=== PATIENT | female | born 1960 | race Caucasian/White ===

== ENCOUNTER → 2017-12-13 12:48 | Outpatient (CLI) | payer BC, SELFPAY | PROVIDERS: Family Provider Internal Medicine; PCP Internal Medicine; Visit Provider Internal Medicine | DX: R10.2 Pelvic and perineal pain (principal) | CPT/HCPCS: 76830; 76856; 93976 ==

== ENCOUNTER → 2017-12-20 15:58 | Outpatient (CLI) | payer BC, SELFPAY | PROVIDERS: Family Provider Internal Medicine; PCP Internal Medicine; Visit Provider Obstetrics & Gynecology | DX: R10.2 Pelvic and perineal pain (principal); N89.8 Other specified noninflammatory disorders of vagina | CPT/HCPCS: 87070; 87077; 87086; 87088; 87186; 87205 ==

== ENCOUNTER → 2018-01-12 13:53 | Outpatient (CLI) | payer BC, SELFPAY ==
--- NOTE | 2018-01-12 13:56 | CT_ITS ---
STUDY: CT ABDOMEN AND PELVIS WITH CONTRAST REASON FOR EXAM: Female, 57 years old. Pelvic pain radiating to back. Status post hysterectomy 2009 due to endometriosis. RADIATION DOSAGE (If Supplied By Facility): CTDIvol = ( 20.18 ) mGy, DLP = ( 1055.30 ) mGycm TECHNIQUE: Transaxial 3.75 mm images were obtained from the dome of the diaphragm to the symphysis pubis with oral contrast. 100 ml of Isovue 300 contrast was administered. Sagittal and coronal images were reconstructed. Individualized dose optimization techniques were used for this CT. COMPARISON: CT abdomen pelvis 04/21/2014. Transvaginal transabdominal pelvic ultrasound 12/13/2017. FINDINGS: The visualized lung bases are unremarkable. The visualized portions of the heart are within normal limits. Normal liver. The gallbladder is contracted. Normal spleen. Normal pancreas. Normal bilateral adrenal glands. Normal right kidney. Normal left kidney. There is no obstructive uropathy, obstructive renal or ureteral calculi. Normal visualized stomach. Normal small intestine. Normal colon. There is non-visualization of the appendix. Normal abdominal aorta. Normal inferior vena cava. Normal retroperitoneum. There is prominence of the bilateral internal iliac veins and right greater than left inferior gluteal vein with a focal dilatation from 1.1 to 0.9 cm extending to 1.4 x 1.3 x 1.7 cm ( AP x width x height ). Image 95 series 2, image 88 series 601. Normal urinary bladder. There is absence of the uterus consistent with a prior hysterectomy. Normal abdominal wall. Normal osseous structures. Stable small hemangioma L1 vertebral body. CT/Abdomen/Pelvis WITH Contrast IMPRESSION: Focal venous dilation of the right inferior gluteal vein possibly an incidental finding. Postsurgical changes status post hysterectomy. No pelvic or inguinal pathology detected. Electronically Signed: Alice Cruz MD at 7:39 EDT , Service support ,
== END ==
PROVIDERS: Family Provider Internal Medicine; PCP Internal Medicine; Visit Provider Obstetrics & Gynecology
DX: R10.2 Pelvic and perineal pain (principal); G89.29 Other chronic pain
CPT/HCPCS: 74177; Q9967

== ENCOUNTER → 2018-12-07 | Outpatient (CLI) | payer BC, SELFPAY ==
--- NOTE | 2018-12-07 06:20 | ECHOD_ITS ---
Reason For Study: CHEST PAIN Procedure This was a 2D Doppler, Color Flow transthoracic echocardiogram. Exam performed in department. Left Ventricle Normal size and thickness. The estimated ejection fraction is 65 %. Stage 1 diastolic dysfunction. No regional wall motion abnormalities noted. Right Ventricle Normal size and thickness. Normal systolic function. Atria Normal left atrium. Normal right atrium. Normal atrial septum. Mitral Valve The mitral valve is structurally normal. No prolapse or stenosis seen. Trivial mitral valve insufficiency. Tricuspid Valve Normal tricuspid valve. Trivial tricuspid valve insufficiency. Right ventricular systolic pressure estimated to be 18 mmHg. Aortic Valve Normal aortic valve. Trisinus/trileaflet aortic valve. Pulmonic Valve Normal pulmonic valve. Great Vessels Normal aortic root. Normal arch. Normal inferior vena cava. Inferior vena cava collapse with sniff. Pericardium/Pleural No pericardial effusion. MMode/2D Measurements & Calculations LVIDd: 4.9 cm IVSd: 0.87 cm Ao root diam: 3.3 cm LVIDs: 3.2 cm LVPWd: 1.0 cm RVDd: 3.1 cm FS: 35.2 % LAV(MOD-bp): 47.2 ml EDV(MOD-sp4): 81.4 ml EDV(MOD-sp2): 56.7 ml LAV(MOD-bp) Indexed: 24.4 ml/m2 ESV(MOD-sp4): 36.6 ml EF(MOD-sp2): 60.4 % LAV(MOD-sp2): 45.1 ml EF(MOD-sp4): 55.1 % LAV(MOD-sp4): 47.6 ml SV(MOD-sp4): 44.9 ml SV(MOD-sp2): 34.2 ml LA A4 area: 17.0 cm2 LA dimension(2D): 3.2 cm RA A4 area: 15.7 cm2 Time Measurements MV dec time: 0.23 sec Doppler Measurements & Calculations MV E max dylan: 49.7 cm/sec Lat Peak E' Dylan: 7.5 cm/sec Med Peak E' Dylan: 4.3 cm/sec MV A max dylan: 47.4 cm/sec E/E' lat: 6.6 E/E' med: 11.5 MV E/A: 1.0 Ao V2 max: 97.2 cm/sec LV V1 max: 90.1 cm/sec PA V2 max: 76.4 cm/sec Ao max P.8 mmHg LV V1 max P.2 mmHg TR max dylan: 187.8 cm/sec TR max P.1 mmHg Interpretation Summary The estimated ejection fraction is 65 %. Stage 1 diastolic dysfunction. Trivial mitral valve insufficiency. Trivial tricuspid valve insufficiency. Right ventricular systolic pressure estimated to be 18 mmHg. There is no comparison study available. Ordering Physician: Tara Diaz Referring Physician: Tara Diaz Performed By: Vanessa Rubio RDCS, RVT
--- NOTE | 2018-12-10 11:54 | STRESSREP ---
Stress Test Report Date: 12/07/2018 Procedure: Exercise tolerance test/imaging study Indications: [Chest pain] Consent: Per the patient Procedure: The patient exercised on a Dilshad protocol for 8 minutes achieving a peak heart rate of 153 bpm (94 % predicted maximal heart rate) with a peak blood pressure 170/80 mmHg and a peak MET capacity of 10.1 METs. The baseline ECG demonstrated normal sinus rhythm. The peak exercise ECG demonstrated sinus tachycardia with no significant gimmick changes. EKG during recovery revealed no significant ischemic changes [There were no cardiac dysrhythmias pretest, during exercise, or recovery]. The functional capacity was considered normal for age. There was [no complaint of chest discomfort during exercise or recovery]. The examination was discontinued secondary to dyspnea. Impression: 1. Technically adequate (percent predicted maximal heart rate greater than 85%) exercise tolerance test 2. Stress test is negative for exercise-induced EKG changes of ischemia 3. The test test is negative for exercise-induced chest pain 4. Functional capacity is normal for age 5. Nuclear images pending Myocardial perfusion imaging study: Technique: The patient was injected with 11.8 mCi of technetium 99m Cardiolite and subsequently rest SPECT Cardiolite nuclear imaging was obtained in the horizontal long, vertical long, and short axis views. The patient exercised on a Dilshad protocol. Please see above for details. The patient was injected with 33.9 mCi of technetium 99m Cardiolite and subsequently stress SPECT Cardiolite nuclear imaging was obtained in the horizontal long, vertical long, and short axis views. A gated Cardiolite study at peak stress was obtained. Interpretation: Rest and stress SPECT Cardiolite nuclear imaging status post realignment, normalization, and attenuation correction, demonstrates overall uniform myocardial radioisotope uptake. The gated Cardiolite study demonstrates no significant regional wall motion abnormalities. The reported LVEF is greater than 70 %. Impression: 1. There is no evidence of significant ischemia or infarction. 2. The gated Cardiolite study reports an LVEF of greater than 70%. This note was generated with [employer] software. It may contain incorrect words, spelling, and punctuation that were not noted in checking the note before signing.
== END | disposition home or self-care (01) ==
PROVIDERS: Family Provider Internal Medicine; PCP Internal Medicine; Referring Provider Internal Medicine; Visit Provider Internal Medicine
DX: R07.9 Chest pain, unspecified (principal)
CPT/HCPCS: 78452; 93017; 93306; A9500; A4216

== ENCOUNTER → 2018-12-28 | Outpatient (CLI) | payer SELFPAY ==
--- NOTE | 2018-12-28 12:52 | CT_ITS ---
STUDY: CARDIAC CALCIUM SCORING - CT CHEST REASON FOR EXAM: Female, 58 years old. Screening RADIATION DOSAGE (If Supplied By Facility): CTDIvol = ( 12.19 ) mGy, DLP = ( 195.04 ) mGycm TECHNIQUE: Axial non-enhanced images were acquired through the heart for the sole purpose of measuring coronary artery calcium. Individualized dose optimization techniques were used for this CT. COMPARISON: None. FINDINGS: Please see the patient's medical record for a personalized calcium score. There is a 4 mm nodule in the right lower lobe (image 41 series 3). The visualized lungs are otherwise clear. The visualized soft tissues are within normal limits. CT/Limited Chest CT w/CCTA IMPRESSION: Please see the patient's medical record for a person last calcium score. 4 mm nodule in the right lower lobe. A dedicated chest CT is recommended. Please go to: [email or web address] , for a description of the calculator. Electronically Signed: Thang Catsellano, at 14:43 EDT Tel , Service support ,
--- NOTE | 2018-12-28 15:21 | CA.SCORE ---
Calcium Scoring Date of Study:: 12/28/18 Coronary Calcium Scoring: High-resolution Computed Tomographic imaging of the chest was performed on [12/28/2018], with particular attention paid to the coronary arteries. Images from the examination were analyzed for the presence and extent of coronary artery calcification , using coronary calcium quantification software. The patient tolerated the procedure well and there were no complications. The results of the coronary calcification analysis are provided below. - Findings Left Main (LM): 0 Left Anterior Descending (LAD): 0 Left Circumflex (LCX): 0 Right Coronary Artery (RCA): 0 Total Agatston Score: 0 Percentile Rankin Calcium Scoring Interpretation: 0 No identifiable atherosclerotic plaque. Very low cardiovascular disease risk. <5% chance of presence coronary artery disease A Negative Examination 1-10 Minimal Plaque burden. Significant coronary artery disease very unlikely. 11-100 Mild plaque burden. Likely mild or minimal coronary atherosclerosis. 101-400 Moderate plaque burden Moderate non-obstructive coronary artery disease highly likely. Over 400 Extensive plaque burden. High likelihood of at least one significant coronary stenosis (>50% diameter) Conclusion: The total calcium score (0) is below the 25th percentile for women between the ages of 55 and 59. (Exact percentile calculated to be 25%; this means 24% of the population has a similar calcium score and 75% of the population has a higher calcium score than this patient.) A full evaluation of cardiac risk including assessment of all conventional risk factors, and the scores and percentile rankings reported herein should be evaluated in this context.
== END | disposition home or self-care (01) ==
PROVIDERS: Family Provider Internal Medicine; PCP Internal Medicine; Referring Provider Internal Medicine; Visit Provider Internal Medicine
DX: Z82.49 Family history of ischemic heart disease and other diseases of the circulatory system (principal)
CPT/HCPCS: 75571; 76380

== ENCOUNTER → 2019-10-30 08:57 | Outpatient (CLI) | payer BC, SELFPAY ==
--- NOTE | 2019-10-30 09:01 | BI_ITS ---
MAMMOGRAPHY - BILATERAL SCREENING REASON FOR EXAM: Female, 59 years old. Routine annual screening examination. PERTINENT HISTORY: Aunts with breast cancer. TECHNIQUE: Digital bilateral breast jyoti (3D mammographic acquisition) in the CC and MLO projections. 2-D mediolateral oblique (MLO) and craniocaudad (CC) views of both breasts were obtained. CAD: Full Field Digital Mammography with Computer Added Detection was performed. COMPARISON: Comparison is made with prior examination dated October 23, 2017 and February 26, 2016. FINDINGS: Breast Composition: There are scattered areas of fibroglandular density. There are no dominant masses or suspicious calcifications. Stable small benign-appearing bilateral axillary lymph nodes. No other significant abnormalities are identified. There has been no significant change since the prior study. BI/SCREEN MAMM (CAD) W/JYOTI BILAT IMPRESSION: Stable bilateral screening mammogram. Yearly follow-up mammogram recommended. (A) ASSESSMENT CATEGORY: BIRADS Category 2: Benign. A letter regarding these results will be sent to the patient by the facility within 30 days. Approximately 10% of breast cancers are not detected by mammography. A normal mammogram should not delay biopsy of a clinically suspicious abnormality. [id number] Electronically Signed: Charles Bucio, at 10:05 EDT , Service support ,
--- NOTE | 2019-10-30 09:20 | BD_ITS ---
STUDY: DUAL ENERGY X-RAY ABSORPTIOMETRY / DXA REASON FOR EXAM: Female, 59 years old. 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 COMPARISON: None. FINDINGS: Lumbar Spine (L1-L4): g/cm2 (1.309) / T-score (1.1) / Z-score (2.2) Findings are suggestive of normal bone density with a low fracture risk. Left Femur Total: g/cm2 (0.944) / T-score (-0.5) / Z-score (0.4) Left Femoral Neck: g/cm2 (0.869) / T-score (-1.2) / Z-score (0.0) Right Femur Total: g/cm2 (0.926) / T-score (-0.7) / Z-score (0.2) Right Femoral Neck: g/cm2 (0.827) / T-score (-1.5) / Z-score (-0.3) BD/Dexa Bone Density Study IMPRESSION: The patient is considered osteopenic as outlined below according to World Adam Organization (WHO) criteria with a low fracture risk. Reference Information: The T-score is the number of standard deviations above or below the standard which is normal for young adults at their peak bone mineral density. The World Health Organization (WHO) interprets the T-scores as follows: Above -1 Normal bone density Between -1 and -2.5 Osteopenia Equal to / or below -2.5 Osteoporosis As a practical clinical guideline, osteopenia may be graded as follows: Mild -1 through -1.5 Moderate -1.6 through -2.0 Severe -2.1 through -2.4 The Z-score is the number of standard deviations above or below age-matched controls. A Z-score of less than -1.5 would be considered abnormal. References: 1. NIH Osteoporosis and Related Bone Diseases http://www.osteo.org 2. International Society for Clinical Densitometry http://www.iscd.org 3. National Osteoporosis Foundation http://www.nof.org Electronically Signed: Charles Bucio, at 13:24 EDT , Service support ,
== END ==
PROVIDERS: PCP Internal Medicine; Referring Provider Internal Medicine; Visit Provider Internal Medicine
DX: Z12.31 Encounter for screening mammogram for malignant neoplasm of breast (principal); Z78.0 Asymptomatic menopausal state
CPT/HCPCS: 77063; 77067; 77080

== ENCOUNTER → 2020-11-06 07:21 | Outpatient (CLI) | payer BC, SELFPAY ==
--- NOTE | 2020-11-06 07:33 | BI_ITS ---
MAMMOGRAPHY - BILATERAL SCREENING REASON FOR EXAM: Female, 60 years old. Routine annual screening examination. PERTINENT HISTORY: Non-contributory. TECHNIQUE: Digital bilateral breast jyoti (3D mammographic acquisition) in the CC and MLO projections. 2-D mediolateral oblique (MLO) and craniocaudad (CC) views of both breasts were obtained. CAD: Full Field Digital Mammography with Computer Added Detection was performed. COMPARISON: Comparison is made with prior study dated 10/30/2019 and 04/25/2017. FINDINGS: Breast Composition: There are scattered areas of fibroglandular density. There are no dominant masses or suspicious calcifications. Stable benign-appearing bilateral axillary lymph nodes. No other significant abnormalities are identified. There has been no significant change since the prior study. BI/SCRN MAMM (CAD)W/JYOTI BILAT IMPRESSION: Stable bilateral screening mammogram. Yearly follow-up mammogram recommended. (A) ASSESSMENT CATEGORY: BIRADS Category 2: Benign. A letter regarding these results will be sent to the patient by the facility within 30 days. Approximately 10% of breast cancers are not detected by mammography. A normal mammogram should not delay biopsy of a clinically suspicious abnormality. [id number] Electronically Signed: Charles Bucio MD at 8:19 EDT , Service support ,
== END ==
PROVIDERS: PCP Internal Medicine; Referring Provider Internal Medicine; Visit Provider Internal Medicine
DX: Z12.31 Encounter for screening mammogram for malignant neoplasm of breast (principal)
CPT/HCPCS: 77063; 77067

== ENCOUNTER → 2022-01-05 | Outpatient (CLI) | payer BC, SELFPAY ==
--- NOTE | 2022-01-05 07:10 | BI_ITS ---
MAMMOGRAPHY - BILATERAL SCREENING REASON FOR EXAM: Female, 61 years old. Routine annual screening examination. PERTINENT HISTORY: Non-contributory. TECHNIQUE: Digital bilateral breast jyoti (3D mammographic acquisition) in the CC and MLO projections. 2-D mediolateral oblique (MLO) and craniocaudad (CC) views of both breasts were obtained. CAD: Full Field Digital Mammography with Computer Added Detection was performed. COMPARISON: Comparison is made with prior study dated 11/06/2020 and 10/30/2019. FINDINGS: Breast Composition: There are scattered areas of fibroglandular density. There are no dominant masses or suspicious calcifications. No other significant abnormalities are identified. There has been no significant change since the prior study. BI/SCRN MAMM (CAD)W/JYOTI BILAT IMPRESSION: Stable bilateral screening mammogram. Yearly follow-up mammogram recommended. (A) ASSESSMENT CATEGORY: BIRADS Category 1: Negative. A letter regarding these results will be sent to the patient by the facility within 30 days. Approximately 10% of breast cancers are not detected by mammography. A normal mammogram should not delay biopsy of a clinically suspicious abnormality. [id number] Electronically Signed: Charles Bucio MD at 8:39 EDT ,
== END | disposition home or self-care (01) ==
LOC: OPBI 07:08
PROVIDERS: PCP Internal Medicine; Referring Provider Internal Medicine; Visit Provider Internal Medicine
DX: Z12.31 Encounter for screening mammogram for malignant neoplasm of breast (principal)
CPT/HCPCS: 77063; 77067

== ENCOUNTER → 2023-02-17 | Outpatient (CLI) | payer BC, SELFPAY ==
--- NOTE | 2023-02-17 07:59 | BI_ITS ---
MAMMOGRAPHY - BILATERAL SCREENING REASON FOR EXAM: Female, 62 years old. Routine annual screening examination. PERTINENT HISTORY: Non-contributory. TECHNIQUE: Digital bilateral breast jyoti (3D mammographic acquisition) in the CC and MLO projections. 2-D mediolateral oblique (MLO) and craniocaudad (CC) views of both breasts were obtained. CAD: Full Field Digital Mammography with Computer Added Detection was performed. COMPARISON: Comparison is made with prior study January 05, 2022 and November 06, 2020. FINDINGS: Breast Composition: There are scattered areas of fibroglandular density. There are no dominant masses or suspicious calcifications. Stable small benign-appearing bilateral axillary lymph nodes. No other significant abnormalities are identified. There has been no significant change since the prior study. BI/SCRN MAMM (CAD)W/JYOTI BILAT IMPRESSION: Stable bilateral screening mammogram. Yearly follow-up mammogram recommended. (A) ASSESSMENT CATEGORY: BIRADS Category 2: Benign. A letter regarding these results will be sent to the patient by the facility within 30 days. Approximately 10% of breast cancers are not detected by mammography. A normal mammogram should not delay biopsy of a clinically suspicious abnormality. [id number] Electronically Signed: Charles Bucio MD at 9:01 EDT ,
== END | disposition home or self-care (01) ==
LOC: OPBI 07:58
PROVIDERS: PCP Internal Medicine; Referring Provider Internal Medicine; Visit Provider Internal Medicine
DX: Z12.31 Encounter for screening mammogram for malignant neoplasm of breast (principal)
CPT/HCPCS: 77063; 77067

== ENCOUNTER → 2023-05-18 | Outpatient (CLI) | payer BC, SELFPAY ==
--- NOTE | 2023-05-18 08:15 | BD_ITS ---
STUDY: DUAL ENERGY X-RAY ABSORPTIOMETRY / DXA REASON FOR EXAM: Female, 62 years old. [id number] TECHNIQUE: Bone Mineral Density (BMD) measurements of lumbar spine and bilateral hips were obtained. COMPARISON: Comparison is made with prior examination of October 30, 2019. FINDINGS: Lumbar Spine (L1-L4): g/cm2 (1.107) / T-score (0.5) / Z-score (2.2) Findings are suggestive of normal bone density with a low fracture risk. Left Femur Total: g/cm2 (0.873) / T-score (-0.6) / Z-score (0.5) Left Femoral Neck: g/cm2 (0.758) / T-score (-0.8) / Z-score (0.6) Right Femur Total: g/cm2 (0.848) / T-score (-0.8) / Z-score (0.3) Right Femoral Neck: g/cm2 (0.701) / T-score (-1.3) / Z-score (0.1) The T-Scores on the most recent prior examination were: Lumbar Spine (L1-L4): There has been worsening of bone density since the previous examination. Left Femur Total: which represents a worsening of 0.7%. Right Femur Total: which represents a worsening of 1.6%. BD/Dexa Bone Density Study IMPRESSION: The patient is considered osteopenic as outlined below according to World [employer] Organization (WHO) criteria with a low fracture risk. There has been worsening of bone density since the previous examination. Reference Information: The T-score is the number of standard deviations above or below the standard which is normal for young adults at their peak bone mineral density. The World Health Organization (WHO) interprets the T-scores as follows: Above -1 Normal bone density Between -1 and -2.5 Osteopenia Equal to / or below -2.5 Osteoporosis As a practical clinical guideline, osteopenia may be graded as follows: Mild -1 through -1.5 Moderate -1.6 through -2.0 Severe -2.1 through -2.4 The Z-score is the number of standard deviations above or below age-matched controls. A Z-score of less than -1.5 would be considered abnormal. References: 1. NIH Osteoporosis and Related Bone Diseases www osteo.org 2. International Society for Clinical Densitometry www iscd.org 3. National Osteoporosis Foundation www nof.org Electronically Signed: Charles Bucio MD at 10:08 EST ,
--- OUTSIDE RECORDS SUMMARY | 2023-05-18 08:39 | XMS RPT_ITS | CCD ---
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 Name Role Phone Tara Diaz Unavailable Elva Serna Unavailable Rebecca Casey Unavailable Mikaela Gallego Unavailable Hector Sams Unavailable Kelly Sellers Unavailable Unavailable Kurtis Cortés Unavailable Unavailable Paige Jordan Unavailable Unavailable Unavailable Unavailable GravHilary villanuevain Unavailable Unavailable Kurtis Cortés Unavailable Unavailable Paige Jordan Unavailable Unavailable Kelly Sellers Unavailable Unavailable Tara Diaz Primary Care Provider Tara Diaz Primary Care Provider [phone] Rebecca Casey Unavailable Kurtis Portillo Unavailable Unavailable Tara Diaz Primary Care Provider Marychuy Helene Unavailable SlaRachel dumont Unavailable Unavailable Tara Diaz DO Unavailable Elva Serna Unavailable Rebecca Casey Unavailable Dr. Mikaela Gallego MD Unavailable [phone] Hector Sams Unavailable Kurtis Portillo LPN Unavailable Unavailable Ev Miranda CMA Unavailable Unavailable Paige Jordan RN Unavailable Unavailable Messenger Kelly PABLO Unavailable Unavailable Ciobinna PANDEY Helene Unavailable Unavailable Unavailable Desmond Gonzalez Unavailable Yony RAMSEYCarlota Unavailable Unavailable Gala DO, Tara K Primary Care Provider Gala DO, Tara Unavailable [phone] Slarb DIRECTOR BIOLOGICS, Rachel Unavailable Unavailable Gala, Atra Unavailable Juan David, Florencia Unavailable Unavailable Gala DO, Tara K Primary Care Provider Naun DIRECTOR BIOLOGICS, Florencia Unavailable Unavailable Gala DO, Tara Attending Unavailable Gala DO, Tara Referring Unavailable Gala DO, Tara Consulting Unavailable Trinidad RAMSEYRuba Unavailable Unavailable Gala DO, Tara K Primary Care Provider LUIS SHEARER Attending Unavailable GALA, TARA K Primary Care Unavailable Mission DIRECTOR BIOLOGICS, Beto Unavailable Unavailable GALA, TARA K Primary Care Unavailable DAY, PEYTON GILLETTE Referring Unavailable GALA, TARA K Primary Care Unavailable DAY, PEYTON GILLETTE Attending Unavailable LEANDRO CHANCE Attending Unavailable GALA, TARA K Primary Care Unavailable Allergies Allergy Classification Reported Allergen(s) Allergy Type Date of Onset Reaction(s) Facility HMG-CoA Reductase Inhibitors (statins) (5 sources) Pravastatin; Translations: [Pravastatin Sodium *ANTIHYPERLIPIDE MICS*] Drug Allergy [facility] Work Phone: Medications Current Medications Medication Drug Class(es) Dates Sig (Normalized) Sig (Original) ascorbic acid 500 mg oral tablet (16 sources) Vitamin C take 1 tablet by mouth once daily ascorbic acid, vitamin C, (VITAMIN C) 500 MG tablet Take 1 (one) tablet (500 mg total) by mouth daily . 0 Active aspirin 81 mg chewable tablet (3 sources) Platelet Aggregation Inhibitor, Nonsteroidal Anti-inflammatory Drug Start: 11-05-2019 End: 12-06-2019 aspirin 81 mg chewable tablet Chew and Swallow 1 (one) tablet (81 mg total) daily Start: 11/06/19. 30 tablet 0 11/06/2019 12/06/2019 Active ezetimibe 10 mg oral tablet (20 sources) Dietary Cholesterol Absorption Inhibitor Start: 10-29-2021 End: 02-13-2023 take 1 tablet by mouth once daily ezetimibe (ZETIA) 10 mg tablet Take 1 (one) tablet (10 mg total) by mouth daily . 90 tablet 3 02/13/2023 Active Completed/Discontinued Medications Medication Drug Class(es) Dates Sig (Normalized) Sig (Original) amoxicillin 875 mg oral tablet (20 sources) Penicillin-class Antibacterial Start: 04-12-2016 End: 04-22-2016 take 1 tablet by mouth twice daily Amoxicillin 875 MG Oral Tablet 1 (one) Tablet bid for 10 days Quantity: 20 {Tablet} Refills: 0 Ordered: 12-Apr-2016 Franci Antunez CMA Start : 12-Apr-2016 End : 22-Apr-2016 Inactive amoxicillin 500 mg / clavulanate 125 mg oral tablet (20 sources) Penicillin-class Antibacterial Start: 04-15-2020 End: 04-25-2020 take 1 tablet by mouth twice daily Augmentin 500-125 MG Oral Tablet 1 (one) Tablet bid for 10 days Quantity: 20 {Tablet} Refills: 0 Ordered: 15-Apr-2020 Myrtle Perrin Start : 15-Apr-2020 End : 25-Apr-2020 Inactive Comments: or generic Problems Active Problems Problem Classification Problem Date Documented Da te Episodic/Chronic Abdominal pain (20 sources) Pain in female pelvis; Translations: [Pain in pelvis] Resolved: 07-23-2021 12-11-2017 Episodic Past or Other Problems Problem Classification Problem Date Documented Da te Episodic/Chronic Cardiac dysrhythmias (20 sources) Palpitations; Translations: [Palpitations] Onset: 12-04-2019 12-04-2019 Episodic Fracture of lower limb (4 sources) Closed fracture distal tibia; Translations: [Unspecified fracture of ankle, closed] Onset: 08-20-2022 Resolved: 10-07-2021 10-07-2021 Episodic Fracture of lower limb (1 source) Closed fracture of distal fibula ; Translations: [Unspecified fracture of ankle, closed] Resolved: 10-07-2021 10-07-2021 Episodic Mood disorders (20 sources) Mood disorders Nonspecific chest pain (20 sources) Cardiac chest pain; Translations: [Chest pain] Onset: 09-22-2021 11-21-2018 Episodic Results Test Name Value Interpretation Reference Range Facil ity Vital Signs Date Time Vital Sign Value Performing Clinician Facility 02-20-2023 08:47-0400 Body height 172.7 cm Peyton Day MD Work Phone: [facility] 02-20-2023 08:47-0400 Body mass index (BMI) [Ratio] 28.8 kg/m2 Peyton Jones MD Work Phone: [facility] 02-20-2023 08:47-0400 Body weight 85.91 kg Peyton Jones MD Work Phone: [facility] 02-20-2023 08:47-0400 Diastolic blood pressure 79 mm[Hg] Peyton Jones MD Work Phone: [facility] 02-20-2023 08:47-0400 Heart rate 63 /min Peyton Jones MD Work Phone: [facility] 02-20-2023 08:47-0400 SaO2% (BldA) [Mass fraction] 96 % Peyton Jones MD Work Phone: [facility] 02-20-2023 08:47-0400 Systolic blood pressure 120 mm[Hg] Peyton Jones MD Work Phone: [facility] 02-25-2022 12:51-0400 Body height 172.72 cm Tara Diaz DO Work Phone: [facility] Work Phone: Encounters Encounter Date Encounter Type Care Provider Facility Start: 03-31-2023 Refill Peyton martinez MD Work Phone: [facility] Procedures Date Procedure Procedure Detail Performing Clinician Start: 02-17-2023 End: 02-17-2023 SCRN MAMM (CAD)W/JYOTI BILAT Procedure Note: See Note; NOTES: [facility] Imaging Services [address] [place] [address] SCRN MAMM (CAD)W/JYOTI BILAT MR#: [id number] Acct: [id number] Name: EMELIA BLUM Rep #: [id number] : 1960 F 62 From: Charles pennington MD PCP: Dr. Tara Diaz, DO Status: REG CLI Study: SCRN MAMM (CAD)W/JYOTI BILAT Date of Exam: 01/23 11/13 Exam# [id number] Ordering Dr: Tara Diaz DO [id number] MAMMOGRAPHY - BILATERAL SCREENING REASON FOR EXAM: Female, 62 years old. Routine annual screening examination. PERTINENT HISTORY: Non-contributory. TECHNIQUE: Digital bilateral breast jyoti (3D mammographic acquisition) in the CC and MLO projections. 2-D mediolateral oblique (MLO) and craniocaudad (CC) views of both breasts were obtained. CAD: Full Field Digital Mammography with Computer Added Detection was performed. COMPARISON: Comparison is made with prior study January 05, 2022 and November 06, 2020. FINDINGS: Breast Composition: There are scattered areas of fibroglandular density. There are no dominant masses or suspicious calcifications. Stable small benign-appearing bilateral axillary lymph nodes. No other significant abnormalities are identified. There has been no significant change since the prior study. BI/SCRN MAMM (CAD)W/JYOTI BILAT IMPRESSION: Stable bilateral screening mammogram. Yearly follow-up mammogram recommended. (A) ASSESSMENT CATEGORY: BIRADS Category 2: Benign. A letter regarding these results will be sent to the patient by the facility within 30 days. Approximately 10% of breast cancers are not detected by mammography. A normal mammogram should not delay biopsy of a clinically suspicious abnormality. [id number] Electronically Signed: Charles Bucio MD at 9:01 EDT , CC: Dr. Tara Diaz DO Cardiopulmonary Technologist: Signed Tara Diaz DO Work Phone: Start: 01-05-2022 End: 01-05-2022 SCRN MAMM (CAD)W/JYOTI BILAT Procedure Note: See Note; NOTES: [facility] Imaging Services [address] [place] [address] SCRN MAMM (CAD)W/JYOTI BILAT MR#: [id number] Acct: [id number] Name: EMELIA BLUM Rep #: [id number] : 1960 F 61 From: Charles pennington MD PCP: Dr. Tara Diaz DO Status: REG CLI Study: SCRN MAMM (CAD)W/JYOTI BILAT Date of Exam: 12/23 08/13 Exam# [id number] Ordering Dr: Tara Diaz DO MAMMOGRAPHY - BILATERAL SCREENING REASON FOR EXAM: Female, 61 years old. Routine annual screening examination. PERTINENT HISTORY: Non-contributory. TECHNIQUE: Digital bilateral breast jyoti (3D mammographic acquisition) in the CC and MLO projections. 2-D mediolateral oblique (MLO) and craniocaudad (CC) views of both breasts were obtained. CAD: Full Field Digital Mammography with Computer Added Detection was performed. COMPARISON: Comparison is made with prior study dated 11/06/2020 and 10/30/2019. FINDINGS: Breast Composition: There are scattered areas of fibroglandular density. There are no dominant masses or suspicious calcifications. No other significant abnormalities are identified. There has been no significant change since the prior study. BI/SCRN MAMM (CAD)W/JYOTI BILAT IMPRESSION: Stable bilateral screening mammogram. Yearly follow-up mammogram recommended. (A) ASSESSMENT CATEGORY: BIRADS Category 1: Negative. A letter regarding these results will be sent to the patient by the facility within 30 days. Approximately 10% of breast cancers are not detected by mammography. A normal mammogram should not delay biopsy of a clinically suspicious abnormality. [id number] Electronically Signed: Charles Bucio MD at 8:39 EDT , CC: Dr. Tara Diaz DO Cardiopulmonary Technologist: Signed Tara Diaz DO Work Phone: Start: 05-26-2021 End: 05-26-2021 Abdomen Single View Comments: See Note; NOTES: [facility] Radiology [address] [place] [address] Abdomen Single View MR#: [id number] Acct: [id number] Name: EMELIA BLUM Rep #: [id number] : 1960 F 60 From: Charles pennington MD PCP: Dr. Tara Diaz, Status: DEP AMB Study: Abdomen Single View Date of Exam: 05/26/21 Exam# [id number] Ordering Dr: Myrtle Perrin NP PARACHUTE OFFICER-C STUDY: X-RAY - ABDOMEN/PELVIS REASON FOR EXAM: Female, 60 years old. LOWER ABDOMINAL PAIN TECHNIQUE: Single AP view of the abdomen / pelvis. COMPARISON: None. FINDINGS: Normal visualized lung bases. There is a moderate amount of colonic fecal material. The visualized liver, spleen and kidneys are grossly normal in size and morphology. Normal soft tissue structures. Normal visualized osseous structures. RAD/Abdomen Single View IMPRESSION: Moderate amount of fecal material is seen throughout the colon. Electronically Signed: Charles Bucio MD at 13:02 EST Reading Location ID and State: [facility] / [place] , Service support , CC: AMARJIT Perrin; Dr. Tara Diaz DO Cardiopulmonary Technologist: Signed Myrtle Lindergamagerardo Work Phone: Start: 11-06-2020 End: 11-06-2020 SCRN MAMM (CAD)W/JYOTI BILAT Comments: See Note; NOTES: [facility] Imaging Services [address] [place] [address] SCRN MAMM (CAD)W/JYOTI BILAT MR#: [id number] Acct: [id number] Name: EMELIA BLUM Rep #: [id number] : 1960 F 60 From: Charles pennington MD PCP: Dr. Tara Diaz DO Status: REG CLI Study: SCRN MAMM (CAD)W/JYOTI BILAT Date of Exam: 10/22 10/12 Exam# [id number] Ordering Dr: Tara Diaz DO MAMMOGRAPHY - BILATERAL SCREENING REASON FOR EXAM: Female, 60 years old. Routine annual screening examination. PERTINENT HISTORY: Non-contributory. TECHNIQUE: Digital bilateral breast jyoti (3D mammographic acquisition) in the CC and MLO projections. 2-D mediolateral oblique (MLO) and craniocaudad (CC) views of both breasts were obtained. CAD: Full Field Digital Mammography with Computer Added Detection was performed. COMPARISON: Comparison is made with prior study dated 10/30/2019 and 04/25/2017. FINDINGS: Breast Composition: There are scattered areas of fibroglandular density. There are no dominant masses or suspicious calcifications. Stable benign-appearing bilateral axillary lymph nodes. No other significant abnormalities are identified. There has been no significant change since the prior study. BI/SCRN MAMM (CAD)W/JYOTI BILAT IMPRESSION: Stable bilateral screening mammogram. Yearly follow-up mammogram recommended. (A) ASSESSMENT CATEGORY: BIRADS Category 2: Benign. A letter regarding these results will be sent to the patient by the facility within 30 days. Approximately 10% of breast cancers are not detected by mammography. A normal mammogram should not delay biopsy of a clinically suspicious abnormality. [id number] Electronically Signed: Charles Bucio MD at 8:19 EDT , Service support , CC: Dr. Tara Diaz DO Cardiopulmonary Technologist: Signed Tara Diaz DO Work Phone: Start: 09-11-2020 End: 09-11-2020 HIP, UNI W/ Pelvis 2-3 Views Comments: See Note; NOTES: [facility] Radiology [address] [place] [address] HIP, UNI W/ Pelvis 2-3 Views MR#: [id number] Acct: [id number] Name: EMELIA BLUM Rep #: [id number] : 1960 F 60 From: Dominik Angela PCP: Dr. Tara Diaz DO Status: DEP AMB Study: HIP, UNI W/ Pelvis 2-3 Views Date of Exam: Exam# [id number] Ordering Dr: Tara Diaz DO STUDY: X-RAY - PELVIS AND RIGHT HIP REASON FOR EXAM: Right hip pain for about 2 years, no recent injury. TECHNIQUE: 2 views of the pelvis and hip. COMPARISON: None. FINDINGS: There are small pelvic phleboliths. Normal bilateral iliac wings, sacroiliac joints and visualized sacrum. Normal bilateral superior and inferior pubic rami. Normal pubic symphysis. Normal bilateral ischial tuberosities. Normal visualized femoral head. Normal acetabulum. Normal hip joint. RAD/HIP, UNI W/ Pelvis 2-3 Views IMPRESSION: Normal x-ray examination of the pelvis and right hip. Electronically Signed: Dominik Gao MD at 11:31 EDT Tel , Service support , CC: Dr. Tara Diaz, Cardiopulmonary Technologist: Signed Tara Diaz DO Work Phone: Start: 11-12-2019 End: 11-12-2019 Colonoscopy Tara Diaz Work Phone: Start: 11-05-2019 Urinalysis Minerva Hardin Work Phone: Start: 11-05-2019 Echocardiography Parmjit Amezcua Work Phone: Start: 11-05-2019 Electrocardiogram Provider Not In System Start: 11-05-2019 C reactive protein [Mass/volume] in Serum or Plasma Minerva Hardin Work Phone: Start: 11-05-2019 Erythrocyte sedimentation rate by Westergren method Minerva Hardin Work Phone: Start: 11-05-2019 Magnesium [Mass/volume] in Serum or Plasma Minerva Hardin Work Phone: Start: 11-05-2019 Thyrotropin [Units/volume] in Serum or Plasma by Detection limit <= 0.005 mIU/L Minerva Hardin Work Phone: Start: 11-05-2019 Basic metabolic 2000 panel - Serum or Plasma Parmjit Amezcua Work Phone: Start: 11-05-2019 Troponin measurement Parmjit Amezcua Work Phone: Start: 11-04-2019 Natriuretic peptide.B prohormone N-Terminal [Mass/volume] in Serum or Plasma Parmjit Amezcua Work Phone: Start: 11-04-2019 Troponin measurement Parmjit Amezcua Work Phone: Start: 11-04-2019 COVID-19, MOLECULAR Greer CedilloManav Copesherrirenee Work Phone: Start: 11-04-2019 Radiologic exam chest single view Greerthalia Smith Work Phone: Start: 11-04-2019 12 lead ECG Aileen Jaime Work Phone: Start: 11-04-2019 Complete blood count with white cell differential, automated Greerthalia Smith Work Phone: Start: 11-04-2019 Complete blood count with white cell differential, manual Greerdavid Copeearnest Work Phone: Start: 11-04-2019 Comprehensive metabolic 2000 panel - Serum or Plasma Greer Iram Smith Work Phone: Start: 11-04-2019 VELA TOP Aileen Jaime Work Phone: Start: 11-04-2019 INR in Platelet poor plasma by Coagulation assay Greer CedilloManav Smith Work Phone: Start: 11-04-2019 LAVENDER TOP Aileen Jaime Work Phone: Start: 11-04-2019 LIGHT BLUE TOP Aileen Dent Addison Work Phone: Start: 11-04-2019 MINT GREEN TOP Aileen Jaime Work Phone: Start: 11-04-2019 RAINBOW DRAW Aileen Dent Addison Work Phone: Start: 11-04-2019 Troponin measurement Greer Mahansherrirenee Work Phone: Start: 10-30-2019 End: 10-30-2019 Dexa Bone Density Study Comments: See Note; NOTES: [facility] Imaging Services [address] [place] [address] [place] [address] Dexa Bone Density Study MR#: [id number] Acct: [id number] Name: MEELIA BLUM Rep #: [id number] : 1960 F 59 From: Charles pennington MD PCP: Dr. Tara Diaz, Status: REG CLI Study: Dexa Bone Density Study Date of Exam: 10/30/19 Exam# [id number] Ordering Dr: Tara Diaz DO STUDY: DUAL ENERGY X-RAY ABSORPTIOMETRY / DXA REASON FOR EXAM: Female, 59 years old. 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 COMPARISON: None. FINDINGS: Lumbar Spine (L1-L4): g/cm2 (1.309) / T-score (1.1) / Z-score (2.2) Findings are suggestive of normal bone density with a low fracture risk. Left Femur Total: g/cm2 (0.944) / T-score (-0.5) / Z-score (0.4) Left Femoral Neck: g/cm2 (0.869) / T-score (-1.2) / Z-score (0.0) Right Femur Total: g/cm2 (0.926) / T-score (-0.7) / Z-score (0.2) Right Femoral Neck: g/cm2 (0.827) / T-score (-1.5) / Z-score (-0.3) BD/Dexa Bone Density Study IMPRESSION: The patient is considered osteopenic as outlined below according to World Adam Organization (WHO) criteria with a low fracture risk. Reference Information: The T-score is the number of standard deviations above or below the standard which is normal for young adults at their peak bone mineral density. The World Health Organization (WHO) interprets the T-scores as follows: Above -1 Normal bone density Between -1 and -2.5 Osteopenia Equal to / or below -2.5 Osteoporosis As a practical clinical guideline, osteopenia may be graded as follows: Mild -1 through -1.5 Moderate -1.6 through -2.0 Severe -2.1 through -2.4 The Z-score is the number of standard deviations above or below age-matched controls. A Z-score of less than -1.5 would be considered abnormal. References: 1. NIH Osteoporosis and Related Bone Diseases http://www.osteo.org 2. International Society for Clinical Densitometry http://www.iscd.org 3. National Osteoporosis Foundation http://www.nof.org Electronically Signed: Charles Bucio, at 13:24 EDT , Service support , CC: Dr. Tara Diaz DO Cardiopulmonary Technologist: Signed Tara Diaz Work Phone: Start: 10-30-2019 End: 10-30-2019 SCREEN MAMM (CAD) W/JYOTI BILAT Comments: See Note; NOTES: [facility] Imaging Services [address] [place] [address] SCREEN MAMM (CAD) W/JYOTI BILAT MR#: [id number] Acct: [id number] Name: EMELIA BLUM Rep #: [id number] : 1960 F 59 From: Charles pennington MD PCP: Dr. Tara Diaz DO Status: REG CLI Study: SCREEN MAMM (CAD) W/JYOTI BILAT Date of Exam: 0 10/30/19 Exam# [id number] Ordering Dr: Taar Diaz DO MAMMOGRAPHY - BILATERAL SCREENING REASON FOR EXAM: Female, 59 years old. Routine annual screening examination. PERTINENT HISTORY: Aunts with breast cancer. TECHNIQUE: Digital bilateral breast jyoti (3D mammographic acquisition) in the CC and MLO projections. 2-D mediolateral oblique (MLO) and craniocaudad (CC) views of both breasts were obtained. CAD: Full Field Digital Mammography with Computer Added Detection was performed. COMPARISON: Comparison is made with prior examination dated October 23, 2017 and February 26, 2016. FINDINGS: Breast Composition: There are scattered areas of fibroglandular density. There are no dominant masses or suspicious calcifications. Stable small benign-appearing bilateral axillary lymph nodes. No other significant abnormalities are identified. There has been no significant change since the prior study. BI/SCREEN MAMM (CAD) W/JYOTI BILAT IMPRESSION: Stable bilateral screening mammogram. Yearly follow-up mammogram recommended. (A) ASSESSMENT CATEGORY: BIRADS Category 2: Benign. A letter regarding these results will be sent to the patient by the facility within 30 days. Approximately 10% of breast cancers are not detected by mammography. A normal mammogram should not delay biopsy of a clinically suspicious abnormality. [id number] Electronically Signed: Charles Bucio, at 10:05 EDT , Service support , CC: Dr. Tara Diaz, Cardiopulmonary Technologist: Signed Tara Diaz Work Phone: Start: 12-28-2018 End: 12-28-[address] w/CCTA Comments: See Note; NOTES: [facility] Imaging Services [facility] [place] [address] [place] [address] w/CCTA MR#: [id number] Acct: [id number] Name: TATUMLARRYEMELIA M Rep #: [id number] : 1960 F 58 From: Thang Castellano MD PCP: Tara Diaz DO Status: REG CLI Study: Limited Chest CT w/CCTA Date of Exam: 12/28/18 Exam# [id number] Ordering Dr: Tara Diaz DO STUDY: CARDIAC CALCIUM SCORING - CT CHEST REASON FOR EXAM: Female, 58 years old. Screening RADIATION DOSAGE (If Supplied By Facility): CTDIvol = ( 12.19 ) mGy, DLP = ( 195.04 ) mGycm TECHNIQUE: Axial non-enhanced images were acquired through the heart for the sole purpose of measuring coronary artery calcium. Individualized dose optimization techniques were used for this CT. COMPARISON: None. FINDINGS: Please see the patient's medical record for a personalized calcium score. There is a 4 mm nodule in the right lower lobe (image 41 series 3). The visualized lungs are otherwise clear. The visualized soft tissues are within normal limits. CT/Limited Chest CT w/CCTA IMPRESSION: Please see the patient's medical record for a person last calcium score. 4 mm nodule in the right lower lobe. A dedicated chest CT is recommended. Please go to: [email or web address] , for a description of the calculator. Electronically Signed: Thang Castellano, at 14:43 EDT Tel , Service support , CC: Tara Diaz DO Cardiopulmonary Technologist: Signed Tara Diaz Work Phone: Start: 12-10-2018 End: 12-10-2018 Stress Report Comments: See Note; NOTES: [facility] Cardiovascular Services [address] [place] [address] MR#: [id number] Acct: [id number] Name: EMELIA BLUM Rep #: [id number] : 1960 58 From: Shane Valencia MD Primary Care: Tara Diaz DO Status: REG CLI Referring Dr: Tara Diaz DO Sex: F C Stress Test Report Date: 12/07/2018 Procedure: Exercise tolerance test/imaging study Indications: [Chest pain] Consent: Per the patient Procedure: The patient exercised on a Dilshad protocol for 8 minutes achieving a peak heart rate of 153 bpm (94 % predicted maximal heart rate) with a peak blood pressure 170/80 mmHg and a peak MET capacity of 10.1 METs. The baseline ECG demonstrated normal sinus rhythm. The peak exercise ECG demonstrated sinus tachycardia with no significant gimmick changes. EKG during recovery revealed no significant ischemic changes [There were no cardiac dysrhythmias pretest, during exercise, or recovery]. The functional capacity was considered normal for age. There was [no complaint of chest discomfort during exercise or recovery]. The examination was discontinued secondary to dyspnea. Impression: 1. Technically adequate (percent predicted maximal heart rate greater than 85%) exercise tolerance test 2. Stress test is negative for exercise-induced EKG changes of ischemia 3. The test test is negative for exercise-induced chest pain 4. Functional capacity is normal for age 5. Nuclear images pending Myocardial perfusion imaging study: Technique: The patient was injected with 11.8 mCi of technetium 99m Cardiolite and subsequently rest SPECT Cardiolite nuclear imaging was obtained in the horizontal long, vertical long, and short axis views. The patient exercised on a Dilshad protocol. Please see above for details. The patient was injected with 33.9 mCi of technetium 99m Cardiolite and subsequently stress SPECT Cardiolite nuclear imaging was obtained in the horizontal long, vertical long, and short axis views. A gated Cardiolite study at peak stress was obtained. Interpretation: Rest and stress SPECT Cardiolite nuclear imaging status post realignment, normalization, and attenuation correction, demonstrates overall uniform myocardial radioisotope uptake. The gated Cardiolite study demonstrates no significant regional wall motion abnormalities. The reported LVEF is greater than 70 %. Impression: 1. There is no evidence of significant ischemia or infarction. 2. The gated Cardiolite study reports an LVEF of greater than 70%. This note was generated with Brainrack dictation software. It may contain incorrect words, spelling, and punctuation that were not noted in checking the note before signing. 12/10/18 1201 <Electronically signed by Shane Valencia MD> Date Shane Valencia MD CC: Tara Diaz DO Date Dictated: 12/10/18 1154 Date Transcribed: 12/10/181153 Cardiopulmonary Technologist: NN Signed Tara Diaz Start: 12-07-2018 End: 12-07-2018 Echocardiogram Complete Comments: See Note; NOTES: [facility] Cardiovascular Services [address] [place] [address] Echo Complete 12/07/18 0803 MR#: [id number] Acct: [id number] Name: EMELIA BLUM Rep #: [id number] : 1960 58 From: Tank Carver MD Attending Dr: Tara Diaz DO Status: REG CLI Ordering Dr: Tara Diaz DO Date: 12/07/18 Location: [facility] Sex: F C Admitted: Reason For Study: CHEST PAIN Procedure This was a 2D Doppler, Color Flow transthoracic echocardiogram. Exam performed in department. Left Ventricle Normal size and thickness. The estimated ejection fraction is 65 %. Stage 1 diastolic dysfunction. No regional wall motion abnormalities noted. Right Ventricle Normal size and thickness. Normal systolic function. Atria Normal left atrium. Normal right atrium. Normal atrial septum. Mitral Valve The mitral valve is structurally normal. No prolapse or stenosis seen. Trivial mitral valve insufficiency. Tricuspid Valve Normal tricuspid valve. Trivial tricuspid valve insufficiency. Right ventricular systolic pressure estimated to be 18 mmHg. Aortic Valve Normal aortic valve. Trisinus/trileaflet aortic valve. Pulmonic Valve Normal pulmonic valve. Great Vessels Normal aortic root. Normal arch. Normal inferior vena cava. Inferior vena cava collapse with sniff. Pericardium/Pleural No pericardial effusion. MMode/2D Measurements AND Calculations LVIDd: 4.9 cm IVSd: 0.87 cm Ao root diam: 3.3 cm LVIDs: 3.2 cm LVPWd: 1.0 cm RVDd: 3.1 cm FS: 35.2 % LAV(MOD-bp): 47.2 ml EDV(MOD-sp4): 81.4 ml EDV(MOD-sp2): 56.7 ml LAV(MOD-bp) Indexed: 24.4 ml/m2 ESV(MOD-sp4): 36.6 ml EF(MOD-sp2): 60.4 % LAV(MOD-sp2): 45.1 ml EF(MOD-sp4): 55.1 % LAV(MOD-sp4): 47.6 ml SV(MOD-sp4): 44.9 ml SV(MOD-sp2): 34.2 ml LA A4 area: 17.0 cm2 LA dimension(2D): 3.2 cm RA A4 area: 15.7 cm2 Time Measurements MV dec time: 0.23 sec Doppler Measurements AND Calculations MV E max ayad: 49.7 cm/sec Lat Peak E' Ayad: 7.5 cm/sec Med Peak E' Ayad: 4.3 cm/sec MV A max ayad: 47.4 cm/sec E/E' lat: 6.6 E/E' med: 11.5 MV E/A: 1.0 Ao V2 max: 97.2 cm/sec LV V1 max: 90.1 cm/sec PA V2 max: 76.4 cm/sec Ao max P.8 mmHg LV V1 max P.2 mmHg TR max ayad: 187.8 cm/sec TR max P.1 mmHg Interpretation Summary The estimated ejection fraction is 65 %. Stage 1 diastolic dysfunction. Trivial mitral valve insufficiency. Trivial tricuspid valve insufficiency. Right ventricular systolic pressure estimated to be 18 mmHg. There is no comparison study available. Ordering Physician: Tara Diaz Referring Physician: Tara Diaz Performed By: Vanessa Rubio RDCS, RVT 12/07/18 1023 Date Tank Carver MD CC: Tara Diaz DO Date Dictated: 12/07/18 0803 Date Transcribed: 12/07/18 1023 Cardiopulmonary Technologist: Signed Tara Diaz Work Phone: Start: 01-12-2018 End: 01-13-2018 Abdomen/Pelvis WITH Contrast Comments: See Note; NOTES: [facility] Imaging Services [address] [place] [address] Abdomen/Pelvis WITH Contrast MR#: [id number] Acct: [id number] Name: EMELIA BLUM Rep #: [id number] : 1960 F 57 From: Alice Cruz MD PCP: Tara Diaz DO Status: REG CLI Study: Abdomen/Pelvis WITH Contrast Date of Exam: 01/12/18 Exam# [id number] Ordering Dr: Rebecca Casey MD STUDY: CT ABDOMEN AND PELVIS WITH CONTRAST REASON FOR EXAM: Female, 57 years old. Pelvic pain radiating to back. Status post hysterectomy 2008 due to endometriosis. RADIATION DOSAGE (If Supplied By Facility): CTDIvol = ( 20.18 ) mGy, DLP = ( 1055.30 ) mGycm TECHNIQUE: Transaxial 3.75 mm images were obtained from the dome of the diaphragm to the symphysis pubis with oral contrast. 100 ml of Isovue 300 contrast was administered. Sagittal and coronal images were reconstructed. Individualized dose optimization techniques were used for this CT. COMPARISON: CT abdomen pelvis 04/21/2014. Transvaginal transabdominal pelvic ultrasound 12/13/2017. FINDINGS: The visualized lung bases are unremarkable. The visualized portions of the heart are within normal limits. Normal liver. The gallbladder is contracted. Normal spleen. Normal pancreas. Normal bilateral adrenal glands. Normal right kidney. Normal left kidney. There is no obstructive uropathy, obstructive renal or ureteral calculi. Normal visualized stomach. Normal small intestine. Normal colon. There is non-visualization of the appendix. Normal abdominal aorta. Normal inferior vena cava. Normal retroperitoneum. There is prominence of the bilateral internal iliac veins and right greater than left inferior gluteal vein with a focal dilatation from 1.1 to 0.9 cm extending to 1.4 x 1.3 x 1.7 cm ( AP x width x height ). Image 95 series 2, image 88 series 601. Normal urinary bladder. There is absence of the uterus consistent with a prior hysterectomy. Normal abdominal wall. Normal osseous structures. Stable small hemangioma L1 vertebral body. CT/Abdomen/Pelvis WITH Contrast IMPRESSION: Focal venous dilation of the right inferior gluteal vein possibly an incidental finding. Postsurgical changes status post hysterectomy. No pelvic or inguinal pathology detected. Electronically Signed: Alice Cruz MD at 7:39 EDT , Service support , CC: Tara Diaz DO; Rebecca Casey MD Cardiopulmonary Technologist: Signed Rebecca Casey Work Phone: Start: 01-02-2018 End: 01-02-2018 Tailing Hand Office Visit Report Comments: See Note; NOTES: [facility] [address] [place], [place] [address] OFFICE VISIT Date of Service: 01/02/18 MR#: [id number] Acct: [id number] Name: EMELIA BLUM Rep #: [id number] : 1960 Provider: Rebecca Casey MD Age/Sex: 57/F [place] [facility] [place]: Signed Intake Vital Signs01/02/18 Height 5 ft 8 in 01/02/18 Weight: 190 lb 01/02/18 Body Mass Index (BMI) 28.8 01/02/18 Blood Pressure 120/82 Intake Visit Reasons: Yeast Follow Up Chief Complaint: yeast follow up Chyron Operator Required: No Is patient in pain?: No Allergies Sulfa (Sulfonamide Antibiotics) Allergy (Mild, Verified 01/02/18 09:35) rash Medications ibuprofen 200 mg tablet 200 mg PO TID-QID PRN 12/20/17 [History Confirmed 01/02/18] ciprofloxacin 500 mg tablet 500 mg PO BID 7 Days #14 tab 01/02/18 [Rx Confirmed 01/02/18] Is last menstrual period known: No Post menopausal: No Patient : No : No PFSH Medical History Abnormal Pap smear of cervix (Acute) Endometriosis (Acute) Frequent UTI (Acute) Postmenopausal (Acute) Surgical History H/O laparoscopy (Resolved) History of tonsillectomy (Resolved) S/P abdominal hysterectomy (Resolved) S/P right oophorectomy (Resolved) basal cell removed (Resolved) Family History Father Pancreatic cancer Mother Heart disease Grandfather Liver cancer Grandmother Colon cancer Social History Smoking Status: Never smoker alcohol intake: current details: occasionally substance use type: does not use caffeine: Yes what type of physical activity do you participate in: walking frequency: daily seatbelt use: always do you feel safe at home: Yes additional social history: - [employer]Ret[employer] 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 she has persistent urinary complaints and pelvic pain going into the right side. she co urinary urgency, frequency, but denies incontinence. she has right flank pain also and has a history of stones. she had a urine culture recently that showed low levels of bacteria. Female Reproductive History Questions: Sexually active: Yes, Dyspareunia: Yes Pregancy History 6 Elective abortions Hx Para 2 Spontaneous abortions Past Pregnancies Del. DatName GA/WeeksOutcome [facility] WeigIncurlyt Annie LgAnesthesDel LocaProviderFOB e ht en ia tn Unknown Jihan- 1982 Unknown Tano-198 6 ROS Const Constitutional: Denies poor appetite, headache(s), fever(s), increased appetite, weight gain, weight loss or fatigue ENT ENT: Denies dry mouth : Denies nipple discharge Skin Skin/Breast: Denies hair loss, change in hair, dry skin, breast pain, breast skin changes, breast lump or nipple discharge Exam Const General: cooperative, healthy appearing, comfortable, no acute distress, well developed Nutritional Appearance: average body habitus Orientation: alert HENMT Head: normal to inspection, normocephalic Ears: hearing grossly normal bilaterally, external ears normal Nose: external nose normal, nares normal Face and sinus: normal facial exam Neck Neck: normal visual inspection, trachea midline, no lymphadenopathy Thyroid: thyroid normal Resp Effort AND Inspection: normal respiratory effort Musc Other: gross motor intact no deficits, full bilateral strength Skin General: no rashes or lesions noted Neuro Motor: muscle tone normal throughout Assessment AND Plan Problems 1. Chronic female pelvic pain R10.2; G89.29 2. Urinary complications N99.89 Plan recommend cipro course and ct abdomen pelvis. if no improvement recommen urogyn referral. info on painful bladder syndrome given Orders Orders: Medications New: Coding Level of Care Code Off vis,est,level 3 Diagnoses Chronic female pelvic pain R10.2; G89.29 Urinary complications N99.89 01/02/18 1121 <Electronically signed by Rebecca Casey MD> Date Rebecca Casey MD Cosigner Signature: Date (if applicable) CC: Tara Diaz Start: 12-21-2017 End: 12-21-2017 Tailing Hand Office Visit Report Comments: See Note; NOTES: [facility] [address] [place] [address]. [address] [place] [address] OFFICE VISIT Date of Service: 12/20/17 MR#: [id number] Acct: [id number] Name: EMELIA BLUM Rep #: [id number] : 1960 Provider: Rebecca Casey MD Age/Sex: 57/F [place] [facility] [place]: Signed Intake Vital Signs12/20/17 Height 5 ft 8 in 12/20/17 Weight: 191 lb 2 oz 12/20/17 Body Mass Index (BMI) 29.0 12/20/17 Blood Pressure 132/80 Intake Visit Reasons: PELVIC PAIN Chyron Operator Required: No Is patient in pain?: Yes Pain scale (1-10): 5 Allergies Sulfa (Sulfonamide Antibiotics) Allergy (Mild, Verified 12/20/17 09:06) rash Medications fluconazole 150 mg tablet 150 mg PO .COMPLEX #2 tab 12/20/17 [Rx Confirmed 12/20/17] ibuprofen 200 mg tablet 200 mg PO TID-QID PRN 12/20/17 [History Confirmed 12/20/17] metronidazole 0.75 % vaginal gel 1 appful VAGINAL DAILY 12/20/17 [History Confirmed 12/20/17] Is last menstrual period known: No Patient : No : No PFSH Medical History Abnormal Pap smear of cervix (Acute) Endometriosis (Acute) Frequent UTI (Acute) Postmenopausal (Acute) Surgical History H/O laparoscopy (Resolved) History of tonsillectomy (Resolved) S/P abdominal hysterectomy (Resolved) S/P right oophorectomy (Resolved) basal cell removed (Resolved) Family History Father Pancreatic cancer Mother Heart disease Grandfather Liver cancer Grandmother Colon cancer Social History Smoking Status: Never smoker alcohol intake: current details: occasionally substance use type: does not use caffeine: Yes what type of physical activity do you participate in: walking frequency: daily seatbelt use: always do you feel safe at home: Yes additional social history: - [employer]-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 she had a hysterectomy in the past. she has had some pelvic pressure for 3 months, and she has taken urinary products. she has had kidney stones in the past. she has eliminated eveyrthing in her diet trying to see if there is a link but she does still drink coffee. Pregancy History 6 Elective abortions Hx Para 2 Spontaneous abortions Past Pregnancies Del. DatName GA/WeeksOutcome Route [facility] WeigIncurlyt Annie LgAnesthesDel LocaProviderFOB e ht en ia tn Unknown Jihan- 1982 Unknown Tano-198 6 ROS Const Constitutional: Reports system reviewed and no additional complaints, except as docu GI GI: Denies abdominal pain, nausea, vomiting or cramping : Denies urinary frequency, vaginal dryness, vaginal discharge, urinary urgency, urinary incontinence, vaginal odor or pelvic pain Exam Const General: cooperative, healthy appearing, comfortable, no acute distress External Female Exam: normal external appearance, normal appearance of the urethra Urethra: normal appearance of the urethra Speculum Exam - Vagina: normal appearance of the vagina, other (normal vaginal length, apex well supprted and healed, intact no granulation), abnormal vaginal discharge (profuse amounts) white and caseous Speculum Exam - Cervix: cervix absent Bimanual Exam- Vagina AND Uterus: uterus absent Bimanual Exam- Adnexa, other: adnexae non-tender, pelvic support normal Pelvic Support: normal Other: vaginal cuff normal and intact, good vaginal length, no granulation tissue present Results [facility] Office Urine Color Yellow Last Edit by Linda Ramsey on 12/20/17 09:43 Office Urine Clarity Clear Last Edit by Linda Ramsey on 12/20/17 09:43 Assessment AND Plan Problems 1. Michelle vaginitis B37.3 Plan diflucan treatment ordered fu in 2 weeks if persistent pain recommend ct of abdomen/pelvis. Orders Orders: Medications New: Coding Level of Care Code Off vis,new,level 3 Diagnoses Michelle vaginitis B37.3 12/21/17 0626 <Electronically signed by Rebecca Casey MD> Date Rebecca Casey MD Cosigner Signature: Date (if applicable) CC: Tara Diaz Start: 12-13-2017 End: 12-13-2017 Transvaginal Non- Comments: See Note; NOTES: [facility] Imaging Services [address] [place] [address] [place] [address] Transvaginal Non- MR#: [id number] Acct: [id number] Name: EMELIA BLUM Rep #: [id number] : 1960 F 57 From: Layne Cochran MD PCP: Tara Diaz DO Status: REG CLI Study: Transvaginal Non- Date of Exam: 12/13/17 Exam# [id number] Ordering Dr: Tara Diaz DO STUDY: ULTRASOUND TRANSVAGINAL CLINICAL: Female, 57 years old. Pelvic pain. TECHNIQUE: Transvaginal COMPARISON: None. FINDINGS: The uterus is surgically absent. No discrete solid or cystic masses are visualized. There is nonvisualization of the right ovary. Normal left ovary, measuring 2.5 x 2.0 x 1.0 cm. The left ovary is within normal limits. There is no free fluid in the pelvis. The bladder volume measures 92.3 cc. No bladder masses are visualized. No bladder wall thickening is seen. US/Transvaginal Non- IMPRESSION: No specific sonographic findings to explain patient's symptoms. Nonvisualization of the right ovary. Electronically Signed: Layne Cochran MD at 16:54 EDT Tel , Service support , CC: Tara Diaz DO Cardiopulmonary Technologist: Signed Tara Diaz Work Phone: Start: 12-13-2017 End: 12-13-2017 Pelvic (Non ) Comments: See Note; NOTES: [facility] Imaging Services [address] [place] [address] Pelvic (Non ) MR#: [id number] Acct: [id number] Name: EMELIA BLUM Rep #: [id number] : 1960 F 57 From: Layne Cochran MD PCP: Tara Diaz DO Status: REG CLI Study: Pelvic (Non ) Date of Exam: 12/13/17 Exam# [id number] Ordering Dr: Tara Diaz DO STUDY: ULTRASOUND TRANSVAGINAL CLINICAL: Female, 57 years old. Pelvic pain. TECHNIQUE: Transvaginal COMPARISON: None. FINDINGS: The uterus is surgically absent. No discrete solid or cystic masses are visualized. There is nonvisualization of the right ovary. Normal left ovary, measuring 2.5 x 2.0 x 1.0 cm. The left ovary is within normal limits. There is no free fluid in the pelvis. The bladder volume measures 92.3 cc. No bladder masses are visualized. No bladder wall thickening is seen. US/Pelvic (Non ) IMPRESSION: No specific sonographic findings to explain patient's symptoms. Nonvisualization of the right ovary. Electronically Signed: Layne Cochran MD at 16:54 EDT Tel , Service support , CC: Tara Diaz DO Cardiopulmonary Technologist: Signed Tara Diaz Work Phone: Start: 04-25-2017 End: 04-25-2017 SCREENING MAMM (CAD), BILAT Comments: See Note; NOTES: [facility] Imaging Services [address] [place] [address] SCREENING MAMM (CAD), BILAT MR#: [id number] Acct: [id number] Name: EMELIA BLUM Rep #: [id number] : 1960 F 56 From: Charles Bucio MD PCP: Tara Diaz DO Status: REG CLI Study: SCREENING MAMM (CAD), BILAT Date of Exam: 04/25/17 Exam# [id number] Ordering Dr: Tara Diaz DO MAMMOGRAPHY - BILATERAL SCREENING REASON FOR EXAM: Female, 56 years old. Routine annual screening examination. PERTINENT HISTORY: Non-contributory. TECHNIQUE: Digital bilateral breast jyoti (3D mammographic acquisition) in the CC and MLO projections. 2-D mediolateral oblique (MLO) and craniocaudad (CC) views of both breasts were obtained. CAD: Full Field Digital Mammography with Computer Added Detection was performed. COMPARISON: Comparison is made with prior study dated February 26, 2016 and February 05, 2015. FINDINGS: Breast Composition: There are scattered areas of fibroglandular density. There are no dominant masses or suspicious calcifications. No other significant abnormalities are identified. There has been no significant change since the prior study. HPBI/SCREENING MAMM (CAD), BILAT IMPRESSION: Stable bilateral screening mammogram. Yearly follow-up mammogram recommended. (A) ASSESSMENT CATEGORY: BIRADS Category 1: Negative. A letter regarding these results will be sent to the patient by the facility within 30 days. Approximately 10% of breast cancers are not detected by mammography. A normal mammogram should not delay biopsy of a clinically suspicious abnormality. [id number] Electronically Signed: Charles Bucio MD at 13:19 EST Tel [phone], Service support , CC: Tara Diaz DO Cardiopulmonary Technologist: Signed Tara Diaz Work Phone: Start: 02-26-2016 End: 02-26-2016 Bilat Scrn Digital AND CAD Comments: See Note; NOTES: [facility] Imaging Services [address] [place] [address] [address] 4d Bilat Scrn Digital AND CAD MR#: [id number] Acct: [id number] Name: EMELIA BLUM Rep #: [id number] : 1960 F 55 From: Charles Bucio MD PCP: Tara Diaz DO Status: REG CLI Study: Farhad Glez Digital AND CAD Date of Exam: 02/26/16 Exam# [id number] Ordering Dr: Tara Diaz DO MAMMOGRAPHY - BILATERAL SCREENING REASON FOR EXAM: Female, 55 years old. Routine annual screening examination. PERTINENT HISTORY: Non-contributory. TECHNIQUE: Digital bilateral breast jyoti (3D mammographic acquisition) in the CC and MLO projections. 2-D mediolateral oblique (MLO) and craniocaudad (CC) views of both breasts were obtained. CAD: Full Field Digital Mammography with Computer Added Detection was performed. COMPARISON: Comparison is made with prior study dated February 05, 2015. FINDINGS: Breast Composition: There are scattered areas of fibroglandular density. There are no dominant masses or suspicious calcifications. No other significant abnormalities are identified. There has been no significant change since the prior study. [facility]/Farhad Glez Digital AND CAD IMPRESSION: Stable bilateral screening mammogram. Yearly follow-up mammogram recommended. (A) ASSESSMENT CATEGORY: BIRADS Category 1: Negative. A letter regarding these results will be sent to the patient by the facility within 30 days. Approximately 10% of breast cancers are not detected by mammography. A normal mammogram should not delay biopsy of a clinically suspicious abnormality. [id number] Electronically Signed: Charles Bucio MD at 9:20 EDT Tel [phone], Service support [phone], CC: Tara Diaz DO Cardiopulmonary Technologist: Signed Tara Diaz Work Phone: Start: 02-05-2015 End: 02-05-2015 Bilat Scrn Digital AND CAD Comments: See Note; NOTES: [facility] Imaging Services [address] [place] [address] Breast Imaging Report MR#: [id number] Acct: [id number] Name: EMELIA BLUM Rep #: [id number] : 1960 F 54 From: Charles Bucio MD PCP: Tara Diaz DO Status: REG CLI Study: Bilat Scrn Digital AND CAD Date of Exam: 02/05/15 Exam# [id number] Ordering Dr: Tara Diaz DO MAMMOGRAPHY - BILATERAL SCREENING REASON FOR EXAM: Female, 54 years old. Routine annual screening examination. PERTINENT HISTORY: Non-contributory. TECHNIQUE: Digital examination. Mediolateral oblique (MLO) and craniocaudad (CC) views of both breasts were obtained. CAD: CAD was performed on this study. COMPARISON: Comparison is made with prior outside examination dated December 02, 2013 and November 18, 2013. FINDINGS: Breast Composition: There are scattered areas of fibroglandular density. There are no dominant masses or suspicious calcifications. No other significant abnormalities are identified. There has been no significant change since the prior study. IMPRESSION: Stable bilateral screening mammogram. Yearly follow-up recommended. (A) ASSESSMENT CATEGORY: BIRADS Category 1: Negative. A letter regarding these results will be sent to the patient by the facility within 30 days. Approximately 10% of breast cancers are not detected by mammography. A normal mammogram should not delay biopsy of a clinically suspicious abnormality. Electronically Signed: Charles Bucio MD at 8:08 EDT Tel [phone], Service support [phone], CC: Tara Diaz DO Cardiopulmonary Technologist: Signed Tara Gala Work Phone: Start: 04-21-2014 End: 04-21-2014 Abdomen/Pelvis without Cont Comments: See Note; NOTES: [facility] Imaging Services [address] [place] [address] CAT Scan Report MR#: [id number] Acct: [id number] Name: EMELIA BLUM Rep #: [id number] : 1960 F 53 From: Justin Felix MD PCP: Tara Diaz DO Status: REG CLI Study: Abdomen/Pelvis without Cont Date of Exam: 04/21/14 Exam# [id number] Ordering Dr: Myrtle Perrin STUDY: CT ABDOMEN AND PELVIS WITHOUT CONTRAST REASON FOR EXAM: Female, 53 years old. Right flank pain RADIATION DOSAGE (If Supplied By Facility): CTDIvol = ( 11.50 ) mGy, DLP = ( 579.75 ) mGycm TECHNIQUE: Transaxial images were obtained from the dome of the diaphragm to the symphysis pubis without oral contrast, and without intravenous contrast. Sagittal and coronal images were reconstructed. COMPARISON: None. FINDINGS: The visualized lung bases are unremarkable. The visualized portions of the heart are within normal limits. Normal liver. Normal gallbladder and extrahepatic biliary system. Normal spleen. Normal pancreas. Normal bilateral adrenal glands. There is a minimal amount of right hydronephrosis and hydroureter but there is no obstructing stone noted. Findings suggest perhaps recent passage of a stone. Normal left kidney. Normal visualized stomach. Normal small intestine. Normal colon. There is non-visualization of the appendix. Normal abdominal aorta. Normal inferior vena cava. Normal retroperitoneum. Normal urinary bladder. There is absence of the uterus consistent with a prior hysterectomy. Normal abdominal wall. There are diffuse degenerative changes of the visualized lumbar spine. IMPRESSION: Minimal right hydronephrosis and hydroureter with subtle periureteral inflammatory stranding. No demonstrated obstructing stone or mass. There has been 3 some passage of a stone. Electronically Signed: Phillip Felix MD at 13:15 EST Tel [phone], Service support [phone], CC: Myrtle Perrin; Tara Diaz DO Cardiopulmonary Technologist: Signed HeleneBladimir Perrin Work Phone: Start: 12-23-1997 Microscopic observation [Identifier] in Cervix by Cyto stain Aileen Young Lumpectomy of breast Ev Gravius Lumpectomy of breast Ev Gravius Lumpectomy of breast Ev Gravius Lumpectomy of breast Kurtis Bandar Lumpectomy of breast Rachel Slarb Lumpectomy of breast Ev Gravius DAIRY HAND Lumpectomy of breast Carlota Bhakta MA Lumpectomy of breast Kurtis Portillo DIRECTOR BIOLOGICS Lumpectomy of breast Rachel Slarb DIRECTOR BIOLOGICS Lumpectomy of breast Ruba Abdi MA Tonsillectomy Messenge r Tonsillectomy Messmelissa r Tonsillectomy Messenge r Tonsillectomy Messenge r Tonsillectomy Ev Gravius Tonsillectomy Ev Gravius Tonsillectomy Ev Gravius Tonsillectomy Kurtis Bandar Tonsillectomy Messenge r Tonsillectomy Rachel Slarb Tonsillectomy Ev Gravius DAIRY HAND Tonsillectomy Carlota Bhakta MA Tonsillectomy Kurtis Portillo L PN Tonsillectomy Rachel Mckeonrb L PN Tonsillectomy Ruba Abdi M A Total hysterectomy Mes senger Total hysterectomy Mes senger Total hysterectomy Mes senger Total hysterectomy Mes senger Total hysterectomy Ev Gr avius Total hysterectomy Ev Gr avius Total hysterectomy Ev Gr avius Total hysterectomy Kurtis Da vis Total hysterectomy Mes senger Total hysterectomy Rachel Sl arb Total hysterectomy Ev Gr avius DAIRY HAND Total hysterectomy Carlota Bong rphy MA Total hysterectomy Kurtis Da vis DIRECTOR BIOLOGICS Total hysterectomy Rachel Sl arb DIRECTOR BIOLOGICS Total hysterectomy Ruba Lee rasheed MA Tylectomy Messenger Tylectomy Messenger Tylectomy Messenger Tylectomy Messenger Tylectomy Messenger Plan of Treatment Date Care Activity Detail Author Start: 11-11-2029 Screening for malignant neoplasm of colon [facility] Start: 02-20-2023 End: 02-20-2023 Patient encounter procedure 02/20/2023 8:40 AM EDT Office Visit [facility] [address] [place] [address] Peyton Jones MD [address] [place] [address] [facility] Start: 12-23-2022 Influenza vaccination [facility] Start: 02-25-2022 Procedure Education Eprescribed prescriptions (G8553) [facility] Work Phone: Start: 12-23-2021 Influenza vaccination [facility] Start: 10-26-2021 End: 10-26-2021 Patient encounter procedure 10/26/2021 Office Visit Cardiology Moy Yeboah MD [address] [place] [id number] [facility] Start: 10-15-2021 End: 10-15-2021 Patient encounter procedure 10/15/2021 Appointment Radiology Moy Yeboah MD [address] [place] [phone] [facility] Start: 07-23-2021 Procedure Education Eprescribed prescriptions (G8553) [facility] Work Phone: Start: 07-23-2021 Provider Instructions for Treatment [facility] Work Phone: Start: 07-23-2021 End: 07-23-2021 Patient encounter procedure 07/23/2021 Office Visit Cardiology Moy Yeboah MD [address] [place] [id number] [facility] Start: 05-26-2021 Procedure Education Eprescribed prescriptions (G8553) [facility]; [facility] Work Phone: Start: 05-26-2021 Provider Instructions for Treatment Follow up if no improvement or if symptoms worsen [facility] Work Phone: Start: 05-26-2021 Culture bct isol&prsmptv id isolate ea urine URINE MELISSA CULTURE-IDENTIFICATN (67021) [facility]; [facility] Work Phone: Start: 02-10-2021 Procedure Education Eprescribed prescriptions (G8553) [facility]; [facility] Work Phone: Start: 01-07-2021 Procedure Education Eprescribed prescriptions (G8553) [facility] Work Phone: Start: 12-23-2020 Influenza vaccination Sequential Influenza Vaccine (#1) [facility] Start: 10-27-2020 History and physical examination, annual for health maintenance Wellness Visit [facility] Start: 09-11-2020 Procedure Education Eprescribed prescriptions (G8553) [facility]; [facility] Work Phone: Start: 09-11-2020 Provider Instructions for Treatment Cholesterol mgmt [facility]; [facility] Work Phone: Start: 09-11-2020 Blood count complete automated CBC (AUTO) (54791) [facility]; [facility] Work Phone: Start: 09-11-2020 Comprehensive metabolic panel METABOLIC PANEL, COMPREHENSIVE (44287) [facility]; [facility] Work Phone: Start: 09-11-2020 Assay of thyroid stimulating hormone tsh TSH (36647) [facility]; [facility] Work Phone: Start: 09-11-2020 Cyanocobalamin vitamin b-12 VITAMIN B-12 (CYANOCOBALAMIN) (53623) [facility]; [facility] Work Phone: Start: 09-11-2020 25 hydroxy includes fractions if performed CALCIFIDIOL (10776) VIT D 25 [facility]; [facility] Work Phone: Start: 04-15-2020 Procedure Education Eprescribed prescriptions (G8553) [facility]; [facility] Work Phone: Start: 04-13-2020 Culture bct isol&prsmptv id isolate ea urine URINE MELISSA CULTURE-IDENTIFICATN (87944) [facility]; [facility] Work Phone: Start: 04-13-2020 Procedure Education Eprescribed prescriptions (G8553) [facility]; [facility] Work Phone: Start: 04-13-2020 Provider Instructions for Treatment Follow up in 2 days for vitual [facility]; [facility] Work Phone: Start: 03-05-2020 Procedure Education Eprescribed prescriptions (G8553) [facility] Work Phone: Start: 03-05-2020 Provider Instructions for Treatment [facility] Work Phone: Start: 12-24-2019 Influenza vaccination INFLUENZA VACCINE (#1) [facility] Start: 12-24-2019 Influenza vaccination given Sequential Influenza Vaccine (#1) [facility] Start: 12-04-2019 End: 12-04-2019 Office Visit 12/04/2019 Office Visit Cardiology Oskar Cueva MD [address] [place] [address] [phone] [facility] Start: 11-20-2019 Procedure Education Eprescribed prescriptions (G8553) [facility] Work Phone: Start: 11-20-2019 Provider Instructions for Treatment Reviewed Diagnostic Tests [facility] Work Phone: Start: 11-08-2019 End: 11-08-2019 Appointment 11/08/2019 Appointment Cardiology Minerva Hardin CNP [address] [place] [address] [phone] [facility] Start: 10-09-2019 Procedure Education Eprescribed prescriptions (G8553) [facility] Work Phone: Start: 10-09-2019 Provider Instructions for Treatment [facility] Work Phone: Start: 10-09-2019 Hepatic function panel HEPATIC FUNCTION PANEL (35281) [facility] Work Phone: Payers Date Payer Category Payer Unknown 2011 Unknown [employer]AN [employer] xxxxxxxxxxxx 2011-Present xxxxxxxxxxxx [id number] 2011 Unknown [id number] 2011 Unknown [id number] 1960 Unknown [id number] 1960 Unknown [id number] 1960 Unknown [id number] 1960 Unknown [id number] 1960 Unknown [id number] Social History Date Type Detail Facility Alcohol Use: Alcohol Use: [facility] Work Phone: Start: 03-04-2020 End: 02-20-2023 Caffeine Use Caffeine Use [facility] Work Phone: Functional Status Date Assessment Result Facility 02-21-2020 LP-IR Score LP-IR Score 46 [facility] Work Phone: Clinical Notes 07-23-2021 to 03-14-2023 Telephone Encounter - Merly Jose MA - 03/14/2023 10:00 AM ESTTelephone Encounter - Merly Jose MA - 03/14/2023 10:00 AM Peyton Kasper MD - 02/20/2023 8:53 AM EDTPatient Instructions Note Date & Type Note Facility 03-14-2023 Telephone encounter Note Form atting of this note might be different from the original. Pt. needs refills sent to [facility] instead of local pharmacy. Pharmacy switch appropriate. [facility] 03-14-2023 Miscellaneous Notes Formattin g of this note might be different from the original. Pt. needs refills sent to [facility] instead of local pharmacy. Pharmacy switch appropriate. documented in this encounter [facility] 02-20-2023 History of Presen t illness Narrative General Cardiology Returning Patient Clinic Visit [facility], [facility] 02/20/2023 Peyton Jones MD [address] [place] [phone] [facility], physician's office 02/20/2023 Patient: Emelia Blum Date of : 1960 (62 y.o.) PCP: Tara Diaz DO Chief Complaint: Follow-up (Yearly previous Yeboah/ Palpitations ) Date of Service: 02/20/2023 Assessment and Plan: 1. Palpitations Overall low burden, extensive work-up including cardiac MRI, CT angiogram all negative Continue metoprolol 2. Dyslipidemia Ideally would love to see LDL less than 100, even lower if possible. We did discuss the risks and benefits of a low-dose CT calcium score We will trial low-dose rosuvastatin 5 mg twice weekly in addition to Zetia It has been a pleasure caring for this patient. Please don't hesitate to reach out to my office directly with any questions or concerns. Follow-up: Return in about 3 years (around 02/20/2026). Peyton Jones MD, [facility] Non-Invasive Cardiology [facility] P:[phone] F:[phone] ---- History of Present Illness: Emelia Blum is a 62 y.o. woman with a past medical history of pericarditis and hyperlipidemia. Noted to have palpitations and she had an abnormal Holter showing episodes of asymptomatic wide-complex tachycardia. She was hospitalized in September with pleuritic chest discomfort. She had a VQ scan which was normal. Echo showed an EF of 55 to 60%. She had a coronary CTA done which showed a total calcium score 41 with nonobstructive calcified plaque was noted. She underwent a cardiac MRI which showed an EF of 65% and no evidence of edema, inflammation, fibrosis or scar, normal RV. Today she presents doing well. She would like to lose some weight. 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 She continues to ride a stationary bike several times per week for 20 minutes in the morning Objective Review of Systems: All systems were reviewed and noted to be negative unless otherwise stated in HPI. Past Medical History: Diagnosis Date Hyperlipidemia Osteoarthrosis Sleep apnea on CPAP Past Surgical History: Procedure Laterality Date CERVICAL DISC SURGERY 03/02/2022 C6 C7 HYSTERECTOMY (CERVIX REMAINS) Family History Problem Relation Age of Onset Heart failure Mother Heart attack Mother Heart attack Father Heart murmur Father Heart attack Brother Social History Tobacco Use Smoking Status Never Smokeless Tobacco Never Allergies: Pravastatin, Sulfa (sulfonamide antibiotics), and Sulfadiazine All of the above information has been reviewed at today's visit and modified if necessary. Home Medications: Current Outpatient Medications: ascorbic acid, vitamin C, (VITAMIN C) 500 MG tablet, Take 1 (one) tablet (500 mg total) by mouth daily ., Disp: , Rfl: cholecalciferol, vitamin D3, 25 mcg/spray 1,000unit/spray SpSn, Place 1 spray under the tongue daily ., Disp: , Rfl: ezetimibe (ZETIA) 10 mg tablet, Take 1 (one) tablet (10 mg total) by mouth daily ., Disp: 90 tablet, Rfl: 3 ibuprofen (ADVIL,MOTRIN) 200 MG tablet, Ibuprofen Active 200 MG 3 to 4 times per day December 20, 2017 9:08am, Disp: , Rfl: metoprolol succinate (TOPROL-XL) 25 MG 24 hr tablet, TAKE 1 TABLET BY MOUTH DAILY, Disp: 90 tablet, Rfl: 3 rosuvastatin (Crestor) 5 MG tablet, Take 1 (one) tablet (5 mg total) by mouth nightly ., Disp: 30 tablet, Rfl: 11 Physical Exam: BP 120/79 (BP Location: Right arm, Patient Position: Sitting, BP Cuff Size: Adult) Pulse 63 Ht 5' 8 Wt 85.9 kg (189 lb 6.4 oz) SpO2 96% BMI 28.80 kg/m Constitutional: Well appearing female, no acute distress Head: Normocephalic and atraumatic. Eyes: Conjunctivae are normal, no scleral icterus, no corneal arcus Neck: No acanthosis nigricans, no elevated jugular venous distension, no hepatojugular reflux Cardiovascular: Regular rate and rhythm, no murmurs appreciated on today's exam, normal S1 and S2, no rubs or gallops, PMI is midline Pulses: +2 dorsalis pedis pulses bilaterally Musculoskeletal: Normal range of motion. No cyanosis. No peripheral Edema Neurological: AOx3, moving all extremities normally Skin: Skin is warm and dry, normal hair pattern Psychiatric: Normal mood and affect, appropriate conversation Cardiovascular Studies: Summary 1. Normal left ventricular chamber size. Thee is mild concentric left ventricular hypertrophy. Systolic and diastolic function are normal with no regional wall motion abnormalities with an estimated ejection fraction of 55-60%. 2. The RV is not well seen however appears to be mildly enlarged. Right ventricular systolic function is normal. 3. Right atrial chamber dimension is mildly enlarged. 4. No hemodynamically significant valvular disease. 5. The pulmonary artery systolic pressure could not be accurately estimated. 6. The proximal ascending aorta is mildly dilated measuring 3.9 cm with an index of 1.9 cm/m2. Interpretation Summary Holter report Indications: palpitations Predominant Rhythm: Sinus rhythm Please see HR trends for minimum and maximum HR. No significant pauses. A.fib: None. Atrial ectopy/SVT: Rare PACs. Ventricular ectopy: Few PVCs AV block: No high degree AV block noted on available strips. Diary: No diary entries. IMPRESSION: Sinus rhythm Baseline artifact precludes accurate interpretation of underlying rhythm in some strips. No sustained arrhythmias, pauses, or high degree AV block on available strips. Coronary Calcium / Agatston scoring: LM: 0 RCA: 0 LAD: 41 LCX: 0 Total: 41 Percentile age/gender cohort: 80th percentile for age, gender and race/ethnicity-matched group per [employer]ICK[employer] database. Coronary Angiography: Left Main: The left main is a large vessel with a normal take off from the left coronary cusp that bifurcates. There is no plaque or stenosis. Left anterior descending artery: The LAD is patent. There is a 1-24% calcific plaque in the proximal LAD. Mid and distal LAD with mild luminal irregularities. The LAD gives off one large diagonal branch that is patent Left circumflex artery: The LCx is non dominant and patent with no evidence of plaque or stenosis. The LCx gives off one obtuse marginal branch that is patent Right coronary artery: The RCA is dominant with no evidence of plaque or stenosis. The RCA terminates as a PDA and right posteriorlateral branch without evidence of plaque or stenosis. Cardiac Morphology: Left atrium: Left atrial size is Normal Left Ventricle: The ventricular cavity size is within normal limits. There is no abnormal filling defects. Pulmonary Veins: Normal pulmonary venous drainage. Pericardium: Normal thickness with no significant effusion or calcification present. Cardiac valves: There is no thickening or calcification in the aortic and mitral valves. Aorta: Normal caliber of the portion of the thoracic aorta imaged. No calcification. Aortic sinuses measure 3.6cm AAo measures 3.5cm at the PA bifurcation. PLEASE SEE SEPARATE RADIOLOGY REPORT FOR THE NONCARDIAC FINDINGS IMPRESSION: 1. Total calcium score of 41 places patient in the 80th percentile for age, gender and race matched control patients who are free from CV disease and treated diabetes. 2. Non obstructive calcific plaque noted by Coronary CT Angiography CAD RADS (score): 1 RECOMMENDATIONS: CAD-RADS 1: (1-24% minimal stenosis). Consider non-atherosclerotic causes of chest pain. Consider preventive therapy and risk factor modification. Labs: Lab Results Component Value Date GLUCOSE 92 02/14/2023 CALCIUM 9.2 02/14/2023 NA 140 02/14/2023 K 3.6 02/14/2023 CL 105 02/14/2023 BUN 16 02/14/2023 CREATININE 0.66 02/14/2023 Lab Results Component Value Date ALT 36 02/14/2023 AST 21 02/14/2023 ALKPHOS 68 02/14/2023 BILITOT 0.7 02/14/2023 Lab Results Component Value Date WBC 5.47 02/14/2023 HGB 13.7 02/14/2023 HCT 40.4 02/14/2023 MCV 94.2 02/14/2023 PLT 328 02/14/2023 RBC 4.29 02/14/2023 Lab Results Component Value Date CHOL 227 (H) 02/14/2023 LDLCALC 138 (H) 02/14/2023 TRIG 85 02/14/2023 HDL 72 02/14/2023 No results found for: HGBA1C Lab Results Component Value Date ALT 36 02/14/2023 AST 21 02/14/2023 ALKPHOS 68 02/14/2023 BILITOT 0.7 02/14/2023 The 10-year ASCVD risk score (Ashwini CABRERA, et al., 2019) is: 3.4% Values used to calculate the score: Age: 62 years Sex: Female Is Non- : No Diabetic: No Tobacco smoker: No Systolic Blood Pressure: 120 mmHg Is BP treated: No HDL Cholesterol: 72 mg/dL Total Cholesterol: 227 mg/dL documented in this encounter [facility] 02-20-2023 Instructions Peyton Jones MD - 02/20/2023 8:47 AM EDT How to Contact your Care Team: Provider: Dr. Peyton Jones MD Clinic Nurse: Sowmya Sharma RN REFILLS: When in need for refills please call your care team or the office at [phone]. Please include medication name, pharmacy name, and specify 30-day or 90-day supply. Please check with your pharmacy within 24 hours of request for your refill. You must follow up as directed to continue current refills. Thank you! Patient Instructions So great to see you today! Please do not hesitate to call me if you have any questions! Here are the things we talked about... Try 5mg rosuvastatin twice a week Dr. Jones's Tips for Weight Loss 3 Rules Do not eat if you are not hungry This means eating while you are bored, sad, angry, stressed, etc Stop eating when you are no longer hungry. Only eat until you are comfortably full You should still be able to walk around the neighborhood after eating. If that would be uncomfortable for you, you've eaten too much! 3. Do your very best to stick with 3 meals per day. You may be hungry between meals at first, but this will pass within a few weeks. This is just your body readjusting to less food. 4. For the first 4-6 weeks, avoid white flour and sugar. You CAN do this! documented in this encounter [facility] 01-25-2023 Telephone encounter Note Form atting of this note might be different from the original. Pt scheduled for upcoming ov w/ Dr. Jones on 02/20 and needs RX prior to yearly. [facility] 01-25-2023 Miscellaneous Notes Formattin g of this note might be different from the original. Pt scheduled for upcoming ov w/ Dr. Jones on 02/20 and needs RX prior to yearly. documented in this encounter [facility] 01-05-2023 Miscellaneous Notes Formattin g of this note might be different from the original. Pt was last seen on 10-26-[address] Yeboah. Next appt is 02-20-[address] Jones. Given enough meds until this appt. documented in this encounter [facility] 01-05-2023 Telephone encounter Note Form atting of this note might be different from the original. Pt was last seen on 10-26-[address] Yeboah. Next appt is 02-20-[address] Jones. Given enough meds until this appt. [facility] 10-26-2021 Evaluation + Plan note Associ ated Problem(s): Palpitations She continues to report episodes of palpitations. She has not had any dizziness or lightheadedness. No further chest pain symptoms. I reviewed her hospitalization with her and test results. She does tell me she is under a great deal of stress, her is in wheelchair, currently she has a boot on from suffering a fall and a fractured ankle. She is frustrated that she cannot do the activities she wants wants doing. She has been on metoprolol tartrate 25 twice a day, notes some fatigue with that. She also notes that she has had chronic fatigue problems, does have a history of sleep apnea but seems to be compliant and effective with her treatment. I told her I like to quantify the amount of PVCs she is having with a 24-hour Holter, if there is a significant mount I would refer her to EP for consideration of PVC ablation. I switched her to metoprolol succinate 25 daily instead of the tartrate. She likely does need to work on stress reduction techniques. We will be in communication with her regarding test results and any additional follow-up recommendations. [facility] 10-26-2021 Miscellaneous Notes Associate d Problem(s): Palpitations She continues to report episodes of palpitations. She has not had any dizziness or lightheadedness. No further chest pain symptoms. I reviewed her hospitalization with her and test results. She does tell me she is under a great deal of stress, her is in wheelchair, currently she has a boot on from suffering a fall and a fractured ankle. She is frustrated that she cannot do the activities she wants wants doing. She has been on metoprolol tartrate 25 twice a day, notes some fatigue with that. She also notes that she has had chronic fatigue problems, does have a history of sleep apnea but seems to be compliant and effective with her treatment. I told her I like to quantify the amount of PVCs she is having with a 24-hour Holter, if there is a significant mount I would refer her to EP for consideration of PVC ablation. I switched her to metoprolol succinate 25 daily instead of the tartrate. She likely does need to work on stress reduction techniques. We will be in communication with her regarding test results and any additional follow-up recommendations. documented in this encounter [facility] 10-26-2021 Instructions Annamarie Alvarez MA - 10/26/2021 8:31 AM EDT You can reach Dr Yeboah's nurse, Myrtle Roland at [phone]. If unable to reach us please leave a detailed voicemail message. We regularly check our messages when we are in clinic and will return your call in 24 hours. REFILLS: When in need for refills please call the above number. Please relay your name, date and phone number. We request that you include medication name, dose, pharmacy name and location of pharmacy in your message. Be sure to specify 30-day or 90-day supply requested. Please check with your pharmacy within 24-48 hours of request for your refill. You must follow up as directed to continue current refills. FOLLOW UP VISIT: Regarding your follow up office visit: The return date listed below is an approximate date of when your next office visit will be. We will call you a month before that date to schedule your office visit. If you have not heard from us by the date listed below please call the office at [phone] and ask to speak to the schedulers to make an appointment. *If you made an -appointment prior to leaving the office today disregard this message. To cancel or reschedule your office visit or testing please call [phone]. If you need to cancel it must be 24 hours prior to that appt. Thank you. ....If you were seen in the [place] office today. If any testing was ordered a supervisory air intercept controller from [facility] will call you to schedule your testing. If you do not hear from a supervisory air intercept controller after a couple of days please call the office at [phone] and ask to speak to a supervisory air intercept controller. documented in this encounter [facility] 10-26-2021 History of Presen t illness Narrative General Cardiology Clinic Follow-up Heart & Vascular [facility] 10/26/2021 Moy Yeboah MD [address] [place] [facility] [id number] Patient: Emelia Blum Date of : 1960 (61 y.o.) PCP: Tara Diaz, DO Assessment & Plan Palpitations She continues to report episodes of palpitations. She has not had any dizziness or lightheadedness. No further chest pain symptoms. I reviewed her hospitalization with her and test results. She does tell me she is under a great deal of stress, her is in wheelchair, currently she has a boot on from suffering a fall and a fractured ankle. She is frustrated that she cannot do the activities she wants wants doing. She has been on metoprolol tartrate 25 twice a day, notes some fatigue with that. She also notes that she has had chronic fatigue problems, does have a history of sleep apnea but seems to be compliant and effective with her treatment. I told her I like to quantify the amount of PVCs she is having with a 24-hour Holter, if there is a significant mount I would refer her to EP for consideration of PVC ablation. I switched her to metoprolol succinate 25 daily instead of the tartrate. She likely does need to work on stress reduction techniques. We will be in communication with her regarding test results and any additional follow-up recommendations. Follow-up: Return in about 6 months (around 04/28/2022). Subjective History of Present Illness: Emelia Blum is a 61 y.o. female This is a 61-year-old. I visit with her in July. She has a history of pericarditis and hyperlipidemia. Noted to have palpitations and she had an abnormal Holter showing episodes of asymptomatic wide-complex tachycardia. She was hospitalized in September with pleuritic chest discomfort. She had a VQ scan which was normal. Echo showed an EF of 55 to 60%. She had a coronary CTA done which showed a total calcium score 41 with nonobstructive calcified plaque was noted. She underwent a cardiac MRI which showed an EF of 65% and no evidence of edema, inflammation, fibrosis or scar, normal RV. Objective Tobacco Use Smoking Status Never Smokeless Tobacco Never ECG 12 Lead Final Result by Gabe Urbano MD (09/22/20215) Echocardiogram complete w contrast Final Result by Beatrice Recio MD (09/23/2021 0911) Echocardiogram complete Final Result by Rebecca Josue MD (11/05/2019 1302) CT [facility] With And Without Contrast Final Result by Bryn Mayes MD (09/23/2021 1706) [facility] (Business English Instructor read) Final Result by Aurora Cristina MD (09/23/2021 1233) HOME Medications: Patient's Medications New Prescriptions METOPROLOL SUCCINATE (TOPROL-XL) 25 MG 24 HR TABLET Take 1 (one) tablet (25 mg total) by mouth daily . Previous Medications ASCORBIC ACID, VITAMIN C, (VITAMIN C) 500 MG TABLET Take 500 mg by mouth daily . CHOLECALCIFEROL, VITAMIN D3, 25 MCG/SPRAY 1,000UNIT/SPRAY SPSN Place 1 spray under the tongue daily . DIAZEPAM (VALIUM) 5 MG TABLET Take 1 (one) tablet (5 mg total) by mouth once Take 2.5 mg, half tablet, 2 hours prior to MRI and take 2.5 mg, half tablet, 30 minutes prior to MRI. for 1 dose . EZETIMIBE (ZETIA) 10 MG TABLET Take 10 mg by mouth daily . IBUPROFEN (ADVIL,MOTRIN) 200 MG TABLET Ibuprofen Active 200 MG 3 to 4 times per day December 20, 2017 9:08am KETOROLAC (TORADOL) 10 MG TABLET Take 1.5 (one and a half) tablets (15 mg total) by mouth every 8 (eight) hours as needed for pain . Modified Medications No medications on file Discontinued Medications METOPROLOL TARTRATE (LOPRESSOR) 25 MG TABLET Take 1 (one) tablet (25 mg total) by mouth 2 (two) times a day . Vital Signs: BP 110/73 (BP Location: Right arm, Patient Position: Sitting, BP Cuff Size: Adult) Pulse 63 Ht 5' 8 Wt 83.6 kg (184 lb 4.8 oz) SpO2 96% BMI 28.02 kg/m Physical Exam Vitals reviewed. Labs: I personally reviewed and interpreted the labs documented below. Lab Results Component Value Date CHOL 205 (H) 09/22/2021 LDLCALC 119 09/22/2021 TRIG 111 09/22/2021 HDL 64 09/22/2021 Creatinine clearance cannot be calculated (Patient's most recent lab result is older than the maximum 14 days allowed.) documented in this encounter [facility] 09-01-2021 Telephone encounter Note Form atting of this note is different from the original. Images from the original note were not included. MD Radha George RN Yes that is okay Previous Messages ----- Message ----- From: Radha Huitron RN Sent: 08/30/2021 4:42 PM EDT To: Moy Yeboah MD, Nayeli Kaur RN Emelia recently had MRI for her back. She has issues with anxiety. Is it ok to order valium 5 mg , half 2 hours prior and the other half 30 minutes prior for her cardiac MRI? Thanks. Ordered C-MRI today after ALEXIS showed 22 beat run VT. Pt aware of ok for valium prior to C-MRI. 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 5 mg tablet ordered with instructions to take 2.5 mg half tablet 2 hours prior to MRI then take other 2.5 mg half tablet 30 minutes prior to MRI. #1/0 ordered, pended to local Rx and routed to Dr Yeboah for approval. [facility] 09-01-2021 Miscellaneous Notes Formattin g of this note is different from the original. Images from the original note were not included. MD Radha George RN Yes that is okay Previous Messages ----- Message ----- From: Radha Huitron RN Sent: 08/30/2021 4:42 PM EDT To: Moy Yeboah MD, Naylei Kaur RN Emelia recently had MRI for her back. She has issues with anxiety. Is it ok to order valium 5 mg , half 2 hours prior and the other half 30 minutes prior for her cardiac MRI? Thanks. Ordered C-MRI today after ALEXIS showed 22 beat run VT. Pt aware of ok for valium prior to C-MRI. 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 5 mg tablet ordered with instructions to take 2.5 mg half tablet 2 hours prior to MRI then take other 2.5 mg half tablet 30 minutes prior to MRI. #1/0 ordered, pended to local Rx and routed to Dr Yeboah for approval. documented in this encounter [facility] 07-23-2021 Evaluation + Plan note Associ ated Problem(s): Hyperlipidemia She tells me historically she has had fairly high cholesterols. There may be a family history component. She has not had a lipid profile updated she is on no treatment currently, we will update a lipid panel, I reviewed with her PCSK9 inhibitors particular if she has very high LDL cholesterol. [facility] 07-23-2021 Evaluation + Plan note Associ ated Problem(s): Palpitations The patient had contacted our offices concerns of myalgias and her pravastatin was discontinued. She persisted having myalgias and her beta-truong was discontinued and the myalgias seem to resolve. She does however still have palpitations, particularly bothersome in the evening, they may wake her up from her sleep with an awareness of her heart pounding. These do not occur daily but do occur relatively frequently. We will update a 30-day event monitor. She tells me she had an unremarkable stress study in 2019. I reviewed her echo. [facility] 07-23-2021 Miscellaneous Notes Associate d Problem(s): Hyperlipidemia She tells me historically she has had fairly high cholesterols. There may be a family history component. She has not had a lipid profile updated she is on no treatment currently, we will update a lipid panel, I reviewed with her PCSK9 inhibitors particular if she has very high LDL cholesterol. Associated Problem(s): Palpitations The patient had contacted our offices concerns of myalgias and her pravastatin was discontinued. She persisted having myalgias and her beta-truong was discontinued and the myalgias seem to resolve. She does however still have palpitations, particularly bothersome in the evening, they may wake her up from her sleep with an awareness of her heart pounding. These do not occur daily but do occur relatively frequently. We will update a 30-day event monitor. She tells me she had an unremarkable stress study in 2019. I reviewed her echo. documented in this encounter [facility] 07-23-2021 History of Presen t illness Narrative General Cardiology Clinic Follow-up Heart & Vascular [facility] 07/23/2021 Moy Yeboah MD [address] [place] [id number] Patient: Emelia Blum Date of : 1960 (61 y.o.) PCP: Tara Diaz, DO Assessment & Plan Palpitations The patient had contacted our offices concerns of myalgias and her pravastatin was discontinued. She persisted having myalgias and her beta-truong was discontinued and the myalgias seem to resolve. She does however still have palpitations, particularly bothersome in the evening, they may wake her up from her sleep with an awareness of her heart pounding. These do not occur daily but do occur relatively frequently. We will update a 30-day event monitor. She tells me she had an unremarkable stress study in 2019. I reviewed her echo. Hyperlipidemia She tells me historically she has had fairly high cholesterols. There may be a family history component. She has not had a lipid profile updated she is on no treatment currently, we will update a lipid panel, I reviewed with her PCSK9 inhibitors particular if she has very high LDL cholesterol. Follow-up: Return in about 3 months (around 10/22/2021). Chief Complaint: Follow-up Above testing will be reviewed. I told her after I have her heart monitor I may want to follow that up with a stress study, cardiac MRI, particularly if she has recurrent wide-complex dysrhythmias. We may needed an attempt at another beta-truong. Subjective History of Present Illness: Emelia Blum is a 61 y.o. female This is a 61-year-old. She is followed here with Dr. Cueva. History of pericarditis, hyperlipidemia. Echoes have shown normal systolic function. History of palpitations, 30-day event monitor showed some episodes of asymptomatic wide-complex tachycardia. She had a visit in February 2020. She was on a beta-truong. She was felt to be stable at that time. Objective Tobacco Use Smoking Status Never Smoker Smokeless Tobacco Never Used EKG 12-lead Final Result by Aileen Jaime MD (11/05/2019 4682) Echocardiogram complete Final Result by Rebecca Josue MD (11/05/2019 1302) HOME Medications: Patient's Medications New Prescriptions No medications on file Previous Medications ASCORBIC ACID, VITAMIN C, (VITAMIN C) 500 MG TABLET Take 500 mg by mouth daily . CHOLECALCIFEROL, VITAMIN D3, 25 MCG/SPRAY 1,000UNIT/SPRAY SPSN Place 1 spray under the tongue daily . Modified Medications No medications on file Discontinued Medications METOPROLOL TARTRATE (LOPRESSOR) 25 MG TABLET Take 1 (one) tablet (25 mg total) by mouth 2 (two) times a day . PRAVASTATIN (PRAVACHOL) 40 MG TABLET Take 40 mg by mouth nightly . Vital Signs: BP 135/83 (BP Location: Right arm, Patient Position: Sitting, BP Cuff Size: Adult) Pulse 64 Ht 5' 7 Wt 83.5 kg (184 lb) SpO2 97% BMI 28.82 kg/m Physical Exam Vitals reviewed. Constitutional: Appearance: She is well-developed. HENT: Head: Normocephalic. Eyes: General: No scleral icterus. Neck: Thyroid: No thyromegaly. Cardiovascular: Rate and Rhythm: Normal rate and regular rhythm. Heart sounds: Normal heart sounds. No murmur heard. No friction rub. No gallop. Pulmonary: Effort: Pulmonary effort is normal. Breath sounds: Normal breath sounds. No wheezing or rales. Abdominal: Palpations: Abdomen is soft. Tenderness: There is no abdominal tenderness. There is no guarding or rebound. Musculoskeletal: Cervical back: Neck supple. Skin: General: Skin is warm and dry. Neurological: General: No focal deficit present. Mental Status: She is alert and oriented to person, place, and time. Psychiatric: Mood and Affect: Mood normal. documented in this encounter [facility] 07-23-2021 Instructions Nayeli Kaur RN - 07/23/2021 7:58 AM EDT You can reach Dr Yeboah's nurses, Nayeli Kaur RN and Radha Huitron RN, at [phone]. If unable to reach us please leave a detailed voicemail message. We regularly check our messages when we are in clinic and will return your call in 24 hours. REFILLS: When in need for refills please call the above number. Please relay your name, date and phone number. We request that you include medication name, dose, pharmacy name and location of pharmacy in your message. Be sure to specify 30-day or 90-day supply requested. Please check with your pharmacy within 24-48 hours of request for your refill. You must follow up as directed to continue current refills. FOLLOW UP VISIT: Regarding your follow up office visit: The return date listed below is an approximate date of when your next office visit will be. We will call you a month before that date to schedule your office visit. If you have not heard from us by the date listed below please call the office at [phone] and ask to speak to the schedulers to make an appointment. *If you made an -appointment prior to leaving the office today disregard this message. To cancel or reschedule your office visit or testing please call [phone]. If you need to cancel it must be 24 hours prior to that appt. Thank you. ....If you were seen in the [place] office today. If any testing was ordered a supervisory air intercept controller from [facility] will call you to schedule your testing. If you do not hear from a supervisory air intercept controller after a couple of days please call the office at [phone] and ask to speak to a supervisory air intercept controller. documented in this encounter [facility] Diagnosis Ventricular tachycardia (HCC)- Primary Paroxysmal ventricular tachycardia Ventricular tachycardia, non-sustained (HCC) [facility] Diagnosis Palpitations- Primary [facility] Diagnosis Palpitations- Primary [facility] [place] [facility] Diagnosis Palpitations- Primary Dyslipidemia Other and unspecified hyperlipidemia [facility] [place] [facility] Diagnosis Medication therapy continued- Primary [facility] Name Dates Details Patient Instructions Indication:Nonsmoker Start:11-Sep-2020 Instruction Type:Provider Instructions for Treatment How to Access Health Informa tion Online using Patient Portal and [employer] Apps Indication:Nonsmoker Start:11-Sep-2020 Instruction Type:Patient Education Patient Instructions Indication:BMI 27.0-27.9,adult Start:15-Apr-2020 Instruction Type:Provider Instructions for Treatment How to Access Health Informa tion Online using Patient Portal and [employer] Apps Indication:BMI 27.0-27.9,adult Start:15-Apr-2020 Instruction Type:Patient Education Patient Instructions Indication:Nonsmoker Start:13-Apr-2020 Instruction Type:Provider Instructions for Treatment How to Access Health Informa tion Online using Patient Portal and [employer] Apps Indication:UTI symptoms Start:13-Apr-2020 Instruction Type:Patient Education How to access health informa tion online Indication:Nonsmoker Start:05-Mar-2020 Instruction Type:Patient Education How to access health informa tion online - Detail Indication:Nonsmoker Start:05-Mar-2020 Instruction Type:Patient Education Patient Instructions Indication:Nonsmoker Start:05-Mar-2020 Instruction Type:Provider Instructions for Treatment How to access health informa tion online Indication:Nonsmoker Start:20-Nov-2019 Instruction Type:Patient Education How to access health informa tion online - Detail Indication:Nonsmoker Start:20-Nov-2019 Instruction Type:Patient Education Patient Instructions Indication:Nonsmoker Start:20-Nov-2019 Instruction Type:Provider Instructions for Treatment How to access health informa tion online Indication:Nonsmoker Start:09-Oct-2019 Instruction Type:Patient Education How to access health informa tion online - Detail Indication:Nonsmoker Start:09-Oct-2019 Instruction Type:Patient Education Patient Instructions Indication:Nonsmoker Start:09-Oct-2019 Instruction Type:Provider Instructions for Treatment How to access health informa tion online Indication:BMI 27.0-27.9,adult Start:03-Oct-2019 Instruction Type:Patient Education How to access health informa tion online - Detail Indication:BMI 27.0-27.9,adult Start:03-Oct-2019 Instruction Type:Patient Education Patient Instructions Indication:BMI 27.0-27.9,adult Start:03-Oct-2019 Instruction Type:Provider Instructions for Treatment How to access health informa tion online Indication:Nonsmoker Start:28-Feb-2019 Instruction Type:Patient Education How to access health informa tion online - Detail Indication:Nonsmoker Start:28-Feb-2019 Instruction Type:Patient Education Patient Instructions Indication:Nonsmoker Start:28-Feb-2019 Instruction Type:Provider Instructions for Treatment How to access health informa tion online Indication:BMI 27.0-27.9,adult Start:14-Dec-2018 Instruction Type:Patient Education How to access health informa tion online - Detail Indication:BMI 27.0-27.9,adult Start:14-Dec-2018 Instruction Type:Patient Education Patient Instructions Indication:BMI 27.0-27.9,adult Start:14-Dec-2018 Instruction Type:Provider Instructions for Treatment How to access health informa tion online Indication:Nonsmoker Start:28-Nov-2018 Instruction Type:Patient Education How to access health informa tion online - Detail Indication:Nonsmoker Start:28-Nov-2018 Instruction Type:Patient Education Patient Instructions Indication:Nonsmoker Start:28-Nov-2018 Instruction Type:Provider Instructions for Treatment How to access health informa tion online - Detail Indication:Nonsmoker Start:21-Nov-2018 Instruction Type:Patient Education How to access health informa tion online Indication:Nonsmoker Start:21-Nov-2018 Instruction Type:Patient Education How to access health informa tion online - Detail Indication:Nonsmoker Start:21-Nov-2018 Instruction Type:Patient Education Patient Instructions Indication:Nonsmoker Start:21-Nov-2018 Instruction Type:Provider Instructions for Treatment How to access health informa tion online Indication:Nonsmoker Start:11-Dec-2017 Instruction Type:Patient Education How to access health informa tion online - Detail Indication:Nonsmoker Start:11-Dec-2017 Instruction Type:Patient Education Patient Instructions Indication:Nonsmoker Start:11-Dec-2017 Instruction Type:Provider Instructions for Treatment How to access health informa tion online Indication:Nonsmoker Start:09-Oct-2017 Instruction Type:Patient Education How to access health informa tion online - Detail Indication:Nonsmoker Start:09-Oct-2017 Instruction Type:Patient Education Patient Instructions Indication:Poison tangela Start:09-Oct-2017 Instruction Type:Provider Instructions for Treatment Patient Instructions Indication:BMI 27.0-27.9,adult Start:23-Nov-2016 Instruction Type:Provider Instructions for Treatment How to access health informa tion online Indication:B12 deficiency anemia Start:23-Nov-2016 Instruction Type:Patient Education How to access health informa tion online - Detail Indication:B12 deficiency anemia Start:23-Nov-2016 Instruction Type:Patient Education Patient Instructions Indication:B12 deficiency anemia Start:23-Nov-2016 Instruction Type:Provider Instructions for Treatment How to access health informa tion online Indication:Nonsmoker Start:17-Oct-2016 Instruction Type:Patient Education How to access health informa tion online - Detail Indication:Nonsmoker Start:17-Oct-2016 Instruction Type:Patient Education Patient Instructions Indication:Nonsmoker Start:17-Oct-2016 Instruction Type:Provider Instructions for Treatment How to access health informa tion online Indication:UTI (urinary tract infection) Start:25-Mar-2016 Instruction Type:Patient Education How to access health informa tion online - Detail Indication:UTI (urinary tract infection) Start:25-Mar-2016 Instruction Type:Patient Education Patient Instructions Indication:UTI (urinary tract infection) Start:25-Mar-2016 Instruction Type:Provider Instructions for Treatment How to access health informa tion online - Detail Indication:UTI (urinary tract infection) Start:10-Dec-2015 Instruction Type:Patient Education Patient Instructions Indication:UTI (urinary tract infection) Start:10-Dec-2015 Instruction Type:Provider Instructions for Treatment Patient Instructions Indication:Annual Medicare Physical WITH abnormal findings (Renamed from Encounter for general adult medical examination with abnormal findings) Start:05-Feb-2015 Instruction Type:Provider Instructions for Treatment Patient Instructions Indication:Neck Pain Start:08-May-2014 Instruction Type:Provider Instructions for Treatment Patient Instructions Indication:Contact dermatitis Start:01-Nov-2013 Instruction Type:Provider Instructions for Treatment Patient Instructions Indication:Hypercholesteremia Start:08-Nov-2012 Instruction Type:Provider Instructions for Treatment Patient Instructions Indication:FATIGUE Start:07-Jun-2012 Instruction Type:Provider Instructions for Treatment Patient Instructions Indication:Hormone imbalance Start:30-May-2012 Instruction Type:Provider Instructions for Treatment [facility] Work Phone: Instructions* Name Dates Details Patient Instructions Indication:Nonsmoker Start:11-Sep-2020 Instruction Type:Provider Instructions for Treatment How to Access Health Informa tion Online using Patient Portal and [employer] Apps Indication:Nonsmoker Start:11-Sep-2020 Instruction Type:Patient Education Patient Instructions Indication:BMI 27.0-27.9,adult Start:15-Apr-2020 Instruction Type:Provider Instructions for Treatment How to Access Health Informa tion Online using Patient Portal and [employer] Apps Indication:BMI 27.0-27.9,adult Start:15-Apr-2020 Instruction Type:Patient Education Patient Instructions Indication:Nonsmoker Start:13-Apr-2020 Instruction Type:Provider Instructions for Treatment How to Access Health Informa tion Online using Patient Portal and [employer] Apps Indication:UTI symptoms Start:13-Apr-2020 Instruction Type:Patient Education How to access health informa tion online Indication:Nonsmoker Start:05-Mar-2020 Instruction Type:Patient Education How to access health informa tion online - Detail Indication:Nonsmoker Start:05-Mar-2020 Instruction Type:Patient Education Patient Instructions Indication:Nonsmoker Start:05-Mar-2020 Instruction Type:Provider Instructions for Treatment How to access health informa tion online Indication:Nonsmoker Start:20-Nov-2019 Instruction Type:Patient Education How to access health informa tion online - Detail Indication:Nonsmoker Start:20-Nov-2019 Instruction Type:Patient Education Patient Instructions Indication:Nonsmoker Start:20-Nov-2019 Instruction Type:Provider Instructions for Treatment How to access health informa tion online Indication:Nonsmoker Start:09-Oct-2019 Instruction Type:Patient Education How to access health informa tion online - Detail Indication:Nonsmoker Start:09-Oct-2019 Instruction Type:Patient Education Patient Instructions Indication:Nonsmoker Start:09-Oct-2019 Instruction Type:Provider Instructions for Treatment How to access health informa tion online Indication:BMI 27.0-27.9,adult Start:03-Oct-2019 Instruction Type:Patient Education How to access health informa tion online - Detail Indication:BMI 27.0-27.9,adult Start:03-Oct-2019 Instruction Type:Patient Education Patient Instructions Indication:BMI 27.0-27.9,adult Start:03-Oct-2019 Instruction Type:Provider Instructions for Treatment How to access health informa tion online Indication:Nonsmoker Start:28-Feb-2019 Instruction Type:Patient Education How to access health informa tion online - Detail Indication:Nonsmoker Start:28-Feb-2019 Instruction Type:Patient Education Patient Instructions Indication:Nonsmoker Start:28-Feb-2019 Instruction Type:Provider Instructions for Treatment How to access health informa tion online Indication:BMI 27.0-27.9,adult Start:14-Dec-2018 Instruction Type:Patient Education How to access health informa tion online - Detail Indication:BMI 27.0-27.9,adult Start:14-Dec-2018 Instruction Type:Patient Education Patient Instructions Indication:BMI 27.0-27.9,adult Start:14-Dec-2018 Instruction Type:Provider Instructions for Treatment How to access health informa tion online Indication:Nonsmoker Start:28-Nov-2018 Instruction Type:Patient Education How to access health informa tion online - Detail Indication:Nonsmoker Start:28-Nov-2018 Instruction Type:Patient Education Patient Instructions Indication:Nonsmoker Start:28-Nov-2018 Instruction Type:Provider Instructions for Treatment How to access health informa tion online - Detail Indication:Nonsmoker Start:21-Nov-2018 Instruction Type:Patient Education How to access health informa tion online Indication:Nonsmoker Start:21-Nov-2018 Instruction Type:Patient Education How to access health informa tion online - Detail Indication:Nonsmoker Start:21-Nov-2018 Instruction Type:Patient Education Patient Instructions Indication:Nonsmoker Start:21-Nov-2018 Instruction Type:Provider Instructions for Treatment How to access health informa tion online Indication:Nonsmoker Start:11-Dec-2017 Instruction Type:Patient Education How to access health informa tion online - Detail Indication:Nonsmoker Start:11-Dec-2017 Instruction Type:Patient Education Patient Instructions Indication:Nonsmoker Start:11-Dec-2017 Instruction Type:Provider Instructions for Treatment How to access health informa tion online Indication:Nonsmoker Start:09-Oct-2017 Instruction Type:Patient Education How to access health informa tion online - Detail Indication:Nonsmoker Start:09-Oct-2017 Instruction Type:Patient Education Patient Instructions Indication:Poison tangela Start:09-Oct-2017 Instruction Type:Provider Instructions for Treatment Patient Instructions Indication:BMI 27.0-27.9,adult Start:23-Nov-2016 Instruction Type:Provider Instructions for Treatment How to access health informa tion online Indication:B12 deficiency anemia Start:23-Nov-2016 Instruction Type:Patient Education How to access health informa tion online - Detail Indication:B12 deficiency anemia Start:23-Nov-2016 Instruction Type:Patient Education Patient Instructions Indication:B12 deficiency anemia Start:23-Nov-2016 Instruction Type:Provider Instructions for Treatment How to access health informa tion online Indication:Nonsmoker Start:17-Oct-2016 Instruction Type:Patient Education How to access health informa tion online - Detail Indication:Nonsmoker Start:17-Oct-2016 Instruction Type:Patient Education Patient Instructions Indication:Nonsmoker Start:17-Oct-2016 Instruction Type:Provider Instructions for Treatment How to access health informa tion online Indication:UTI (urinary tract infection) Start:25-Mar-2016 Instruction Type:Patient Education How to access health informa tion online - Detail Indication:UTI (urinary tract infection) Start:25-Mar-2016 Instruction Type:Patient Education Patient Instructions Indication:UTI (urinary tract infection) Start:25-Mar-2016 Instruction Type:Provider Instructions for Treatment How to access health informa tion online - Detail Indication:UTI (urinary tract infection) Start:10-Dec-2015 Instruction Type:Patient Education Patient Instructions Indication:UTI (urinary tract infection) Start:10-Dec-2015 Instruction Type:Provider Instructions for Treatment Patient Instructions Indication:Annual Medicare Physical WITH abnormal findings (Renamed from Encounter for general adult medical examination with abnormal findings) Start:05-Feb-2015 Instruction Type:Provider Instructions for Treatment Patient Instructions Indication:Neck Pain Start:08-May-2014 Instruction Type:Provider Instructions for Treatment Patient Instructions Indication:Contact dermatitis Start:01-Nov-2013 Instruction Type:Provider Instructions for Treatment Patient Instructions Indication:Hypercholesteremia Start:08-Nov-2012 Instruction Type:Provider Instructions for Treatment Patient Instructions Indication:FATIGUE Start:07-Jun-2012 Instruction Type:Provider Instructions for Treatment Patient Instructions Indication:Hormone imbalance Start:30-May-2012 Instruction Type:Provider Instructions for Treatment [facility]; [facility] Work Phone: Instructions* Name Dates Details Patient Instructions Indication:Nonsmoker Start:11-Sep-2020 Instruction Type:Provider Instructions for Treatment How to Access Health Informa tion Online using Patient Portal and [employer]rd [employer] Apps Indication:Nonsmoker Start:11-Sep-2020 Instruction Type:Patient Education Patient Instructions Indication:BMI 27.0-27.9,adult Start:15-Apr-2020 Instruction Type:Provider Instructions for Treatment How to Access Health Informa tion Online using Patient Portal and [employer]rd [employer] Apps Indication:BMI 27.0-27.9,adult Start:15-Apr-2020 Instruction Type:Patient Education Patient Instructions Indication:Nonsmoker Start:13-Apr-2020 Instruction Type:Provider Instructions for Treatment How to Access Health Informa tion Online using Patient Portal and [employer]rd [employer] Apps Indication:UTI symptoms Start:13-Apr-2020 Instruction Type:Patient Education How to access health informa tion online Indication:Nonsmoker Start:05-Mar-2020 Instruction Type:Patient Education How to access health informa tion online - Detail Indication:Nonsmoker Start:05-Mar-2020 Instruction Type:Patient Education Patient Instructions Indication:Nonsmoker Start:05-Mar-2020 Instruction Type:Provider Instructions for Treatment How to access health informa tion online Indication:Nonsmoker Start:20-Nov-2019 Instruction Type:Patient Education How to access health informa tion online - Detail Indication:Nonsmoker Start:20-Nov-2019 Instruction Type:Patient Education Patient Instructions Indication:Nonsmoker Start:20-Nov-2019 Instruction Type:Provider Instructions for Treatment How to access health informa tion online Indication:Nonsmoker Start:09-Oct-2019 Instruction Type:Patient Education How to access health informa tion online - Detail Indication:Nonsmoker Start:09-Oct-2019 Instruction Type:Patient Education Patient Instructions Indication:Nonsmoker Start:09-Oct-2019 Instruction Type:Provider Instructions for Treatment How to access health informa tion online Indication:BMI 27.0-27.9,adult Start:03-Oct-2019 Instruction Type:Patient Education How to access health informa tion online - Detail Indication:BMI 27.0-27.9,adult Start:03-Oct-2019 Instruction Type:Patient Education Patient Instructions Indication:BMI 27.0-27.9,adult Start:03-Oct-2019 Instruction Type:Provider Instructions for Treatment How to access health informa tion online Indication:Nonsmoker Start:28-Feb-2019 Instruction Type:Patient Education How to access health informa tion online - Detail Indication:Nonsmoker Start:28-Feb-2019 Instruction Type:Patient Education Patient Instructions Indication:Nonsmoker Start:28-Feb-2019 Instruction Type:Provider Instructions for Treatment How to access health informa tion online Indication:BMI 27.0-27.9,adult Start:14-Dec-2018 Instruction Type:Patient Education How to access health informa tion online - Detail Indication:BMI 27.0-27.9,adult Start:14-Dec-2018 Instruction Type:Patient Education Patient Instructions Indication:BMI 27.0-27.9,adult Start:14-Dec-2018 Instruction Type:Provider Instructions for Treatment How to access health informa tion online Indication:Nonsmoker Start:28-Nov-2018 Instruction Type:Patient Education How to access health informa tion online - Detail Indication:Nonsmoker Start:28-Nov-2018 Instruction Type:Patient Education Patient Instructions Indication:Nonsmoker Start:28-Nov-2018 Instruction Type:Provider Instructions for Treatment How to access health informa tion online - Detail Indication:Nonsmoker Start:21-Nov-2018 Instruction Type:Patient Education How to access health informa tion online Indication:Nonsmoker Start:21-Nov-2018 Instruction Type:Patient Education How to access health informa tion online - Detail Indication:Nonsmoker Start:21-Nov-2018 Instruction Type:Patient Education Patient Instructions Indication:Nonsmoker Start:21-Nov-2018 Instruction Type:Provider Instructions for Treatment How to access health informa tion online Indication:Nonsmoker Start:11-Dec-2017 Instruction Type:Patient Education How to access health informa tion online - Detail Indication:Nonsmoker Start:11-Dec-2017 Instruction Type:Patient Education Patient Instructions Indication:Nonsmoker Start:11-Dec-2017 Instruction Type:Provider Instructions for Treatment How to access health informa tion online Indication:Nonsmoker Start:09-Oct-2017 Instruction Type:Patient Education How to access health informa tion online - Detail Indication:Nonsmoker Start:09-Oct-2017 Instruction Type:Patient Education Patient Instructions Indication:Poison tangela Start:09-Oct-2017 Instruction Type:Provider Instructions for Treatment Patient Instructions Indication:BMI 27.0-27.9,adult Start:23-Nov-2016 Instruction Type:Provider Instructions for Treatment How to access health informa tion online Indication:B12 deficiency anemia Start:23-Nov-2016 Instruction Type:Patient Education How to access health informa tion online - Detail Indication:B12 deficiency anemia Start:23-Nov-2016 Instruction Type:Patient Education Patient Instructions Indication:B12 deficiency anemia Start:23-Nov-2016 Instruction Type:Provider Instructions for Treatment How to access health informa tion online Indication:Nonsmoker Start:17-Oct-2016 Instruction Type:Patient Education How to access health informa tion online - Detail Indication:Nonsmoker Start:17-Oct-2016 Instruction Type:Patient Education Patient Instructions Indication:Nonsmoker Start:17-Oct-2016 Instruction Type:Provider Instructions for Treatment How to access health informa tion online Indication:UTI (urinary tract infection) Start:25-Mar-2016 Instruction Type:Patient Education How to access health informa tion online - Detail Indication:UTI (urinary tract infection) Start:25-Mar-2016 Instruction Type:Patient Education Patient Instructions Indication:UTI (urinary tract infection) Start:25-Mar-2016 Instruction Type:Provider Instructions for Treatment How to access health informa tion online - Detail Indication:UTI (urinary tract infection) Start:10-Dec-2015 Instruction Type:Patient Education Patient Instructions Indication:UTI (urinary tract infection) Start:10-Dec-2015 Instruction Type:Provider Instructions for Treatment Patient Instructions Indication:Annual Medicare Physical WITH abnormal findings (Renamed from Encounter for general adult medical examination with abnormal findings) Start:05-Feb-2015 Instruction Type:Provider Instructions for Treatment Patient Instructions Indication:Neck Pain Start:08-May-2014 Instruction Type:Provider Instructions for Treatment Patient Instructions Indication:Contact dermatitis Start:01-Nov-2013 Instruction Type:Provider Instructions for Treatment Patient Instructions Indication:Hypercholesteremia Start:08-Nov-2012 Instruction Type:Provider Instructions for Treatment Patient Instructions Indication:FATIGUE Start:07-Jun-2012 Instruction Type:Provider Instructions for Treatment Patient Instructions Indication:Hormone imbalance Start:30-May-2012 Instruction Type:Provider Instructions for Treatment [facility]; [facility] Work Phone: Instructions* Name Dates Details Patient Instructions Indication:Nonsmoker Start:11-Sep-2020 Instruction Type:Provider Instructions for Treatment How to Access Health Informa tion Online using Patient Portal and [employer]rd [employer] Apps Indication:Nonsmoker Start:11-Sep-2020 Instruction Type:Patient Education Patient Instructions Indication:BMI 27.0-27.9,adult Start:15-Apr-2020 Instruction Type:Provider Instructions for Treatment How to Access Health Informa tion Online using Patient Portal and [employer]rd [employer] Apps Indication:BMI 27.0-27.9,adult Start:15-Apr-2020 Instruction Type:Patient Education Patient Instructions Indication:Nonsmoker Start:13-Apr-2020 Instruction Type:Provider Instructions for Treatment How to Access Health Informa tion Online using Patient Portal and [employer]rd [employer] Apps Indication:UTI symptoms Start:13-Apr-2020 Instruction Type:Patient Education How to access health informa tion online Indication:Nonsmoker Start:05-Mar-2020 Instruction Type:Patient Education How to access health informa tion online - Detail Indication:Nonsmoker Start:05-Mar-2020 Instruction Type:Patient Education Patient Instructions Indication:Nonsmoker Start:05-Mar-2020 Instruction Type:Provider Instructions for Treatment How to access health informa tion online Indication:Nonsmoker Start:20-Nov-2019 Instruction Type:Patient Education How to access health informa tion online - Detail Indication:Nonsmoker Start:20-Nov-2019 Instruction Type:Patient Education Patient Instructions Indication:Nonsmoker Start:20-Nov-2019 Instruction Type:Provider Instructions for Treatment How to access health informa tion online Indication:Nonsmoker Start:09-Oct-2019 Instruction Type:Patient Education How to access health informa tion online - Detail Indication:Nonsmoker Start:09-Oct-2019 Instruction Type:Patient Education Patient Instructions Indication:Nonsmoker Start:09-Oct-2019 Instruction Type:Provider Instructions for Treatment How to access health informa tion online Indication:BMI 27.0-27.9,adult Start:03-Oct-2019 Instruction Type:Patient Education How to access health informa tion online - Detail Indication:BMI 27.0-27.9,adult Start:03-Oct-2019 Instruction Type:Patient Education Patient Instructions Indication:BMI 27.0-27.9,adult Start:03-Oct-2019 Instruction Type:Provider Instructions for Treatment How to access health informa tion online Indication:Nonsmoker Start:28-Feb-2019 Instruction Type:Patient Education How to access health informa tion online - Detail Indication:Nonsmoker Start:28-Feb-2019 Instruction Type:Patient Education Patient Instructions Indication:Nonsmoker Start:28-Feb-2019 Instruction Type:Provider Instructions for Treatment How to access health informa tion online Indication:BMI 27.0-27.9,adult Start:14-Dec-2018 Instruction Type:Patient Education How to access health informa tion online - Detail Indication:BMI 27.0-27.9,adult Start:14-Dec-2018 Instruction Type:Patient Education Patient Instructions Indication:BMI 27.0-27.9,adult Start:14-Dec-2018 Instruction Type:Provider Instructions for Treatment How to access health informa tion online Indication:Nonsmoker Start:28-Nov-2018 Instruction Type:Patient Education How to access health informa tion online - Detail Indication:Nonsmoker Start:28-Nov-2018 Instruction Type:Patient Education Patient Instructions Indication:Nonsmoker Start:28-Nov-2018 Instruction Type:Provider Instructions for Treatment How to access health informa tion online - Detail Indication:Nonsmoker Start:21-Nov-2018 Instruction Type:Patient Education How to access health informa tion online Indication:Nonsmoker Start:21-Nov-2018 Instruction Type:Patient Education How to access health informa tion online - Detail Indication:Nonsmoker Start:21-Nov-2018 Instruction Type:Patient Education Patient Instructions Indication:Nonsmoker Start:21-Nov-2018 Instruction Type:Provider Instructions for Treatment How to access health informa tion online Indication:Nonsmoker Start:11-Dec-2017 Instruction Type:Patient Education How to access health informa tion online - Detail Indication:Nonsmoker Start:11-Dec-2017 Instruction Type:Patient Education Patient Instructions Indication:Nonsmoker Start:11-Dec-2017 Instruction Type:Provider Instructions for Treatment How to access health informa tion online Indication:Nonsmoker Start:09-Oct-2017 Instruction Type:Patient Education How to access health informa tion online - Detail Indication:Nonsmoker Start:09-Oct-2017 Instruction Type:Patient Education Patient Instructions Indication:Poison tangela Start:09-Oct-2017 Instruction Type:Provider Instructions for Treatment Patient Instructions Indication:BMI 27.0-27.9,adult Start:23-Nov-2016 Instruction Type:Provider Instructions for Treatment How to access health informa tion online Indication:B12 deficiency anemia Start:23-Nov-2016 Instruction Type:Patient Education How to access health informa tion online - Detail Indication:B12 deficiency anemia Start:23-Nov-2016 Instruction Type:Patient Education Patient Instructions Indication:B12 deficiency anemia Start:23-Nov-2016 Instruction Type:Provider Instructions for Treatment How to access health informa tion online Indication:Nonsmoker Start:17-Oct-2016 Instruction Type:Patient Education How to access health informa tion online - Detail Indication:Nonsmoker Start:17-Oct-2016 Instruction Type:Patient Education Patient Instructions Indication:Nonsmoker Start:17-Oct-2016 Instruction Type:Provider Instructions for Treatment How to access health informa tion online Indication:UTI (urinary tract infection) Start:25-Mar-2016 Instruction Type:Patient Education How to access health informa tion online - Detail Indication:UTI (urinary tract infection) Start:25-Mar-2016 Instruction Type:Patient Education Patient Instructions Indication:UTI (urinary tract infection) Start:25-Mar-2016 Instruction Type:Provider Instructions for Treatment How to access health informa tion online - Detail Indication:UTI (urinary tract infection) Start:10-Dec-2015 Instruction Type:Patient Education Patient Instructions Indication:UTI (urinary tract infection) Start:10-Dec-2015 Instruction Type:Provider Instructions for Treatment Patient Instructions Indication:Annual Medicare Physical WITH abnormal findings (Renamed from Encounter for general adult medical examination with abnormal findings) Start:05-Feb-2015 Instruction Type:Provider Instructions for Treatment Patient Instructions Indication:Neck Pain Start:08-May-2014 Instruction Type:Provider Instructions for Treatment Patient Instructions Indication:Contact dermatitis Start:01-Nov-2013 Instruction Type:Provider Instructions for Treatment Patient Instructions Indication:Hypercholesteremia Start:08-Nov-2012 Instruction Type:Provider Instructions for Treatment Patient Instructions Indication:FATIGUE Start:07-Jun-2012 Instruction Type:Provider Instructions for Treatment Patient Instructions Indication:Hormone imbalance Start:30-May-2012 Instruction Type:Provider Instructions for Treatment [facility]; [facility] Work Phone: Instructions* Name Dates Details Patient Instructions Indication:Nonsmoker Start:10-Feb-2021 Instruction Type:Provider Instructions for Treatment How to Access Health Informa tion Online using Patient Portal and [employer] Apps Indication:Nonsmoker Start:10-Feb-2021 Instruction Type:Patient Education Patient Instructions Indication:BMI 26.0-26.9,adult Start:07-Jan-2021 Instruction Type:Provider Instructions for Treatment How to Access Health Informa tion Online using Patient Portal and [employer]rd [employer] Apps Indication:BMI 26.0-26.9,adult Start:07-Jan-2021 Instruction Type:Patient Education Patient Instructions Indication:Nonsmoker Start:11-Sep-2020 Instruction Type:Provider Instructions for Treatment How to Access Health Informa tion Online using Patient Portal and [employer]rd [employer] Apps Indication:Nonsmoker Start:11-Sep-2020 Instruction Type:Patient Education Patient Instructions Indication:BMI 27.0-27.9,adult Start:15-Apr-2020 Instruction Type:Provider Instructions for Treatment How to Access Health Informa tion Online using Patient Portal and [employer]rd [employer] Apps Indication:BMI 27.0-27.9,adult Start:15-Apr-2020 Instruction Type:Patient Education Patient Instructions Indication:Nonsmoker Start:13-Apr-2020 Instruction Type:Provider Instructions for Treatment How to Access Health Informa tion Online using Patient Portal and [employer]rd [employer] Apps Indication:UTI symptoms Start:13-Apr-2020 Instruction Type:Patient Education How to access health informa tion online Indication:Nonsmoker Start:05-Mar-2020 Instruction Type:Patient Education How to access health informa tion online - Detail Indication:Nonsmoker Start:05-Mar-2020 Instruction Type:Patient Education Patient Instructions Indication:Nonsmoker Start:05-Mar-2020 Instruction Type:Provider Instructions for Treatment How to access health informa tion online Indication:Nonsmoker Start:20-Nov-2019 Instruction Type:Patient Education How to access health informa tion online - Detail Indication:Nonsmoker Start:20-Nov-2019 Instruction Type:Patient Education Patient Instructions Indication:Nonsmoker Start:20-Nov-2019 Instruction Type:Provider Instructions for Treatment How to access health informa tion online Indication:Nonsmoker Start:09-Oct-2019 Instruction Type:Patient Education How to access health informa tion online - Detail Indication:Nonsmoker Start:09-Oct-2019 Instruction Type:Patient Education Patient Instructions Indication:Nonsmoker Start:09-Oct-2019 Instruction Type:Provider Instructions for Treatment How to access health informa tion online Indication:BMI 27.0-27.9,adult Start:03-Oct-2019 Instruction Type:Patient Education How to access health informa tion online - Detail Indication:BMI 27.0-27.9,adult Start:03-Oct-2019 Instruction Type:Patient Education Patient Instructions Indication:BMI 27.0-27.9,adult Start:03-Oct-2019 Instruction Type:Provider Instructions for Treatment How to access health informa tion online Indication:Nonsmoker Start:28-Feb-2019 Instruction Type:Patient Education How to access health informa tion online - Detail Indication:Nonsmoker Start:28-Feb-2019 Instruction Type:Patient Education Patient Instructions Indication:Nonsmoker Start:28-Feb-2019 Instruction Type:Provider Instructions for Treatment How to access health informa tion online Indication:BMI 27.0-27.9,adult Start:14-Dec-2018 Instruction Type:Patient Education How to access health informa tion online - Detail Indication:BMI 27.0-27.9,adult Start:14-Dec-2018 Instruction Type:Patient Education Patient Instructions Indication:BMI 27.0-27.9,adult Start:14-Dec-2018 Instruction Type:Provider Instructions for Treatment How to access health informa tion online Indication:Nonsmoker Start:28-Nov-2018 Instruction Type:Patient Education How to access health informa tion online - Detail Indication:Nonsmoker Start:28-Nov-2018 Instruction Type:Patient Education Patient Instructions Indication:Nonsmoker Start:28-Nov-2018 Instruction Type:Provider Instructions for Treatment How to access health informa tion online - Detail Indication:Nonsmoker Start:21-Nov-2018 Instruction Type:Patient Education How to access health informa tion online Indication:Nonsmoker Start:21-Nov-2018 Instruction Type:Patient Education How to access health informa tion online - Detail Indication:Nonsmoker Start:21-Nov-2018 Instruction Type:Patient Education Patient Instructions Indication:Nonsmoker Start:21-Nov-2018 Instruction Type:Provider Instructions for Treatment How to access health informa tion online Indication:Nonsmoker Start:11-Dec-2017 Instruction Type:Patient Education How to access health informa tion online - Detail Indication:Nonsmoker Start:11-Dec-2017 Instruction Type:Patient Education Patient Instructions Indication:Nonsmoker Start:11-Dec-2017 Instruction Type:Provider Instructions for Treatment How to access health informa tion online Indication:Nonsmoker Start:09-Oct-2017 Instruction Type:Patient Education How to access health informa tion online - Detail Indication:Nonsmoker Start:09-Oct-2017 Instruction Type:Patient Education Patient Instructions Indication:Poison tangela Start:09-Oct-2017 Instruction Type:Provider Instructions for Treatment Patient Instructions Indication:BMI 27.0-27.9,adult Start:23-Nov-2016 Instruction Type:Provider Instructions for Treatment How to access health informa tion online Indication:B12 deficiency anemia Start:23-Nov-2016 Instruction Type:Patient Education How to access health informa tion online - Detail Indication:B12 deficiency anemia Start:23-Nov-2016 Instruction Type:Patient Education Patient Instructions Indication:B12 deficiency anemia Start:23-Nov-2016 Instruction Type:Provider Instructions for Treatment How to access health informa tion online Indication:Nonsmoker Start:17-Oct-2016 Instruction Type:Patient Education How to access health informa tion online - Detail Indication:Nonsmoker Start:17-Oct-2016 Instruction Type:Patient Education Patient Instructions Indication:Nonsmoker Start:17-Oct-2016 Instruction Type:Provider Instructions for Treatment How to access health informa tion online Indication:UTI (urinary tract infection) Start:25-Mar-2016 Instruction Type:Patient Education How to access health informa tion online - Detail Indication:UTI (urinary tract infection) Start:25-Mar-2016 Instruction Type:Patient Education Patient Instructions Indication:UTI (urinary tract infection) Start:25-Mar-2016 Instruction Type:Provider Instructions for Treatment How to access health informa tion online - Detail Indication:UTI (urinary tract infection) Start:10-Dec-2015 Instruction Type:Patient Education Patient Instructions Indication:UTI (urinary tract infection) Start:10-Dec-2015 Instruction Type:Provider Instructions for Treatment Patient Instructions Indication:Annual Medicare Physical WITH abnormal findings (Renamed from Encounter for general adult medical examination with abnormal findings) Start:05-Feb-2015 Instruction Type:Provider Instructions for Treatment Patient Instructions Indication:Neck Pain Start:08-May-2014 Instruction Type:Provider Instructions for Treatment Patient Instructions Indication:Contact dermatitis Start:01-Nov-2013 Instruction Type:Provider Instructions for Treatment Patient Instructions Indication:Hypercholesteremia Start:08-Nov-2012 Instruction Type:Provider Instructions for Treatment Patient Instructions Indication:FATIGUE Start:07-Jun-2012 Instruction Type:Provider Instructions for Treatment Patient Instructions Indication:Hormone imbalance Start:30-May-2012 Instruction Type:Provider Instructions for Treatment [facility]; [facility] Work Phone: Instructions* Name Dates Details Patient Instructions Indication:BMI 26.0-26.9,adult Start:26-May-2021 Instruction Type:Provider Instructions for Treatment How to Access Health Informa tion Online using Patient Portal and [employer] Apps Indication:BMI 26.0-26.9,adult Start:26-May-2021 Instruction Type:Patient Education Patient Instructions Indication:Nonsmoker Start:10-Feb-2021 Instruction Type:Provider Instructions for Treatment How to Access Health Informa tion Online using Patient Portal and [employer] Apps Indication:Nonsmoker Start:10-Feb-2021 Instruction Type:Patient Education Patient Instructions Indication:BMI 26.0-26.9,adult Start:07-Jan-2021 Instruction Type:Provider Instructions for Treatment How to Access Health Informa tion Online using Patient Portal and [employer] Apps Indication:BMI 26.0-26.9,adult Start:07-Jan-2021 Instruction Type:Patient Education Patient Instructions Indication:Nonsmoker Start:11-Sep-2020 Instruction Type:Provider Instructions for Treatment How to Access Health Informa tion Online using Patient Portal and [employer] Apps Indication:Nonsmoker Start:11-Sep-2020 Instruction Type:Patient Education Patient Instructions Indication:BMI 27.0-27.9,adult Start:15-Apr-2020 Instruction Type:Provider Instructions for Treatment How to Access Health Informa tion Online using Patient Portal and [employer] Apps Indication:BMI 27.0-27.9,adult Start:15-Apr-2020 Instruction Type:Patient Education Patient Instructions Indication:Nonsmoker Start:13-Apr-2020 Instruction Type:Provider Instructions for Treatment How to Access Health Informa tion Online using Patient Portal and [employer] Apps Indication:UTI symptoms Start:13-Apr-2020 Instruction Type:Patient Education How to access health informa tion online Indication:Nonsmoker Start:05-Mar-2020 Instruction Type:Patient Education How to access health informa tion online - Detail Indication:Nonsmoker Start:05-Mar-2020 Instruction Type:Patient Education Patient Instructions Indication:Nonsmoker Start:05-Mar-2020 Instruction Type:Provider Instructions for Treatment How to access health informa tion online Indication:Nonsmoker Start:20-Nov-2019 Instruction Type:Patient Education How to access health informa tion online - Detail Indication:Nonsmoker Start:20-Nov-2019 Instruction Type:Patient Education Patient Instructions Indication:Nonsmoker Start:20-Nov-2019 Instruction Type:Provider Instructions for Treatment How to access health informa tion online Indication:Nonsmoker Start:09-Oct-2019 Instruction Type:Patient Education How to access health informa tion online - Detail Indication:Nonsmoker Start:09-Oct-2019 Instruction Type:Patient Education Patient Instructions Indication:Nonsmoker Start:09-Oct-2019 Instruction Type:Provider Instructions for Treatment How to access health informa tion online Indication:BMI 27.0-27.9,adult Start:03-Oct-2019 Instruction Type:Patient Education How to access health informa tion online - Detail Indication:BMI 27.0-27.9,adult Start:03-Oct-2019 Instruction Type:Patient Education Patient Instructions Indication:BMI 27.0-27.9,adult Start:03-Oct-2019 Instruction Type:Provider Instructions for Treatment How to access health informa tion online Indication:Nonsmoker Start:28-Feb-2019 Instruction Type:Patient Education How to access health informa tion online - Detail Indication:Nonsmoker Start:28-Feb-2019 Instruction Type:Patient Education Patient Instructions Indication:Nonsmoker Start:28-Feb-2019 Instruction Type:Provider Instructions for Treatment How to access health informa tion online Indication:BMI 27.0-27.9,adult Start:14-Dec-2018 Instruction Type:Patient Education How to access health informa tion online - Detail Indication:BMI 27.0-27.9,adult Start:14-Dec-2018 Instruction Type:Patient Education Patient Instructions Indication:BMI 27.0-27.9,adult Start:14-Dec-2018 Instruction Type:Provider Instructions for Treatment How to access health informa tion online Indication:Nonsmoker Start:28-Nov-2018 Instruction Type:Patient Education How to access health informa tion online - Detail Indication:Nonsmoker Start:28-Nov-2018 Instruction Type:Patient Education Patient Instructions Indication:Nonsmoker Start:28-Nov-2018 Instruction Type:Provider Instructions for Treatment How to access health informa tion online - Detail Indication:Nonsmoker Start:21-Nov-2018 Instruction Type:Patient Education How to access health informa tion online Indication:Nonsmoker Start:21-Nov-2018 Instruction Type:Patient Education How to access health informa tion online - Detail Indication:Nonsmoker Start:21-Nov-2018 Instruction Type:Patient Education Patient Instructions Indication:Nonsmoker Start:21-Nov-2018 Instruction Type:Provider Instructions for Treatment How to access health informa tion online Indication:Nonsmoker Start:11-Dec-2017 Instruction Type:Patient Education How to access health informa tion online - Detail Indication:Nonsmoker Start:11-Dec-2017 Instruction Type:Patient Education Patient Instructions Indication:Nonsmoker Start:11-Dec-2017 Instruction Type:Provider Instructions for Treatment How to access health informa tion online Indication:Nonsmoker Start:09-Oct-2017 Instruction Type:Patient Education How to access health informa tion online - Detail Indication:Nonsmoker Start:09-Oct-2017 Instruction Type:Patient Education Patient Instructions Indication:Poison tangela Start:09-Oct-2017 Instruction Type:Provider Instructions for Treatment Patient Instructions Indication:BMI 27.0-27.9,adult Start:23-Nov-2016 Instruction Type:Provider Instructions for Treatment How to access health informa tion online Indication:B12 deficiency anemia Start:23-Nov-2016 Instruction Type:Patient Education How to access health informa tion online - Detail Indication:B12 deficiency anemia Start:23-Nov-2016 Instruction Type:Patient Education Patient Instructions Indication:B12 deficiency anemia Start:23-Nov-2016 Instruction Type:Provider Instructions for Treatment How to access health informa tion online Indication:Nonsmoker Start:17-Oct-2016 Instruction Type:Patient Education How to access health informa tion online - Detail Indication:Nonsmoker Start:17-Oct-2016 Instruction Type:Patient Education Patient Instructions Indication:Nonsmoker Start:17-Oct-2016 Instruction Type:Provider Instructions for Treatment How to access health informa tion online Indication:UTI (urinary tract infection) Start:25-Mar-2016 Instruction Type:Patient Education How to access health informa tion online - Detail Indication:UTI (urinary tract infection) Start:25-Mar-2016 Instruction Type:Patient Education Patient Instructions Indication:UTI (urinary tract infection) Start:25-Mar-2016 Instruction Type:Provider Instructions for Treatment How to access health informa tion online - Detail Indication:UTI (urinary tract infection) Start:10-Dec-2015 Instruction Type:Patient Education Patient Instructions Indication:UTI (urinary tract infection) Start:10-Dec-2015 Instruction Type:Provider Instructions for Treatment Patient Instructions Indication:Annual Medicare Physical WITH abnormal findings (Renamed from Encounter for general adult medical examination with abnormal findings) Start:05-Feb-2015 Instruction Type:Provider Instructions for Treatment Patient Instructions Indication:Neck Pain Start:08-May-2014 Instruction Type:Provider Instructions for Treatment Patient Instructions Indication:Contact dermatitis Start:01-Nov-2013 Instruction Type:Provider Instructions for Treatment Patient Instructions Indication:Hypercholesteremia Start:08-Nov-2012 Instruction Type:Provider Instructions for Treatment Patient Instructions Indication:FATIGUE Start:07-Jun-2012 Instruction Type:Provider Instructions for Treatment Patient Instructions Indication:Hormone imbalance Start:30-May-2012 Instruction Type:Provider Instructions for Treatment [facility]; [facility] Work Phone: Instructions* Name Dates Details How to Access Health Informa tion Online using Patient Portal and [employer] Apps Indication:Nonsmoker Start:23-Jul-2021 Instruction Type:Patient Education Patient Instructions Indication:Nonsmoker Start:23-Jul-2021 Instruction Type:Provider Instructions for Treatment Patient Instructions Indication:BMI 26.0-26.9,adult Start:26-May-2021 Instruction Type:Provider Instructions for Treatment How to Access Health Informa tion Online using Patient Portal and [employer] Apps Indication:BMI 26.0-26.9,adult Start:26-May-2021 Instruction Type:Patient Education Patient Instructions Indication:Nonsmoker Start:10-Feb-2021 Instruction Type:Provider Instructions for Treatment How to Access Health Informa tion Online using Patient Portal and [employer] Apps Indication:Nonsmoker Start:10-Feb-2021 Instruction Type:Patient Education Patient Instructions Indication:BMI 26.0-26.9,adult Start:07-Jan-2021 Instruction Type:Provider Instructions for Treatment How to Access Health Informa tion Online using Patient Portal and [employer] Apps Indication:BMI 26.0-26.9,adult Start:07-Jan-2021 Instruction Type:Patient Education Patient Instructions Indication:Nonsmoker Start:11-Sep-2020 Instruction Type:Provider Instructions for Treatment How to Access Health Informa tion Online using Patient Portal and [employer]rd [employer] Apps Indication:Nonsmoker Start:11-Sep-2020 Instruction Type:Patient Education Patient Instructions Indication:BMI 27.0-27.9,adult Start:15-Apr-2020 Instruction Type:Provider Instructions for Treatment How to Access Health Informa tion Online using Patient Portal and [employer] Apps Indication:BMI 27.0-27.9,adult Start:15-Apr-2020 Instruction Type:Patient Education Patient Instructions Indication:Nonsmoker Start:13-Apr-2020 Instruction Type:Provider Instructions for Treatment How to Access Health Informa tion Online using Patient Portal and [employer]rd [employer] Apps Indication:UTI symptoms Start:13-Apr-2020 Instruction Type:Patient Education How to access health informa tion online Indication:Nonsmoker Start:05-Mar-2020 Instruction Type:Patient Education How to access health informa tion online - Detail Indication:Nonsmoker Start:05-Mar-2020 Instruction Type:Patient Education Patient Instructions Indication:Nonsmoker Start:05-Mar-2020 Instruction Type:Provider Instructions for Treatment How to access health informa tion online Indication:Nonsmoker Start:20-Nov-2019 Instruction Type:Patient Education How to access health informa tion online - Detail Indication:Nonsmoker Start:20-Nov-2019 Instruction Type:Patient Education Patient Instructions Indication:Nonsmoker Start:20-Nov-2019 Instruction Type:Provider Instructions for Treatment How to access health informa tion online Indication:Nonsmoker Start:09-Oct-2019 Instruction Type:Patient Education How to access health informa tion online - Detail Indication:Nonsmoker Start:09-Oct-2019 Instruction Type:Patient Education Patient Instructions Indication:Nonsmoker Start:09-Oct-2019 Instruction Type:Provider Instructions for Treatment How to access health informa tion online Indication:BMI 27.0-27.9,adult Start:03-Oct-2019 Instruction Type:Patient Education How to access health informa tion online - Detail Indication:BMI 27.0-27.9,adult Start:03-Oct-2019 Instruction Type:Patient Education Patient Instructions Indication:BMI 27.0-27.9,adult Start:03-Oct-2019 Instruction Type:Provider Instructions for Treatment How to access health informa tion online Indication:Nonsmoker Start:28-Feb-2019 Instruction Type:Patient Education How to access health informa tion online - Detail Indication:Nonsmoker Start:28-Feb-2019 Instruction Type:Patient Education Patient Instructions Indication:Nonsmoker Start:28-Feb-2019 Instruction Type:Provider Instructions for Treatment How to access health informa tion online Indication:BMI 27.0-27.9,adult Start:14-Dec-2018 Instruction Type:Patient Education How to access health informa tion online - Detail Indication:BMI 27.0-27.9,adult Start:14-Dec-2018 Instruction Type:Patient Education Patient Instructions Indication:BMI 27.0-27.9,adult Start:14-Dec-2018 Instruction Type:Provider Instructions for Treatment How to access health informa tion online Indication:Nonsmoker Start:28-Nov-2018 Instruction Type:Patient Education How to access health informa tion online - Detail Indication:Nonsmoker Start:28-Nov-2018 Instruction Type:Patient Education Patient Instructions Indication:Nonsmoker Start:28-Nov-2018 Instruction Type:Provider Instructions for Treatment How to access health informa tion online - Detail Indication:Nonsmoker Start:21-Nov-2018 Instruction Type:Patient Education How to access health informa tion online Indication:Nonsmoker Start:21-Nov-2018 Instruction Type:Patient Education How to access health informa tion online - Detail Indication:Nonsmoker Start:21-Nov-2018 Instruction Type:Patient Education Patient Instructions Indication:Nonsmoker Start:21-Nov-2018 Instruction Type:Provider Instructions for Treatment How to access health informa tion online Indication:Nonsmoker Start:11-Dec-2017 Instruction Type:Patient Education How to access health informa tion online - Detail Indication:Nonsmoker Start:11-Dec-2017 Instruction Type:Patient Education Patient Instructions Indication:Nonsmoker Start:11-Dec-2017 Instruction Type:Provider Instructions for Treatment How to access health informa tion online Indication:Nonsmoker Start:09-Oct-2017 Instruction Type:Patient Education How to access health informa tion online - Detail Indication:Nonsmoker Start:09-Oct-2017 Instruction Type:Patient Education Patient Instructions Indication:Poison tangela Start:09-Oct-2017 Instruction Type:Provider Instructions for Treatment Patient Instructions Indication:BMI 27.0-27.9,adult Start:23-Nov-2016 Instruction Type:Provider Instructions for Treatment How to access health informa tion online Indication:B12 deficiency anemia Start:23-Nov-2016 Instruction Type:Patient Education How to access health informa tion online - Detail Indication:B12 deficiency anemia Start:23-Nov-2016 Instruction Type:Patient Education Patient Instructions Indication:B12 deficiency anemia Start:23-Nov-2016 Instruction Type:Provider Instructions for Treatment How to access health informa tion online Indication:Nonsmoker Start:17-Oct-2016 Instruction Type:Patient Education How to access health informa tion online - Detail Indication:Nonsmoker Start:17-Oct-2016 Instruction Type:Patient Education Patient Instructions Indication:Nonsmoker Start:17-Oct-2016 Instruction Type:Provider Instructions for Treatment How to access health informa tion online Indication:UTI (urinary tract infection) Start:25-Mar-2016 Instruction Type:Patient Education How to access health informa tion online - Detail Indication:UTI (urinary tract infection) Start:25-Mar-2016 Instruction Type:Patient Education Patient Instructions Indication:UTI (urinary tract infection) Start:25-Mar-2016 Instruction Type:Provider Instructions for Treatment How to access health informa tion online - Detail Indication:UTI (urinary tract infection) Start:10-Dec-2015 Instruction Type:Patient Education Patient Instructions Indication:UTI (urinary tract infection) Start:10-Dec-2015 Instruction Type:Provider Instructions for Treatment Patient Instructions Indication:Annual Medicare Physical WITH abnormal findings (Renamed from Encounter for general adult medical examination with abnormal findings) Start:05-Feb-2015 Instruction Type:Provider Instructions for Treatment Patient Instructions Indication:Neck Pain Start:08-May-2014 Instruction Type:Provider Instructions for Treatment Patient Instructions Indication:Contact dermatitis Start:01-Nov-2013 Instruction Type:Provider Instructions for Treatment Patient Instructions Indication:Hypercholesteremia Start:08-Nov-2012 Instruction Type:Provider Instructions for Treatment Patient Instructions Indication:FATIGUE Start:07-Jun-2012 Instruction Type:Provider Instructions for Treatment Patient Instructions Indication:Hormone imbalance Start:30-May-2012 Instruction Type:Provider Instructions for Treatment [facility]; [facility] Work Phone: Instructions* Name Dates Details How to Access Health Informa tion Online using Patient Portal and [employer] Apps Indication:Nonsmoker Start:23-Jul-2021 Instruction Type:Patient Education Patient Instructions Indication:Nonsmoker Start:23-Jul-2021 Instruction Type:Provider Instructions for Treatment Patient Instructions Indication:BMI 26.0-26.9,adult Start:26-May-2021 Instruction Type:Provider Instructions for Treatment How to Access Health Informa tion Online using Patient Portal and [employer] Apps Indication:BMI 26.0-26.9,adult Start:26-May-2021 Instruction Type:Patient Education Patient Instructions Indication:Nonsmoker Start:10-Feb-2021 Instruction Type:Provider Instructions for Treatment How to Access Health Informa tion Online using Patient Portal and [employer] Apps Indication:Nonsmoker Start:10-Feb-2021 Instruction Type:Patient Education Patient Instructions Indication:BMI 26.0-26.9,adult Start:07-Jan-2021 Instruction Type:Provider Instructions for Treatment How to Access Health Informa tion Online using Patient Portal and [employer] Apps Indication:BMI 26.0-26.9,adult Start:07-Jan-2021 Instruction Type:Patient Education Patient Instructions Indication:Nonsmoker Start:11-Sep-2020 Instruction Type:Provider Instructions for Treatment How to Access Health Informa tion Online using Patient Portal and [employer] Apps Indication:Nonsmoker Start:11-Sep-2020 Instruction Type:Patient Education Patient Instructions Indication:BMI 27.0-27.9,adult Start:15-Apr-2020 Instruction Type:Provider Instructions for Treatment How to Access Health Informa tion Online using Patient Portal and [employer] Apps Indication:BMI 27.0-27.9,adult Start:15-Apr-2020 Instruction Type:Patient Education Patient Instructions Indication:Nonsmoker Start:13-Apr-2020 Instruction Type:Provider Instructions for Treatment How to Access Health Informa tion Online using Patient Portal and [employer] Apps Indication:UTI symptoms Start:13-Apr-2020 Instruction Type:Patient Education How to access health informa tion online Indication:Nonsmoker Start:05-Mar-2020 Instruction Type:Patient Education How to access health informa tion online - Detail Indication:Nonsmoker Start:05-Mar-2020 Instruction Type:Patient Education Patient Instructions Indication:Nonsmoker Start:05-Mar-2020 Instruction Type:Provider Instructions for Treatment How to access health informa tion online Indication:Nonsmoker Start:20-Nov-2019 Instruction Type:Patient Education How to access health informa tion online - Detail Indication:Nonsmoker Start:20-Nov-2019 Instruction Type:Patient Education Patient Instructions Indication:Nonsmoker Start:20-Nov-2019 Instruction Type:Provider Instructions for Treatment How to access health informa tion online Indication:Nonsmoker Start:09-Oct-2019 Instruction Type:Patient Education How to access health informa tion online - Detail Indication:Nonsmoker Start:09-Oct-2019 Instruction Type:Patient Education Patient Instructions Indication:Nonsmoker Start:09-Oct-2019 Instruction Type:Provider Instructions for Treatment How to access health informa tion online Indication:BMI 27.0-27.9,adult Start:03-Oct-2019 Instruction Type:Patient Education How to access health informa tion online - Detail Indication:BMI 27.0-27.9,adult Start:03-Oct-2019 Instruction Type:Patient Education Patient Instructions Indication:BMI 27.0-27.9,adult Start:03-Oct-2019 Instruction Type:Provider Instructions for Treatment How to access health informa tion online Indication:Nonsmoker Start:28-Feb-2019 Instruction Type:Patient Education How to access health informa tion online - Detail Indication:Nonsmoker Start:28-Feb-2019 Instruction Type:Patient Education Patient Instructions Indication:Nonsmoker Start:28-Feb-2019 Instruction Type:Provider Instructions for Treatment How to access health informa tion online Indication:BMI 27.0-27.9,adult Start:14-Dec-2018 Instruction Type:Patient Education How to access health informa tion online - Detail Indication:BMI 27.0-27.9,adult Start:14-Dec-2018 Instruction Type:Patient Education Patient Instructions Indication:BMI 27.0-27.9,adult Start:14-Dec-2018 Instruction Type:Provider Instructions for Treatment How to access health informa tion online Indication:Nonsmoker Start:28-Nov-2018 Instruction Type:Patient Education How to access health informa tion online - Detail Indication:Nonsmoker Start:28-Nov-2018 Instruction Type:Patient Education Patient Instructions Indication:Nonsmoker Start:28-Nov-2018 Instruction Type:Provider Instructions for Treatment How to access health informa tion online - Detail Indication:Nonsmoker Start:21-Nov-2018 Instruction Type:Patient Education How to access health informa tion online Indication:Nonsmoker Start:21-Nov-2018 Instruction Type:Patient Education How to access health informa tion online - Detail Indication:Nonsmoker Start:21-Nov-2018 Instruction Type:Patient Education Patient Instructions Indication:Nonsmoker Start:21-Nov-2018 Instruction Type:Provider Instructions for Treatment How to access health informa tion online Indication:Nonsmoker Start:11-Dec-2017 Instruction Type:Patient Education How to access health informa tion online - Detail Indication:Nonsmoker Start:11-Dec-2017 Instruction Type:Patient Education Patient Instructions Indication:Nonsmoker Start:11-Dec-2017 Instruction Type:Provider Instructions for Treatment How to access health informa tion online Indication:Nonsmoker Start:09-Oct-2017 Instruction Type:Patient Education How to access health informa tion online - Detail Indication:Nonsmoker Start:09-Oct-2017 Instruction Type:Patient Education Patient Instructions Indication:Poison tangela Start:09-Oct-2017 Instruction Type:Provider Instructions for Treatment Patient Instructions Indication:BMI 27.0-27.9,adult Start:23-Nov-2016 Instruction Type:Provider Instructions for Treatment How to access health informa tion online Indication:B12 deficiency anemia Start:23-Nov-2016 Instruction Type:Patient Education How to access health informa tion online - Detail Indication:B12 deficiency anemia Start:23-Nov-2016 Instruction Type:Patient Education Patient Instructions Indication:B12 deficiency anemia Start:23-Nov-2016 Instruction Type:Provider Instructions for Treatment How to access health informa tion online Indication:Nonsmoker Start:17-Oct-2016 Instruction Type:Patient Education How to access health informa tion online - Detail Indication:Nonsmoker Start:17-Oct-2016 Instruction Type:Patient Education Patient Instructions Indication:Nonsmoker Start:17-Oct-2016 Instruction Type:Provider Instructions for Treatment How to access health informa tion online Indication:UTI (urinary tract infection) Start:25-Mar-2016 Instruction Type:Patient Education How to access health informa tion online - Detail Indication:UTI (urinary tract infection) Start:25-Mar-2016 Instruction Type:Patient Education Patient Instructions Indication:UTI (urinary tract infection) Start:25-Mar-2016 Instruction Type:Provider Instructions for Treatment How to access health informa tion online - Detail Indication:UTI (urinary tract infection) Start:10-Dec-2015 Instruction Type:Patient Education Patient Instructions Indication:UTI (urinary tract infection) Start:10-Dec-2015 Instruction Type:Provider Instructions for Treatment Patient Instructions Indication:Annual Medicare Physical WITH abnormal findings (Renamed from Encounter for general adult medical examination with abnormal findings) Start:05-Feb-2015 Instruction Type:Provider Instructions for Treatment Patient Instructions Indication:Neck Pain Start:08-May-2014 Instruction Type:Provider Instructions for Treatment Patient Instructions Indication:Contact dermatitis Start:01-Nov-2013 Instruction Type:Provider Instructions for Treatment Patient Instructions Indication:Hypercholesteremia Start:08-Nov-2012 Instruction Type:Provider Instructions for Treatment Patient Instructions Indication:FATIGUE Start:07-Jun-2012 Instruction Type:Provider Instructions for Treatment Patient Instructions Indication:Hormone imbalance Start:30-May-2012 Instruction Type:Provider Instructions for Treatment [facility]; [facility] Work Phone: Instructions* Name Dates Details Patient Instructions Indication:Nonsmoker Start:25-Feb-2022 Instruction Type:Provider Instructions for Treatment How to Access Health Informa tion Online using Patient Portal and [employer]rd [employer] Apps Indication:Nonsmoker Start:25-Feb-2022 Instruction Type:Patient Education How to Access Health Informa tion Online using Patient Portal and [employer]rd [employer] Apps Indication:Nonsmoker Start:23-Jul-2021 Instruction Type:Patient Education Patient Instructions Indication:Nonsmoker Start:23-Jul-2021 Instruction Type:Provider Instructions for Treatment Patient Instructions Indication:BMI 26.0-26.9,adult Start:26-May-2021 Instruction Type:Provider Instructions for Treatment How to Access Health Informa tion Online using Patient Portal and [employer]rd [employer] Apps Indication:BMI 26.0-26.9,adult Start:26-May-2021 Instruction Type:Patient Education Patient Instructions Indication:Nonsmoker Start:10-Feb-2021 Instruction Type:Provider Instructions for Treatment How to Access Health Informa tion Online using Patient Portal and [employer]rd [employer] Apps Indication:Nonsmoker Start:10-Feb-2021 Instruction Type:Patient Education Patient Instructions Indication:BMI 26.0-26.9,adult Start:07-Jan-2021 Instruction Type:Provider Instructions for Treatment How to Access Health Informa tion Online using Patient Portal and 3rd [employer] Apps Indication:BMI 26.0-26.9,adult Start:07-Jan-2021 Instruction Type:Patient Education Patient Instructions Indication:Nonsmoker Start:11-Sep-2020 Instruction Type:Provider Instructions for Treatment How to Access Health Informa tion Online using Patient Portal and [employer]rd [employer] Apps Indication:Nonsmoker Start:11-Sep-2020 Instruction Type:Patient Education Patient Instructions Indication:BMI 27.0-27.9,adult Start:15-Apr-2020 Instruction Type:Provider Instructions for Treatment How to Access Health Informa tion Online using Patient Portal and [employer]rd [employer] Apps Indication:BMI 27.0-27.9,adult Start:15-Apr-2020 Instruction Type:Patient Education Patient Instructions Indication:Nonsmoker Start:13-Apr-2020 Instruction Type:Provider Instructions for Treatment How to Access Health Informa tion Online using Patient Portal and [employer]rd [employer] Apps Indication:UTI symptoms Start:13-Apr-2020 Instruction Type:Patient Education How to access health informa tion online Indication:Nonsmoker Start:05-Mar-2020 Instruction Type:Patient Education How to access health informa tion online - Detail Indication:Nonsmoker Start:05-Mar-2020 Instruction Type:Patient Education Patient Instructions Indication:Nonsmoker Start:05-Mar-2020 Instruction Type:Provider Instructions for Treatment How to access health informa tion online Indication:Nonsmoker Start:20-Nov-2019 Instruction Type:Patient Education How to access health informa tion online - Detail Indication:Nonsmoker Start:20-Nov-2019 Instruction Type:Patient Education Patient Instructions Indication:Nonsmoker Start:20-Nov-2019 Instruction Type:Provider Instructions for Treatment How to access health informa tion online Indication:Nonsmoker Start:09-Oct-2019 Instruction Type:Patient Education How to access health informa tion online - Detail Indication:Nonsmoker Start:09-Oct-2019 Instruction Type:Patient Education Patient Instructions Indication:Nonsmoker Start:09-Oct-2019 Instruction Type:Provider Instructions for Treatment How to access health informa tion online Indication:BMI 27.0-27.9,adult Start:03-Oct-2019 Instruction Type:Patient Education How to access health informa tion online - Detail Indication:BMI 27.0-27.9,adult Start:03-Oct-2019 Instruction Type:Patient Education Patient Instructions Indication:BMI 27.0-27.9,adult Start:03-Oct-2019 Instruction Type:Provider Instructions for Treatment How to access health informa tion online Indication:Nonsmoker Start:28-Feb-2019 Instruction Type:Patient Education How to access health informa tion online - Detail Indication:Nonsmoker Start:28-Feb-2019 Instruction Type:Patient Education Patient Instructions Indication:Nonsmoker Start:28-Feb-2019 Instruction Type:Provider Instructions for Treatment How to access health informa tion online Indication:BMI 27.0-27.9,adult Start:14-Dec-2018 Instruction Type:Patient Education How to access health informa tion online - Detail Indication:BMI 27.0-27.9,adult Start:14-Dec-2018 Instruction Type:Patient Education Patient Instructions Indication:BMI 27.0-27.9,adult Start:14-Dec-2018 Instruction Type:Provider Instructions for Treatment How to access health informa tion online Indication:Nonsmoker Start:28-Nov-2018 Instruction Type:Patient Education How to access health informa tion online - Detail Indication:Nonsmoker Start:28-Nov-2018 Instruction Type:Patient Education Patient Instructions Indication:Nonsmoker Start:28-Nov-2018 Instruction Type:Provider Instructions for Treatment How to access health informa tion online - Detail Indication:Nonsmoker Start:21-Nov-2018 Instruction Type:Patient Education How to access health informa tion online Indication:Nonsmoker Start:21-Nov-2018 Instruction Type:Patient Education How to access health informa tion online - Detail Indication:Nonsmoker Start:21-Nov-2018 Instruction Type:Patient Education Patient Instructions Indication:Nonsmoker Start:21-Nov-2018 Instruction Type:Provider Instructions for Treatment How to access health informa tion online Indication:Nonsmoker Start:11-Dec-2017 Instruction Type:Patient Education How to access health informa tion online - Detail Indication:Nonsmoker Start:11-Dec-2017 Instruction Type:Patient Education Patient Instructions Indication:Nonsmoker Start:11-Dec-2017 Instruction Type:Provider Instructions for Treatment How to access health informa tion online Indication:Nonsmoker Start:09-Oct-2017 Instruction Type:Patient Education How to access health informa tion online - Detail Indication:Nonsmoker Start:09-Oct-2017 Instruction Type:Patient Education Patient Instructions Indication:Poison tangela Start:09-Oct-2017 Instruction Type:Provider Instructions for Treatment Patient Instructions Indication:BMI 27.0-27.9,adult Start:23-Nov-2016 Instruction Type:Provider Instructions for Treatment How to access health informa tion online Indication:B12 deficiency anemia Start:23-Nov-2016 Instruction Type:Patient Education How to access health informa tion online - Detail Indication:B12 deficiency anemia Start:23-Nov-2016 Instruction Type:Patient Education Patient Instructions Indication:B12 deficiency anemia Start:23-Nov-2016 Instruction Type:Provider Instructions for Treatment How to access health informa tion online Indication:Nonsmoker Start:17-Oct-2016 Instruction Type:Patient Education How to access health informa tion online - Detail Indication:Nonsmoker Start:17-Oct-2016 Instruction Type:Patient Education Patient Instructions Indication:Nonsmoker Start:17-Oct-2016 Instruction Type:Provider Instructions for Treatment How to access health informa tion online Indication:UTI (urinary tract infection) Start:25-Mar-2016 Instruction Type:Patient Education How to access health informa tion online - Detail Indication:UTI (urinary tract infection) Start:25-Mar-2016 Instruction Type:Patient Education Patient Instructions Indication:UTI (urinary tract infection) Start:25-Mar-2016 Instruction Type:Provider Instructions for Treatment How to access health informa tion online - Detail Indication:UTI (urinary tract infection) Start:10-Dec-2015 Instruction Type:Patient Education Patient Instructions Indication:UTI (urinary tract infection) Start:10-Dec-2015 Instruction Type:Provider Instructions for Treatment Patient Instructions Indication:Annual Medicare Physical WITH abnormal findings (Renamed from Encounter for general adult medical examination with abnormal findings) Start:05-Feb-2015 Instruction Type:Provider Instructions for Treatment Patient Instructions Indication:Neck Pain Start:08-May-2014 Instruction Type:Provider Instructions for Treatment Patient Instructions Indication:Contact dermatitis Start:01-Nov-2013 Instruction Type:Provider Instructions for Treatment Patient Instructions Indication:Hypercholesteremia Start:08-Nov-2012 Instruction Type:Provider Instructions for Treatment Patient Instructions Indication:FATIGUE Start:07-Jun-2012 Instruction Type:Provider Instructions for Treatment Patient Instructions Indication:Hormone imbalance Start:30-May-2012 Instruction Type:Provider Instructions for Treatment [facility]; [facility] Work Phone: Instructions* Name Dates Details Patient Instructions Indication:Nonsmoker Start:25-Feb-2022 Instruction Type:Provider Instructions for Treatment How to Access Health Informa tion Online using Patient Portal and [employer]rd [employer] Apps Indication:Nonsmoker Start:25-Feb-2022 Instruction Type:Patient Education How to Access Health Informa tion Online using Patient Portal and [employer]rd [employer] Apps Indication:Nonsmoker Start:23-Jul-2021 Instruction Type:Patient Education Patient Instructions Indication:Nonsmoker Start:23-Jul-2021 Instruction Type:Provider Instructions for Treatment Patient Instructions Indication:BMI 26.0-26.9,adult Start:26-May-2021 Instruction Type:Provider Instructions for Treatment How to Access Health Informa tion Online using Patient Portal and [employer]rd [employer] Apps Indication:BMI 26.0-26.9,adult Start:26-May-2021 Instruction Type:Patient Education Patient Instructions Indication:Nonsmoker Start:10-Feb-2021 Instruction Type:Provider Instructions for Treatment How to Access Health Informa tion Online using Patient Portal and [employer]rd [employer] Apps Indication:Nonsmoker Start:10-Feb-2021 Instruction Type:Patient Education Patient Instructions Indication:BMI 26.0-26.9,adult Start:07-Jan-2021 Instruction Type:Provider Instructions for Treatment How to Access Health Informa tion Online using Patient Portal and [employer] Apps Indication:BMI 26.0-26.9,adult Start:07-Jan-2021 Instruction Type:Patient Education Patient Instructions Indication:Nonsmoker Start:11-Sep-2020 Instruction Type:Provider Instructions for Treatment How to Access Health Informa tion Online using Patient Portal and [employer] Apps Indication:Nonsmoker Start:11-Sep-2020 Instruction Type:Patient Education Patient Instructions Indication:BMI 27.0-27.9,adult Start:15-Apr-2020 Instruction Type:Provider Instructions for Treatment How to Access Health Informa tion Online using Patient Portal and [employer] Apps Indication:BMI 27.0-27.9,adult Start:15-Apr-2020 Instruction Type:Patient Education Patient Instructions Indication:Nonsmoker Start:13-Apr-2020 Instruction Type:Provider Instructions for Treatment How to Access Health Informa tion Online using Patient Portal and [employer] Apps Indication:UTI symptoms Start:13-Apr-2020 Instruction Type:Patient Education How to access health informa tion online Indication:Nonsmoker Start:05-Mar-2020 Instruction Type:Patient Education How to access health informa tion online - Detail Indication:Nonsmoker Start:05-Mar-2020 Instruction Type:Patient Education Patient Instructions Indication:Nonsmoker Start:05-Mar-2020 Instruction Type:Provider Instructions for Treatment How to access health informa tion online Indication:Nonsmoker Start:20-Nov-2019 Instruction Type:Patient Education How to access health informa tion online - Detail Indication:Nonsmoker Start:20-Nov-2019 Instruction Type:Patient Education Patient Instructions Indication:Nonsmoker Start:20-Nov-2019 Instruction Type:Provider Instructions for Treatment How to access health informa tion online Indication:Nonsmoker Start:09-Oct-2019 Instruction Type:Patient Education How to access health informa tion online - Detail Indication:Nonsmoker Start:09-Oct-2019 Instruction Type:Patient Education Patient Instructions Indication:Nonsmoker Start:09-Oct-2019 Instruction Type:Provider Instructions for Treatment How to access health informa tion online Indication:BMI 27.0-27.9,adult Start:03-Oct-2019 Instruction Type:Patient Education How to access health informa tion online - Detail Indication:BMI 27.0-27.9,adult Start:03-Oct-2019 Instruction Type:Patient Education Patient Instructions Indication:BMI 27.0-27.9,adult Start:03-Oct-2019 Instruction Type:Provider Instructions for Treatment How to access health informa tion online Indication:Nonsmoker Start:28-Feb-2019 Instruction Type:Patient Education How to access health informa tion online - Detail Indication:Nonsmoker Start:28-Feb-2019 Instruction Type:Patient Education Patient Instructions Indication:Nonsmoker Start:28-Feb-2019 Instruction Type:Provider Instructions for Treatment How to access health informa tion online Indication:BMI 27.0-27.9,adult Start:14-Dec-2018 Instruction Type:Patient Education How to access health informa tion online - Detail Indication:BMI 27.0-27.9,adult Start:14-Dec-2018 Instruction Type:Patient Education Patient Instructions Indication:BMI 27.0-27.9,adult Start:14-Dec-2018 Instruction Type:Provider Instructions for Treatment How to access health informa tion online Indication:Nonsmoker Start:28-Nov-2018 Instruction Type:Patient Education How to access health informa tion online - Detail Indication:Nonsmoker Start:28-Nov-2018 Instruction Type:Patient Education Patient Instructions Indication:Nonsmoker Start:28-Nov-2018 Instruction Type:Provider Instructions for Treatment How to access health informa tion online - Detail Indication:Nonsmoker Start:21-Nov-2018 Instruction Type:Patient Education How to access health informa tion online Indication:Nonsmoker Start:21-Nov-2018 Instruction Type:Patient Education How to access health informa tion online - Detail Indication:Nonsmoker Start:21-Nov-2018 Instruction Type:Patient Education Patient Instructions Indication:Nonsmoker Start:21-Nov-2018 Instruction Type:Provider Instructions for Treatment How to access health informa tion online Indication:Nonsmoker Start:11-Dec-2017 Instruction Type:Patient Education How to access health informa tion online - Detail Indication:Nonsmoker Start:11-Dec-2017 Instruction Type:Patient Education Patient Instructions Indication:Nonsmoker Start:11-Dec-2017 Instruction Type:Provider Instructions for Treatment How to access health informa tion online Indication:Nonsmoker Start:09-Oct-2017 Instruction Type:Patient Education How to access health informa tion online - Detail Indication:Nonsmoker Start:09-Oct-2017 Instruction Type:Patient Education Patient Instructions Indication:Poison tangela Start:09-Oct-2017 Instruction Type:Provider Instructions for Treatment Patient Instructions Indication:BMI 27.0-27.9,adult Start:23-Nov-2016 Instruction Type:Provider Instructions for Treatment How to access health informa tion online Indication:B12 deficiency anemia Start:23-Nov-2016 Instruction Type:Patient Education How to access health informa tion online - Detail Indication:B12 deficiency anemia Start:23-Nov-2016 Instruction Type:Patient Education Patient Instructions Indication:B12 deficiency anemia Start:23-Nov-2016 Instruction Type:Provider Instructions for Treatment How to access health informa tion online Indication:Nonsmoker Start:17-Oct-2016 Instruction Type:Patient Education How to access health informa tion online - Detail Indication:Nonsmoker Start:17-Oct-2016 Instruction Type:Patient Education Patient Instructions Indication:Nonsmoker Start:17-Oct-2016 Instruction Type:Provider Instructions for Treatment How to access health informa tion online Indication:UTI (urinary tract infection) Start:25-Mar-2016 Instruction Type:Patient Education How to access health informa tion online - Detail Indication:UTI (urinary tract infection) Start:25-Mar-2016 Instruction Type:Patient Education Patient Instructions Indication:UTI (urinary tract infection) Start:25-Mar-2016 Instruction Type:Provider Instructions for Treatment How to access health informa tion online - Detail Indication:UTI (urinary tract infection) Start:10-Dec-2015 Instruction Type:Patient Education Patient Instructions Indication:UTI (urinary tract infection) Start:10-Dec-2015 Instruction Type:Provider Instructions for Treatment Patient Instructions Indication:Annual Medicare Physical WITH abnormal findings (Renamed from Encounter for general adult medical examination with abnormal findings) Start:05-Feb-2015 Instruction Type:Provider Instructions for Treatment Patient Instructions Indication:Neck Pain Start:08-May-2014 Instruction Type:Provider Instructions for Treatment Patient Instructions Indication:Contact dermatitis Start:01-Nov-2013 Instruction Type:Provider Instructions for Treatment Patient Instructions Indication:Hypercholesteremia Start:08-Nov-2012 Instruction Type:Provider Instructions for Treatment Patient Instructions Indication:FATIGUE Start:07-Jun-2012 Instruction Type:Provider Instructions for Treatment Patient Instructions Indication:Hormone imbalance Start:30-May-2012 Instruction Type:Provider Instructions for Treatment [facility]; [facility] Work Phone: Instructions* Name Dates Details Patient Instructions Indication:Nonsmoker Start:25-Feb-2022 Instruction Type:Provider Instructions for Treatment How to Access Health Informa tion Online using Patient Portal and [employer] Apps Indication:Nonsmoker Start:25-Feb-2022 Instruction Type:Patient Education How to Access Health Informa tion Online using Patient Portal and [employer]rd [employer] Apps Indication:Nonsmoker Start:23-Jul-2021 Instruction Type:Patient Education Patient Instructions Indication:Nonsmoker Start:23-Jul-2021 Instruction Type:Provider Instructions for Treatment Patient Instructions Indication:BMI 26.0-26.9,adult Start:26-May-2021 Instruction Type:Provider Instructions for Treatment How to Access Health Informa tion Online using Patient Portal and [employer]rd [employer] Apps Indication:BMI 26.0-26.9,adult Start:26-May-2021 Instruction Type:Patient Education Patient Instructions Indication:Nonsmoker Start:10-Feb-2021 Instruction Type:Provider Instructions for Treatment How to Access Health Informa tion Online using Patient Portal and [employer]rd [employer] Apps Indication:Nonsmoker Start:10-Feb-2021 Instruction Type:Patient Education Patient Instructions Indication:BMI 26.0-26.9,adult Start:07-Jan-2021 Instruction Type:Provider Instructions for Treatment How to Access Health Informa tion Online using Patient Portal and [employer]rd [employer] Apps Indication:BMI 26.0-26.9,adult Start:07-Jan-2021 Instruction Type:Patient Education Patient Instructions Indication:Nonsmoker Start:11-Sep-2020 Instruction Type:Provider Instructions for Treatment How to Access Health Informa tion Online using Patient Portal and [employer] Apps Indication:Nonsmoker Start:11-Sep-2020 Instruction Type:Patient Education Patient Instructions Indication:BMI 27.0-27.9,adult Start:15-Apr-2020 Instruction Type:Provider Instructions for Treatment How to Access Health Informa tion Online using Patient Portal and [employer] Apps Indication:BMI 27.0-27.9,adult Start:15-Apr-2020 Instruction Type:Patient Education Patient Instructions Indication:Nonsmoker Start:13-Apr-2020 Instruction Type:Provider Instructions for Treatment How to Access Health Informa tion Online using Patient Portal and [employer]rd [employer] Apps Indication:UTI symptoms Start:13-Apr-2020 Instruction Type:Patient Education How to access health informa tion online Indication:Nonsmoker Start:05-Mar-2020 Instruction Type:Patient Education How to access health informa tion online - Detail Indication:Nonsmoker Start:05-Mar-2020 Instruction Type:Patient Education Patient Instructions Indication:Nonsmoker Start:05-Mar-2020 Instruction Type:Provider Instructions for Treatment How to access health informa tion online Indication:Nonsmoker Start:20-Nov-2019 Instruction Type:Patient Education How to access health informa tion online - Detail Indication:Nonsmoker Start:20-Nov-2019 Instruction Type:Patient Education Patient Instructions Indication:Nonsmoker Start:20-Nov-2019 Instruction Type:Provider Instructions for Treatment How to access health informa tion online Indication:Nonsmoker Start:09-Oct-2019 Instruction Type:Patient Education How to access health informa tion online - Detail Indication:Nonsmoker Start:09-Oct-2019 Instruction Type:Patient Education Patient Instructions Indication:Nonsmoker Start:09-Oct-2019 Instruction Type:Provider Instructions for Treatment How to access health informa tion online Indication:BMI 27.0-27.9,adult Start:03-Oct-2019 Instruction Type:Patient Education How to access health informa tion online - Detail Indication:BMI 27.0-27.9,adult Start:03-Oct-2019 Instruction Type:Patient Education Patient Instructions Indication:BMI 27.0-27.9,adult Start:03-Oct-2019 Instruction Type:Provider Instructions for Treatment How to access health informa tion online Indication:Nonsmoker Start:28-Feb-2019 Instruction Type:Patient Education How to access health informa tion online - Detail Indication:Nonsmoker Start:28-Feb-2019 Instruction Type:Patient Education Patient Instructions Indication:Nonsmoker Start:28-Feb-2019 Instruction Type:Provider Instructions for Treatment How to access health informa tion online Indication:BMI 27.0-27.9,adult Start:14-Dec-2018 Instruction Type:Patient Education How to access health informa tion online - Detail Indication:BMI 27.0-27.9,adult Start:14-Dec-2018 Instruction Type:Patient Education Patient Instructions Indication:BMI 27.0-27.9,adult Start:14-Dec-2018 Instruction Type:Provider Instructions for Treatment How to access health informa tion online Indication:Nonsmoker Start:28-Nov-2018 Instruction Type:Patient Education How to access health informa tion online - Detail Indication:Nonsmoker Start:28-Nov-2018 Instruction Type:Patient Education Patient Instructions Indication:Nonsmoker Start:28-Nov-2018 Instruction Type:Provider Instructions for Treatment How to access health informa tion online - Detail Indication:Nonsmoker Start:21-Nov-2018 Instruction Type:Patient Education How to access health informa tion online Indication:Nonsmoker Start:21-Nov-2018 Instruction Type:Patient Education How to access health informa tion online - Detail Indication:Nonsmoker Start:21-Nov-2018 Instruction Type:Patient Education Patient Instructions Indication:Nonsmoker Start:21-Nov-2018 Instruction Type:Provider Instructions for Treatment How to access health informa tion online Indication:Nonsmoker Start:11-Dec-2017 Instruction Type:Patient Education How to access health informa tion online - Detail Indication:Nonsmoker Start:11-Dec-2017 Instruction Type:Patient Education Patient Instructions Indication:Nonsmoker Start:11-Dec-2017 Instruction Type:Provider Instructions for Treatment How to access health informa tion online Indication:Nonsmoker Start:09-Oct-2017 Instruction Type:Patient Education How to access health informa tion online - Detail Indication:Nonsmoker Start:09-Oct-2017 Instruction Type:Patient Education Patient Instructions Indication:Poison tangela Start:09-Oct-2017 Instruction Type:Provider Instructions for Treatment Patient Instructions Indication:BMI 27.0-27.9,adult Start:23-Nov-2016 Instruction Type:Provider Instructions for Treatment How to access health informa tion online Indication:B12 deficiency anemia Start:23-Nov-2016 Instruction Type:Patient Education How to access health informa tion online - Detail Indication:B12 deficiency anemia Start:23-Nov-2016 Instruction Type:Patient Education Patient Instructions Indication:B12 deficiency anemia Start:23-Nov-2016 Instruction Type:Provider Instructions for Treatment How to access health informa tion online Indication:Nonsmoker Start:17-Oct-2016 Instruction Type:Patient Education How to access health informa tion online - Detail Indication:Nonsmoker Start:17-Oct-2016 Instruction Type:Patient Education Patient Instructions Indication:Nonsmoker Start:17-Oct-2016 Instruction Type:Provider Instructions for Treatment How to access health informa tion online Indication:UTI (urinary tract infection) Start:25-Mar-2016 Instruction Type:Patient Education How to access health informa tion online - Detail Indication:UTI (urinary tract infection) Start:25-Mar-2016 Instruction Type:Patient Education Patient Instructions Indication:UTI (urinary tract infection) Start:25-Mar-2016 Instruction Type:Provider Instructions for Treatment How to access health informa tion online - Detail Indication:UTI (urinary tract infection) Start:10-Dec-2015 Instruction Type:Patient Education Patient Instructions Indication:UTI (urinary tract infection) Start:10-Dec-2015 Instruction Type:Provider Instructions for Treatment Patient Instructions Indication:Annual Medicare Physical WITH abnormal findings (Renamed from Encounter for general adult medical examination with abnormal findings) Start:05-Feb-2015 Instruction Type:Provider Instructions for Treatment Patient Instructions Indication:Neck Pain Start:08-May-2014 Instruction Type:Provider Instructions for Treatment Patient Instructions Indication:Contact dermatitis Start:01-Nov-2013 Instruction Type:Provider Instructions for Treatment Patient Instructions Indication:Hypercholesteremia Start:08-Nov-2012 Instruction Type:Provider Instructions for Treatment Patient Instructions Indication:FATIGUE Start:07-Jun-2012 Instruction Type:Provider Instructions for Treatment Patient Instructions Indication:Hormone imbalance Start:30-May-2012 Instruction Type:Provider Instructions for Treatment [facility] Work Phone: Instructions* Name Dates Details Patient Instructions Indication:Nonsmoker Start:25-Feb-2022 Instruction Type:Provider Instructions for Treatment How to Access Health Informa tion Online using Patient Portal and 3rd [employer] Apps Indication:Nonsmoker Start:25-Feb-2022 Instruction Type:Patient Education How to Access Health Informa tion Online using Patient Portal and 3rd [employer] Apps Indication:Nonsmoker Start:23-Jul-2021 Instruction Type:Patient Education Patient Instructions Indication:Nonsmoker Start:23-Jul-2021 Instruction Type:Provider Instructions for Treatment Patient Instructions Indication:BMI 26.0-26.9,adult Start:26-May-2021 Instruction Type:Provider Instructions for Treatment How to Access Health Informa tion Online using Patient Portal and 3rd [employer] Apps Indication:BMI 26.0-26.9,adult Start:26-May-2021 Instruction Type:Patient Education Patient Instructions Indication:Nonsmoker Start:10-Feb-2021 Instruction Type:Provider Instructions for Treatment How to Access Health Informa tion Online using Patient Portal and 3rd [employer] Apps Indication:Nonsmoker Start:10-Feb-2021 Instruction Type:Patient Education Patient Instructions Indication:BMI 26.0-26.9,adult Start:07-Jan-2021 Instruction Type:Provider Instructions for Treatment How to Access Health Informa tion Online using Patient Portal and 3rd [employer] Apps Indication:BMI 26.0-26.9,adult Start:07-Jan-2021 Instruction Type:Patient Education Patient Instructions Indication:Nonsmoker Start:11-Sep-2020 Instruction Type:Provider Instructions for Treatment How to Access Health Informa tion Online using Patient Portal and 3rd [employer] Apps Indication:Nonsmoker Start:11-Sep-2020 Instruction Type:Patient Education Patient Instructions Indication:BMI 27.0-27.9,adult Start:15-Apr-2020 Instruction Type:Provider Instructions for Treatment How to Access Health Informa tion Online using Patient Portal and [employer] Apps Indication:BMI 27.0-27.9,adult Start:15-Apr-2020 Instruction Type:Patient Education Patient Instructions Indication:Nonsmoker Start:13-Apr-2020 Instruction Type:Provider Instructions for Treatment How to Access Health Informa tion Online using Patient Portal and [employer]rd [employer] Apps Indication:UTI symptoms Start:13-Apr-2020 Instruction Type:Patient Education How to access health informa tion online Indication:Nonsmoker Start:05-Mar-2020 Instruction Type:Patient Education How to access health informa tion online - Detail Indication:Nonsmoker Start:05-Mar-2020 Instruction Type:Patient Education Patient Instructions Indication:Nonsmoker Start:05-Mar-2020 Instruction Type:Provider Instructions for Treatment How to access health informa tion online Indication:Nonsmoker Start:20-Nov-2019 Instruction Type:Patient Education How to access health informa tion online - Detail Indication:Nonsmoker Start:20-Nov-2019 Instruction Type:Patient Education Patient Instructions Indication:Nonsmoker Start:20-Nov-2019 Instruction Type:Provider Instructions for Treatment How to access health informa tion online Indication:Nonsmoker Start:09-Oct-2019 Instruction Type:Patient Education How to access health informa tion online - Detail Indication:Nonsmoker Start:09-Oct-2019 Instruction Type:Patient Education Patient Instructions Indication:Nonsmoker Start:09-Oct-2019 Instruction Type:Provider Instructions for Treatment How to access health informa tion online Indication:BMI 27.0-27.9,adult Start:03-Oct-2019 Instruction Type:Patient Education How to access health informa tion online - Detail Indication:BMI 27.0-27.9,adult Start:03-Oct-2019 Instruction Type:Patient Education Patient Instructions Indication:BMI 27.0-27.9,adult Start:03-Oct-2019 Instruction Type:Provider Instructions for Treatment How to access health informa tion online Indication:Nonsmoker Start:28-Feb-2019 Instruction Type:Patient Education How to access health informa tion online - Detail Indication:Nonsmoker Start:28-Feb-2019 Instruction Type:Patient Education Patient Instructions Indication:Nonsmoker Start:28-Feb-2019 Instruction Type:Provider Instructions for Treatment How to access health informa tion online Indication:BMI 27.0-27.9,adult Start:14-Dec-2018 Instruction Type:Patient Education How to access health informa tion online - Detail Indication:BMI 27.0-27.9,adult Start:14-Dec-2018 Instruction Type:Patient Education Patient Instructions Indication:BMI 27.0-27.9,adult Start:14-Dec-2018 Instruction Type:Provider Instructions for Treatment How to access health informa tion online Indication:Nonsmoker Start:28-Nov-2018 Instruction Type:Patient Education How to access health informa tion online - Detail Indication:Nonsmoker Start:28-Nov-2018 Instruction Type:Patient Education Patient Instructions Indication:Nonsmoker Start:28-Nov-2018 Instruction Type:Provider Instructions for Treatment How to access health informa tion online - Detail Indication:Nonsmoker Start:21-Nov-2018 Instruction Type:Patient Education How to access health informa tion online Indication:Nonsmoker Start:21-Nov-2018 Instruction Type:Patient Education How to access health informa tion online - Detail Indication:Nonsmoker Start:21-Nov-2018 Instruction Type:Patient Education Patient Instructions Indication:Nonsmoker Start:21-Nov-2018 Instruction Type:Provider Instructions for Treatment How to access health informa tion online Indication:Nonsmoker Start:11-Dec-2017 Instruction Type:Patient Education How to access health informa tion online - Detail Indication:Nonsmoker Start:11-Dec-2017 Instruction Type:Patient Education Patient Instructions Indication:Nonsmoker Start:11-Dec-2017 Instruction Type:Provider Instructions for Treatment How to access health informa tion online Indication:Nonsmoker Start:09-Oct-2017 Instruction Type:Patient Education How to access health informa tion online - Detail Indication:Nonsmoker Start:09-Oct-2017 Instruction Type:Patient Education Patient Instructions Indication:Poison tangela Start:09-Oct-2017 Instruction Type:Provider Instructions for Treatment Patient Instructions Indication:BMI 27.0-27.9,adult Start:23-Nov-2016 Instruction Type:Provider Instructions for Treatment How to access health informa tion online Indication:B12 deficiency anemia Start:23-Nov-2016 Instruction Type:Patient Education How to access health informa tion online - Detail Indication:B12 deficiency anemia Start:23-Nov-2016 Instruction Type:Patient Education Patient Instructions Indication:B12 deficiency anemia Start:23-Nov-2016 Instruction Type:Provider Instructions for Treatment How to access health informa tion online Indication:Nonsmoker Start:17-Oct-2016 Instruction Type:Patient Education How to access health informa tion online - Detail Indication:Nonsmoker Start:17-Oct-2016 Instruction Type:Patient Education Patient Instructions Indication:Nonsmoker Start:17-Oct-2016 Instruction Type:Provider Instructions for Treatment How to access health informa tion online Indication:UTI (urinary tract infection) Start:25-Mar-2016 Instruction Type:Patient Education How to access health informa tion online - Detail Indication:UTI (urinary tract infection) Start:25-Mar-2016 Instruction Type:Patient Education Patient Instructions Indication:UTI (urinary tract infection) Start:25-Mar-2016 Instruction Type:Provider Instructions for Treatment How to access health informa tion online - Detail Indication:UTI (urinary tract infection) Start:10-Dec-2015 Instruction Type:Patient Education Patient Instructions Indication:UTI (urinary tract infection) Start:10-Dec-2015 Instruction Type:Provider Instructions for Treatment Patient Instructions Indication:Annual Medicare Physical WITH abnormal findings (Renamed from Encounter for general adult medical examination with abnormal findings) Start:05-Feb-2015 Instruction Type:Provider Instructions for Treatment Patient Instructions Indication:Neck Pain Start:08-May-2014 Instruction Type:Provider Instructions for Treatment Patient Instructions Indication:Contact dermatitis Start:01-Nov-2013 Instruction Type:Provider Instructions for Treatment Patient Instructions Indication:Hypercholesteremia Start:08-Nov-2012 Instruction Type:Provider Instructions for Treatment Patient Instructions Indication:FATIGUE Start:07-Jun-2012 Instruction Type:Provider Instructions for Treatment Patient Instructions Indication:Hormone imbalance Start:30-May-2012 Instruction Type:Provider Instructions for Treatment [facility]; [facility] Work Phone: Instructions* Name Dates Details Patient Instructions Indication:Nonsmoker Start:25-Feb-2022 Instruction Type:Provider Instructions for Treatment How to Access Health Informa tion Online using Patient Portal and 3rd [employer] Apps Indication:Nonsmoker Start:25-Feb-2022 Instruction Type:Patient Education How to Access Health Informa tion Online using Patient Portal and [employer]rd [employer] Apps Indication:Nonsmoker Start:23-Jul-2021 Instruction Type:Patient Education Patient Instructions Indication:Nonsmoker Start:23-Jul-2021 Instruction Type:Provider Instructions for Treatment Patient Instructions Indication:BMI 26.0-26.9,adult Start:26-May-2021 Instruction Type:Provider Instructions for Treatment How to Access Health Informa tion Online using Patient Portal and 3rd [employer] Apps Indication:BMI 26.0-26.9,adult Start:26-May-2021 Instruction Type:Patient Education Patient Instructions Indication:Nonsmoker Start:10-Feb-2021 Instruction Type:Provider Instructions for Treatment How to Access Health Informa tion Online using Patient Portal and 3rd [employer] Apps Indication:Nonsmoker Start:10-Feb-2021 Instruction Type:Patient Education Patient Instructions Indication:BMI 26.0-26.9,adult Start:07-Jan-2021 Instruction Type:Provider Instructions for Treatment How to Access Health Informa tion Online using Patient Portal and 3rd [employer] Apps Indication:BMI 26.0-26.9,adult Start:07-Jan-2021 Instruction Type:Patient Education Patient Instructions Indication:Nonsmoker Start:11-Sep-2020 Instruction Type:Provider Instructions for Treatment How to Access Health Informa tion Online using Patient Portal and [employer]rd [employer] Apps Indication:Nonsmoker Start:11-Sep-2020 Instruction Type:Patient Education Patient Instructions Indication:BMI 27.0-27.9,adult Start:15-Apr-2020 Instruction Type:Provider Instructions for Treatment How to Access Health Informa tion Online using Patient Portal and 3rd Republican Apps Indication:BMI 27.0-27.9,adult Start:15-Apr-2020 Instruction Type:Patient Education Patient Instructions Indication:Nonsmoker Start:13-Apr-2020 Instruction Type:Provider Instructions for Treatment How to Access Health Informa tion Online using Patient Portal and [employer]rd [employer] Apps Indication:UTI symptoms Start:13-Apr-2020 Instruction Type:Patient Education How to access health informa tion online Indication:Nonsmoker Start:05-Mar-2020 Instruction Type:Patient Education How to access health informa tion online - Detail Indication:Nonsmoker Start:05-Mar-2020 Instruction Type:Patient Education Patient Instructions Indication:Nonsmoker Start:05-Mar-2020 Instruction Type:Provider Instructions for Treatment How to access health informa tion online Indication:Nonsmoker Start:20-Nov-2019 Instruction Type:Patient Education How to access health informa tion online - Detail Indication:Nonsmoker Start:20-Nov-2019 Instruction Type:Patient Education Patient Instructions Indication:Nonsmoker Start:20-Nov-2019 Instruction Type:Provider Instructions for Treatment How to access health informa tion online Indication:Nonsmoker Start:09-Oct-2019 Instruction Type:Patient Education How to access health informa tion online - Detail Indication:Nonsmoker Start:09-Oct-2019 Instruction Type:Patient Education Patient Instructions Indication:Nonsmoker Start:09-Oct-2019 Instruction Type:Provider Instructions for Treatment How to access health informa tion online Indication:BMI 27.0-27.9,adult Start:03-Oct-2019 Instruction Type:Patient Education How to access health informa tion online - Detail Indication:BMI 27.0-27.9,adult Start:03-Oct-2019 Instruction Type:Patient Education Patient Instructions Indication:BMI 27.0-27.9,adult Start:03-Oct-2019 Instruction Type:Provider Instructions for Treatment How to access health informa tion online Indication:Nonsmoker Start:28-Feb-2019 Instruction Type:Patient Education How to access health informa tion online - Detail Indication:Nonsmoker Start:28-Feb-2019 Instruction Type:Patient Education Patient Instructions Indication:Nonsmoker Start:28-Feb-2019 Instruction Type:Provider Instructions for Treatment How to access health informa tion online Indication:BMI 27.0-27.9,adult Start:14-Dec-2018 Instruction Type:Patient Education How to access health informa tion online - Detail Indication:BMI 27.0-27.9,adult Start:14-Dec-2018 Instruction Type:Patient Education Patient Instructions Indication:BMI 27.0-27.9,adult Start:14-Dec-2018 Instruction Type:Provider Instructions for Treatment How to access health informa tion online Indication:Nonsmoker Start:28-Nov-2018 Instruction Type:Patient Education How to access health informa tion online - Detail Indication:Nonsmoker Start:28-Nov-2018 Instruction Type:Patient Education Patient Instructions Indication:Nonsmoker Start:28-Nov-2018 Instruction Type:Provider Instructions for Treatment How to access health informa tion online - Detail Indication:Nonsmoker Start:21-Nov-2018 Instruction Type:Patient Education How to access health informa tion online Indication:Nonsmoker Start:21-Nov-2018 Instruction Type:Patient Education How to access health informa tion online - Detail Indication:Nonsmoker Start:21-Nov-2018 Instruction Type:Patient Education Patient Instructions Indication:Nonsmoker Start:21-Nov-2018 Instruction Type:Provider Instructions for Treatment How to access health informa tion online Indication:Nonsmoker Start:11-Dec-2017 Instruction Type:Patient Education How to access health informa tion online - Detail Indication:Nonsmoker Start:11-Dec-2017 Instruction Type:Patient Education Patient Instructions Indication:Nonsmoker Start:11-Dec-2017 Instruction Type:Provider Instructions for Treatment How to access health informa tion online Indication:Nonsmoker Start:09-Oct-2017 Instruction Type:Patient Education How to access health informa tion online - Detail Indication:Nonsmoker Start:09-Oct-2017 Instruction Type:Patient Education Patient Instructions Indication:Poison tangela Start:09-Oct-2017 Instruction Type:Provider Instructions for Treatment Patient Instructions Indication:BMI 27.0-27.9,adult Start:23-Nov-2016 Instruction Type:Provider Instructions for Treatment How to access health informa tion online Indication:B12 deficiency anemia Start:23-Nov-2016 Instruction Type:Patient Education How to access health informa tion online - Detail Indication:B12 deficiency anemia Start:23-Nov-2016 Instruction Type:Patient Education Patient Instructions Indication:B12 deficiency anemia Start:23-Nov-2016 Instruction Type:Provider Instructions for Treatment How to access health informa tion online Indication:Nonsmoker Start:17-Oct-2016 Instruction Type:Patient Education How to access health informa tion online - Detail Indication:Nonsmoker Start:17-Oct-2016 Instruction Type:Patient Education Patient Instructions Indication:Nonsmoker Start:17-Oct-2016 Instruction Type:Provider Instructions for Treatment How to access health informa tion online Indication:UTI (urinary tract infection) Start:25-Mar-2016 Instruction Type:Patient Education How to access health informa tion online - Detail Indication:UTI (urinary tract infection) Start:25-Mar-2016 Instruction Type:Patient Education Patient Instructions Indication:UTI (urinary tract infection) Start:25-Mar-2016 Instruction Type:Provider Instructions for Treatment How to access health informa tion online - Detail Indication:UTI (urinary tract infection) Start:10-Dec-2015 Instruction Type:Patient Education Patient Instructions Indication:UTI (urinary tract infection) Start:10-Dec-2015 Instruction Type:Provider Instructions for Treatment Patient Instructions Indication:Annual Medicare Physical WITH abnormal findings (Renamed from Encounter for general adult medical examination with abnormal findings) Start:05-Feb-2015 Instruction Type:Provider Instructions for Treatment Patient Instructions Indication:Neck Pain Start:08-May-2014 Instruction Type:Provider Instructions for Treatment Patient Instructions Indication:Contact dermatitis Start:01-Nov-2013 Instruction Type:Provider Instructions for Treatment Patient Instructions Indication:Hypercholesteremia Start:08-Nov-2012 Instruction Type:Provider Instructions for Treatment Patient Instructions Indication:FATIGUE Start:07-Jun-2012 Instruction Type:Provider Instructions for Treatment Patient Instructions Indication:Hormone imbalance Start:30-May-2012 Instruction Type:Provider Instructions for Treatment [facility]; [facility] Work Phone: Family History Unknown Family Member Name Dates Details Father Comments:heart DZ, paced Status:Active Maternal Grandmother Comments:heart DZ Status:Active Mother Comments:DM, COPD, CHO, HTN, OA Status:Active Paternal Grandfather Comments:hepatic CA Status:Active Paternal Grandmother Comments:heart DZ Status:Active Sister 1 Comments:DM Status:Active Sister 2 Comments:DM Status:Active Unknown Family Member Name Dates Details Father Comments:heart DZ, paced Status:Active Maternal Grandmother Comments:heart DZ Status:Active Mother Comments:DM, COPD, CHO, HTN, OA Status:Active Paternal Grandfather Comments:hepatic [place] Status:Active Paternal Grandmother Comments:heart DZ Status:Active Sister 1 Comments:DM Status:Active Sister 2 Comments:DM Status:Active Unknown Family Member Name Dates Details Father Comments:heart DZ, paced Status:Active Maternal Grandmother Comments:heart DZ Status:Active Mother Comments:DM, COPD, CHO, HTN, OA Status:Active Paternal Grandfather Comments:hepatic [place] Status:Active Paternal Grandmother Comments:heart DZ Status:Active Sister 1 Comments:DM Status:Active Sister 2 Comments:DM Status:Active Unknown Family Member Name Dates Details Father Comments:heart DZ, paced Status:Active Maternal Grandmother Comments:heart DZ Status:Active Mother Comments:DM, COPD, CHO, HTN, OA Status:Active Paternal Grandfather Comments:hepatic [place] Status:Active Paternal Grandmother Comments:heart DZ Status:Active Sister 1 Comments:DM Status:Active Sister 2 Comments:DM Status:Active Unknown Family Member Name Dates Details Father Comments:heart DZ, paced Status:Active Maternal Grandmother Comments:heart DZ Status:Active Mother Comments:DM, COPD, CHO, HTN, OA Status:Active Paternal Grandfather Comments:hepatic [place] Status:Active Paternal Grandmother Comments:heart DZ Status:Active Sister 1 Comments:DM Status:Active Sister 2 Comments:DM Status:Active Unknown Family Member Name Dates Details Father Comments:heart DZ, paced Status:Active Maternal Grandmother Comments:heart DZ Status:Active Mother Comments:DM, COPD, CHO, HTN, OA Status:Active Paternal Grandfather Comments:hepatic [place] Status:Active Paternal Grandmother Comments:heart DZ Status:Active Sister 1 Comments:DM Status:Active Sister 2 Comments:DM Status:Active Unknown Family Member Name Dates Details Father Comments:heart DZ, paced Status:Active Maternal Grandmother Comments:heart DZ Status:Active Mother Comments:DM, COPD, CHO, HTN, OA Status:Active Paternal Grandfather Comments:hepatic [place] Status:Active Paternal Grandmother Comments:heart DZ Status:Active Sister 1 Comments:DM Status:Active Sister 2 Comments:DM Status:Active Unknown Family Member Name Dates Details Father Comments:heart DZ, paced Status:Active Maternal Grandmother Comments:heart DZ Status:Active Mother Comments:DM, COPD, CHO, HTN, OA Status:Active Paternal Grandfather Comments:hepatic [place] Status:Active Paternal Grandmother Comments:heart DZ Status:Active Sister 1 Comments:DM Status:Active Sister 2 Comments:DM Status:Active Unknown Family Member Name Dates Details Father Comments:heart DZ, paced Status:Active Maternal Grandmother Comments:heart DZ Status:Active Mother Comments:DM, COPD, CHO, HTN, OA Status:Active Paternal Grandfather Comments:hepatic [place] Status:Active Paternal Grandmother Comments:heart DZ Status:Active Sister 1 Comments:DM Status:Active Sister 2 Comments:DM Status:Active Unknown Family Member Name Dates Details Father Comments:heart DZ, paced Status:Active Maternal Grandmother Comments:heart DZ Status:Active Mother Comments:DM, COPD, CHO, HTN, OA Status:Active Paternal Grandfather Comments:hepatic [place] Status:Active Paternal Grandmother Comments:heart DZ Status:Active Sister 1 Comments:DM Status:Active Sister 2 Comments:DM Status:Active Unknown Family Member Name Dates Details Father Comments:heart DZ, paced Status:Active Maternal Grandmother Comments:heart DZ Status:Active Mother Comments:DM, COPD, CHO, HTN, OA Status:Active Paternal Grandfather Comments:hepatic [place] Status:Active Paternal Grandmother Comments:heart DZ Status:Active Sister 1 Comments:DM Status:Active Sister 2 Comments:DM Status:Active Unknown Family Member Name Dates Details Father Comments:heart DZ, paced Status:Active Maternal Grandmother Comments:heart DZ Status:Active Mother Comments:DM, COPD, CHO, HTN, OA Status:Active Paternal Grandfather Comments:hepatic [place] Status:Active Paternal Grandmother Comments:heart DZ Status:Active Sister 1 Comments:DM Status:Active Sister 2 Comments:DM Status:Active Unknown Family Member Name Dates Details Father Comments:heart DZ, paced Status:Active Maternal Grandmother Comments:heart DZ Status:Active Mother Comments:DM, COPD, CHO, HTN, OA Status:Active Paternal Grandfather Comments:hepatic [place] Status:Active Paternal Grandmother Comments:heart DZ Status:Active Sister 1 Comments:DM Status:Active Sister 2 Comments:DM Status:Active Unknown Family Member Name Dates Details Father Comments:heart DZ, paced Status:Active Maternal Grandmother Comments:heart DZ Status:Active Mother Comments:DM, COPD, CHO, HTN, OA Status:Active Paternal Grandfather Comments:hepatic [place] Status:Active Paternal Grandmother Comments:heart DZ Status:Active Sister 1 Comments:DM Status:Active Sister 2 Comments:DM Status:Active Unknown Family Member Name Dates Details Father Comments:heart DZ, paced Status:Active Maternal Grandmother Comments:heart DZ Status:Active Mother Comments:DM, COPD, CHO, HTN, OA Status:Active Paternal Grandfather Comments:hepatic [place] Status:Active Paternal Grandmother Comments:heart DZ Status:Active Sister 1 Comments:DM Status:Active Sister 2 Comments:DM Status:Active Unknown Family Member Name Dates Details Father Comments:heart DZ, paced Status:Active Maternal Grandmother Comments:heart DZ Status:Active Mother Comments:DM, COPD, CHO, HTN, OA Status:Active Paternal Grandfather Comments:hepatic [place] Status:Active Paternal Grandmother Comments:heart DZ Status:Active Sister 1 Comments:DM Status:Active Sister 2 Comments:DM Status:Active Unknown Family Member Name Dates Details Father Comments:heart DZ, paced Status:Active Maternal Grandmother Comments:heart DZ Status:Active Mother Comments:DM, COPD, CHO, HTN, OA Status:Active Paternal Grandfather Comments:hepatic [place] Status:Active Paternal Grandmother Comments:heart DZ Status:Active Sister 1 Comments:DM Status:Active Sister 2 Comments:DM Status:Active Unknown Family Member Name Dates Details Father Comments:heart DZ, paced Status:Active Maternal Grandmother Comments:heart DZ Status:Active Mother Comments:DM, COPD, CHO, HTN, OA Status:Active Paternal Grandfather Comments:hepatic [place] Status:Active Paternal Grandmother Comments:heart DZ Status:Active Sister 1 Comments:DM Status:Active Sister 2 Comments:DM Status:Active Unknown Family Member Name Dates Details Father Comments:heart DZ, paced Status:Active Maternal Grandmother Comments:heart DZ Status:Active Mother Comments:DM, COPD, CHO, HTN, OA Status:Active Paternal Grandfather Comments:hepatic [place] Status:Active Paternal Grandmother Comments:heart DZ Status:Active Sister 1 Comments:DM Status:Active Sister 2 Comments:DM Status:Active Unknown Family Member Name Dates Details Father Comments:heart DZ, paced Status:Active Maternal Grandmother Comments:heart DZ Status:Active Mother Comments:DM, COPD, CHO, HTN, OA Status:Active Paternal Grandfather Comments:hepatic [place] Status:Active Paternal Grandmother Comments:heart DZ Status:Active Sister 1 Comments:DM Status:Active Sister 2 Comments:DM Status:Active Unknown Family Member Name Dates Details Father Comments:heart DZ, paced Status:Active Maternal Grandmother Comments:heart DZ Status:Active Mother Comments:DM, COPD, CHO, HTN, OA Status:Active Paternal Grandfather Comments:hepatic [place] Status:Active Paternal Grandmother Comments:heart DZ Status:Active Sister 1 Comments:DM Status:Active Sister 2 Comments:DM Status:Active Unknown Family Member Name Dates Details Father Comments:heart DZ, paced Status:Active Maternal Grandmother Comments:heart DZ Status:Active Mother Comments:DM, COPD, CHO, HTN, OA Status:Active Paternal Grandfather Comments:hepatic [place] Status:Active Paternal Grandmother Comments:heart DZ Status:Active Sister 1 Comments:DM Status:Active Sister 2 Comments:DM Status:Active Unknown Family Member Name Dates Details Father Comments:heart DZ, paced Status:Active Maternal Grandmother Comments:heart DZ Status:Active Mother Comments:DM, COPD, CHO, HTN, OA Status:Active Paternal Grandfather Comments:hepatic [place] Status:Active Paternal Grandmother Comments:heart DZ Status:Active Sister 1 Comments:DM Status:Active Sister 2 Comments:DM Status:Active Unknown Family Member Name Dates Details Father Comments:heart DZ, paced Status:Active Maternal Grandmother Comments:heart DZ Status:Active Mother Comments:DM, COPD, CHO, HTN, OA Status:Active Paternal Grandfather Comments:hepatic [place] Status:Active Paternal Grandmother Comments:heart DZ Status:Active Sister 1 Comments:DM Status:Active Sister 2 Comments:DM Status:Active Unknown Family Member Name Dates Details Father Comments:heart DZ, paced Status:Active Maternal Grandmother Comments:heart DZ Status:Active Mother Comments:DM, COPD, CHO, HTN, OA Status:Active Paternal Grandfather Comments:hepatic [place] Status:Active Paternal Grandmother Comments:heart DZ Status:Active Sister 1 Comments:DM Status:Active Sister 2 Comments:DM Status:Active Unknown Family Member Name Dates Details Father Comments:heart DZ, paced Status:Active Maternal Grandmother Comments:heart DZ Status:Active Mother Comments:DM, COPD, CHO, HTN, OA Status:Active Paternal Grandfather Comments:hepatic [place] Status:Active Paternal Grandmother Comments:heart DZ Status:Active Sister 1 Comments:DM Status:Active Sister 2 Comments:DM Status:Active Unknown Family Member Name Dates Details Father Comments:heart DZ, paced Status:Active Maternal Grandmother Comments:heart DZ Status:Active Mother Comments:DM, COPD, CHO, HTN, OA Status:Active Paternal Grandfather Comments:hepatic [place] Status:Active Paternal Grandmother Comments:heart DZ Status:Active Sister 1 Comments:DM Status:Active Sister 2 Comments:DM Status:Active Unknown Family Member Name Dates Details Father Comments:heart DZ, paced Status:Active Maternal Grandmother Comments:heart DZ Status:Active Mother Comments:DM, COPD, CHO, HTN, OA Status:Active Paternal Grandfather Comments:hepatic [place] Status:Active Paternal Grandmother Comments:heart DZ Status:Active Sister 1 Comments:DM Status:Active Sister 2 Comments:DM Status:Active Unknown Family Member Name Dates Details Father Comments:heart DZ, paced Status:Active Maternal Grandmother Comments:heart DZ Status:Active Mother Comments:DM, COPD, CHO, HTN, OA Status:Active Paternal Grandfather Comments:hepatic [place] Status:Active Paternal Grandmother Comments:heart DZ Status:Active Sister 1 Comments:DM Status:Active Sister 2 Comments:DM Status:Active Unknown Family Member Name Dates Details Father Comments:heart DZ, paced Status:Active Maternal Grandmother Comments:heart DZ Status:Active Mother Comments:DM, COPD, CHO, HTN, OA Status:Active Paternal Grandfather Comments:hepatic [place] Status:Active Paternal Grandmother Comments:heart DZ Status:Active Sister 1 Comments:DM Status:Active Sister 2 Comments:DM Status:Active Unknown Family Member Name Dates Details Father Comments:heart DZ, paced Status:Active Maternal Grandmother Comments:heart DZ Status:Active Mother Comments:DM, COPD, CHO, HTN, OA Status:Active Paternal Grandfather Comments:hepatic [place] Status:Active Paternal Grandmother Comments:heart DZ Status:Active Sister 1 Comments:DM Status:Active Sister 2 Comments:DM Status:Active Unknown Family Member Name Dates Details Father Comments:heart DZ, paced Status:Active Maternal Grandmother Comments:heart DZ Status:Active Mother Comments:DM, COPD, CHO, HTN, OA Status:Active Paternal Grandfather Comments:hepatic [place] Status:Active Paternal Grandmother Comments:heart DZ Status:Active Sister 1 Comments:DM Status:Active Sister 2 Comments:DM Status:Active Unknown Family Member Name Dates Details Father Comments:heart DZ, paced Status:Active Maternal Grandmother Comments:heart DZ Status:Active Mother Comments:DM, COPD, CHO, HTN, OA Status:Active Paternal Grandfather Comments:hepatic [place] Status:Active Paternal Grandmother Comments:heart DZ Status:Active Sister 1 Comments:DM Status:Active Sister 2 Comments:DM Status:Active Unknown Family Member Name Dates Details Father Comments:heart DZ, paced Status:Active Maternal Grandmother Comments:heart DZ Status:Active Mother Comments:DM, COPD, CHO, HTN, OA Status:Active Paternal Grandfather Comments:hepatic [place] Status:Active Paternal Grandmother Comments:heart DZ Status:Active Sister 1 Comments:DM Status:Active Sister 2 Comments:DM Status:Active Unknown Family Member Name Dates Details Father Comments:heart DZ, paced Status:Active Maternal Grandmother Comments:heart DZ Status:Active Mother Comments:DM, COPD, CHO, HTN, OA Status:Active Paternal Grandfather Comments:hepatic [place] Status:Active Paternal Grandmother Comments:heart DZ Status:Active Sister 1 Comments:DM Status:Active Sister 2 Comments:DM Status:Active Instructions Name Dates Details How to access health informa tion online - Detail Indication:Nonsmoker Start:21-Nov-2018 Instruction Type:Patient Education How to access health informa tion online Indication:Nonsmoker Start:21-Nov-2018 Instruction Type:Patient Education Patient Instructions Indication:Nonsmoker Start:21-Nov-2018 Instruction Type:Provider Instructions for Treatment How to access health informa tion online Indication:Nonsmoker Start:11-Dec-2017 Instruction Type:Patient Education How to access health informa tion online - Detail Indication:Nonsmoker Start:11-Dec-2017 Instruction Type:Patient Education Patient Instructions Indication:Nonsmoker Start:11-Dec-2017 Instruction Type:Provider Instructions for Treatment How to access health informa tion online Indication:Nonsmoker Start:09-Oct-2017 Instruction Type:Patient Education How to access health informa tion online - Detail Indication:Nonsmoker Start:09-Oct-2017 Instruction Type:Patient Education Patient Instructions Indication:Poison tangela Start:09-Oct-2017 Instruction Type:Provider Instructions for Treatment Patient Instructions Indication:BMI 27.0-27.9,adult Start:23-Nov-2016 Instruction Type:Provider Instructions for Treatment How to access health informa tion online Indication:B12 deficiency anemia Start:23-Nov-2016 Instruction Type:Patient Education How to access health informa tion online - Detail Indication:B12 deficiency anemia Start:23-Nov-2016 Instruction Type:Patient Education Patient Instructions Indication:B12 deficiency anemia Start:23-Nov-2016 Instruction Type:Provider Instructions for Treatment How to access health informa tion online Indication:Nonsmoker Start:17-Oct-2016 Instruction Type:Patient Education How to access health informa tion online - Detail Indication:Nonsmoker Start:17-Oct-2016 Instruction Type:Patient Education Patient Instructions Indication:Nonsmoker Start:17-Oct-2016 Instruction Type:Provider Instructions for Treatment How to access health informa tion online Indication:UTI (urinary tract infection) Start:25-Mar-2016 Instruction Type:Patient Education How to access health informa tion online - Detail Indication:UTI (urinary tract infection) Start:25-Mar-2016 Instruction Type:Patient Education Patient Instructions Indication:UTI (urinary tract infection) Start:25-Mar-2016 Instruction Type:Provider Instructions for Treatment How to access health informa tion online - Detail Indication:UTI (urinary tract infection) Start:10-Dec-2015 Instruction Type:Patient Education Patient Instructions Indication:UTI (urinary tract infection) Start:10-Dec-2015 Instruction Type:Provider Instructions for Treatment Patient Instructions Indication:Annual Medicare Physical WITH abnormal findings (Renamed from Encounter for general adult medical examination with abnormal findings) Start:05-Feb-2015 Instruction Type:Provider Instructions for Treatment Patient Instructions Indication:Neck Pain Start:08-May-2014 Instruction Type:Provider Instructions for Treatment Patient Instructions Indication:Contact dermatitis Start:01-Nov-2013 Instruction Type:Provider Instructions for Treatment Patient Instructions Indication:Hypercholesteremia Start:08-Nov-2012 Instruction Type:Provider Instructions for Treatment Patient Instructions Indication:FATIGUE Start:07-Jun-2012 Instruction Type:Provider Instructions for Treatment Patient Instructions Indication:Hormone imbalance Start:30-May-2012 Instruction Type:Provider Instructions for Treatment Name Dates Details How to access health informa tion online - Detail Indication:Nonsmoker Start:21-Nov-2018 Instruction Type:Patient Education How to access health informa tion online Indication:Nonsmoker Start:21-Nov-2018 Instruction Type:Patient Education Patient Instructions Indication:Nonsmoker Start:21-Nov-2018 Instruction Type:Provider Instructions for Treatment How to access health informa tion online Indication:Nonsmoker Start:11-Dec-2017 Instruction Type:Patient Education How to access health informa tion online - Detail Indication:Nonsmoker Start:11-Dec-2017 Instruction Type:Patient Education Patient Instructions Indication:Nonsmoker Start:11-Dec-2017 Instruction Type:Provider Instructions for Treatment How to access health informa tion online Indication:Nonsmoker Start:09-Oct-2017 Instruction Type:Patient Education How to access health informa tion online - Detail Indication:Nonsmoker Start:09-Oct-2017 Instruction Type:Patient Education Patient Instructions Indication:Poison tangela Start:09-Oct-2017 Instruction Type:Provider Instructions for Treatment Patient Instructions Indication:BMI 27.0-27.9,adult Start:23-Nov-2016 Instruction Type:Provider Instructions for Treatment How to access health informa tion online Indication:B12 deficiency anemia Start:23-Nov-2016 Instruction Type:Patient Education How to access health informa tion online - Detail Indication:B12 deficiency anemia Start:23-Nov-2016 Instruction Type:Patient Education Patient Instructions Indication:B12 deficiency anemia Start:23-Nov-2016 Instruction Type:Provider Instructions for Treatment How to access health informa tion online Indication:Nonsmoker Start:17-Oct-2016 Instruction Type:Patient Education How to access health informa tion online - Detail Indication:Nonsmoker Start:17-Oct-2016 Instruction Type:Patient Education Patient Instructions Indication:Nonsmoker Start:17-Oct-2016 Instruction Type:Provider Instructions for Treatment How to access health informa tion online Indication:UTI (urinary tract infection) Start:25-Mar-2016 Instruction Type:Patient Education How to access health informa tion online - Detail Indication:UTI (urinary tract infection) Start:25-Mar-2016 Instruction Type:Patient Education Patient Instructions Indication:UTI (urinary tract infection) Start:25-Mar-2016 Instruction Type:Provider Instructions for Treatment How to access health informa tion online - Detail Indication:UTI (urinary tract infection) Start:10-Dec-2015 Instruction Type:Patient Education Patient Instructions Indication:UTI (urinary tract infection) Start:10-Dec-2015 Instruction Type:Provider Instructions for Treatment Patient Instructions Indication:Annual Medicare Physical WITH abnormal findings (Renamed from Encounter for general adult medical examination with abnormal findings) Start:05-Feb-2015 Instruction Type:Provider Instructions for Treatment Patient Instructions Indication:Neck Pain Start:08-May-2014 Instruction Type:Provider Instructions for Treatment Patient Instructions Indication:Contact dermatitis Start:01-Nov-2013 Instruction Type:Provider Instructions for Treatment Patient Instructions Indication:Hypercholesteremia Start:08-Nov-2012 Instruction Type:Provider Instructions for Treatment Patient Instructions Indication:FATIGUE Start:07-Jun-2012 Instruction Type:Provider Instructions for Treatment Patient Instructions Indication:Hormone imbalance Start:30-May-2012 Instruction Type:Provider Instructions for Treatment Name Dates Details How to access health informa tion online - Detail Indication:Nonsmoker Start:21-Nov-2018 Instruction Type:Patient Education How to access health informa tion online Indication:Nonsmoker Start:21-Nov-2018 Instruction Type:Patient Education Patient Instructions Indication:Nonsmoker Start:21-Nov-2018 Instruction Type:Provider Instructions for Treatment How to access health informa tion online Indication:Nonsmoker Start:11-Dec-2017 Instruction Type:Patient Education How to access health informa tion online - Detail Indication:Nonsmoker Start:11-Dec-2017 Instruction Type:Patient Education Patient Instructions Indication:Nonsmoker Start:11-Dec-2017 Instruction Type:Provider Instructions for Treatment How to access health informa tion online Indication:Nonsmoker Start:09-Oct-2017 Instruction Type:Patient Education How to access health informa tion online - Detail Indication:Nonsmoker Start:09-Oct-2017 Instruction Type:Patient Education Patient Instructions Indication:Poison tangela Start:09-Oct-2017 Instruction Type:Provider Instructions for Treatment Patient Instructions Indication:BMI 27.0-27.9,adult Start:23-Nov-2016 Instruction Type:Provider Instructions for Treatment How to access health informa tion online Indication:B12 deficiency anemia Start:23-Nov-2016 Instruction Type:Patient Education How to access health informa tion online - Detail Indication:B12 deficiency anemia Start:23-Nov-2016 Instruction Type:Patient Education Patient Instructions Indication:B12 deficiency anemia Start:23-Nov-2016 Instruction Type:Provider Instructions for Treatment How to access health informa tion online Indication:Nonsmoker Start:17-Oct-2016 Instruction Type:Patient Education How to access health informa tion online - Detail Indication:Nonsmoker Start:17-Oct-2016 Instruction Type:Patient Education Patient Instructions Indication:Nonsmoker Start:17-Oct-2016 Instruction Type:Provider Instructions for Treatment How to access health informa tion online Indication:UTI (urinary tract infection) Start:25-Mar-2016 Instruction Type:Patient Education How to access health informa tion online - Detail Indication:UTI (urinary tract infection) Start:25-Mar-2016 Instruction Type:Patient Education Patient Instructions Indication:UTI (urinary tract infection) Start:25-Mar-2016 Instruction Type:Provider Instructions for Treatment How to access health informa tion online - Detail Indication:UTI (urinary tract infection) Start:10-Dec-2015 Instruction Type:Patient Education Patient Instructions Indication:UTI (urinary tract infection) Start:10-Dec-2015 Instruction Type:Provider Instructions for Treatment Patient Instructions Indication:Annual Medicare Physical WITH abnormal findings (Renamed from Encounter for general adult medical examination with abnormal findings) Start:05-Feb-2015 Instruction Type:Provider Instructions for Treatment Patient Instructions Indication:Neck Pain Start:08-May-2014 Instruction Type:Provider Instructions for Treatment Patient Instructions Indication:Contact dermatitis Start:01-Nov-2013 Instruction Type:Provider Instructions for Treatment Patient Instructions Indication:Hypercholesteremia Start:08-Nov-2012 Instruction Type:Provider Instructions for Treatment Patient Instructions Indication:FATIGUE Start:07-Jun-2012 Instruction Type:Provider Instructions for Treatment Patient Instructions Indication:Hormone imbalance Start:30-May-2012 Instruction Type:Provider Instructions for Treatment Name Dates Details How to access health informa tion online Indication:Nonsmoker Start:28-Nov-2018 Instruction Type:Patient Education How to access health informa tion online - Detail Indication:Nonsmoker Start:28-Nov-2018 Instruction Type:Patient Education Patient Instructions Indication:Nonsmoker Start:28-Nov-2018 Instruction Type:Provider Instructions for Treatment How to access health informa tion online - Detail Indication:Nonsmoker Start:21-Nov-2018 Instruction Type:Patient Education How to access health informa tion online Indication:Nonsmoker Start:21-Nov-2018 Instruction Type:Patient Education Patient Instructions Indication:Nonsmoker Start:21-Nov-2018 Instruction Type:Provider Instructions for Treatment How to access health informa tion online Indication:Nonsmoker Start:11-Dec-2017 Instruction Type:Patient Education How to access health informa tion online - Detail Indication:Nonsmoker Start:11-Dec-2017 Instruction Type:Patient Education Patient Instructions Indication:Nonsmoker Start:11-Dec-2017 Instruction Type:Provider Instructions for Treatment How to access health informa tion online Indication:Nonsmoker Start:09-Oct-2017 Instruction Type:Patient Education How to access health informa tion online - Detail Indication:Nonsmoker Start:09-Oct-2017 Instruction Type:Patient Education Patient Instructions Indication:Poison tangela Start:09-Oct-2017 Instruction Type:Provider Instructions for Treatment Patient Instructions Indication:BMI 27.0-27.9,adult Start:23-Nov-2016 Instruction Type:Provider Instructions for Treatment How to access health informa tion online Indication:B12 deficiency anemia Start:23-Nov-2016 Instruction Type:Patient Education How to access health informa tion online - Detail Indication:B12 deficiency anemia Start:23-Nov-2016 Instruction Type:Patient Education Patient Instructions Indication:B12 deficiency anemia Start:23-Nov-2016 Instruction Type:Provider Instructions for Treatment How to access health informa tion online Indication:Nonsmoker Start:17-Oct-2016 Instruction Type:Patient Education How to access health informa tion online - Detail Indication:Nonsmoker Start:17-Oct-2016 Instruction Type:Patient Education Patient Instructions Indication:Nonsmoker Start:17-Oct-2016 Instruction Type:Provider Instructions for Treatment How to access health informa tion online Indication:UTI (urinary tract infection) Start:25-Mar-2016 Instruction Type:Patient Education How to access health informa tion online - Detail Indication:UTI (urinary tract infection) Start:25-Mar-2016 Instruction Type:Patient Education Patient Instructions Indication:UTI (urinary tract infection) Start:25-Mar-2016 Instruction Type:Provider Instructions for Treatment How to access health informa tion online - Detail Indication:UTI (urinary tract infection) Start:10-Dec-2015 Instruction Type:Patient Education Patient Instructions Indication:UTI (urinary tract infection) Start:10-Dec-2015 Instruction Type:Provider Instructions for Treatment Patient Instructions Indication:Annual Medicare Physical WITH abnormal findings (Renamed from Encounter for general adult medical examination with abnormal findings) Start:05-Feb-2015 Instruction Type:Provider Instructions for Treatment Patient Instructions Indication:Neck Pain Start:08-May-2014 Instruction Type:Provider Instructions for Treatment Patient Instructions Indication:Contact dermatitis Start:01-Nov-2013 Instruction Type:Provider Instructions for Treatment Patient Instructions Indication:Hypercholesteremia Start:08-Nov-2012 Instruction Type:Provider Instructions for Treatment Patient Instructions Indication:FATIGUE Start:07-Jun-2012 Instruction Type:Provider Instructions for Treatment Patient Instructions Indication:Hormone imbalance Start:30-May-2012 Instruction Type:Provider Instructions for Treatment Name Dates Details How to access health informa tion online Indication:Nonsmoker Start:28-Nov-2018 Instruction Type:Patient Education How to access health informa tion online - Detail Indication:Nonsmoker Start:28-Nov-2018 Instruction Type:Patient Education Patient Instructions Indication:Nonsmoker Start:28-Nov-2018 Instruction Type:Provider Instructions for Treatment How to access health informa tion online - Detail Indication:Nonsmoker Start:21-Nov-2018 Instruction Type:Patient Education How to access health informa tion online Indication:Nonsmoker Start:21-Nov-2018 Instruction Type:Patient Education Patient Instructions Indication:Nonsmoker Start:21-Nov-2018 Instruction Type:Provider Instructions for Treatment How to access health informa tion online Indication:Nonsmoker Start:11-Dec-2017 Instruction Type:Patient Education How to access health informa tion online - Detail Indication:Nonsmoker Start:11-Dec-2017 Instruction Type:Patient Education Patient Instructions Indication:Nonsmoker Start:11-Dec-2017 Instruction Type:Provider Instructions for Treatment How to access health informa tion online Indication:Nonsmoker Start:09-Oct-2017 Instruction Type:Patient Education How to access health informa tion online - Detail Indication:Nonsmoker Start:09-Oct-2017 Instruction Type:Patient Education Patient Instructions Indication:Poison tangela Start:09-Oct-2017 Instruction Type:Provider Instructions for Treatment Patient Instructions Indication:BMI 27.0-27.9,adult Start:23-Nov-2016 Instruction Type:Provider Instructions for Treatment How to access health informa tion online Indication:B12 deficiency anemia Start:23-Nov-2016 Instruction Type:Patient Education How to access health informa tion online - Detail Indication:B12 deficiency anemia Start:23-Nov-2016 Instruction Type:Patient Education Patient Instructions Indication:B12 deficiency anemia Start:23-Nov-2016 Instruction Type:Provider Instructions for Treatment How to access health informa tion online Indication:Nonsmoker Start:17-Oct-2016 Instruction Type:Patient Education How to access health informa tion online - Detail Indication:Nonsmoker Start:17-Oct-2016 Instruction Type:Patient Education Patient Instructions Indication:Nonsmoker Start:17-Oct-2016 Instruction Type:Provider Instructions for Treatment How to access health informa tion online Indication:UTI (urinary tract infection) Start:25-Mar-2016 Instruction Type:Patient Education How to access health informa tion online - Detail Indication:UTI (urinary tract infection) Start:25-Mar-2016 Instruction Type:Patient Education Patient Instructions Indication:UTI (urinary tract infection) Start:25-Mar-2016 Instruction Type:Provider Instructions for Treatment How to access health informa tion online - Detail Indication:UTI (urinary tract infection) Start:10-Dec-2015 Instruction Type:Patient Education Patient Instructions Indication:UTI (urinary tract infection) Start:10-Dec-2015 Instruction Type:Provider Instructions for Treatment Patient Instructions Indication:Annual Medicare Physical WITH abnormal findings (Renamed from Encounter for general adult medical examination with abnormal findings) Start:05-Feb-2015 Instruction Type:Provider Instructions for Treatment Patient Instructions Indication:Neck Pain Start:08-May-2014 Instruction Type:Provider Instructions for Treatment Patient Instructions Indication:Contact dermatitis Start:01-Nov-2013 Instruction Type:Provider Instructions for Treatment Patient Instructions Indication:Hypercholesteremia Start:08-Nov-2012 Instruction Type:Provider Instructions for Treatment Patient Instructions Indication:FATIGUE Start:07-Jun-2012 Instruction Type:Provider Instructions for Treatment Patient Instructions Indication:Hormone imbalance Start:30-May-2012 Instruction Type:Provider Instructions for Treatment Name Dates Details How to access health informa tion online Indication:BMI 27.0-27.9,adult Start:14-Dec-2018 Instruction Type:Patient Education How to access health informa tion online - Detail Indication:BMI 27.0-27.9,adult Start:14-Dec-2018 Instruction Type:Patient Education Patient Instructions Indication:BMI 27.0-27.9,adult Start:14-Dec-2018 Instruction Type:Provider Instructions for Treatment How to access health informa tion online Indication:Nonsmoker Start:28-Nov-2018 Instruction Type:Patient Education How to access health informa tion online - Detail Indication:Nonsmoker Start:28-Nov-2018 Instruction Type:Patient Education Patient Instructions Indication:Nonsmoker Start:28-Nov-2018 Instruction Type:Provider Instructions for Treatment How to access health informa tion online - Detail Indication:Nonsmoker Start:21-Nov-2018 Instruction Type:Patient Education How to access health informa tion online Indication:Nonsmoker Start:21-Nov-2018 Instruction Type:Patient Education Patient Instructions Indication:Nonsmoker Start:21-Nov-2018 Instruction Type:Provider Instructions for Treatment How to access health informa tion online Indication:Nonsmoker Start:11-Dec-2017 Instruction Type:Patient Education How to access health informa tion online - Detail Indication:Nonsmoker Start:11-Dec-2017 Instruction Type:Patient Education Patient Instructions Indication:Nonsmoker Start:11-Dec-2017 Instruction Type:Provider Instructions for Treatment How to access health informa tion online Indication:Nonsmoker Start:09-Oct-2017 Instruction Type:Patient Education How to access health informa tion online - Detail Indication:Nonsmoker Start:09-Oct-2017 Instruction Type:Patient Education Patient Instructions Indication:Poison tangela Start:09-Oct-2017 Instruction Type:Provider Instructions for Treatment Patient Instructions Indication:BMI 27.0-27.9,adult Start:23-Nov-2016 Instruction Type:Provider Instructions for Treatment How to access health informa tion online Indication:B12 deficiency anemia Start:23-Nov-2016 Instruction Type:Patient Education How to access health informa tion online - Detail Indication:B12 deficiency anemia Start:23-Nov-2016 Instruction Type:Patient Education Patient Instructions Indication:B12 deficiency anemia Start:23-Nov-2016 Instruction Type:Provider Instructions for Treatment How to access health informa tion online Indication:Nonsmoker Start:17-Oct-2016 Instruction Type:Patient Education How to access health informa tion online - Detail Indication:Nonsmoker Start:17-Oct-2016 Instruction Type:Patient Education Patient Instructions Indication:Nonsmoker Start:17-Oct-2016 Instruction Type:Provider Instructions for Treatment How to access health informa tion online Indication:UTI (urinary tract infection) Start:25-Mar-2016 Instruction Type:Patient Education How to access health informa tion online - Detail Indication:UTI (urinary tract infection) Start:25-Mar-2016 Instruction Type:Patient Education Patient Instructions Indication:UTI (urinary tract infection) Start:25-Mar-2016 Instruction Type:Provider Instructions for Treatment How to access health informa tion online - Detail Indication:UTI (urinary tract infection) Start:10-Dec-2015 Instruction Type:Patient Education Patient Instructions Indication:UTI (urinary tract infection) Start:10-Dec-2015 Instruction Type:Provider Instructions for Treatment Patient Instructions Indication:Annual Medicare Physical WITH abnormal findings (Renamed from Encounter for general adult medical examination with abnormal findings) Start:05-Feb-2015 Instruction Type:Provider Instructions for Treatment Patient Instructions Indication:Neck Pain Start:08-May-2014 Instruction Type:Provider Instructions for Treatment Patient Instructions Indication:Contact dermatitis Start:01-Nov-2013 Instruction Type:Provider Instructions for Treatment Patient Instructions Indication:Hypercholesteremia Start:08-Nov-2012 Instruction Type:Provider Instructions for Treatment Patient Instructions Indication:FATIGUE Start:07-Jun-2012 Instruction Type:Provider Instructions for Treatment Patient Instructions Indication:Hormone imbalance Start:30-May-2012 Instruction Type:Provider Instructions for Treatment Name Dates Details How to access health informa tion online Indication:BMI 27.0-27.9,adult Start:14-Dec-2018 Instruction Type:Patient Education How to access health informa tion online - Detail Indication:BMI 27.0-27.9,adult Start:14-Dec-2018 Instruction Type:Patient Education Patient Instructions Indication:BMI 27.0-27.9,adult Start:14-Dec-2018 Instruction Type:Provider Instructions for Treatment How to access health informa tion online Indication:Nonsmoker Start:28-Nov-2018 Instruction Type:Patient Education How to access health informa tion online - Detail Indication:Nonsmoker Start:28-Nov-2018 Instruction Type:Patient Education Patient Instructions Indication:Nonsmoker Start:28-Nov-2018 Instruction Type:Provider Instructions for Treatment How to access health informa tion online - Detail Indication:Nonsmoker Start:21-Nov-2018 Instruction Type:Patient Education How to access health informa tion online Indication:Nonsmoker Start:21-Nov-2018 Instruction Type:Patient Education Patient Instructions Indication:Nonsmoker Start:21-Nov-2018 Instruction Type:Provider Instructions for Treatment How to access health informa tion online Indication:Nonsmoker Start:11-Dec-2017 Instruction Type:Patient Education How to access health informa tion online - Detail Indication:Nonsmoker Start:11-Dec-2017 Instruction Type:Patient Education Patient Instructions Indication:Nonsmoker Start:11-Dec-2017 Instruction Type:Provider Instructions for Treatment How to access health informa tion online Indication:Nonsmoker Start:09-Oct-2017 Instruction Type:Patient Education How to access health informa tion online - Detail Indication:Nonsmoker Start:09-Oct-2017 Instruction Type:Patient Education Patient Instructions Indication:Poison tangela Start:09-Oct-2017 Instruction Type:Provider Instructions for Treatment Patient Instructions Indication:BMI 27.0-27.9,adult Start:23-Nov-2016 Instruction Type:Provider Instructions for Treatment How to access health informa tion online Indication:B12 deficiency anemia Start:23-Nov-2016 Instruction Type:Patient Education How to access health informa tion online - Detail Indication:B12 deficiency anemia Start:23-Nov-2016 Instruction Type:Patient Education Patient Instructions Indication:B12 deficiency anemia Start:23-Nov-2016 Instruction Type:Provider Instructions for Treatment How to access health informa tion online Indication:Nonsmoker Start:17-Oct-2016 Instruction Type:Patient Education How to access health informa tion online - Detail Indication:Nonsmoker Start:17-Oct-2016 Instruction Type:Patient Education Patient Instructions Indication:Nonsmoker Start:17-Oct-2016 Instruction Type:Provider Instructions for Treatment How to access health informa tion online Indication:UTI (urinary tract infection) Start:25-Mar-2016 Instruction Type:Patient Education How to access health informa tion online - Detail Indication:UTI (urinary tract infection) Start:25-Mar-2016 Instruction Type:Patient Education Patient Instructions Indication:UTI (urinary tract infection) Start:25-Mar-2016 Instruction Type:Provider Instructions for Treatment How to access health informa tion online - Detail Indication:UTI (urinary tract infection) Start:10-Dec-2015 Instruction Type:Patient Education Patient Instructions Indication:UTI (urinary tract infection) Start:10-Dec-2015 Instruction Type:Provider Instructions for Treatment Patient Instructions Indication:Annual Medicare Physical WITH abnormal findings (Renamed from Encounter for general adult medical examination with abnormal findings) Start:05-Feb-2015 Instruction Type:Provider Instructions for Treatment Patient Instructions Indication:Neck Pain Start:08-May-2014 Instruction Type:Provider Instructions for Treatment Patient Instructions Indication:Contact dermatitis Start:01-Nov-2013 Instruction Type:Provider Instructions for Treatment Patient Instructions Indication:Hypercholesteremia Start:08-Nov-2012 Instruction Type:Provider Instructions for Treatment Patient Instructions Indication:FATIGUE Start:07-Jun-2012 Instruction Type:Provider Instructions for Treatment Patient Instructions Indication:Hormone imbalance Start:30-May-2012 Instruction Type:Provider Instructions for Treatment Name Dates Details How to access health informa tion online Indication:Nonsmoker Start:28-Feb-2019 Instruction Type:Patient Education How to access health informa tion online - Detail Indication:Nonsmoker Start:28-Feb-2019 Instruction Type:Patient Education Patient Instructions Indication:Nonsmoker Start:28-Feb-2019 Instruction Type:Provider Instructions for Treatment How to access health informa tion online Indication:BMI 27.0-27.9,adult Start:14-Dec-2018 Instruction Type:Patient Education How to access health informa tion online - Detail Indication:BMI 27.0-27.9,adult Start:14-Dec-2018 Instruction Type:Patient Education Patient Instructions Indication:BMI 27.0-27.9,adult Start:14-Dec-2018 Instruction Type:Provider Instructions for Treatment How to access health informa tion online Indication:Nonsmoker Start:28-Nov-2018 Instruction Type:Patient Education How to access health informa tion online - Detail Indication:Nonsmoker Start:28-Nov-2018 Instruction Type:Patient Education Patient Instructions Indication:Nonsmoker Start:28-Nov-2018 Instruction Type:Provider Instructions for Treatment How to access health informa tion online - Detail Indication:Nonsmoker Start:21-Nov-2018 Instruction Type:Patient Education How to access health informa tion online Indication:Nonsmoker Start:21-Nov-2018 Instruction Type:Patient Education Patient Instructions Indication:Nonsmoker Start:21-Nov-2018 Instruction Type:Provider Instructions for Treatment How to access health informa tion online Indication:Nonsmoker Start:11-Dec-2017 Instruction Type:Patient Education How to access health informa tion online - Detail Indication:Nonsmoker Start:11-Dec-2017 Instruction Type:Patient Education Patient Instructions Indication:Nonsmoker Start:11-Dec-2017 Instruction Type:Provider Instructions for Treatment How to access health informa tion online Indication:Nonsmoker Start:09-Oct-2017 Instruction Type:Patient Education How to access health informa tion online - Detail Indication:Nonsmoker Start:09-Oct-2017 Instruction Type:Patient Education Patient Instructions Indication:Poison tangela Start:09-Oct-2017 Instruction Type:Provider Instructions for Treatment Patient Instructions Indication:BMI 27.0-27.9,adult Start:23-Nov-2016 Instruction Type:Provider Instructions for Treatment How to access health informa tion online Indication:B12 deficiency anemia Start:23-Nov-2016 Instruction Type:Patient Education How to access health informa tion online - Detail Indication:B12 deficiency anemia Start:23-Nov-2016 Instruction Type:Patient Education Patient Instructions Indication:B12 deficiency anemia Start:23-Nov-2016 Instruction Type:Provider Instructions for Treatment How to access health informa tion online Indication:Nonsmoker Start:17-Oct-2016 Instruction Type:Patient Education How to access health informa tion online - Detail Indication:Nonsmoker Start:17-Oct-2016 Instruction Type:Patient Education Patient Instructions Indication:Nonsmoker Start:17-Oct-2016 Instruction Type:Provider Instructions for Treatment How to access health informa tion online Indication:UTI (urinary tract infection) Start:25-Mar-2016 Instruction Type:Patient Education How to access health informa tion online - Detail Indication:UTI (urinary tract infection) Start:25-Mar-2016 Instruction Type:Patient Education Patient Instructions Indication:UTI (urinary tract infection) Start:25-Mar-2016 Instruction Type:Provider Instructions for Treatment How to access health informa tion online - Detail Indication:UTI (urinary tract infection) Start:10-Dec-2015 Instruction Type:Patient Education Patient Instructions Indication:UTI (urinary tract infection) Start:10-Dec-2015 Instruction Type:Provider Instructions for Treatment Patient Instructions Indication:Annual Medicare Physical WITH abnormal findings (Renamed from Encounter for general adult medical examination with abnormal findings) Start:05-Feb-2015 Instruction Type:Provider Instructions for Treatment Patient Instructions Indication:Neck Pain Start:08-May-2014 Instruction Type:Provider Instructions for Treatment Patient Instructions Indication:Contact dermatitis Start:01-Nov-2013 Instruction Type:Provider Instructions for Treatment Patient Instructions Indication:Hypercholesteremia Start:08-Nov-2012 Instruction Type:Provider Instructions for Treatment Patient Instructions Indication:FATIGUE Start:07-Jun-2012 Instruction Type:Provider Instructions for Treatment Patient Instructions Indication:Hormone imbalance Start:30-May-2012 Instruction Type:Provider Instructions for Treatment Name Dates Details How to access health informa tion online Indication:Nonsmoker Start:28-Feb-2019 Instruction Type:Patient Education How to access health informa tion online - Detail Indication:Nonsmoker Start:28-Feb-2019 Instruction Type:Patient Education Patient Instructions Indication:Nonsmoker Start:28-Feb-2019 Instruction Type:Provider Instructions for Treatment How to access health informa tion online Indication:BMI 27.0-27.9,adult Start:14-Dec-2018 Instruction Type:Patient Education How to access health informa tion online - Detail Indication:BMI 27.0-27.9,adult Start:14-Dec-2018 Instruction Type:Patient Education Patient Instructions Indication:BMI 27.0-27.9,adult Start:14-Dec-2018 Instruction Type:Provider Instructions for Treatment How to access health informa tion online Indication:Nonsmoker Start:28-Nov-2018 Instruction Type:Patient Education How to access health informa tion online - Detail Indication:Nonsmoker Start:28-Nov-2018 Instruction Type:Patient Education Patient Instructions Indication:Nonsmoker Start:28-Nov-2018 Instruction Type:Provider Instructions for Treatment How to access health informa tion online - Detail Indication:Nonsmoker Start:21-Nov-2018 Instruction Type:Patient Education How to access health informa tion online Indication:Nonsmoker Start:21-Nov-2018 Instruction Type:Patient Education Patient Instructions Indication:Nonsmoker Start:21-Nov-2018 Instruction Type:Provider Instructions for Treatment How to access health informa tion online Indication:Nonsmoker Start:11-Dec-2017 Instruction Type:Patient Education How to access health informa tion online - Detail Indication:Nonsmoker Start:11-Dec-2017 Instruction Type:Patient Education Patient Instructions Indication:Nonsmoker Start:11-Dec-2017 Instruction Type:Provider Instructions for Treatment How to access health informa tion online Indication:Nonsmoker Start:09-Oct-2017 Instruction Type:Patient Education How to access health informa tion online - Detail Indication:Nonsmoker Start:09-Oct-2017 Instruction Type:Patient Education Patient Instructions Indication:Poison tangela Start:09-Oct-2017 Instruction Type:Provider Instructions for Treatment Patient Instructions Indication:BMI 27.0-27.9,adult Start:23-Nov-2016 Instruction Type:Provider Instructions for Treatment How to access health informa tion online Indication:B12 deficiency anemia Start:23-Nov-2016 Instruction Type:Patient Education How to access health informa tion online - Detail Indication:B12 deficiency anemia Start:23-Nov-2016 Instruction Type:Patient Education Patient Instructions Indication:B12 deficiency anemia Start:23-Nov-2016 Instruction Type:Provider Instructions for Treatment How to access health informa tion online Indication:Nonsmoker Start:17-Oct-2016 Instruction Type:Patient Education How to access health informa tion online - Detail Indication:Nonsmoker Start:17-Oct-2016 Instruction Type:Patient Education Patient Instructions Indication:Nonsmoker Start:17-Oct-2016 Instruction Type:Provider Instructions for Treatment How to access health informa tion online Indication:UTI (urinary tract infection) Start:25-Mar-2016 Instruction Type:Patient Education How to access health informa tion online - Detail Indication:UTI (urinary tract infection) Start:25-Mar-2016 Instruction Type:Patient Education Patient Instructions Indication:UTI (urinary tract infection) Start:25-Mar-2016 Instruction Type:Provider Instructions for Treatment How to access health informa tion online - Detail Indication:UTI (urinary tract infection) Start:10-Dec-2015 Instruction Type:Patient Education Patient Instructions Indication:UTI (urinary tract infection) Start:10-Dec-2015 Instruction Type:Provider Instructions for Treatment Patient Instructions Indication:Annual Medicare Physical WITH abnormal findings (Renamed from Encounter for general adult medical examination with abnormal findings) Start:05-Feb-2015 Instruction Type:Provider Instructions for Treatment Patient Instructions Indication:Neck Pain Start:08-May-2014 Instruction Type:Provider Instructions for Treatment Patient Instructions Indication:Contact dermatitis Start:01-Nov-2013 Instruction Type:Provider Instructions for Treatment Patient Instructions Indication:Hypercholesteremia Start:08-Nov-2012 Instruction Type:Provider Instructions for Treatment Patient Instructions Indication:FATIGUE Start:07-Jun-2012 Instruction Type:Provider Instructions for Treatment Patient Instructions Indication:Hormone imbalance Start:30-May-2012 Instruction Type:Provider Instructions for Treatment Name Dates Details How to access health informa tion online Indication:Nonsmoker Start:09-Oct-2019 Instruction Type:Patient Education How to access health informa tion online - Detail Indication:Nonsmoker Start:09-Oct-2019 Instruction Type:Patient Education Patient Instructions Indication:Nonsmoker Start:09-Oct-2019 Instruction Type:Provider Instructions for Treatment How to access health informa tion online Indication:BMI 27.0-27.9,adult Start:03-Oct-2019 Instruction Type:Patient Education How to access health informa tion online - Detail Indication:BMI 27.0-27.9,adult Start:03-Oct-2019 Instruction Type:Patient Education Patient Instructions Indication:BMI 27.0-27.9,adult Start:03-Oct-2019 Instruction Type:Provider Instructions for Treatment How to access health informa tion online Indication:Nonsmoker Start:28-Feb-2019 Instruction Type:Patient Education How to access health informa tion online - Detail Indication:Nonsmoker Start:28-Feb-2019 Instruction Type:Patient Education Patient Instructions Indication:Nonsmoker Start:28-Feb-2019 Instruction Type:Provider Instructions for Treatment How to access health informa tion online Indication:BMI 27.0-27.9,adult Start:14-Dec-2018 Instruction Type:Patient Education How to access health informa tion online - Detail Indication:BMI 27.0-27.9,adult Start:14-Dec-2018 Instruction Type:Patient Education Patient Instructions Indication:BMI 27.0-27.9,adult Start:14-Dec-2018 Instruction Type:Provider Instructions for Treatment How to access health informa tion online Indication:Nonsmoker Start:28-Nov-2018 Instruction Type:Patient Education How to access health informa tion online - Detail Indication:Nonsmoker Start:28-Nov-2018 Instruction Type:Patient Education Patient Instructions Indication:Nonsmoker Start:28-Nov-2018 Instruction Type:Provider Instructions for Treatment How to access health informa tion online - Detail Indication:Nonsmoker Start:21-Nov-2018 Instruction Type:Patient Education How to access health informa tion online Indication:Nonsmoker Start:21-Nov-2018 Instruction Type:Patient Education Patient Instructions Indication:Nonsmoker Start:21-Nov-2018 Instruction Type:Provider Instructions for Treatment How to access health informa tion online Indication:Nonsmoker Start:11-Dec-2017 Instruction Type:Patient Education How to access health informa tion online - Detail Indication:Nonsmoker Start:11-Dec-2017 Instruction Type:Patient Education Patient Instructions Indication:Nonsmoker Start:11-Dec-2017 Instruction Type:Provider Instructions for Treatment How to access health informa tion online Indication:Nonsmoker Start:09-Oct-2017 Instruction Type:Patient Education How to access health informa tion online - Detail Indication:Nonsmoker Start:09-Oct-2017 Instruction Type:Patient Education Patient Instructions Indication:Poison tangela Start:09-Oct-2017 Instruction Type:Provider Instructions for Treatment Patient Instructions Indication:BMI 27.0-27.9,adult Start:23-Nov-2016 Instruction Type:Provider Instructions for Treatment How to access health informa tion online Indication:B12 deficiency anemia Start:23-Nov-2016 Instruction Type:Patient Education How to access health informa tion online - Detail Indication:B12 deficiency anemia Start:23-Nov-2016 Instruction Type:Patient Education Patient Instructions Indication:B12 deficiency anemia Start:23-Nov-2016 Instruction Type:Provider Instructions for Treatment How to access health informa tion online Indication:Nonsmoker Start:17-Oct-2016 Instruction Type:Patient Education How to access health informa tion online - Detail Indication:Nonsmoker Start:17-Oct-2016 Instruction Type:Patient Education Patient Instructions Indication:Nonsmoker Start:17-Oct-2016 Instruction Type:Provider Instructions for Treatment How to access health informa tion online Indication:UTI (urinary tract infection) Start:25-Mar-2016 Instruction Type:Patient Education How to access health informa tion online - Detail Indication:UTI (urinary tract infection) Start:25-Mar-2016 Instruction Type:Patient Education Patient Instructions Indication:UTI (urinary tract infection) Start:25-Mar-2016 Instruction Type:Provider Instructions for Treatment How to access health informa tion online - Detail Indication:UTI (urinary tract infection) Start:10-Dec-2015 Instruction Type:Patient Education Patient Instructions Indication:UTI (urinary tract infection) Start:10-Dec-2015 Instruction Type:Provider Instructions for Treatment Patient Instructions Indication:Annual Medicare Physical WITH abnormal findings (Renamed from Encounter for general adult medical examination with abnormal findings) Start:05-Feb-2015 Instruction Type:Provider Instructions for Treatment Patient Instructions Indication:Neck Pain Start:08-May-2014 Instruction Type:Provider Instructions for Treatment Patient Instructions Indication:Contact dermatitis Start:01-Nov-2013 Instruction Type:Provider Instructions for Treatment Patient Instructions Indication:Hypercholesteremia Start:08-Nov-2012 Instruction Type:Provider Instructions for Treatment Patient Instructions Indication:FATIGUE Start:07-Jun-2012 Instruction Type:Provider Instructions for Treatment Patient Instructions Indication:Hormone imbalance Start:30-May-2012 Instruction Type:Provider Instructions for Treatment Name Dates Details How to access health informa tion online Indication:Nonsmoker Start:09-Oct-2019 Instruction Type:Patient Education How to access health informa tion online - Detail Indication:Nonsmoker Start:09-Oct-2019 Instruction Type:Patient Education Patient Instructions Indication:Nonsmoker Start:09-Oct-2019 Instruction Type:Provider Instructions for Treatment How to access health informa tion online Indication:BMI 27.0-27.9,adult Start:03-Oct-2019 Instruction Type:Patient Education How to access health informa tion online - Detail Indication:BMI 27.0-27.9,adult Start:03-Oct-2019 Instruction Type:Patient Education Patient Instructions Indication:BMI 27.0-27.9,adult Start:03-Oct-2019 Instruction Type:Provider Instructions for Treatment How to access health informa tion online Indication:Nonsmoker Start:28-Feb-2019 Instruction Type:Patient Education How to access health informa tion online - Detail Indication:Nonsmoker Start:28-Feb-2019 Instruction Type:Patient Education Patient Instructions Indication:Nonsmoker Start:28-Feb-2019 Instruction Type:Provider Instructions for Treatment How to access health informa tion online Indication:BMI 27.0-27.9,adult Start:14-Dec-2018 Instruction Type:Patient Education How to access health informa tion online - Detail Indication:BMI 27.0-27.9,adult Start:14-Dec-2018 Instruction Type:Patient Education Patient Instructions Indication:BMI 27.0-27.9,adult Start:14-Dec-2018 Instruction Type:Provider Instructions for Treatment How to access health informa tion online Indication:Nonsmoker Start:28-Nov-2018 Instruction Type:Patient Education How to access health informa tion online - Detail Indication:Nonsmoker Start:28-Nov-2018 Instruction Type:Patient Education Patient Instructions Indication:Nonsmoker Start:28-Nov-2018 Instruction Type:Provider Instructions for Treatment How to access health informa tion online - Detail Indication:Nonsmoker Start:21-Nov-2018 Instruction Type:Patient Education How to access health informa tion online Indication:Nonsmoker Start:21-Nov-2018 Instruction Type:Patient Education Patient Instructions Indication:Nonsmoker Start:21-Nov-2018 Instruction Type:Provider Instructions for Treatment How to access health informa tion online Indication:Nonsmoker Start:11-Dec-2017 Instruction Type:Patient Education How to access health informa tion online - Detail Indication:Nonsmoker Start:11-Dec-2017 Instruction Type:Patient Education Patient Instructions Indication:Nonsmoker Start:11-Dec-2017 Instruction Type:Provider Instructions for Treatment How to access health informa tion online Indication:Nonsmoker Start:09-Oct-2017 Instruction Type:Patient Education How to access health informa tion online - Detail Indication:Nonsmoker Start:09-Oct-2017 Instruction Type:Patient Education Patient Instructions Indication:Poison tangela Start:09-Oct-2017 Instruction Type:Provider Instructions for Treatment Patient Instructions Indication:BMI 27.0-27.9,adult Start:23-Nov-2016 Instruction Type:Provider Instructions for Treatment How to access health informa tion online Indication:B12 deficiency anemia Start:23-Nov-2016 Instruction Type:Patient Education How to access health informa tion online - Detail Indication:B12 deficiency anemia Start:23-Nov-2016 Instruction Type:Patient Education Patient Instructions Indication:B12 deficiency anemia Start:23-Nov-2016 Instruction Type:Provider Instructions for Treatment How to access health informa tion online Indication:Nonsmoker Start:17-Oct-2016 Instruction Type:Patient Education How to access health informa tion online - Detail Indication:Nonsmoker Start:17-Oct-2016 Instruction Type:Patient Education Patient Instructions Indication:Nonsmoker Start:17-Oct-2016 Instruction Type:Provider Instructions for Treatment How to access health informa tion online Indication:UTI (urinary tract infection) Start:25-Mar-2016 Instruction Type:Patient Education How to access health informa tion online - Detail Indication:UTI (urinary tract infection) Start:25-Mar-2016 Instruction Type:Patient Education Patient Instructions Indication:UTI (urinary tract infection) Start:25-Mar-2016 Instruction Type:Provider Instructions for Treatment How to access health informa tion online - Detail Indication:UTI (urinary tract infection) Start:10-Dec-2015 Instruction Type:Patient Education Patient Instructions Indication:UTI (urinary tract infection) Start:10-Dec-2015 Instruction Type:Provider Instructions for Treatment Patient Instructions Indication:Annual Medicare Physical WITH abnormal findings (Renamed from Encounter for general adult medical examination with abnormal findings) Start:05-Feb-2015 Instruction Type:Provider Instructions for Treatment Patient Instructions Indication:Neck Pain Start:08-May-2014 Instruction Type:Provider Instructions for Treatment Patient Instructions Indication:Contact dermatitis Start:01-Nov-2013 Instruction Type:Provider Instructions for Treatment Patient Instructions Indication:Hypercholesteremia Start:08-Nov-2012 Instruction Type:Provider Instructions for Treatment Patient Instructions Indication:FATIGUE Start:07-Jun-2012 Instruction Type:Provider Instructions for Treatment Patient Instructions Indication:Hormone imbalance Start:30-May-2012 Instruction Type:Provider Instructions for Treatment Name Dates Details How to access health informa tion online Indication:Nonsmoker Start:20-Nov-2019 Instruction Type:Patient Education How to access health informa tion online - Detail Indication:Nonsmoker Start:20-Nov-2019 Instruction Type:Patient Education Patient Instructions Indication:Nonsmoker Start:20-Nov-2019 Instruction Type:Provider Instructions for Treatment How to access health informa tion online Indication:Nonsmoker Start:09-Oct-2019 Instruction Type:Patient Education How to access health informa tion online - Detail Indication:Nonsmoker Start:09-Oct-2019 Instruction Type:Patient Education Patient Instructions Indication:Nonsmoker Start:09-Oct-2019 Instruction Type:Provider Instructions for Treatment How to access health informa tion online Indication:BMI 27.0-27.9,adult Start:03-Oct-2019 Instruction Type:Patient Education How to access health informa tion online - Detail Indication:BMI 27.0-27.9,adult Start:03-Oct-2019 Instruction Type:Patient Education Patient Instructions Indication:BMI 27.0-27.9,adult Start:03-Oct-2019 Instruction Type:Provider Instructions for Treatment How to access health informa tion online Indication:Nonsmoker Start:28-Feb-2019 Instruction Type:Patient Education How to access health informa tion online - Detail Indication:Nonsmoker Start:28-Feb-2019 Instruction Type:Patient Education Patient Instructions Indication:Nonsmoker Start:28-Feb-2019 Instruction Type:Provider Instructions for Treatment How to access health informa tion online Indication:BMI 27.0-27.9,adult Start:14-Dec-2018 Instruction Type:Patient Education How to access health informa tion online - Detail Indication:BMI 27.0-27.9,adult Start:14-Dec-2018 Instruction Type:Patient Education Patient Instructions Indication:BMI 27.0-27.9,adult Start:14-Dec-2018 Instruction Type:Provider Instructions for Treatment How to access health informa tion online Indication:Nonsmoker Start:28-Nov-2018 Instruction Type:Patient Education How to access health informa tion online - Detail Indication:Nonsmoker Start:28-Nov-2018 Instruction Type:Patient Education Patient Instructions Indication:Nonsmoker Start:28-Nov-2018 Instruction Type:Provider Instructions for Treatment How to access health informa tion online - Detail Indication:Nonsmoker Start:21-Nov-2018 Instruction Type:Patient Education How to access health informa tion online Indication:Nonsmoker Start:21-Nov-2018 Instruction Type:Patient Education Patient Instructions Indication:Nonsmoker Start:21-Nov-2018 Instruction Type:Provider Instructions for Treatment How to access health informa tion online Indication:Nonsmoker Start:11-Dec-2017 Instruction Type:Patient Education How to access health informa tion online - Detail Indication:Nonsmoker Start:11-Dec-2017 Instruction Type:Patient Education Patient Instructions Indication:Nonsmoker Start:11-Dec-2017 Instruction Type:Provider Instructions for Treatment How to access health informa tion online Indication:Nonsmoker Start:09-Oct-2017 Instruction Type:Patient Education How to access health informa tion online - Detail Indication:Nonsmoker Start:09-Oct-2017 Instruction Type:Patient Education Patient Instructions Indication:Poison tangela Start:09-Oct-2017 Instruction Type:Provider Instructions for Treatment Patient Instructions Indication:BMI 27.0-27.9,adult Start:23-Nov-2016 Instruction Type:Provider Instructions for Treatment How to access health informa tion online Indication:B12 deficiency anemia Start:23-Nov-2016 Instruction Type:Patient Education How to access health informa tion online - Detail Indication:B12 deficiency anemia Start:23-Nov-2016 Instruction Type:Patient Education Patient Instructions Indication:B12 deficiency anemia Start:23-Nov-2016 Instruction Type:Provider Instructions for Treatment How to access health informa tion online Indication:Nonsmoker Start:17-Oct-2016 Instruction Type:Patient Education How to access health informa tion online - Detail Indication:Nonsmoker Start:17-Oct-2016 Instruction Type:Patient Education Patient Instructions Indication:Nonsmoker Start:17-Oct-2016 Instruction Type:Provider Instructions for Treatment How to access health informa tion online Indication:UTI (urinary tract infection) Start:25-Mar-2016 Instruction Type:Patient Education How to access health informa tion online - Detail Indication:UTI (urinary tract infection) Start:25-Mar-2016 Instruction Type:Patient Education Patient Instructions Indication:UTI (urinary tract infection) Start:25-Mar-2016 Instruction Type:Provider Instructions for Treatment How to access health informa tion online - Detail Indication:UTI (urinary tract infection) Start:10-Dec-2015 Instruction Type:Patient Education Patient Instructions Indication:UTI (urinary tract infection) Start:10-Dec-2015 Instruction Type:Provider Instructions for Treatment Patient Instructions Indication:Annual Medicare Physical WITH abnormal findings (Renamed from Encounter for general adult medical examination with abnormal findings) Start:05-Feb-2015 Instruction Type:Provider Instructions for Treatment Patient Instructions Indication:Neck Pain Start:08-May-2014 Instruction Type:Provider Instructions for Treatment Patient Instructions Indication:Contact dermatitis Start:01-Nov-2013 Instruction Type:Provider Instructions for Treatment Patient Instructions Indication:Hypercholesteremia Start:08-Nov-2012 Instruction Type:Provider Instructions for Treatment Patient Instructions Indication:FATIGUE Start:07-Jun-2012 Instruction Type:Provider Instructions for Treatment Patient Instructions Indication:Hormone imbalance Start:30-May-2012 Instruction Type:Provider Instructions for Treatment Name Dates Details How to access health informa tion online Indication:Nonsmoker Start:05-Mar-2020 Instruction Type:Patient Education How to access health informa tion online - Detail Indication:Nonsmoker Start:05-Mar-2020 Instruction Type:Patient Education Patient Instructions Indication:Nonsmoker Start:05-Mar-2020 Instruction Type:Provider Instructions for Treatment How to access health informa tion online Indication:Nonsmoker Start:20-Nov-2019 Instruction Type:Patient Education How to access health informa tion online - Detail Indication:Nonsmoker Start:20-Nov-2019 Instruction Type:Patient Education Patient Instructions Indication:Nonsmoker Start:20-Nov-2019 Instruction Type:Provider Instructions for Treatment How to access health informa tion online Indication:Nonsmoker Start:09-Oct-2019 Instruction Type:Patient Education How to access health informa tion online - Detail Indication:Nonsmoker Start:09-Oct-2019 Instruction Type:Patient Education Patient Instructions Indication:Nonsmoker Start:09-Oct-2019 Instruction Type:Provider Instructions for Treatment How to access health informa tion online Indication:BMI 27.0-27.9,adult Start:03-Oct-2019 Instruction Type:Patient Education How to access health informa tion online - Detail Indication:BMI 27.0-27.9,adult Start:03-Oct-2019 Instruction Type:Patient Education Patient Instructions Indication:BMI 27.0-27.9,adult Start:03-Oct-2019 Instruction Type:Provider Instructions for Treatment How to access health informa tion online Indication:Nonsmoker Start:28-Feb-2019 Instruction Type:Patient Education How to access health informa tion online - Detail Indication:Nonsmoker Start:28-Feb-2019 Instruction Type:Patient Education Patient Instructions Indication:Nonsmoker Start:28-Feb-2019 Instruction Type:Provider Instructions for Treatment How to access health informa tion online Indication:BMI 27.0-27.9,adult Start:14-Dec-2018 Instruction Type:Patient Education How to access health informa tion online - Detail Indication:BMI 27.0-27.9,adult Start:14-Dec-2018 Instruction Type:Patient Education Patient Instructions Indication:BMI 27.0-27.9,adult Start:14-Dec-2018 Instruction Type:Provider Instructions for Treatment How to access health informa tion online Indication:Nonsmoker Start:28-Nov-2018 Instruction Type:Patient Education How to access health informa tion online - Detail Indication:Nonsmoker Start:28-Nov-2018 Instruction Type:Patient Education Patient Instructions Indication:Nonsmoker Start:28-Nov-2018 Instruction Type:Provider Instructions for Treatment How to access health informa tion online - Detail Indication:Nonsmoker Start:21-Nov-2018 Instruction Type:Patient Education How to access health informa tion online Indication:Nonsmoker Start:21-Nov-2018 Instruction Type:Patient Education Patient Instructions Indication:Nonsmoker Start:21-Nov-2018 Instruction Type:Provider Instructions for Treatment How to access health informa tion online Indication:Nonsmoker Start:11-Dec-2017 Instruction Type:Patient Education How to access health informa tion online - Detail Indication:Nonsmoker Start:11-Dec-2017 Instruction Type:Patient Education Patient Instructions Indication:Nonsmoker Start:11-Dec-2017 Instruction Type:Provider Instructions for Treatment How to access health informa tion online Indication:Nonsmoker Start:09-Oct-2017 Instruction Type:Patient Education How to access health informa tion online - Detail Indication:Nonsmoker Start:09-Oct-2017 Instruction Type:Patient Education Patient Instructions Indication:Poison tangela Start:09-Oct-2017 Instruction Type:Provider Instructions for Treatment Patient Instructions Indication:BMI 27.0-27.9,adult Start:23-Nov-2016 Instruction Type:Provider Instructions for Treatment How to access health informa tion online Indication:B12 deficiency anemia Start:23-Nov-2016 Instruction Type:Patient Education How to access health informa tion online - Detail Indication:B12 deficiency anemia Start:23-Nov-2016 Instruction Type:Patient Education Patient Instructions Indication:B12 deficiency anemia Start:23-Nov-2016 Instruction Type:Provider Instructions for Treatment How to access health informa tion online Indication:Nonsmoker Start:17-Oct-2016 Instruction Type:Patient Education How to access health informa tion online - Detail Indication:Nonsmoker Start:17-Oct-2016 Instruction Type:Patient Education Patient Instructions Indication:Nonsmoker Start:17-Oct-2016 Instruction Type:Provider Instructions for Treatment How to access health informa tion online Indication:UTI (urinary tract infection) Start:25-Mar-2016 Instruction Type:Patient Education How to access health informa tion online - Detail Indication:UTI (urinary tract infection) Start:25-Mar-2016 Instruction Type:Patient Education Patient Instructions Indication:UTI (urinary tract infection) Start:25-Mar-2016 Instruction Type:Provider Instructions for Treatment How to access health informa tion online - Detail Indication:UTI (urinary tract infection) Start:10-Dec-2015 Instruction Type:Patient Education Patient Instructions Indication:UTI (urinary tract infection) Start:10-Dec-2015 Instruction Type:Provider Instructions for Treatment Patient Instructions Indication:Annual Medicare Physical WITH abnormal findings (Renamed from Encounter for general adult medical examination with abnormal findings) Start:05-Feb-2015 Instruction Type:Provider Instructions for Treatment Patient Instructions Indication:Neck Pain Start:08-May-2014 Instruction Type:Provider Instructions for Treatment Patient Instructions Indication:Contact dermatitis Start:01-Nov-2013 Instruction Type:Provider Instructions for Treatment Patient Instructions Indication:Hypercholesteremia Start:08-Nov-2012 Instruction Type:Provider Instructions for Treatment Patient Instructions Indication:FATIGUE Start:07-Jun-2012 Instruction Type:Provider Instructions for Treatment Patient Instructions Indication:Hormone imbalance Start:30-May-2012 Instruction Type:Provider Instructions for Treatment Name Dates Details How to access health informa tion online Indication:Nonsmoker Start:05-Mar-2020 Instruction Type:Patient Education How to access health informa tion online - Detail Indication:Nonsmoker Start:05-Mar-2020 Instruction Type:Patient Education Patient Instructions Indication:Nonsmoker Start:05-Mar-2020 Instruction Type:Provider Instructions for Treatment How to access health informa tion online Indication:Nonsmoker Start:20-Nov-2019 Instruction Type:Patient Education How to access health informa tion online - Detail Indication:Nonsmoker Start:20-Nov-2019 Instruction Type:Patient Education Patient Instructions Indication:Nonsmoker Start:20-Nov-2019 Instruction Type:Provider Instructions for Treatment How to access health informa tion online Indication:Nonsmoker Start:09-Oct-2019 Instruction Type:Patient Education How to access health informa tion online - Detail Indication:Nonsmoker Start:09-Oct-2019 Instruction Type:Patient Education Patient Instructions Indication:Nonsmoker Start:09-Oct-2019 Instruction Type:Provider Instructions for Treatment How to access health informa tion online Indication:BMI 27.0-27.9,adult Start:03-Oct-2019 Instruction Type:Patient Education How to access health informa tion online - Detail Indication:BMI 27.0-27.9,adult Start:03-Oct-2019 Instruction Type:Patient Education Patient Instructions Indication:BMI 27.0-27.9,adult Start:03-Oct-2019 Instruction Type:Provider Instructions for Treatment How to access health informa tion online Indication:Nonsmoker Start:28-Feb-2019 Instruction Type:Patient Education How to access health informa tion online - Detail Indication:Nonsmoker Start:28-Feb-2019 Instruction Type:Patient Education Patient Instructions Indication:Nonsmoker Start:28-Feb-2019 Instruction Type:Provider Instructions for Treatment How to access health informa tion online Indication:BMI 27.0-27.9,adult Start:14-Dec-2018 Instruction Type:Patient Education How to access health informa tion online - Detail Indication:BMI 27.0-27.9,adult Start:14-Dec-2018 Instruction Type:Patient Education Patient Instructions Indication:BMI 27.0-27.9,adult Start:14-Dec-2018 Instruction Type:Provider Instructions for Treatment How to access health informa tion online Indication:Nonsmoker Start:28-Nov-2018 Instruction Type:Patient Education How to access health informa tion online - Detail Indication:Nonsmoker Start:28-Nov-2018 Instruction Type:Patient Education Patient Instructions Indication:Nonsmoker Start:28-Nov-2018 Instruction Type:Provider Instructions for Treatment How to access health informa tion online - Detail Indication:Nonsmoker Start:21-Nov-2018 Instruction Type:Patient Education How to access health informa tion online Indication:Nonsmoker Start:21-Nov-2018 Instruction Type:Patient Education Patient Instructions Indication:Nonsmoker Start:21-Nov-2018 Instruction Type:Provider Instructions for Treatment How to access health informa tion online Indication:Nonsmoker Start:11-Dec-2017 Instruction Type:Patient Education How to access health informa tion online - Detail Indication:Nonsmoker Start:11-Dec-2017 Instruction Type:Patient Education Patient Instructions Indication:Nonsmoker Start:11-Dec-2017 Instruction Type:Provider Instructions for Treatment How to access health informa tion online Indication:Nonsmoker Start:09-Oct-2017 Instruction Type:Patient Education How to access health informa tion online - Detail Indication:Nonsmoker Start:09-Oct-2017 Instruction Type:Patient Education Patient Instructions Indication:Poison tangela Start:09-Oct-2017 Instruction Type:Provider Instructions for Treatment Patient Instructions Indication:BMI 27.0-27.9,adult Start:23-Nov-2016 Instruction Type:Provider Instructions for Treatment How to access health informa tion online Indication:B12 deficiency anemia Start:23-Nov-2016 Instruction Type:Patient Education How to access health informa tion online - Detail Indication:B12 deficiency anemia Start:23-Nov-2016 Instruction Type:Patient Education Patient Instructions Indication:B12 deficiency anemia Start:23-Nov-2016 Instruction Type:Provider Instructions for Treatment How to access health informa tion online Indication:Nonsmoker Start:17-Oct-2016 Instruction Type:Patient Education How to access health informa tion online - Detail Indication:Nonsmoker Start:17-Oct-2016 Instruction Type:Patient Education Patient Instructions Indication:Nonsmoker Start:17-Oct-2016 Instruction Type:Provider Instructions for Treatment How to access health informa tion online Indication:UTI (urinary tract infection) Start:25-Mar-2016 Instruction Type:Patient Education How to access health informa tion online - Detail Indication:UTI (urinary tract infection) Start:25-Mar-2016 Instruction Type:Patient Education Patient Instructions Indication:UTI (urinary tract infection) Start:25-Mar-2016 Instruction Type:Provider Instructions for Treatment How to access health informa tion online - Detail Indication:UTI (urinary tract infection) Start:10-Dec-2015 Instruction Type:Patient Education Patient Instructions Indication:UTI (urinary tract infection) Start:10-Dec-2015 Instruction Type:Provider Instructions for Treatment Patient Instructions Indication:Annual Medicare Physical WITH abnormal findings (Renamed from Encounter for general adult medical examination with abnormal findings) Start:05-Feb-2015 Instruction Type:Provider Instructions for Treatment Patient Instructions Indication:Neck Pain Start:08-May-2014 Instruction Type:Provider Instructions for Treatment Patient Instructions Indication:Contact dermatitis Start:01-Nov-2013 Instruction Type:Provider Instructions for Treatment Patient Instructions Indication:Hypercholesteremia Start:08-Nov-2012 Instruction Type:Provider Instructions for Treatment Patient Instructions Indication:FATIGUE Start:07-Jun-2012 Instruction Type:Provider Instructions for Treatment Patient Instructions Indication:Hormone imbalance Start:30-May-2012 Instruction Type:Provider Instructions for Treatment Name Dates Details Patient Instructions Indication:BMI 27.0-27.9,adult Start:15-Apr-2020 Instruction Type:Provider Instructions for Treatment How to Access Health Informa tion Online using Patient Portal and [employer] Indication:BMI 27.0-27.9,adult Start:15-Apr-2020 Instruction Type:Patient Education Patient Instructions Indication:Nonsmoker Start:13-Apr-2020 Instruction Type:Provider Instructions for Treatment How to Access Health Informa tion Online using Patient Portal and [employer] Apps Indication:UTI symptoms Start:13-Apr-2020 Instruction Type:Patient Education How to access health informa tion online Indication:Nonsmoker Start:05-Mar-2020 Instruction Type:Patient Education How to access health informa tion online - Detail Indication:Nonsmoker Start:05-Mar-2020 Instruction Type:Patient Education Patient Instructions Indication:Nonsmoker Start:05-Mar-2020 Instruction Type:Provider Instructions for Treatment How to access health informa tion online Indication:Nonsmoker Start:20-Nov-2019 Instruction Type:Patient Education How to access health informa tion online - Detail Indication:Nonsmoker Start:20-Nov-2019 Instruction Type:Patient Education Patient Instructions Indication:Nonsmoker Start:20-Nov-2019 Instruction Type:Provider Instructions for Treatment How to access health informa tion online Indication:Nonsmoker Start:09-Oct-2019 Instruction Type:Patient Education How to access health informa tion online - Detail Indication:Nonsmoker Start:09-Oct-2019 Instruction Type:Patient Education Patient Instructions Indication:Nonsmoker Start:09-Oct-2019 Instruction Type:Provider Instructions for Treatment How to access health informa tion online Indication:BMI 27.0-27.9,adult Start:03-Oct-2019 Instruction Type:Patient Education How to access health informa tion online - Detail Indication:BMI 27.0-27.9,adult Start:03-Oct-2019 Instruction Type:Patient Education Patient Instructions Indication:BMI 27.0-27.9,adult Start:03-Oct-2019 Instruction Type:Provider Instructions for Treatment How to access health informa tion online Indication:Nonsmoker Start:28-Feb-2019 Instruction Type:Patient Education How to access health informa tion online - Detail Indication:Nonsmoker Start:28-Feb-2019 Instruction Type:Patient Education Patient Instructions Indication:Nonsmoker Start:28-Feb-2019 Instruction Type:Provider Instructions for Treatment How to access health informa tion online Indication:BMI 27.0-27.9,adult Start:14-Dec-2018 Instruction Type:Patient Education How to access health informa tion online - Detail Indication:BMI 27.0-27.9,adult Start:14-Dec-2018 Instruction Type:Patient Education Patient Instructions Indication:BMI 27.0-27.9,adult Start:14-Dec-2018 Instruction Type:Provider Instructions for Treatment How to access health informa tion online Indication:Nonsmoker Start:28-Nov-2018 Instruction Type:Patient Education How to access health informa tion online - Detail Indication:Nonsmoker Start:28-Nov-2018 Instruction Type:Patient Education Patient Instructions Indication:Nonsmoker Start:28-Nov-2018 Instruction Type:Provider Instructions for Treatment How to access health informa tion online - Detail Indication:Nonsmoker Start:21-Nov-2018 Instruction Type:Patient Education How to access health informa tion online Indication:Nonsmoker Start:21-Nov-2018 Instruction Type:Patient Education Patient Instructions Indication:Nonsmoker Start:21-Nov-2018 Instruction Type:Provider Instructions for Treatment How to access health informa tion online Indication:Nonsmoker Start:11-Dec-2017 Instruction Type:Patient Education How to access health informa tion online - Detail Indication:Nonsmoker Start:11-Dec-2017 Instruction Type:Patient Education Patient Instructions Indication:Nonsmoker Start:11-Dec-2017 Instruction Type:Provider Instructions for Treatment How to access health informa tion online Indication:Nonsmoker Start:09-Oct-2017 Instruction Type:Patient Education How to access health informa tion online - Detail Indication:Nonsmoker Start:09-Oct-2017 Instruction Type:Patient Education Patient Instructions Indication:Poison tangela Start:09-Oct-2017 Instruction Type:Provider Instructions for Treatment Patient Instructions Indication:BMI 27.0-27.9,adult Start:23-Nov-2016 Instruction Type:Provider Instructions for Treatment How to access health informa tion online Indication:B12 deficiency anemia Start:23-Nov-2016 Instruction Type:Patient Education How to access health informa tion online - Detail Indication:B12 deficiency anemia Start:23-Nov-2016 Instruction Type:Patient Education Patient Instructions Indication:B12 deficiency anemia Start:23-Nov-2016 Instruction Type:Provider Instructions for Treatment How to access health informa tion online Indication:Nonsmoker Start:17-Oct-2016 Instruction Type:Patient Education How to access health informa tion online - Detail Indication:Nonsmoker Start:17-Oct-2016 Instruction Type:Patient Education Patient Instructions Indication:Nonsmoker Start:17-Oct-2016 Instruction Type:Provider Instructions for Treatment How to access health informa tion online Indication:UTI (urinary tract infection) Start:25-Mar-2016 Instruction Type:Patient Education How to access health informa tion online - Detail Indication:UTI (urinary tract infection) Start:25-Mar-2016 Instruction Type:Patient Education Patient Instructions Indication:UTI (urinary tract infection) Start:25-Mar-2016 Instruction Type:Provider Instructions for Treatment How to access health informa tion online - Detail Indication:UTI (urinary tract infection) Start:10-Dec-2015 Instruction Type:Patient Education Patient Instructions Indication:UTI (urinary tract infection) Start:10-Dec-2015 Instruction Type:Provider Instructions for Treatment Patient Instructions Indication:Annual Medicare Physical WITH abnormal findings (Renamed from Encounter for general adult medical examination with abnormal findings) Start:05-Feb-2015 Instruction Type:Provider Instructions for Treatment Patient Instructions Indication:Neck Pain Start:08-May-2014 Instruction Type:Provider Instructions for Treatment Patient Instructions Indication:Contact dermatitis Start:01-Nov-2013 Instruction Type:Provider Instructions for Treatment Patient Instructions Indication:Hypercholesteremia Start:08-Nov-2012 Instruction Type:Provider Instructions for Treatment Patient Instructions Indication:FATIGUE Start:07-Jun-2012 Instruction Type:Provider Instructions for Treatment Patient Instructions Indication:Hormone imbalance Start:30-May-2012 Instruction Type:Provider Instructions for Treatment Name Dates Details How to access health informa tion online Indication:BMI 27.0-27.9,adult Start:14-Dec-2018 Instruction Type:Patient Education How to access health informa tion online - Detail Indication:BMI 27.0-27.9,adult Start:14-Dec-2018 Instruction Type:Patient Education Patient Instructions Indication:BMI 27.0-27.9,adult Start:14-Dec-2018 Instruction Type:Provider Instructions for Treatment How to access health informa tion online Indication:Nonsmoker Start:28-Nov-2018 Instruction Type:Patient Education How to access health informa tion online - Detail Indication:Nonsmoker Start:28-Nov-2018 Instruction Type:Patient Education Patient Instructions Indication:Nonsmoker Start:28-Nov-2018 Instruction Type:Provider Instructions for Treatment How to access health informa tion online - Detail Indication:Nonsmoker Start:21-Nov-2018 Instruction Type:Patient Education How to access health informa tion online Indication:Nonsmoker Start:21-Nov-2018 Instruction Type:Patient Education Patient Instructions Indication:Nonsmoker Start:21-Nov-2018 Instruction Type:Provider Instructions for Treatment How to access health informa tion online Indication:Nonsmoker Start:11-Dec-2017 Instruction Type:Patient Education How to access health informa tion online - Detail Indication:Nonsmoker Start:11-Dec-2017 Instruction Type:Patient Education Patient Instructions Indication:Nonsmoker Start:11-Dec-2017 Instruction Type:Provider Instructions for Treatment How to access health informa tion online Indication:Nonsmoker Start:09-Oct-2017 Instruction Type:Patient Education How to access health informa tion online - Detail Indication:Nonsmoker Start:09-Oct-2017 Instruction Type:Patient Education Patient Instructions Indication:Poison tangela Start:09-Oct-2017 Instruction Type:Provider Instructions for Treatment Patient Instructions Indication:BMI 27.0-27.9,adult Start:23-Nov-2016 Instruction Type:Provider Instructions for Treatment How to access health informa tion online Indication:B12 deficiency anemia Start:23-Nov-2016 Instruction Type:Patient Education How to access health informa tion online - Detail Indication:B12 deficiency anemia Start:23-Nov-2016 Instruction Type:Patient Education Patient Instructions Indication:B12 deficiency anemia Start:23-Nov-2016 Instruction Type:Provider Instructions for Treatment How to access health informa tion online Indication:Nonsmoker Start:17-Oct-2016 Instruction Type:Patient Education How to access health informa tion online - Detail Indication:Nonsmoker Start:17-Oct-2016 Instruction Type:Patient Education Patient Instructions Indication:Nonsmoker Start:17-Oct-2016 Instruction Type:Provider Instructions for Treatment How to access health informa tion online Indication:UTI (urinary tract infection) Start:25-Mar-2016 Instruction Type:Patient Education How to access health informa tion online - Detail Indication:UTI (urinary tract infection) Start:25-Mar-2016 Instruction Type:Patient Education Patient Instructions Indication:UTI (urinary tract infection) Start:25-Mar-2016 Instruction Type:Provider Instructions for Treatment How to access health informa tion online - Detail Indication:UTI (urinary tract infection) Start:10-Dec-2015 Instruction Type:Patient Education Patient Instructions Indication:UTI (urinary tract infection) Start:10-Dec-2015 Instruction Type:Provider Instructions for Treatment Patient Instructions Indication:Annual Medicare Physical WITH abnormal findings (Renamed from Encounter for general adult medical examination with abnormal findings) Start:05-Feb-2015 Instruction Type:Provider Instructions for Treatment Patient Instructions Indication:Neck Pain Start:08-May-2014 Instruction Type:Provider Instructions for Treatment Patient Instructions Indication:Contact dermatitis Start:01-Nov-2013 Instruction Type:Provider Instructions for Treatment Patient Instructions Indication:Hypercholesteremia Start:08-Nov-2012 Instruction Type:Provider Instructions for Treatment Patient Instructions Indication:FATIGUE Start:07-Jun-2012 Instruction Type:Provider Instructions for Treatment Patient Instructions Indication:Hormone imbalance Start:30-May-2012 Instruction Type:Provider Instructions for Treatment Name Dates Details Patient Instructions Indication:BMI 27.0-27.9,adult Start:15-Apr-2020 Instruction Type:Provider Instructions for Treatment How to Access Health Informa tion Online using Patient Portal and [employer] Indication:BMI 27.0-27.9,adult Start:15-Apr-2020 Instruction Type:Patient Education Patient Instructions Indication:Nonsmoker Start:13-Apr-2020 Instruction Type:Provider Instructions for Treatment How to Access Health Informa tion Online using Patient Portal and [employer] Apps Indication:UTI symptoms Start:13-Apr-2020 Instruction Type:Patient Education How to access health informa tion online Indication:Nonsmoker Start:05-Mar-2020 Instruction Type:Patient Education How to access health informa tion online - Detail Indication:Nonsmoker Start:05-Mar-2020 Instruction Type:Patient Education Patient Instructions Indication:Nonsmoker Start:05-Mar-2020 Instruction Type:Provider Instructions for Treatment How to access health informa tion online Indication:Nonsmoker Start:20-Nov-2019 Instruction Type:Patient Education How to access health informa tion online - Detail Indication:Nonsmoker Start:20-Nov-2019 Instruction Type:Patient Education Patient Instructions Indication:Nonsmoker Start:20-Nov-2019 Instruction Type:Provider Instructions for Treatment How to access health informa tion online Indication:Nonsmoker Start:09-Oct-2019 Instruction Type:Patient Education How to access health informa tion online - Detail Indication:Nonsmoker Start:09-Oct-2019 Instruction Type:Patient Education Patient Instructions Indication:Nonsmoker Start:09-Oct-2019 Instruction Type:Provider Instructions for Treatment How to access health informa tion online Indication:BMI 27.0-27.9,adult Start:03-Oct-2019 Instruction Type:Patient Education How to access health informa tion online - Detail Indication:BMI 27.0-27.9,adult Start:03-Oct-2019 Instruction Type:Patient Education Patient Instructions Indication:BMI 27.0-27.9,adult Start:03-Oct-2019 Instruction Type:Provider Instructions for Treatment How to access health informa tion online Indication:Nonsmoker Start:28-Feb-2019 Instruction Type:Patient Education How to access health informa tion online - Detail Indication:Nonsmoker Start:28-Feb-2019 Instruction Type:Patient Education Patient Instructions Indication:Nonsmoker Start:28-Feb-2019 Instruction Type:Provider Instructions for Treatment How to access health informa tion online Indication:BMI 27.0-27.9,adult Start:14-Dec-2018 Instruction Type:Patient Education How to access health informa tion online - Detail Indication:BMI 27.0-27.9,adult Start:14-Dec-2018 Instruction Type:Patient Education Patient Instructions Indication:BMI 27.0-27.9,adult Start:14-Dec-2018 Instruction Type:Provider Instructions for Treatment How to access health informa tion online Indication:Nonsmoker Start:28-Nov-2018 Instruction Type:Patient Education How to access health informa tion online - Detail Indication:Nonsmoker Start:28-Nov-2018 Instruction Type:Patient Education Patient Instructions Indication:Nonsmoker Start:28-Nov-2018 Instruction Type:Provider Instructions for Treatment How to access health informa tion online - Detail Indication:Nonsmoker Start:21-Nov-2018 Instruction Type:Patient Education How to access health informa tion online Indication:Nonsmoker Start:21-Nov-2018 Instruction Type:Patient Education Patient Instructions Indication:Nonsmoker Start:21-Nov-2018 Instruction Type:Provider Instructions for Treatment How to access health informa tion online Indication:Nonsmoker Start:11-Dec-2017 Instruction Type:Patient Education How to access health informa tion online - Detail Indication:Nonsmoker Start:11-Dec-2017 Instruction Type:Patient Education Patient Instructions Indication:Nonsmoker Start:11-Dec-2017 Instruction Type:Provider Instructions for Treatment How to access health informa tion online Indication:Nonsmoker Start:09-Oct-2017 Instruction Type:Patient Education How to access health informa tion online - Detail Indication:Nonsmoker Start:09-Oct-2017 Instruction Type:Patient Education Patient Instructions Indication:Poison tangela Start:09-Oct-2017 Instruction Type:Provider Instructions for Treatment Patient Instructions Indication:BMI 27.0-27.9,adult Start:23-Nov-2016 Instruction Type:Provider Instructions for Treatment How to access health informa tion online Indication:B12 deficiency anemia Start:23-Nov-2016 Instruction Type:Patient Education How to access health informa tion online - Detail Indication:B12 deficiency anemia Start:23-Nov-2016 Instruction Type:Patient Education Patient Instructions Indication:B12 deficiency anemia Start:23-Nov-2016 Instruction Type:Provider Instructions for Treatment How to access health informa tion online Indication:Nonsmoker Start:17-Oct-2016 Instruction Type:Patient Education How to access health informa tion online - Detail Indication:Nonsmoker Start:17-Oct-2016 Instruction Type:Patient Education Patient Instructions Indication:Nonsmoker Start:17-Oct-2016 Instruction Type:Provider Instructions for Treatment How to access health informa tion online Indication:UTI (urinary tract infection) Start:25-Mar-2016 Instruction Type:Patient Education How to access health informa tion online - Detail Indication:UTI (urinary tract infection) Start:25-Mar-2016 Instruction Type:Patient Education Patient Instructions Indication:UTI (urinary tract infection) Start:25-Mar-2016 Instruction Type:Provider Instructions for Treatment How to access health informa tion online - Detail Indication:UTI (urinary tract infection) Start:10-Dec-2015 Instruction Type:Patient Education Patient Instructions Indication:UTI (urinary tract infection) Start:10-Dec-2015 Instruction Type:Provider Instructions for Treatment Patient Instructions Indication:Annual Medicare Physical WITH abnormal findings (Renamed from Encounter for general adult medical examination with abnormal findings) Start:05-Feb-2015 Instruction Type:Provider Instructions for Treatment Patient Instructions Indication:Neck Pain Start:08-May-2014 Instruction Type:Provider Instructions for Treatment Patient Instructions Indication:Contact dermatitis Start:01-Nov-2013 Instruction Type:Provider Instructions for Treatment Patient Instructions Indication:Hypercholesteremia Start:08-Nov-2012 Instruction Type:Provider Instructions for Treatment Patient Instructions Indication:FATIGUE Start:07-Jun-2012 Instruction Type:Provider Instructions for Treatment Patient Instructions Indication:Hormone imbalance Start:30-May-2012 Instruction Type:Provider Instructions for Treatment Name Dates Details Patient Instructions Indication:BMI 27.0-27.9,adult Start:15-Apr-2020 Instruction Type:Provider Instructions for Treatment How to Access Health Informa tion Online using Patient Portal and [employer] Apps Indication:BMI 27.0-27.9,adult Start:15-Apr-2020 Instruction Type:Patient Education Patient Instructions Indication:Nonsmoker Start:13-Apr-2020 Instruction Type:Provider Instructions for Treatment How to Access Health Informa tion Online using Patient Portal and [employer] Apps Indication:UTI symptoms Start:13-Apr-2020 Instruction Type:Patient Education How to access health informa tion online Indication:Nonsmoker Start:05-Mar-2020 Instruction Type:Patient Education How to access health informa tion online - Detail Indication:Nonsmoker Start:05-Mar-2020 Instruction Type:Patient Education Patient Instructions Indication:Nonsmoker Start:05-Mar-2020 Instruction Type:Provider Instructions for Treatment How to access health informa tion online Indication:Nonsmoker Start:20-Nov-2019 Instruction Type:Patient Education How to access health informa tion online - Detail Indication:Nonsmoker Start:20-Nov-2019 Instruction Type:Patient Education Patient Instructions Indication:Nonsmoker Start:20-Nov-2019 Instruction Type:Provider Instructions for Treatment How to access health informa tion online Indication:Nonsmoker Start:09-Oct-2019 Instruction Type:Patient Education How to access health informa tion online - Detail Indication:Nonsmoker Start:09-Oct-2019 Instruction Type:Patient Education Patient Instructions Indication:Nonsmoker Start:09-Oct-2019 Instruction Type:Provider Instructions for Treatment How to access health informa tion online Indication:BMI 27.0-27.9,adult Start:03-Oct-2019 Instruction Type:Patient Education How to access health informa tion online - Detail Indication:BMI 27.0-27.9,adult Start:03-Oct-2019 Instruction Type:Patient Education Patient Instructions Indication:BMI 27.0-27.9,adult Start:03-Oct-2019 Instruction Type:Provider Instructions for Treatment How to access health informa tion online Indication:Nonsmoker Start:28-Feb-2019 Instruction Type:Patient Education How to access health informa tion online - Detail Indication:Nonsmoker Start:28-Feb-2019 Instruction Type:Patient Education Patient Instructions Indication:Nonsmoker Start:28-Feb-2019 Instruction Type:Provider Instructions for Treatment How to access health informa tion online Indication:BMI 27.0-27.9,adult Start:14-Dec-2018 Instruction Type:Patient Education How to access health informa tion online - Detail Indication:BMI 27.0-27.9,adult Start:14-Dec-2018 Instruction Type:Patient Education Patient Instructions Indication:BMI 27.0-27.9,adult Start:14-Dec-2018 Instruction Type:Provider Instructions for Treatment How to access health informa tion online Indication:Nonsmoker Start:28-Nov-2018 Instruction Type:Patient Education How to access health informa tion online - Detail Indication:Nonsmoker Start:28-Nov-2018 Instruction Type:Patient Education Patient Instructions Indication:Nonsmoker Start:28-Nov-2018 Instruction Type:Provider Instructions for Treatment How to access health informa tion online - Detail Indication:Nonsmoker Start:21-Nov-2018 Instruction Type:Patient Education How to access health informa tion online Indication:Nonsmoker Start:21-Nov-2018 Instruction Type:Patient Education Patient Instructions Indication:Nonsmoker Start:21-Nov-2018 Instruction Type:Provider Instructions for Treatment How to access health informa tion online Indication:Nonsmoker Start:11-Dec-2017 Instruction Type:Patient Education How to access health informa tion online - Detail Indication:Nonsmoker Start:11-Dec-2017 Instruction Type:Patient Education Patient Instructions Indication:Nonsmoker Start:11-Dec-2017 Instruction Type:Provider Instructions for Treatment How to access health informa tion online Indication:Nonsmoker Start:09-Oct-2017 Instruction Type:Patient Education How to access health informa tion online - Detail Indication:Nonsmoker Start:09-Oct-2017 Instruction Type:Patient Education Patient Instructions Indication:Poison tangela Start:09-Oct-2017 Instruction Type:Provider Instructions for Treatment Patient Instructions Indication:BMI 27.0-27.9,adult Start:23-Nov-2016 Instruction Type:Provider Instructions for Treatment How to access health informa tion online Indication:B12 deficiency anemia Start:23-Nov-2016 Instruction Type:Patient Education How to access health informa tion online - Detail Indication:B12 deficiency anemia Start:23-Nov-2016 Instruction Type:Patient Education Patient Instructions Indication:B12 deficiency anemia Start:23-Nov-2016 Instruction Type:Provider Instructions for Treatment How to access health informa tion online Indication:Nonsmoker Start:17-Oct-2016 Instruction Type:Patient Education How to access health informa tion online - Detail Indication:Nonsmoker Start:17-Oct-2016 Instruction Type:Patient Education Patient Instructions Indication:Nonsmoker Start:17-Oct-2016 Instruction Type:Provider Instructions for Treatment How to access health informa tion online Indication:UTI (urinary tract infection) Start:25-Mar-2016 Instruction Type:Patient Education How to access health informa tion online - Detail Indication:UTI (urinary tract infection) Start:25-Mar-2016 Instruction Type:Patient Education Patient Instructions Indication:UTI (urinary tract infection) Start:25-Mar-2016 Instruction Type:Provider Instructions for Treatment How to access health informa tion online - Detail Indication:UTI (urinary tract infection) Start:10-Dec-2015 Instruction Type:Patient Education Patient Instructions Indication:UTI (urinary tract infection) Start:10-Dec-2015 Instruction Type:Provider Instructions for Treatment Patient Instructions Indication:Annual Medicare Physical WITH abnormal findings (Renamed from Encounter for general adult medical examination with abnormal findings) Start:05-Feb-2015 Instruction Type:Provider Instructions for Treatment Patient Instructions Indication:Neck Pain Start:08-May-2014 Instruction Type:Provider Instructions for Treatment Patient Instructions Indication:Contact dermatitis Start:01-Nov-2013 Instruction Type:Provider Instructions for Treatment Patient Instructions Indication:Hypercholesteremia Start:08-Nov-2012 Instruction Type:Provider Instructions for Treatment Patient Instructions Indication:FATIGUE Start:07-Jun-2012 Instruction Type:Provider Instructions for Treatment Patient Instructions Indication:Hormone imbalance Start:30-May-2012 Instruction Type:Provider Instructions for Treatment Name Dates Details How to access health informa tion online Indication:Nonsmoker Start:20-Nov-2019 Instruction Type:Patient Education How to access health informa tion online - Detail Indication:Nonsmoker Start:20-Nov-2019 Instruction Type:Patient Education Patient Instructions Indication:Nonsmoker Start:20-Nov-2019 Instruction Type:Provider Instructions for Treatment How to access health informa tion online Indication:Nonsmoker Start:09-Oct-2019 Instruction Type:Patient Education How to access health informa tion online - Detail Indication:Nonsmoker Start:09-Oct-2019 Instruction Type:Patient Education Patient Instructions Indication:Nonsmoker Start:09-Oct-2019 Instruction Type:Provider Instructions for Treatment How to access health informa tion online Indication:BMI 27.0-27.9,adult Start:03-Oct-2019 Instruction Type:Patient Education How to access health informa tion online - Detail Indication:BMI 27.0-27.9,adult Start:03-Oct-2019 Instruction Type:Patient Education Patient Instructions Indication:BMI 27.0-27.9,adult Start:03-Oct-2019 Instruction Type:Provider Instructions for Treatment How to access health informa tion online Indication:Nonsmoker Start:28-Feb-2019 Instruction Type:Patient Education How to access health informa tion online - Detail Indication:Nonsmoker Start:28-Feb-2019 Instruction Type:Patient Education Patient Instructions Indication:Nonsmoker Start:28-Feb-2019 Instruction Type:Provider Instructions for Treatment How to access health informa tion online Indication:BMI 27.0-27.9,adult Start:14-Dec-2018 Instruction Type:Patient Education How to access health informa tion online - Detail Indication:BMI 27.0-27.9,adult Start:14-Dec-2018 Instruction Type:Patient Education Patient Instructions Indication:BMI 27.0-27.9,adult Start:14-Dec-2018 Instruction Type:Provider Instructions for Treatment How to access health informa tion online Indication:Nonsmoker Start:28-Nov-2018 Instruction Type:Patient Education How to access health informa tion online - Detail Indication:Nonsmoker Start:28-Nov-2018 Instruction Type:Patient Education Patient Instructions Indication:Nonsmoker Start:28-Nov-2018 Instruction Type:Provider Instructions for Treatment How to access health informa tion online - Detail Indication:Nonsmoker Start:21-Nov-2018 Instruction Type:Patient Education How to access health informa tion online Indication:Nonsmoker Start:21-Nov-2018 Instruction Type:Patient Education Patient Instructions Indication:Nonsmoker Start:21-Nov-2018 Instruction Type:Provider Instructions for Treatment How to access health informa tion online Indication:Nonsmoker Start:11-Dec-2017 Instruction Type:Patient Education How to access health informa tion online - Detail Indication:Nonsmoker Start:11-Dec-2017 Instruction Type:Patient Education Patient Instructions Indication:Nonsmoker Start:11-Dec-2017 Instruction Type:Provider Instructions for Treatment How to access health informa tion online Indication:Nonsmoker Start:09-Oct-2017 Instruction Type:Patient Education How to access health informa tion online - Detail Indication:Nonsmoker Start:09-Oct-2017 Instruction Type:Patient Education Patient Instructions Indication:Poison tangela Start:09-Oct-2017 Instruction Type:Provider Instructions for Treatment Patient Instructions Indication:BMI 27.0-27.9,adult Start:23-Nov-2016 Instruction Type:Provider Instructions for Treatment How to access health informa tion online Indication:B12 deficiency anemia Start:23-Nov-2016 Instruction Type:Patient Education How to access health informa tion online - Detail Indication:B12 deficiency anemia Start:23-Nov-2016 Instruction Type:Patient Education Patient Instructions Indication:B12 deficiency anemia Start:23-Nov-2016 Instruction Type:Provider Instructions for Treatment How to access health informa tion online Indication:Nonsmoker Start:17-Oct-2016 Instruction Type:Patient Education How to access health informa tion online - Detail Indication:Nonsmoker Start:17-Oct-2016 Instruction Type:Patient Education Patient Instructions Indication:Nonsmoker Start:17-Oct-2016 Instruction Type:Provider Instructions for Treatment How to access health informa tion online Indication:UTI (urinary tract infection) Start:25-Mar-2016 Instruction Type:Patient Education How to access health informa tion online - Detail Indication:UTI (urinary tract infection) Start:25-Mar-2016 Instruction Type:Patient Education Patient Instructions Indication:UTI (urinary tract infection) Start:25-Mar-2016 Instruction Type:Provider Instructions for Treatment How to access health informa tion online - Detail Indication:UTI (urinary tract infection) Start:10-Dec-2015 Instruction Type:Patient Education Patient Instructions Indication:UTI (urinary tract infection) Start:10-Dec-2015 Instruction Type:Provider Instructions for Treatment Patient Instructions Indication:Annual Medicare Physical WITH abnormal findings (Renamed from Encounter for general adult medical examination with abnormal findings) Start:05-Feb-2015 Instruction Type:Provider Instructions for Treatment Patient Instructions Indication:Neck Pain Start:08-May-2014 Instruction Type:Provider Instructions for Treatment Patient Instructions Indication:Contact dermatitis Start:01-Nov-2013 Instruction Type:Provider Instructions for Treatment Patient Instructions Indication:Hypercholesteremia Start:08-Nov-2012 Instruction Type:Provider Instructions for Treatment Patient Instructions Indication:FATIGUE Start:07-Jun-2012 Instruction Type:Provider Instructions for Treatment Patient Instructions Indication:Hormone imbalance Start:30-May-2012 Instruction Type:Provider Instructions for Treatment Name Dates Details How to access health informa tion online Indication:Nonsmoker Start:28-Nov-2018 Instruction Type:Patient Education How to access health informa tion online - Detail Indication:Nonsmoker Start:28-Nov-2018 Instruction Type:Patient Education Patient Instructions Indication:Nonsmoker Start:28-Nov-2018 Instruction Type:Provider Instructions for Treatment How to access health informa tion online - Detail Indication:Nonsmoker Start:21-Nov-2018 Instruction Type:Patient Education How to access health informa tion online Indication:Nonsmoker Start:21-Nov-2018 Instruction Type:Patient Education Patient Instructions Indication:Nonsmoker Start:21-Nov-2018 Instruction Type:Provider Instructions for Treatment How to access health informa tion online Indication:Nonsmoker Start:11-Dec-2017 Instruction Type:Patient Education How to access health informa tion online - Detail Indication:Nonsmoker Start:11-Dec-2017 Instruction Type:Patient Education Patient Instructions Indication:Nonsmoker Start:11-Dec-2017 Instruction Type:Provider Instructions for Treatment How to access health informa tion online Indication:Nonsmoker Start:09-Oct-2017 Instruction Type:Patient Education How to access health informa tion online - Detail Indication:Nonsmoker Start:09-Oct-2017 Instruction Type:Patient Education Patient Instructions Indication:Poison tangela Start:09-Oct-2017 Instruction Type:Provider Instructions for Treatment Patient Instructions Indication:BMI 27.0-27.9,adult Start:23-Nov-2016 Instruction Type:Provider Instructions for Treatment How to access health informa tion online Indication:B12 deficiency anemia Start:23-Nov-2016 Instruction Type:Patient Education How to access health informa tion online - Detail Indication:B12 deficiency anemia Start:23-Nov-2016 Instruction Type:Patient Education Patient Instructions Indication:B12 deficiency anemia Start:23-Nov-2016 Instruction Type:Provider Instructions for Treatment How to access health informa tion online Indication:Nonsmoker Start:17-Oct-2016 Instruction Type:Patient Education How to access health informa tion online - Detail Indication:Nonsmoker Start:17-Oct-2016 Instruction Type:Patient Education Patient Instructions Indication:Nonsmoker Start:17-Oct-2016 Instruction Type:Provider Instructions for Treatment How to access health informa tion online Indication:UTI (urinary tract infection) Start:25-Mar-2016 Instruction Type:Patient Education How to access health informa tion online - Detail Indication:UTI (urinary tract infection) Start:25-Mar-2016 Instruction Type:Patient Education Patient Instructions Indication:UTI (urinary tract infection) Start:25-Mar-2016 Instruction Type:Provider Instructions for Treatment How to access health informa tion online - Detail Indication:UTI (urinary tract infection) Start:10-Dec-2015 Instruction Type:Patient Education Patient Instructions Indication:UTI (urinary tract infection) Start:10-Dec-2015 Instruction Type:Provider Instructions for Treatment Patient Instructions Indication:Annual Medicare Physical WITH abnormal findings (Renamed from Encounter for general adult medical examination with abnormal findings) Start:05-Feb-2015 Instruction Type:Provider Instructions for Treatment Patient Instructions Indication:Neck Pain Start:08-May-2014 Instruction Type:Provider Instructions for Treatment Patient Instructions Indication:Contact dermatitis Start:01-Nov-2013 Instruction Type:Provider Instructions for Treatment Patient Instructions Indication:Hypercholesteremia Start:08-Nov-2012 Instruction Type:Provider Instructions for Treatment Patient Instructions Indication:FATIGUE Start:07-Jun-2012 Instruction Type:Provider Instructions for Treatment Patient Instructions Indication:Hormone imbalance Start:30-May-2012 Instruction Type:Provider Instructions for Treatment Name Dates Details Patient Instructions Indication:Nonsmoker Start:13-Apr-2020 Instruction Type:Provider Instructions for Treatment How to Access Health Informa tion Online using Patient Portal and [employer] Apps Indication:UTI symptoms Start:13-Apr-2020 Instruction Type:Patient Education How to access health informa tion online Indication:Nonsmoker Start:05-Mar-2020 Instruction Type:Patient Education How to access health informa tion online - Detail Indication:Nonsmoker Start:05-Mar-2020 Instruction Type:Patient Education Patient Instructions Indication:Nonsmoker Start:05-Mar-2020 Instruction Type:Provider Instructions for Treatment How to access health informa tion online Indication:Nonsmoker Start:20-Nov-2019 Instruction Type:Patient Education How to access health informa tion online - Detail Indication:Nonsmoker Start:20-Nov-2019 Instruction Type:Patient Education Patient Instructions Indication:Nonsmoker Start:20-Nov-2019 Instruction Type:Provider Instructions for Treatment How to access health informa tion online Indication:Nonsmoker Start:09-Oct-2019 Instruction Type:Patient Education How to access health informa tion online - Detail Indication:Nonsmoker Start:09-Oct-2019 Instruction Type:Patient Education Patient Instructions Indication:Nonsmoker Start:09-Oct-2019 Instruction Type:Provider Instructions for Treatment How to access health informa tion online Indication:BMI 27.0-27.9,adult Start:03-Oct-2019 Instruction Type:Patient Education How to access health informa tion online - Detail Indication:BMI 27.0-27.9,adult Start:03-Oct-2019 Instruction Type:Patient Education Patient Instructions Indication:BMI 27.0-27.9,adult Start:03-Oct-2019 Instruction Type:Provider Instructions for Treatment How to access health informa tion online Indication:Nonsmoker Start:28-Feb-2019 Instruction Type:Patient Education How to access health informa tion online - Detail Indication:Nonsmoker Start:28-Feb-2019 Instruction Type:Patient Education Patient Instructions Indication:Nonsmoker Start:28-Feb-2019 Instruction Type:Provider Instructions for Treatment How to access health informa tion online Indication:BMI 27.0-27.9,adult Start:14-Dec-2018 Instruction Type:Patient Education How to access health informa tion online - Detail Indication:BMI 27.0-27.9,adult Start:14-Dec-2018 Instruction Type:Patient Education Patient Instructions Indication:BMI 27.0-27.9,adult Start:14-Dec-2018 Instruction Type:Provider Instructions for Treatment How to access health informa tion online Indication:Nonsmoker Start:28-Nov-2018 Instruction Type:Patient Education How to access health informa tion online - Detail Indication:Nonsmoker Start:28-Nov-2018 Instruction Type:Patient Education Patient Instructions Indication:Nonsmoker Start:28-Nov-2018 Instruction Type:Provider Instructions for Treatment How to access health informa tion online - Detail Indication:Nonsmoker Start:21-Nov-2018 Instruction Type:Patient Education How to access health informa tion online Indication:Nonsmoker Start:21-Nov-2018 Instruction Type:Patient Education Patient Instructions Indication:Nonsmoker Start:21-Nov-2018 Instruction Type:Provider Instructions for Treatment How to access health informa tion online Indication:Nonsmoker Start:11-Dec-2017 Instruction Type:Patient Education How to access health informa tion online - Detail Indication:Nonsmoker Start:11-Dec-2017 Instruction Type:Patient Education Patient Instructions Indication:Nonsmoker Start:11-Dec-2017 Instruction Type:Provider Instructions for Treatment How to access health informa tion online Indication:Nonsmoker Start:09-Oct-2017 Instruction Type:Patient Education How to access health informa tion online - Detail Indication:Nonsmoker Start:09-Oct-2017 Instruction Type:Patient Education Patient Instructions Indication:Poison tangela Start:09-Oct-2017 Instruction Type:Provider Instructions for Treatment Patient Instructions Indication:BMI 27.0-27.9,adult Start:23-Nov-2016 Instruction Type:Provider Instructions for Treatment How to access health informa tion online Indication:B12 deficiency anemia Start:23-Nov-2016 Instruction Type:Patient Education How to access health informa tion online - Detail Indication:B12 deficiency anemia Start:23-Nov-2016 Instruction Type:Patient Education Patient Instructions Indication:B12 deficiency anemia Start:23-Nov-2016 Instruction Type:Provider Instructions for Treatment How to access health informa tion online Indication:Nonsmoker Start:17-Oct-2016 Instruction Type:Patient Education How to access health informa tion online - Detail Indication:Nonsmoker Start:17-Oct-2016 Instruction Type:Patient Education Patient Instructions Indication:Nonsmoker Start:17-Oct-2016 Instruction Type:Provider Instructions for Treatment How to access health informa tion online Indication:UTI (urinary tract infection) Start:25-Mar-2016 Instruction Type:Patient Education How to access health informa tion online - Detail Indication:UTI (urinary tract infection) Start:25-Mar-2016 Instruction Type:Patient Education Patient Instructions Indication:UTI (urinary tract infection) Start:25-Mar-2016 Instruction Type:Provider Instructions for Treatment How to access health informa tion online - Detail Indication:UTI (urinary tract infection) Start:10-Dec-2015 Instruction Type:Patient Education Patient Instructions Indication:UTI (urinary tract infection) Start:10-Dec-2015 Instruction Type:Provider Instructions for Treatment Patient Instructions Indication:Annual Medicare Physical WITH abnormal findings (Renamed from Encounter for general adult medical examination with abnormal findings) Start:05-Feb-2015 Instruction Type:Provider Instructions for Treatment Patient Instructions Indication:Neck Pain Start:08-May-2014 Instruction Type:Provider Instructions for Treatment Patient Instructions Indication:Contact dermatitis Start:01-Nov-2013 Instruction Type:Provider Instructions for Treatment Patient Instructions Indication:Hypercholesteremia Start:08-Nov-2012 Instruction Type:Provider Instructions for Treatment Patient Instructions Indication:FATIGUE Start:07-Jun-2012 Instruction Type:Provider Instructions for Treatment Patient Instructions Indication:Hormone imbalance Start:30-May-2012 Instruction Type:Provider Instructions for Treatment Summary Purpose Advance Directives Documents on File Type Date Recorded Patient [employer] Expl anation Advance Directives and Livin g Will 11/04/2019 8:40 PM Latest Code Status on File Code Status Date Activated Date Inactivated Comments Full Code 11/04/2019 10:15 PM 11/05/2019 7:47 PM Documents on File Type Date Recorded Patient [employer] Expl anation Advance Directives and Livin g Will 11/08/2019 12:00 AM Latest Code Status on File Code Status Date Activated Date Inactivated Comments Full Code 11/04/2019 10:15 PM 11/05/2019 7:47 PM Documents on File Type Date Recorded Patient [employer] Expl anation Advance Directives and Livin g Will 11/08/2019 12:00 AM Documents on File Type Date Recorded Patient [employer] Expl anation Advance Directives and Livin g Will 07/23/2021 8:14 AM Documents on File Type Date Recorded Patient [employer] Expl anation Advance Directives and Livin g Will 07/26/2021 8:14 AM Documents on File Type Date Recorded Patient [employer] Expl anation Advance Directives and Livin g Will 07/26/2021 8:14 AM Latest Code Status on File Code Status Date Activated Date Inactivated Comments Full Code 09/22/2021 7:33 PM 09/24/2021 3:22 PM Full Code 11/04/2019 10:15 PM 11/05/2019 7:47 PM Latest Code Status on File Code Status Date Activated Date Inactivated Comments Full Code 09/22/2021 7:33 PM 09/24/2021 3:22 PM Code Status History Code Status Date Activated Date Inactivated Comments Full Code 11/04/2019 10:15 PM 11/05/2019 7:47 PM History of Present Illness * Keila Zhu MD - 11/05/2019 9:58 AM EDT [facility] Medicine Inpatient Follow-up 11/05/2019 Keila Zhu MD [facility] Patient: Emelia Blum Date of : 1960 (59 y.o.) PCP: Tara Diaz DO ASSESSMENT/PLAN: Emelia Blum 59 y.o. female presented with complains of Active Problems: Unstable angina (HCC) PLAN: 11/04 Patient has had chest pain on and off since yesterday associated with intermittent shortness of breath no nausea dizziness or loss of consciousness Vital signs stable Troponin negative Pending echocardiogram Add aspirin 81 mg p.o. daily and continue pravastatin Follow cardiology recommendations SUBJECTIVE: Follow-up for chest pain All other systems reviewed and negative other than noted above. OBJECTIVE: Physical Examination: BP 116/68 (BP Location: Right arm, Patient Position: Lying) Pulse 61 Temp 97.7 F (36.5 C) (Oral) Resp 18 Ht 5' 7 Wt 80.7 kg (178 lb) SpO2 98% BMI 27.88 kg/m General Appearance: Alert, well appearing, and in no acute distress. HEENT: Head - Normocephalic, atraumatic. Eyes - MAR bilaterally and EOMI. Ears - normal external appearance, hearing intact. Nose - normal, no erythema. Throat - mucous membranes moist, pharynx without lesions. Neck: Supple, trachea midline. Cardiovascular: S1, S2 normal. No murmurs, rubs, clicks or gallops appreciated. No pedal edema. Respiratory: Lungs clear to auscultation, no wheezes, rales or rhonchi heard. Abdomen: Soft, non-tender, normal bowel sounds, non-distended, no masses or organomegaly appreciated. Neurological: Grossly normal motor and sensory exam. No focal deficits. Musculoskeletal: No joint tenderness, deformity or swelling. Skin: Normal coloration and turgor. No rashes. Psych: Alert, oriented x 3. Normal mood and affect. CURRENT MEDICATIONS: enoxaparin (LOVENOX) injection 40 mg Subcutaneous Daily potassium chloride SA 30 mEq Oral Once pravastatin 40 mg Oral Nightly Results/Medications Reviewed 11/05/19 9:58 AM: Results from last 7 days Lab Units 11/05/19 0535 11/04/192002 SODIUM mmol/L 142 139 POTASSIUM mmol/L 3.8 3.3* CHLORIDE mmol/L 106 104 BUN mg/dL 15 14 CREATININE mg/dL 0.65 0.79 GLUCOSE mg/dL 96 106* CALCIUM mg/dL 8.8 9.4 Results from last 7 days Lab Units 11/04/192002 WBC K/mcL 5.98 HGB g/dL 14.1 HCT % 40.5 PLT K/mcL 311 Results from last 7 days Lab Units 11/05/19 0122 11/04/19 2307 11/04/192002 TROPONIN I ng/L <15 <15 <15 Results from last 7 days Lab Units 11/04/192002 INR 0.9 Results from last 7 days Lab Units 11/04/192002 ALK PHOS U/L 66 BILIRUBIN TOTAL mg/dL 0.4 TOTAL PROTEIN g/dL 7.5 ALTR U/L 55 AST U/L 30 CULTURES: Reviewed 9:58 AM IMAGING: Reviewed 9:58 AM documented in this encounter* Oskar Cueva MD - 03/04/2020 8:57 AM EST OFFICE CONSULTATION NOTE [facility] [address] [facility] [address] [facility] [id number] Physicians: Traa Diaz DO Subjective: Emelia Blum is a 59 y.o. female seen in the office today for Follow-up (IN CLINIC-- 3 mo ov w/ no comlaints today) . HPI: The patient is a pleasant 59-year-old female with a past medical history significant for hyperlipidemia who was seen in hospital in October with chest pain. She was treated for presumptive pericarditis.Her cardiac markers were negative. Echocardiogram showed normal LV systolic function with no significant effusion. Her EKG was also unremarkable. She was treated with colchicine for 2 weeks. She had resolution of symptoms in approximately 10 days. She also has a longstanding history of palpitations. Because of her symptoms, she had a 30-day event recorder. She did have 2 brief episodes of wide-complex tachycardia which were actually asymptomatic. She did report symptoms which occurred during sinus rhythm. There was no symptom rhythm correlation. However, she has noted significant improvement in her disposition since starting beta-truong. Emelia continues to have brief episodes of chest discomfort. These last for 5 seconds and resolvespontaneously. 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 She denies any orthopnea, paroxysmal nocturnal dyspnea, syncope, or near syncope. Assessment & Plan: Hyperlipidemia She is on moderate intensity statin therapy. Her lipids are followed through primary care. Her goalLDL cholesterol would be 100 or less. Palpitations She has palpitations approximately once a week which she notices predominantly at night. These are brief and self-limiting. She did not have significant symptom rhythm correlation by outpatient telemetry. Continue beta-truong. Pericarditis She continues to have brief episodes of atypical chest pain which are self- limiting. I do not believe further work-up is necessary at this time. Emelia is stable from a cardiovascular standpoint. I would continue current medical therapy. I will see her again in 1 year or sooner should she notice any new symptoms or your discretion. Follow Up Ordered: Return in about 1 year (around 03/04/2021). Histories: Past Medical History: Diagnosis Date Hyperlipidemia Osteoarthrosis Past Surgical History: Procedure Laterality Date HYSTERECTOMY (CERVIX REMAINS) Family History Problem Relation Age of Onset Heart failure Mother Heart attack Mother Heart attack Father Heart murmur Father Heart attack Brother Social History Tobacco Use Smoking status: Never Smoker Smokeless tobacco: Never Used Substance Use Topics Alcohol use: Not Currently Frequency: Never Drug use: Never Current Outpatient Medications Medication Sig Dispense Refill ascorbic acid, vitamin C, (VITAMIN C) 500 MG tablet Take 500 mg by mouth daily . cholecalciferol, vitamin D3, 25 mcg/spray 1,000unit/spray SpSn Place 1 spray under the tongue daily. metoprolol tartrate (LOPRESSOR) 25 MG tablet Take 1 (one) tablet (25 mg total) by mouth 2 (two) times a day . 60 tablet 11 pravastatin (PRAVACHOL) 40 MG tablet Take 40 mg by mouth nightly . No current facility-administered medications for this visit. Allergies Allergen Reactions Sulfa (Sulfonamide Antibiotics) Hives Review of Systems Constitution: Negative for diaphoresis, malaise/fatigue, weight gain and weight loss. HENT: Negative for hearing loss, nosebleeds and tinnitus. Eyes: Negative for blurred vision and visual disturbance. Cardiovascular: Positive for chest pain (Atypical) and palpitations. Negative for claudication, cyanosis, dyspnea on exertion, irregular heartbeat, leg swelling, near-syncope, orthopnea, paroxysmal nocturnal dyspnea and syncope. Respiratory: Negative for hemoptysis, shortness of breath and snoring. Endocrine: Negative for cold intolerance and heat intolerance. Hematologic/Lymphatic: Does not bruise/bleed easily. Skin: Negative for flushing, poor wound healing and rash. Musculoskeletal: Negative for back pain, muscle weakness and myalgias. Gastrointestinal: Negative for abdominal pain, change in bowel habit, melena, nausea and vomiting. Genitourinary: Negative for decreased libido and hematuria. Neurological: Negative for loss of balance and numbness. Psychiatric/Behavioral: Negative for memory loss. The patient is not nervous/anxious. Overview of Problems Addressed: Problem Pericarditis Palpitations Hyperlipidemia Objective: Physical Exam Constitutional: She is oriented to person, place, and time. She appears well- developed and well-nourished. HENT: Head: Normocephalic. Eyes: Pupils are equal, round, and reactive to light. Conjunctivae and EOM are normal. No scleral icterus. Neck: Normal range of motion. Neck supple. No JVD present. No tracheal deviation present. No thyromegaly present. Cardiovascular: Normal rate, regular rhythm, S1 normal, S2 normal, normal heart sounds and intact distal pulses. Exam reveals no friction rub. No murmur heard. Pulmonary/Chest: Breath sounds normal. No respiratory distress. She has no wheezes. She has no rales. Abdominal: Soft. Bowel sounds are normal. She exhibits no distension and no mass. There is no hepatosplenomegaly. There is no abdominal tenderness. Musculoskeletal: Normal range of motion. General: No edema. Lymphadenopathy: She has no cervical adenopathy. Neurological: She is alert and oriented to person, place, and time. Skin: Skin is warm and dry. Psychiatric: She has a normal mood and affect. Her behavior is normal. Vitals: Vitals: 03/04/20 0829 BP: 124/80 BP Location: Right arm Patient Position: Sitting BP Cuff Size: Adult Pulse: 69 SpO2: 95% Weight: 83.5 kg (184 lb) Height: 5' 7 Orders Placed This Encounter metoprolol tartrate (LOPRESSOR) 25 MG tablet Thank you for allowing me to assist you in the cardiovascular care of this patient. Please don't hesitate to contact me if you have any questions regarding these thoughts. Oskar Cueva MD documented in this encounter* Tasia Denny RN - 07/31/2020 2:10 PM EDT Patient is complaining of myalgias with her Pravastatin. Dr Cueva notified. Per Dr Cueva, the patient may hold the medication for 1-2 weeks to see if her symptoms resolve. Patient notified. documented in this encounter Assessments Diagnosis Chest pain, unspecified type Hypokalemia Hypopotassemia Unstable angina (HCC) Intermediate coronary syndrome Diagnosis Lightheaded Dizziness and giddiness Abnormal EKG Nonspecific abnormal electrocardiogram (ECG) (EKG) Diagnosis Encounter for screening for malignant neoplasm of colon Special screening for malignant neoplasms, colon Preop testing Preoperative examination, unspecified Diagnosis Hyperlipidemia, unspecified hyperlipidemia type Palpitations Pericarditis, unspecified chronicity, unspecified type Reason for Referral Status Reason Specialty Diagnoses / Procedures Referred By Contact Referred To Contact Pending Review Cardiology Diagnoses Lightheaded Abnormal EKG Procedures Cardiac event monitor Minerva Hardin CNP [address] [place] [address] Specialty Diagnoses / Procedures Referred By Contac t Referred To Contact Cardiology Diagnoses Palpitations Procedures Cardiac event monitor Moy Yeboah MD [address] [phone] Referral ID Status Reason Start Date Expiration Date V isits Requested Visits Authorized [id number] Authorized 07/23/2021 07/23/2022 1 1 Specialty Diagnoses / Procedures Referred By Contac t Referred To Contact Radiology Diagnoses Ventricular tachycardia, non-sustained (HCC) Procedures MR Cardiac Morphology With And Without Contrast with Velocity Flow oMy Yeboah MD [address] [place] [address] Referral ID Status Reason Start Date Expiration Date V isits Requested Visits Authorized [id number] New Request 08/30/2021 08/30/2022 1 1 Specialty Diagnoses / Procedures Referred By Contac t Referred To Contact Cardiology Diagnoses Palpitations Procedures Extended Holter Monitor (3-7 days) Moy Yeboah MD [address] [place] [address] Referral ID Status Reason Start Date Expiration Date Visits Re quested Visits Authorized [id number] Closed 10/26/2021 10/26/2022 1 1 Additional Source Comments INFORMATION SOURCE (unrecogn ized section and content) DATE CREATED AUTHOR AUTHOR'S ORGANIZ ATION 10/08/2021 [facility] DATE CREATED AUTHOR AUTHOR'S ORGANIZ ATION 10/09/2021 [facility] DATE CREATED AUTHOR AUTHOR'S ORGANIZ ATION 02/15/2022 [facility] DATE CREATED AUTHOR AUTHOR'S ORGANIZ ATION 01/30/2023 [facility] DATE CREATED AUTHOR AUTHOR'S ORGANIZ ATION 02/19/2023 [facility] DATE CREATED AUTHOR AUTHOR'S ORGANIZ ATION 02/20/2023 [facility] Reason for Visit (unrecogniz ed section and content) Status Reason Specialty Diagnoses / Procedures Referre d By Contact Referred To Contact Diagnoses Hypokalemia Chest pain, unspecified type Unstable angina (HCC) Status Reason Specialty Diagnoses / Procedures Referred By Contact Referred To Contact Pending Review Cardiology Diagnoses Lightheaded Abnormal EKG Procedures Cardiac event monitor Minerva Hardin CNP [address] [place] [address] Status Reason Specialty Diagnoses / Procedures Referre d By Contact Referred To Contact Diagnoses Encounter for screening for malignant neoplasm of colon Preop testing Encounter for screening for malignant neoplasm of colon [Z12.11] Preop testing [Z01.818] Procedures AL COLONOSCOPY FLX DX W/COLLJ SPEC WHEN PFRMD AL COLONOSCOPY FLEXIBLE WITH BAND LIGATION(S) COLONOSCOPY DIAGNOSTIC Reason Comments Follow-up IN CLINIC-- 3 mo ov w/ no comlaints today Reason Onset Date Comments Pravastatin/Myalgias 07/31/2020 Reason Onset Date Comments Medication Refill 05/03/2021 Reason Comments Follow-up Reason Onset Date Comments Medication Refill 09/01/2021 medication for C-MRI 09/01/2021 Reason Onset Date Comments Medication Refill 08/17/2022 Reason Comments Medication Refill Reason Comments Follow-up Yearly previous Baco n/ Palpitations Reason Onset Date Comments Medication Refill 03/14/2023 Minerva Hardin CNP - 11/05/2019 8:34 AM EDT Consult Notes (unrecognized section and content) Associated Order(s): IP CONSULT TO CARDIOLOGY General Cardiology Inpatient Consult Heart & Vascular [facility] 11/05/2019 Minerva Hardin CNP [facility] Patient: Emelia Blum Date of : 1960 (59 y.o.) Referring Provider: No ref. provider found PCP: Tara Diaz, DO Sign - off - Will treat w/ Colchicine 0.6 mg BID for 14 day. - Event monitor for 30 day. - F/u w/ Cardiology in the outpatient setting in 4-5 weeks. - Patient is OK for discharge from the cardiology standpoint. - Continue Pravachol 40 mg QD. Reason for Consultation: Unstable angina. History of Present Illness: Patient is a 59 yo F w/ a h/o HPL (PCP recently increase statin dosage), and a strong family history for CAD who presented to the ED on 11/04/2019 w/ c/o sudden onset of chest pain that increased in severity accompanied by diaphoresis and dyspnea. 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 For the past week she has felt unwell, fatigue, with increased urination and BMs. Last evening after dinner she felt unwell and developed a 8/10 sharp squeezing chest pressure around her rib cage that radiated to her back that was associated with diaphoresis, hand and lip numbness, a pounding sensation in her head, and difficulty taking a deep breath. The discomfort was worse when lying flat and improved with sitting up leaning forward. She felt lightheaded when she got up to get on cart for EMS. Patient was given 4 baby aspirin and 2 nitro via EMS with resolution of chest pain. The total length of time of her discomfort was 45 minutes. Last summer she had a similar episode of chest discomfort that awakened her from sleep associated with diaphoresis. She underwent testing in [place], [place]; that included an echo, stress test, and CT (records have been requested). It was around this time she was diagnosed with sleep apnea and placed on CPAP. Patient reports that in 2015 she weighed approximately 205 pounds and is now down to 176. Patient does have 3 siblings with atrial fibrillation. 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 After going inside, cooling down and drinking ice tea she felt better. Troponin negative x3. BNP 36. EKG: Normal sinus rhythm. T wave abnormality, consider inferior ischemia. T wave abnormality, consider anterior ischemia. Abnormal EKG. Chest: Nonacute portable chest. Echo currently pending. Risk Factors: HTN: Denies history HPL: Lipid panel 10/05/2019 with total cholesterol 285, triglycerides 74, HDL 81 and LDL 189. BMI: 27.8 DM: Denies. Smoking: Never Alcohol: 3 to 4/month. Recreational Drugs: Denies. Sleep apnea: ON CPAP for one year. Family Hx Father: at age 89 of pancreatic cancer, history of CO in 40s Mother: age 84, heart issues in 50s, stent placement in 70s Patient is the youngest of 8 siblings who have history of hypertension, elevated cholesterol and diabetes. She is not aware of heart issues except, she added 3 sibs have atrial fibrillation. Assessment/Plan: Unstable angina (HCC) Assessment & Plan Patient presented with sudden onset of chest discomfort (positional), palpitations, lightheadedness, diaphoresis, and hand and lip numbness. She had a similar episode last summer and [facility] It was at that time she was placed on CPAP. 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 The patient has 3 siblings with atrial fibrillation. Troponin negative x3. BNP 36. EKG: Normal sinus rhythm. T wave abnormality, consider inferior ischemia. T wave abnormality, consider anterior ischemia. Abnormal EKG. - UA - CRP and sed rate. - TSH. - Maintain potassium level between 4.0 and 4.8 and magnesium >2. - Echo pending. - Await outside records. - Holter monitor at discharge. Review of outside echo, CCTA and stress tests were negative. Echo today: - 1. Normal left ventricular size and systolic function with LVEF by biplane measurement 61%. - 2. Normal diastolic function. - 3. Normal right ventricular size and systolic function. - 4. No hemodynamically significant valvular disease. Estimated RVSP 15 mmHg. - 5. No pericardial effusion. Subjective: Patient is in SR on RA and resting quietly in bed. Past Medical History: Diagnosis Date Hyperlipidemia Past Surgical History: Procedure Laterality Date HYSTERECTOMY (CERVIX REMAINS) History reviewed. No pertinent family history. Social History Tobacco Use Smoking Status Never Smoker Smokeless Tobacco Never Used Allergies: Sulfa (sulfonamide antibiotics) Prior to Admission medications Medication Sig Start Date End Date Taking? Authorizing Provider ascorbic acid, vitamin C, (VITAMIN C) 500 MG tablet Take 500 mg by mouth daily . Yes Historical Provider, cholecalciferol vitamin D3, 25 mcg/spray 1,000unit/spray SpSn Place 1 spray under the tongue daily . Yes Historical Provider, lysine 500 mg Tab Take 500 mg by mouth daily . Yes Historical Provider, pravastatin (PRAVACHOL) 40 MG tablet Take 40 mg by mouth nightly . Yes Historical Provider, Current Facility-Administered Medications Medication Dose Route Frequency Provider Last Rate Last Dose enoxaparin (LOVENOX) syringe 40 mg 40 mg Subcutaneous Daily Parmjit Amezcua CNP 40 mg at 11/05/19 0919 perflutren lipid microspheres (DEFINITY) 0.143 mg/mL solution 0-10 mL of mixture 0-10 mL of mixture Intravenous Once in imaging Parmjit Amezcua CNP pravastatin (PRAVACHOL) tablet 40 mg 40 mg Oral Nightly Parmjit Amezcua CNP sodium chloride (PF) (NS) flush 5 mL 5 mL Intravenous PRN Greer Smith CNP And sodium chloride 0.9% (NS) 0-150 mL/hr Intravenous PRN Greer Smith CNP Review of Systems: Review of Systems Constitution: Positive for diaphoresis. Negative for chills, decreased appetite and fever. HENT: Negative for congestion, hoarse voice and nosebleeds. Eyes: Negative for blurred vision, redness and visual disturbance. Cardiovascular: Positive for chest pain, orthopnea (Feels better sitting up and leaning forward) and palpitations. Negative for claudication, dyspnea on exertion, irregular heartbeat, leg swelling, near-syncope and paroxysmal nocturnal dyspnea. Respiratory: Positive for sleep disturbances due to breathing (On CPAP). Negative for cough, shortness of breath, sputum production and wheezing. Endocrine: Negative for cold intolerance, heat intolerance, polydipsia and polyuria. Hematologic/Lymphatic: Does not bruise/bleed easily. Skin: Negative for itching and rash. Musculoskeletal: Negative for falls, joint swelling, muscle weakness and myalgias. Gastrointestinal: Negative for abdominal pain, change in bowel habit, hematochezia, nausea and vomiting. Genitourinary: Positive for urgency. Negative for dysuria, flank pain and hesitancy. Neurological: Positive for dizziness and light-headedness. Negative for disturbances in coordination, excessive daytime sleepiness, headaches, loss of balance, numbness and paresthesias. Psychiatric/Behavioral: Negative for altered mental status, depression and substance abuse. The patient does not have insomnia and is not nervous/anxious. Vital Signs: BP 116/68 (BP Location: Right arm, Patient Position: Lying) Pulse 61 Temp 97.7 F (36.5 C) (Oral) Resp 18 Ht 5' 7 Wt 80.7 kg (178 lb) SpO2 98% BMI 27.88 kg/m Physical Examination: Physical Exam Constitutional: She is oriented to person, place, and time. Obesity HENT: Head: Normocephalic. Neck: Normal range of motion. Cardiovascular: Normal rate and regular rhythm. Pulmonary/Chest: Effort normal and breath sounds normal. Abdominal: Soft. Bowel sounds are normal. Musculoskeletal: General: No edema. Neurological: She is alert and oriented to person, place, and time. Skin: Skin is warm and dry. Psychiatric: Her behavior is normal. Judgment normal. Telemetry: SR. EKG 12-lead Final Result by Aileen Jaime MD (11/05/2019 0347) Lab Results Component Value Date WBC 5.98 11/04/2019 HGB 14.1 11/04/2019 HCT 40.5 11/04/2019 MCV 93.3 11/04/2019 PLT 311 11/04/2019 RBC 4.34 11/04/2019 Lab Results Component Value Date CREATININE 0.65 11/05/2019 BUN 15 11/05/2019 NA 142 11/05/2019 K 3.8 11/05/2019 CL 106 11/05/2019 BICARB 29 11/05/2019 Lab Results Component Value Date NA 142 11/05/2019 K 3.8 11/05/2019 CL 106 11/05/2019 Lab Results Component Value Date TROPONINI <15 11/05/2019 Minerva Hardin CNP Associated attestation - Pernell Mac MD - 11/05/2019 6:39 PM EDT I personally performed a [id number] diagnostic evaluation on this patient on the same calendar day as the PARACHUTE OFFICER's evaluation. I agree with the care plan documented by the PARACHUTE OFFICER with the following additions/comments. Assessment/Plan: 59-year-old lady with symptom consistent with pericarditis. She had a similar episode a year ago. Her echocardiogram revealed structurally and functionally normal heart with no pleural effusion. Serial cardiac biomarkers were unremarkable. EKG showed no acute ischemic change. She also endorsed occasional palpitation. Recommendation Colchicine 0.6 mg twice daily for 14 days 30-day event monitor Pernell Mac MD, [facility] Interventional Cardiology/Structural Heart Disease [facility] documented in this encounter Linda Kang RN - 11/04/2019 10:41 PM EDTMLinda Ruiz RN - 11/04/2019 7:57 PM EDTSGreer ya CNP - 11/04/2019 7:56 PM EDTHiMagdalene ba - 11/04/2019 7:52 PM EDT ED Notes (unrecognized secti on and content) Report called to Betty on 4th floor Patient arrived with complaints of chest pain and tightness in back . States pain was 10/10 prior to arrival. EMS reports she received 324 mg of ASA and 2 nitro tab with relief of symptoms. [facility] ED DENIS Note: NAME: Emelia Blum 59 y.o. CSN: [id number] PCP: Tara Diaz DO History: Chief Complaint: Chest Pain HPI: The history was obtained from the patient. Emelia is a 59 y.o. female who presents with a chief complaint of Chest Pain. Patient reports she had sat down after dinner and reported sudden onset chest pressure that increased in severity accompanied by mild diaphoresis and some dyspnea. She denies history of similar. Patient does report significant cardiac history in her family. Father had several MIs beginning in his 40s. Patient does not smoke. She was placed on a statin by her PCP and recently had the dose increased. Patient was given 4 baby aspirin and 2 nitro via EMS with resolution of chest pain. Patient denies any recent illness including cough, fever or chills, urinary or bowel symptoms, paresthesias, sore throat or headache or any other associated concerns or complaints. PMHx: Past Medical History: Diagnosis Date Hyperlipidemia PMSx: Past Surgical History: Procedure Laterality Date HYSTERECTOMY (CERVIX REMAINS) FAM. Hx: History reviewed. No pertinent family history. SOC. Hx: Social History Socioeconomic History Marital status: Spouse name: Not on file Number of children: Not on file Years of education: Not on file Highest education level: Not on file Occupational History Not on file Social Needs Financial resource strain: Not on file Food insecurity Worry: Not on file Inability: Not on file Transportation needs Medical: Not on file Non-medical: Not on file Tobacco Use Smoking status: Never Smoker Smokeless tobacco: Never Used Substance and Sexual Activity Alcohol use: Never Frequency: Never Drug use: Never Sexual activity: Not on file Lifestyle Physical activity Days per week: Not on file Minutes per session: Not on file Stress: Not on file Relationships Social connections Talks on phone: Not on file Gets together: Not on file Attends taoist service: Not on file Active member of club or organization: Not on file Attends meetings of clubs or organizations: Not on file Relationship status: Not on file Other Topics Concern Not on file Social History Narrative Not on file MEDs: Previous Medications Medication Sig pravastatin (PRAVACHOL) 40 MG tablet Take 40 mg by mouth nightly . ALL: Allergies Allergen Reactions Sulfa (Sulfonamide Antibiotics) Hives ROS: Review of Systems Positives and pertinent negatives as per HPI. All other systems were reviewed and are negative. Physical Exam: Physical Exam Vitals signs and nursing note reviewed. Constitutional: Appearance: She is well-developed. HENT: Head: Normocephalic and atraumatic. Nose: Nose normal. Eyes: General: No scleral icterus. Conjunctiva/sclera: Conjunctivae normal. Cardiovascular: Rate and Rhythm: Normal rate and regular rhythm. Heart sounds: No murmur. Pulmonary: Effort: Pulmonary effort is normal. No respiratory distress. Breath sounds: Normal breath sounds. Abdominal: Palpations: Abdomen is soft. Tenderness: There is no abdominal tenderness. Musculoskeletal: Right lower leg: She exhibits no swelling. No edema. Left lower leg: She exhibits no swelling. No edema. Skin: General: Skin is warm and dry. Findings: No rash. Neurological: Mental Status: She is alert and oriented to person, place, and time. Psychiatric: Behavior: Behavior normal. Laboratory & Radiological Imaging (if done): Labs Reviewed COMPREHENSIVE METABOLIC PANEL - Abnormal; Notable for the following components: Result Value Potassium 3.3 (*) Glucose 106 (*) All other components within normal limits Narrative: The eGFR should be used for monitoring renal function only and not for medication dosing. PT/INR - Normal Narrative: During the induction phase of oral anticoagulation, the INR may not reflect the anticoagulation status of the patient. Therapeutic ranges for INR's are: Most clinical situations: INR 2.0-3.0 Mechanical Prosthetic Valve: INR 2.5-3.5 Critical: INR >5.0 COVID-19, MOLECULAR CBC AND DIFFERENTIAL Narrative: The following orders were created for panel order CBC w/ Diff. Procedure Abnormality Status --------- ------ CBC Auto Differential[[id number]] Final result Please view results for these tests on the individual orders. TROPONIN CBC WITH AUTO DIFFERENTIAL XR Chest 1 View Final Result Nonacute portable chest. Workstation ID: [id number] MDM: .Special isolation precautions are in place with signage outside this patient's room. This PARACHUTE OFFICER performs hand hygiene and enters the patient room wearing: ? gloves ? an appropriately fitting (N-95, PAPR, Aura) mask ? face shield ? protective gown to obtain HPI and perform bedside physical exam and re- evaluation(s)/interventions as necessary. See provider documentation. ED Course as of Nov 03 2122 Mon Nov 04, [id number] FINDINGS: Trachea, mediastinum and heart size are unremarkable. The lungs are clear and well aerated. No infiltrate or nodule or effusion or pneumothorax is noted. The diaphragm and bony elements are intact. IMPRESSION: Nonacute portable chest. [SS] 2116 SODIUM: 139 [SS] 2116 POTASSIUM(!): 3.3 [SS] 2116 GLUCOSE(!): 106 [SS] 2116 Bicarbonate: 27 [SS] 2116 Anion Gap: 11 [SS] 2116 CREATININE: 0.79 [SS] 2116 eGFR: 82 [SS] 2116 PROTIME: 12.1 [SS] 2116 INR: 0.9 [SS] 2116 WBC: 5.98 [SS] 2117 Troponin I: <15 [SS] 2117 Discussed all findings with patient plan to admit. Will provide potassium replacement p.o. Troponin I Interpretation: Normal [SS] ED Course User Index [SS] Greer Smith CNP Clinical Impression: 1. Chest pain, unspecified type 2. Hypokalemia Disposition: Patient is being admitted [facility] Advanced Practice Provider [facility] Emergency Department (Please note that portions of this note have been completed with a voice recognition software. Efforts were made to correct any errors, but occasionally words are mis-transcribed.) Greer Smith CNP 11/04/192123 Bed: 02 Expected date: Expected time: Means of arrival: Comments: MIFFLIN documented in this encounter Quick Note - Jailene Atkinson RN - 11/05/2019 5:42 PM EDTAssessment & Plan Note - Minerva Hardin CNP - 11/05/2019 8:42 AM EDTPlan of Care - Jorge Hussein RN - 11/05/2019 12:40 AM EDT Miscellaneous Notes (unrecog nized section and content) Seen by [place] to Home and reviewed AVS. Verbalized understanding and denies further needs. Associated Problem(s): Unstable angina (HCC) Patient presented with sudden onset of chest discomfort (positional), palpitations, lightheadedness, diaphoresis, and hand and lip numbness. She had a similar episode last summer and underwent cardiac testing and [facility] (records pending). It was at that time she was placed on CPAP. 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 The patient has 3 siblings with atrial fibrillation. Troponin negative x3. BNP 36. EKG: Normal sinus rhythm. T wave abnormality, consider inferior ischemia. T wave abnormality, consider anterior ischemia. Abnormal EKG. - UA - CRP and sed rate. - TSH. - Maintain potassium level between 4.0 and 4.8 and magnesium >2. - Echo pending. - Await outside records. - Holter monitor at discharge. Plan of care initiated pjb Mask/gloves lmw mask/gloves Pt had mask on Associated Order(s): EKG 12-lead EKG 12-lead Date/Time: 11/04/2019 8:11 PM Performed by: Greer Smith CNP Authorized by: Aileen Jaime MD Interpreted by ED attending physician Rhythm: sinus rhythm BPM: 75 Clinical impression: abnormal ECG Comments: T wave abnormality, no STEMI documented in this encounter Associated Problem(s): Pericarditis She continues to have brief episodes of atypical chest pain which are self- limiting. I do not believe further work-up is necessary at this time. Associated Problem(s): Palpitations She has palpitations approximately once a week which she notices predominantly at night. These are brief and self-limiting. She did not have significant symptom rhythm correlation by outpatient telemetry. Continue beta-truong. Associated Problem(s): Hyperlipidemia She is on moderate intensity statin therapy. Her lipids are followed through primary care. Her goal LDL cholesterol would be 100 or less. documented in this encounter Care Teams (unrecognized sec tion and content) Molding Press Operator Relationship Specialty Start Date End Date Tara Diaz DO [address] [id number] PCP - General Internal Medicine 11/04/19 Molding Press Operator Relationship Specialty Start Date End Date Tara Diaz DO [address] [facility] 2 [place] [address] PCP - General Internal Medicine 11/04/19 Molding Press Operator Relationship Specialty Start Date End Date Tara Diaz DO [address] [facility] 2 [place] [address] PCP - General Internal Medicine 11/04/19 Molding Press Operator Relationship Specialty Start Date End Date Tara Diaz DO [address] [place] [address] 2 [place] [address] PCP - General Internal Medicine 11/04/19 Molding Press Operator Relationship Specialty Start Date End Date Tara Diaz DO [address] [place] [address] 2 [place] [address] PCP - General Internal Medicine 11/04/19 Molding Press Operator Relationship Specialty Start Date End Date Tara Diaz DO [address] [facility] 2 [place] [address] PCP - General Internal Medicine 11/04/19 Molding Press Operator Relationship Specialty Start Date End Date Tara Diaz DO [facility] 2 [place] [address] PCP - General Internal Medicine 11/04/19 Molding Press Operator Relationship Specialty Start Date End Date Tara Diaz DO [facility] 2 [place] [address] PCP - General Internal Medicine 11/04/19 <item> Privacy Markings (unrecogniz ed section and content) Section Author: Berman, Cindy PROHIBITION ON REDISCLOSURE OF CONFIDENTIAL INFORMATION This notice accompanies a disclosure of information concerning a client made to you with the consent of such client. FOR RECORDS PERTAINING TO PATIENTS WHO ARE OR HAVE BEEN ENROLLED IN A CHEMICAL DEPENDENCY/SUBSTANCEABUSE PROGRAM, SOME INFORMATION MAY BE OMITTED. This clinical summary was aggregated from multiple sources. Caution should be exercised in using it in the provision of clinical care. This summary normalizes information from multiple sources, and as a consequence, information in this document may materially change the coding, format and clinical context of patient data. In addition, data may be omitted in some cases. CLINICAL DECISIONS SHOULD BE BASED ON THE PRIMARY CLINICAL RECORDS. [facility] provides no warranty or guarantee of the accuracy or completeness of information in this document.
== END | disposition home or self-care (01) ==
LOC: OPBD 08:07
PROVIDERS: PCP Internal Medicine; Referring Provider Internal Medicine; Visit Provider Internal Medicine
DX: Z12.31 Encounter for screening mammogram for malignant neoplasm of breast (principal); M81.0 Age-related osteoporosis without current pathological fracture
CPT/HCPCS: 77080

== ENCOUNTER → 2023-06-02 | Outpatient (CLI) | payer BC, SELFPAY ==
--- NOTE | 2023-06-02 06:34 | MRI_ITS ---
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 TECHNIQUE: Multiplanar and multisequence MR images of the brain were obtained without contrast. 312 images. COMPARISON: None. FINDINGS: BRAIN PARENCHYMA: No significant signal abnormality in the brain parenchyma. No abnormal focus of restricted diffusion suggest acute infarct. No acute intracranial hemorrhage identified. CSF SPACES: Cerebral ventricles, cortical sulci, and other extra-axial CSF spaces within normal limits in size for age. No significant midline shift or other mass effect.No extra-axial fluid collection. VASCULAR SYSTEM: Major intracranial flow voids are maintained. PARANASAL SINUSES AND MASTOID AIR CELLS: Trace fluid in the left mastoid air cells. ORBITS: Symmetric contents. MRI/Brain without Contrast IMPRESSION: Unremarkable examination. No evidence for significant signal abnormality in the brain. Electronically Signed: Norma Singh MD at 11:56 EST ,
--- OUTSIDE RECORDS SUMMARY | 2023-06-02 06:40 | XMS RPT_ITS | CCD ---
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 Mikaela Gallego MD Unavailable Dr. Hector Sams Unavailable Kurtis Portillo LPN Unavailable Unavailable Ev Miranda CMA Unavailable Unavailable Paige Jordan RN Unavailable Unavailable Messenger Kelly PABLO Unavailable Unavailable Ciobinna PANDEY Helene Unavailable Unavailable Unavailable Desmond Gonzalez Unavailable Yony RAMSEYCarlota Unavailable Unavailable Gala DO, Taar K Primary Care Provider Gala DO, Tara Unavailable [phone] Slarb COMMERCIAL SALES CONSULTANT, Rachel Unavailable Unavailable Gala, Tara Unavailable Juan David, Florencia Unavailable Unavailable Gala DO, Tara K Primary Care Provider Naun COMMERCIAL SALES CONSULTANT, Florencia Unavailable Unavailable Agla DO, Tara Attending Unavailable Gala DO, Tara Referring Unavailable Gala DO, Tara Consulting Unavailable Trinidad RAMSEYRuba Unavailable Unavailable Gala DO, Tara K Primary Care Provider LUIS SHEARER Attending Unavailable GALA, TARA K Primary Care Unavailable Cameron COMMERCIAL SALES CONSULTANT, Beto Unavailable Unavailable GALA, TARA K Primary [...] (Original) ascorbic acid 500 mg oral tablet (17 sources) Vitamin C take 1 tablet by [...] Dietary Cholesterol Absorption Inhibitor Start: 10-29-2021 End: 05-23-2023 take 1 tablet by mouth once daily ezetimibe (ZETIA) 10 mg tablet Take 1 (one) tablet (10 mg total) by mouth daily . 90 tablet 3 05/23/2023 Active Completed/Discontinued Medications Medication Drug Class(es) Dates [...] 172.7 cm Peyton Day MD Work Phone: [facility] 02-20-2023 08:47-0400 Body mass index (BMI) [Ratio] 28.8 kg/m2 Peyton Jones MD Work Phone: [facility] 02-20-2023 08:47-0400 Body weight 85.91 kg Peyton Jones MD Work Phone: [facility] 02-20-2023 08:47-0400 Diastolic blood pressure 79 mm[Hg] Peyton Jones MD Work Phone: [facility] 02-20-2023 08:47-0400 Heart rate 63 /min Peyton Jones MD Work Phone: [facility] 02-20-2023 08:47-0400 SaO2% (BldA) [Mass fraction] 96 % Peyton Jones MD Work Phone: [facility] 02-20-2023 08:47-0400 Systolic blood pressure 120 mm[Hg] Peyton Jones MD Work Phone: [facility] 02-25-2022 12:51-0400 Body height 172.72 cm Tara Diaz DO Work Phone: [facility] Work Phone: Encounters Encounter Date Encounter Type Care Provider Facility Start: 05-23-2023 Refill Peyton martinez MD Work Phone: [facility] Procedures Date Procedure Procedure Detail Performing Clinician Start: 02-17-2023 End: 02-17-2023 SCRN MAMM (CAD)W/JYOTI BILAT Procedure Note: See Note; NOTES: [facility] Imaging Services [address] [place] [address] SCRN MAMM (CAD)W/JYOTI BILAT MR#: [id number] Acct: [id number] Name: EMELIA BLUM Rep #: [id number] : 1960 F 62 From: Charles pennington MD PCP: Dr. Tara Diaz, DO Status: REG CLI Study: SCRN MAMM (CAD)W/JYOTI BILAT Date of Exam: 01/23 11/13 Exam# [id number] Ordering Dr: Tara Diaz DO [id number] MAMMOGRAPHY - BILATERAL SCREENING REASON FOR EXAM: [...] delay biopsy of a clinically suspicious abnormality. [id number] Electronically Signed: Charles Bucio MD at 9:01 EDT , CC: Dr. Tara Diaz DO Manager Pricing: Signed Tara Diaz DO Work Phone: Start: 01-05-2022 End: 01-05-2022 SCRN MAMM (CAD)W/JYOTI BILAT Procedure Note: See Note; NOTES: [facility] Imaging Services [address] [place] [address] SCRN MAMM (CAD)W/JYOTI BILAT MR#: [id number] Acct: [id number] Name: EMELIA BLUM Rep #: [id number] : 1960 F 61 From: Charles pennington MD PCP: Dr. Tara Diaz DO Status: REG CLI Study: SCRN MAMM (CAD)W/JYOTI BILAT Date of Exam: 12/23 08/13 Exam# [id number] Ordering Dr: Tara Diaz DO MAMMOGRAPHY - [...] delay biopsy of a clinically suspicious abnormality. [id number] Electronically Signed: Charles Bucio MD at 8:39 EDT , CC: Dr. Tara Diaz DO Manager Pricing: Signed Tara Diaz DO Work Phone: Start: 05-26-2021 End: 05-26-2021 Abdomen Single View Comments: See Note; NOTES: [facility] Radiology [address] [place] [address] Abdomen Single View MR#: [id number] Acct: [id number] Name: EMELIA BLUM Rep #: [id number] : 1960 F 60 From: Charles pennington MD PCP: Dr. Tara Diaz, Status: DEP AMB Study: Abdomen Single View Date of Exam: 05/26/21 Exam# [id number] Ordering Dr: Myrtle Perrin NP [employer] STUDY: X-RAY - ABDOMEN/PELVIS REASON FOR EXAM: [...] 13:02 EST Reading Location ID and State: [facility] / ID , Service support , CC: AMARJIT Perrin; Dr. Tara Diaz DO Manager Pricing: Signed Myrtle Lindergamagerardo Work Phone: Start: 11-06-2020 End: 11-06-2020 SCRN MAMM (CAD)W/JYOTI BILAT Comments: See Note; NOTES: [facility] Imaging Services [address] [place] [address] SCRN MAMM (CAD)W/JYOTI BILAT MR#: [id number] Acct: [id number] Name: EMELIA BLUM Rep #: [id number] : 1960 F 60 From: Charles pennington MD PCP: Dr. Tara Diaz DO Status: REG CLI Study: SCRN MAMM (CAD)W/JYOTI BILAT Date of Exam: 10/22 10/12 Exam# [id number] Ordering Dr: Tara Diaz DO MAMMOGRAPHY - [...] delay biopsy of a clinically suspicious abnormality. [id number] Electronically Signed: Charles Bucio MD at 8:19 EDT , Service support , CC: Dr. Tara Diaz DO Manager Pricing: Signed Tara Diaz DO Work Phone: Start: 09-11-2020 End: 09-11-2020 HIP, UNI W/ Pelvis 2-3 Views Comments: See Note; NOTES: [facility] Radiology [address] [place] [address] HIP, UNI W/ Pelvis 2-3 Views MR#: [id number] Acct: [id number] Name: EMELIA BLUM Rep #: [id number] : 1960 F 60 From: Dominik Angela PCP: Dr. Tara Diaz DO Status: DEP AMB Study: HIP, UNI W/ Pelvis 2-3 Views Date of Exam: Exam# [id number] Ordering Dr: Tara Diaz DO STUDY: X-RAY [...] Service support , CC: Dr. Tara Diaz, Manager Pricing: Signed aTra Diaz DO Work Phone: Start: 11-12-2019 End: [...] poor plasma by Coagulation assay Greer CedilloManav mSith Work Phone: Start: 11-04-2019 LAVENDER TOP Aileen Jaime Work Phone: Start: 11-04-2019 LIGHT BLUE TOP Aileen Dent Addison Work Phone: Start: 11-04-2019 MINT GREEN TOP Aileen Jaime Work Phone: Start: 11-04-2019 RAINBOW DRAW Aileen Dent Addison Work Phone: Start: 11-04-2019 Troponin measurement Greer Mahansherrirenee Work Phone: Start: 10-30-2019 End: 10-30-2019 Dexa Bone Density Study Comments: See Note; NOTES: [facility] Imaging Services [address] [place] [address] [place] [address] Dexa Bone Density Study MR#: [id number] Acct: [id number] Name: EMELIA BLUM Rep #: [id number] : 1960 F 59 From: Charles pennington MD PCP: Dr. Tara Diaz, Status: REG CLI Study: Dexa Bone Density Study Date of Exam: 10/30/19 Exam# [id number] Ordering Dr: Tara Diaz DO STUDY: DUAL ENERGY X-RAY ABSORPTIOMETRY / DXA REASON FOR EXAM: Female, 59 years old. 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 Tara Diaz DO Manager Pricing: Signed Tara Diaz Work Phone: Start: 10-30-2019 End: 10-30-2019 SCREEN MAMM (CAD) W/JYOTI BILAT Comments: See Note; NOTES: [facility] Imaging Services [address] [place] [address] SCREEN MAMM (CAD) W/JYOTI BILAT MR#: [id number] Acct: [id number] Name: EMELIA BLUM Rep #: [id number] : 1960 F 59 From: Charles pennington MD PCP: Dr. Tara Diaz DO Status: REG CLI Study: SCREEN MAMM (CAD) W/JYOTI BILAT Date of Exam: 0 10/30/19 Exam# [id number] Ordering Dr: Tara Diaz DO MAMMOGRAPHY - [...] delay biopsy of a clinically suspicious abnormality. [id number] Electronically Signed: Charles Bucio, at 10:05 EDT , Service support , CC: Dr. Tara Diaz, Manager Pricing: Signed Tara Diaz Work Phone: Start: 12-28-2018 End: 12-28-[address] w/CCTA Comments: See Note; NOTES: [facility] Imaging Services [facility] [place] [place] [address] w/CCTA MR#: [id number] Acct: [id number] Name: TATUMLARRYEMELIA M Rep #: [id number] : 1960 F 58 From: Thang Castellano MD PCP: Tara Diaz DO Status: REG CLI Study: Limited Chest CT w/CCTA Date of Exam: 12/28/18 Exam# [id number] Ordering Dr: Tara Diaz DO STUDY: CARDIAC [...] Service support , CC: Tara Diaz DO Manager Pricing: Signed Tara Diaz Work Phone: Start: 12-10-2018 End: 12-10-2018 Stress Report Comments: See Note; NOTES: [facility] Services [address] [place] [address] MR#: [id number] Acct: [id number] Name: EMELIA BLUM Rep #: [id number] : 1960 58 From: Shane Valencia MD [...] than 70%. This note was generated with [employer] dictation software. It may contain incorrect words, spelling, and punctuation that were not noted in checking the note before signing. 12/10/18 1201 <Electronically signed by Shane Valencia MD> Date Shane Valencia MD CC: Tara Diaz DO Date Dictated: 12/10/18 1154 Date Transcribed: 12/10/181153 Manager Pricing: NN Signed Tara Diaz Start: 12-07-2018 End: 12-07-2018 Echocardiogram Complete Comments: See Note; NOTES: [facility] [address] [place] [address] Echo Complete 12/07/18 0803 MR#: [id number] Acct: [id number] Name: EMELIA BLUM Rep #: [id number] : 1960 58 From: Tank Carver MD Attending Dr: Tara Diaz DO Status: REG CLI Ordering Dr: Tara Diaz DO Date: 12/07/18 Location: [facility] Sex: F C Admitted: Reason For Study: [...] Dictated: 12/07/18 0803 Date Transcribed: 12/07/18 1023 Manager Pricing: Signed Tara Diaz Work Phone: Start: 01-12-2018 End: 01-13-2018 Abdomen/Pelvis WITH Contrast Comments: See Note; NOTES: [facility] Imaging Services [address] [place] [address] Abdomen/Pelvis WITH Contrast MR#: [id number] Acct: [id number] Name: EMELIA BLUM Rep #: [id number] : 1960 F 57 From: Alice Cruz MD PCP: Tara Diaz DO Status: REG CLI Study: Abdomen/Pelvis WITH Contrast Date of Exam: 01/12/18 Exam# [id number] Ordering Dr: Rebecca Casey MD STUDY: CT [...] CC: Tara Diaz DO; Rebecca Casey MD Manager Pricing: Signed Rebecca Casey Work Phone: Start: 01-02-2018 End: 01-02-2018 Manager Furniture Office Visit Report Comments: See Note; NOTES: [facility] [address] [place], [place] [address] OFFICE VISIT Date of Service: 01/02/18 MR#: [id number] Acct: [id number] Name: EMELIA BLUM Rep #: [id number] : 1960 Provider: Rebecca Casey MD Age/Sex: 57/F Location: 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 DatName GA/WeeksOutcome [facility] Annie LgAnesthesDel LocaProviderFOB e ht en [...] CC: Tara Diaz Start: 12-21-2017 End: 12-21-2017 Manager Furniture Office Visit Report Comments: See Note; NOTES: [facility] [address] [place] [address]. [address] [place] [address] OFFICE VISIT Date of Service: 12/20/17 MR#: [id number] Acct: [id number] Name: EMELIA BLUM Rep #: [id number] : 1960 Provider: Rebecca Casey MD Age/Sex: 57/F Location: 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 DatName GA/WeeksOutcome Route [facility] Annie LgAnesthesDel LocaProviderFOB e ht en [...] 12-13-2017 Transvaginal Non- Comments: See Note; NOTES: [facility] Imaging Services [address] [place] [address] [place] [address] Transvaginal Non- MR#: [id number] Acct: [id number] Name: EMELIA BLUM Rep #: [id number] : 1960 F 57 From: Layne Cochran MD PCP: Tara Diaz DO Status: REG CLI Study: Transvaginal Non- Date of Exam: 12/13/17 Exam# [id number] Ordering Dr: Tara Diaz DO STUDY: ULTRASOUND [...] Service support , CC: Tara Diaz DO Manager Pricing: Signed Tara Diaz Work Phone: Start: 12-13-2017 End: 12-13-2017 Pelvic (Non ) Comments: See Note; NOTES: [facility] Imaging Services [address] [place] [address] Pelvic (Non ) MR#: [id number] Acct: [id number] Name: EMELIA BLUM Rep #: [id number] : 1960 F 57 From: Layne Cochran MD PCP: Tara Diaz DO Status: REG CLI Study: Pelvic (Non ) Date of Exam: 12/13/17 Exam# [id number] Ordering Dr: Tara Diaz DO STUDY: ULTRASOUND [...] Service support , CC: Tara Diaz DO Manager Pricing: Signed Tara Diaz Work Phone: Start: 04-25-2017 End: 04-25-2017 SCREENING MAMM (CAD), BILAT Comments: See Note; NOTES: [facility] Imaging Services [address] [place] [address] SCREENING MAMM (CAD), BILAT MR#: [id number] Acct: [id number] Name: EMELIA BLUM Rep #: [id number] : 1960 F 56 From: Charles Bucio MD PCP: Tara Diaz DO Status: REG CLI Study: SCREENING MAMM (CAD), BILAT Date of Exam: 04/25/17 Exam# [id number] Ordering Dr: Tara Diaz DO MAMMOGRAPHY - [...] delay biopsy of a clinically suspicious abnormality. [id number] Electronically Signed: Charles Bucio MD at 13:19 EST Tel [phone], Service support , CC: Tara Diaz DO Manager Pricing: Signed Tara Diaz Work Phone: Start: 02-26-2016 End: 02-26-2016 Bilat Scrn Digital AND CAD Comments: See Note; NOTES: [facility] Imaging Services [address] [place] [address] [address] 4d Bilat Scrn Digital AND CAD MR#: [id number] Acct: [id number] Name: EMELIA BLUM Rep #: [id number] : 1960 F 55 From: Charles Bucio MD PCP: Tara Diaz DO Status: REG CLI Study: Farhad Glez Digital AND CAD Date of Exam: 02/26/16 Exam# [id number] Ordering Dr: Tara Diaz DO MAMMOGRAPHY - [...] no significant change since the prior study. [facility]/Farhad Glez Digital AND CAD IMPRESSION: Stable bilateral screening mammogram. Yearly follow-up mammogram recommended. (A) ASSESSMENT CATEGORY: BIRADS Category 1: Negative. A letter regarding these results will be sent to the patient by the facility within 30 days. Approximately 10% of breast cancers are not detected by mammography. A normal mammogram should not delay biopsy of a clinically suspicious abnormality. [id number] Electronically Signed: Charles Bucio MD at 9:20 EDT Tel [phone], Service support [phone], CC: Tara Diaz DO Manager Pricing: Signed Tara Diaz Work Phone: Start: 02-05-2015 End: 02-05-2015 Bilat Scrn Digital AND CAD Comments: See Note; NOTES: [facility] Imaging Services [address] [place] [address] Breast Imaging Report MR#: [id number] Acct: [id number] Name: EMELIA BLUM Rep #: [id number] : 1960 F 54 From: Charles Bucio MD PCP: Tara Diaz DO Status: REG CLI Study: Bilat Scrn Digital AND CAD Date of Exam: 02/05/15 Exam# [id number] Ordering Dr: Tara Diaz DO MAMMOGRAPHY - [...] Charles Bucio MD at 8:08 EDT Tel [phone], Service support [phone], CC: Tara Diaz DO Manager Pricing: Signed Tara Gala Work Phone: Start: 04-21-2014 End: 04-21-2014 Abdomen/Pelvis without Cont Comments: See Note; NOTES: [facility] Imaging Services [address] [place] [address] CAT Scan Report MR#: [id number] Acct: [id number] Name: EMELIA BLUM Rep #: [id number] : 1960 F 53 From: Justin Felix MD PCP: Tara Diaz DO Status: REG CLI Study: Abdomen/Pelvis without Cont Date of Exam: 04/21/14 Exam# [id number] Ordering Dr: Myrtle Perrin STUDY: CT ABDOMEN [...] Phillip Felix MD at 13:15 EST Tel [phone], Service support [phone], CC: Myrtle Perrin; Tara Diaz DO Manager Pricing: Signed HeleneBladimir Perrin Work Phone: Start: 12-23-1997 Microscopic observation [Identifier] in Cervix by Cyto stain Aileen Young Lumpectomy of breast Ev Gravius Lumpectomy of breast Ev Gravius Lumpectomy of breast Ev Gravius Lumpectomy of breast Kurtis Bandar Lumpectomy of breast Rachel Slarb Lumpectomy of breast Ev Gravius MANAGER CT Lumpectomy of breast Carlota Bhakta MA Lumpectomy of breast Kurtis Portillo COMMERCIAL SALES CONSULTANT Lumpectomy of breast Rachel Slarb COMMERCIAL SALES CONSULTANT Lumpectomy of breast Ruba Abdi MA Tonsillectomy Messenge r Tonsillectomy Messmelissa r Tonsillectomy Messenge r Tonsillectomy Messenge r Tonsillectomy Ev Gravius Tonsillectomy Ev Gravius Tonsillectomy Ev Gravius Tonsillectomy Kurtis Bandar Tonsillectomy Messenge r Tonsillectomy Rachel Slarb Tonsillectomy Ev Gravius MANAGER CT Tonsillectomy Carlota Bhakta MA Tonsillectomy Kurtis Portillo [...] Sl arb Total hysterectomy Ev Gr avius MANAGER CT Total hysterectomy Carlota Bong rphy MA Total hysterectomy Kurtis Da vis COMMERCIAL SALES CONSULTANT Total hysterectomy Rachel Sl arb COMMERCIAL SALES CONSULTANT Total hysterectomy Ruba Lee rasheed MA Tylectomy Messenger Tylectomy Messenger Tylectomy Messenger Tylectomy Messenger Tylectomy Messenger Plan of Treatment Date Care Activity Detail Author Start: 11-11-2029 Screening for malignant neoplasm of colon [facility] Start: 02-20-2023 End: 02-20-2023 Patient encounter procedure 02/20/2023 8:40 AM EDT Office Visit [facility] [address] [place] [address] Peyton Jones MD [address] [place] [address] [facility] Start: 12-23-2022 Influenza vaccination [facility] Start: 02-25-2022 Procedure Education Eprescribed prescriptions (G8553) [facility] Work Phone: Start: 12-23-2021 Influenza vaccination [facility] Start: 10-26-2021 End: 10-26-2021 Patient encounter procedure 10/26/2021 Office Visit Cardiology Moy Yeboah MD [address] [place] [address] [facility] Start: 10-15-2021 End: 10-15-2021 Patient encounter procedure 10/15/2021 Appointment Radiology Moy Yeboah MD [address] [place] [address] [facility] Start: 07-23-2021 Procedure Education Eprescribed prescriptions (G8553) [facility]; [facility] Work Phone: Start: 07-23-2021 Provider Instructions for Treatment [facility] Work Phone: Start: 07-23-2021 End: 07-23-2021 Patient encounter procedure 07/23/2021 Office Visit Cardiology Moy Yeboah MD [address] [place] [address] [facility] Start: 05-26-2021 Procedure Education Eprescribed prescriptions (G8553) [facility]; [facility] Work Phone: Start: 05-26-2021 Provider Instructions for Treatment Follow up if no improvement or if symptoms worsen [facility]; [facility] Work Phone: Start: 05-26-2021 Culture bct isol&prsmptv id isolate ea urine URINE MELISSA CULTURE-IDENTIFICATN (33911) [facility]; [facility] Work Phone: Start: 02-10-2021 Procedure Education Eprescribed prescriptions (G8553) [facility]; [facility] Work Phone: Start: 01-07-2021 Procedure Education Eprescribed prescriptions (G8553) [facility]; [facility] Work Phone: Start: 12-23-2020 Influenza vaccination Sequential Influenza Vaccine (#1) [facility] Start: 10-27-2020 History and physical examination, annual for health maintenance Wellness Visit [facility] Start: 09-11-2020 Procedure Education Eprescribed prescriptions (G8553) [facility]; [facility] Work Phone: Start: 09-11-2020 Provider Instructions for Treatment Cholesterol mgmt [facility]; [facility] Work Phone: Start: 09-11-2020 Blood count complete automated CBC (AUTO) (32200) [facility]; [facility] Work Phone: Start: 09-11-2020 Comprehensive metabolic panel METABOLIC PANEL, COMPREHENSIVE (98769) [facility]; [facility] Work Phone: Start: 09-11-2020 Assay of thyroid stimulating hormone tsh TSH (80654) [facility]; [facility] Work Phone: Start: 09-11-2020 Cyanocobalamin vitamin b-12 VITAMIN B-12 (CYANOCOBALAMIN) (74423) [facility]; [facility] Work Phone: Start: 09-11-2020 25 hydroxy includes fractions if performed CALCIFIDIOL (99755) VIT D 25 [facility]; [facility] Work Phone: Start: 04-15-2020 Procedure Education Eprescribed prescriptions (G8553) [facility]; [facility] Work Phone: Start: 04-13-2020 Culture bct isol&prsmptv id isolate ea urine URINE MELISSA CULTURE-IDENTIFICATN (39921) [facility]; [facility] Work [...] Start: 12-24-2019 Influenza vaccination INFLUENZA VACCINE (#1) [facility] [employer] Start: 12-24-2019 Influenza vaccination given Sequential Influenza Vaccine (#1) [facility] Start: 12-04-2019 End: 12-04-2019 Office Visit 12/04/2019 Office Visit Cardiology Oskar Cueva MD [address] [place] [address] [phone] [facility] Start: 11-20-2019 Procedure Education Eprescribed prescriptions (G8553) [facility] Work Phone: Start: 11-20-2019 Provider Instructions for Treatment Reviewed Diagnostic Tests [facility] Work Phone: Start: 11-08-2019 End: 11-08-2019 Appointment 11/08/2019 Appointment Cardiology Minerva Hardin CNP [address] [place] [address] [phone] [facility] Start: 10-09-2019 Procedure Education Eprescribed prescriptions (G8553) [facility] Work Phone: Start: 10-09-2019 Provider Instructions for Treatment [facility] Work Phone: Start: 10-09-2019 Hepatic function panel HEPATIC FUNCTION PANEL (13321) [facility] Work Phone: Payers Date Payer Category Payer Unknown 2011 Unknown JUAN MARTINEZ BC TRADITIONAL xxxxxxxxxxxx 2011-Present xxxxxxxxxxxx [id number] 2011 Unknown [id number] 2011 Unknown [id number] 1960 Unknown [id number] 1960 Unknown [id number] 1960 Unknown [id number] 1960 Unknown [id number] 1960 Unknown [id number] Social History Date Type Detail Facility Alcohol Use: Alcohol Use: [facility] Work Phone: Start: 03-04-2020 End: 02-20-2023 Caffeine Use Caffeine Use [facility] Work Phone: Functional Status Date Assessment Result Facility 02-21-2020 LP-IR Score LP-IR Score 46 [facility] Work Phone: Clinical Notes 07-23-2021 to 05-23-2023 Telephone Encounter - Leandro Chance MA - 05/23/2023 9:23 AM ESTTelephone Encounter - Leandro Chance MA - 05/23/2023 9:23 AM Peyton Kasper MD - 02/20/2023 8:53 AM EDT Note Date & Type Note Facility 05-23-2023 Telephone encounter Note Form atting of this note might be different from the original. New pharmacy. [facility] 05-23-2023 Miscellaneous Notes Formattin g of this note might be different from the original. New pharmacy. documented in this encounter [facility] 03-14-2023 Telephone encounter Note Form atting of this note might be different from the original. Pt. needs refills sent to [facility] instead of local pharmacy. Pharmacy switch appropriate. [facility] 03-14-2023 Miscellaneous Notes Formattin g of this note might be different from the original. Pt. needs refills sent to [facility] instead of local pharmacy. Pharmacy switch appropriate. documented in this encounter [facility] 02-20-2023 History of Presen t illness Narrative General Cardiology Returning Patient Clinic Visit [facility] 02/20/2023 Peyton Jones MD [address] [place] [phone] [facility], physician's office [...] years (around 02/20/2026). 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 She continues [...] for age, gender and race/ethnicity-matched group per [employer] database. Coronary Angiography: Left Main: The left [...] 02/14/2023 The 10-year ASCVD risk score (Ashwini DK, et al., 2019) is: 3.4% Values used to calculate the score: Age: 62 years Sex: Female Is Non- : No Diabetic: No Tobacco smoker: No Systolic Blood Pressure: 120 mmHg Is BP treated: No HDL Cholesterol: 72 mg/dL Total Cholesterol: 227 mg/dL documented in this encounter [facility] 02-20-2023 Instructions Peyton Jones MD - 02/20/2023 8:47 AM EDT How to Contact your Care Team: Provider: Dr. Peyton Jones MD Clinic Nurse: Sowmya Sharma RN REFILLS: When in need for refills please call your care team or the office at [phone]. Please include medication name, pharmacy name, and [...] CAN do this! documented in this encounter [facility] 01-25-2023 Telephone encounter Note Form atting of this note might be different from the original. Pt scheduled for upcoming ov w/ Dr. Jones on 02/20 and needs RX prior to yearly. [facility] 01-25-2023 Miscellaneous Notes Formattin g of this note might be different from the original. Pt scheduled for upcoming ov w/ Dr. Jones on 02/20 and needs RX prior to yearly. documented in this encounter [facility] 01-05-2023 Miscellaneous Notes Formattin g of this note might be different from the original. Pt was last seen on 10-26-[address] Yeboah. Next appt is 02-20-[address] Jones. Given enough meds until this appt. documented in this encounter [facility] 01-05-2023 Telephone encounter Note Form atting of this note might be different from the original. Pt was last seen on 10-26-[address] Yeboah. Next appt is 02-20-[address] Jones. Given enough meds until this appt. [facility] 10-26-2021 Evaluation + Plan note Associ ated [...] test results and any additional follow-up recommendations. [facility] 10-26-2021 Miscellaneous Notes Associate d Problem(s): Palpitations [...] additional follow-up recommendations. documented in this encounter [facility] 10-26-2021 Instructions Annamarie Alvarez MA - 10/26/2021 8:31 AM EDT You can reach Dr Yeboah's nurse, Myrtle Roland at [phone]. If unable to reach us please leave [...] listed below please call the office at [phone] and ask to speak to the schedulers to make an appointment. *If you made an -appointment prior to leaving the office today disregard this message. To cancel or reschedule your office visit or testing please call [phone]. If you need to cancel it must be 24 hours prior to that appt. Thank you. ....If you were seen in the [place] office today. If any testing was ordered a rehabilitation aide/scheduler from [facility] will call you to schedule your testing. If you do not hear from a rehabilitation aide/scheduler after a couple of days please call the office at [phone] and ask to speak to a rehabilitation aide/scheduler. documented in this encounter [facility] 10-26-2021 History of Presen t illness Narrative General Cardiology Clinic Follow-up Heart & Vascular [facility] 10/26/2021 Moy Yeboah MD [address] [place] [phone] Patient: Emelia Blum Date of : 1960 [...] Lead Final Result by Gabe Urbano MD (09/22/2021 2035) Echocardiogram complete w contrast Final Result by Beatrice Recio MD (09/23/2021 0911) Echocardiogram complete Final Result by Rebecca Josue MD (11/05/2019 1302) CT [facility] With And Without Contrast Final Result by Bryn Mayes MD (09/23/2021 1706) [facility] (Station Tender read) Final Result by Aurora Cristina MD [...] 14 days allowed.) documented in this encounter [facility] 09-01-2021 Telephone encounter Note Form atting of [...] prior to C-MRI. Pt aware will need sprinkler driver to and from appt. 5 mg tablet ordered with instructions to take 2.5 mg half tablet 2 hours prior to MRI then take other 2.5 mg half tablet 30 minutes prior to MRI. #1/0 ordered, pended to local Rx and routed to Dr Yeboah for approval. [facility] 09-01-2021 Miscellaneous Notes Formattin g of this [...] prior to C-MRI. Pt aware will need sprinkler driver to and from appt. 5 mg tablet ordered with instructions to take 2.5 mg half tablet 2 hours prior to MRI then take other 2.5 mg half tablet 30 minutes prior to MRI. #1/0 ordered, pended to local Rx and routed to Dr Yeboah for approval. documented in this encounter [facility] 07-23-2021 Evaluation + Plan note Associ ated Problem(s): Hyperlipidemia She tells me historically she has had fairly high cholesterols. There may be a family history component. She has not had a lipid profile updated she is on no treatment currently, we will update a lipid panel, I reviewed with her PCSK9 inhibitors particular if she has very high LDL cholesterol. [facility] 07-23-2021 Evaluation + Plan note Associ ated [...] study in 2019. I reviewed her echo. [facility] 07-23-2021 Miscellaneous Notes Associate d Problem(s): Hyperlipidemia [...] reviewed her echo. documented in this encounter [facility] 07-23-2021 History of Presen t illness Narrative General Cardiology Clinic Follow-up Heart & Vascular [facility] 07/23/2021 Moy Yeboah MD [address] [place] [phone] Patient: Emelia Blum Date of : 1960 [...] Result by Aileen Jaime MD (11/05/2019 0347) Echocardiogram complete Final Result by Rebecca Josue [...] Affect: Mood normal. documented in this encounter [facility] 07-23-2021 Instructions Nayeli Kaur RN - 07/23/2021 7:58 AM EDT You can reach Dr Yeboah's nurses, Nayeli Kaur RN and Radha Huitron RN, at [phone]. If unable to reach us please leave [...] listed below please call the office at [phone] and ask to speak to the schedulers to make an appointment. *If you made an -appointment prior to leaving the office today disregard this message. To cancel or reschedule your office visit or testing please call [phone]. If you need to cancel it must be 24 hours prior to that appt. Thank you. ....If you were seen in the [place] office today. If any testing was ordered a rehabilitation aide/scheduler from [facility] will call you to schedule your testing. If you do not hear from a rehabilitation aide/scheduler after a couple of days please call the office at [phone] and ask to speak to a rehabilitation aide/scheduler. documented in this encounter [facility] Ventricular tachycardia (HCC)- Primary Paroxysmal ventricular tachycardia Ventricular tachycardia, non-sustained (HCC) [facility] Diagnosis Palpitations- Primary [facility] Diagnosis Palpitations- Primary [facility] Diagnosis Palpitations- Primary Dyslipidemia Other and unspecified hyperlipidemia [facility] Medication therapy continued- Primary [facility] Name Dates Details Patient Instructions Indication:Nonsmoker Start:11-Sep-2020 Instruction Type:Provider Instructions for Treatment How to Access Health Informa tion Online using Patient Portal and [employer] Apps Indication:Nonsmoker Start:11-Sep-2020 Instruction Type:Patient Education Patient Instructions Indication:BMI 27.0-27.9,adult Start:15-Apr-2020 Instruction Type:Provider Instructions for Treatment How to Access Health Informa tion Online using Patient Portal and [employer] Apps Indication:BMI 27.0-27.9,adult Start:15-Apr-2020 Instruction Type:Patient Education Patient Instructions Indication:Nonsmoker Start:13-Apr-2020 Instruction Type:Provider Instructions for Treatment How to Access Health Informa tion Online using Patient Portal and [employer] Apps Indication:UTI symptoms Start:13-Apr-2020 Instruction Type:Patient Education [...] tion Online using Patient Portal and [employer] Apps Indication:Nonsmoker Start:11-Sep-2020 Instruction Type:Patient Education Patient Instructions Indication:BMI 27.0-27.9,adult Start:15-Apr-2020 Instruction Type:Provider Instructions for Treatment How to Access Health Informa tion Online using Patient Portal and [employer] Apps Indication:BMI 27.0-27.9,adult Start:15-Apr-2020 Instruction Type:Patient Education Patient Instructions Indication:Nonsmoker Start:13-Apr-2020 Instruction Type:Provider Instructions for Treatment How to Access Health Informa tion Online using Patient Portal and [employer] Apps Indication:UTI symptoms Start:13-Apr-2020 Instruction Type:Patient Education [...] tion Online using Patient Portal and [employer] Apps Indication:Nonsmoker Start:11-Sep-2020 Instruction Type:Patient Education Patient Instructions Indication:BMI 27.0-27.9,adult Start:15-Apr-2020 Instruction Type:Provider Instructions for Treatment How to Access Health Informa tion Online using Patient Portal and [employer] Apps Indication:BMI 27.0-27.9,adult Start:15-Apr-2020 Instruction Type:Patient Education Patient Instructions Indication:Nonsmoker Start:13-Apr-2020 Instruction Type:Provider Instructions for Treatment How to Access Health Informa tion Online using Patient Portal and [employer] Apps Indication:UTI symptoms Start:13-Apr-2020 Instruction Type:Patient Education [...] tion Online using Patient Portal and [employer] Apps Indication:Nonsmoker Start:11-Sep-2020 Instruction Type:Patient Education Patient Instructions Indication:BMI 27.0-27.9,adult Start:15-Apr-2020 Instruction Type:Provider Instructions for Treatment How to Access Health Informa tion Online using Patient Portal and [employer] Apps Indication:BMI 27.0-27.9,adult Start:15-Apr-2020 Instruction Type:Patient Education Patient Instructions Indication:Nonsmoker Start:13-Apr-2020 Instruction Type:Provider Instructions for Treatment How to Access Health Informa tion Online using Patient Portal and [employer] Apps Indication:UTI symptoms Start:13-Apr-2020 Instruction Type:Patient Education [...] tion Online using Patient Portal and [employer] Apps Indication:Nonsmoker Start:10-Feb-2021 Instruction Type:Patient Education Patient Instructions Indication:BMI 26.0-26.9,adult Start:07-Jan-2021 Instruction Type:Provider Instructions for Treatment How to Access Health Informa tion Online using Patient Portal and [employer] Apps Indication:BMI 26.0-26.9,adult Start:07-Jan-2021 Instruction Type:Patient Education Patient Instructions Indication:Nonsmoker Start:11-Sep-2020 Instruction Type:Provider Instructions for Treatment How to Access Health Informa tion Online using Patient Portal and [employer] Apps Indication:Nonsmoker Start:11-Sep-2020 Instruction Type:Patient Education Patient Instructions Indication:BMI 27.0-27.9,adult Start:15-Apr-2020 Instruction Type:Provider Instructions for Treatment How to Access Health Informa tion Online using Patient Portal and [employer] Apps Indication:BMI 27.0-27.9,adult Start:15-Apr-2020 Instruction Type:Patient Education Patient Instructions Indication:Nonsmoker Start:13-Apr-2020 Instruction Type:Provider Instructions for Treatment How to Access Health Informa tion Online using Patient Portal and [employer] Apps Indication:UTI symptoms Start:13-Apr-2020 Instruction Type:Patient Education [...] tion Online using Patient Portal and [employer] Apps Indication:BMI 26.0-26.9,adult Start:26-May-2021 Instruction Type:Patient Education Patient Instructions Indication:Nonsmoker Start:10-Feb-2021 Instruction Type:Provider Instructions for Treatment How to Access Health Informa tion Online using Patient Portal and [employer] Apps Indication:Nonsmoker Start:10-Feb-2021 Instruction Type:Patient Education Patient Instructions Indication:BMI 26.0-26.9,adult Start:07-Jan-2021 Instruction Type:Provider Instructions for Treatment How to Access Health Informa tion Online using Patient Portal and [employer] Apps Indication:BMI 26.0-26.9,adult Start:07-Jan-2021 Instruction Type:Patient Education Patient Instructions Indication:Nonsmoker Start:11-Sep-2020 Instruction Type:Provider Instructions for Treatment How to Access Health Informa tion Online using Patient Portal and [employer] Apps Indication:Nonsmoker Start:11-Sep-2020 Instruction Type:Patient Education Patient Instructions Indication:BMI 27.0-27.9,adult Start:15-Apr-2020 Instruction Type:Provider Instructions for Treatment How to Access Health Informa tion Online using Patient Portal and [employer] Indication:BMI 27.0-27.9,adult Start:15-Apr-2020 Instruction Type:Patient Education Patient Instructions Indication:Nonsmoker Start:13-Apr-2020 Instruction Type:Provider Instructions for Treatment How to Access Health Informa tion Online using Patient Portal and [employer] Apps Indication:UTI symptoms Start:13-Apr-2020 Instruction Type:Patient Education [...] Informa tion Online using Patient Portal and [employer] Indication:Nonsmoker Start:23-Jul-2021 Instruction Type:Patient Education Patient Instructions Indication:Nonsmoker Start:23-Jul-2021 Instruction Type:Provider Instructions for Treatment Patient Instructions Indication:BMI 26.0-26.9,adult Start:26-May-2021 Instruction Type:Provider Instructions for Treatment How to Access Health Informa tion Online using Patient Portal and [employer] Indication:BMI 26.0-26.9,adult Start:26-May-2021 Instruction Type:Patient Education Patient Instructions Indication:Nonsmoker Start:10-Feb-2021 Instruction Type:Provider Instructions for Treatment How to Access Health Informa tion Online using Patient Portal and [employer] Indication:Nonsmoker Start:10-Feb-2021 Instruction Type:Patient Education Patient Instructions Indication:BMI 26.0-26.9,adult Start:07-Jan-2021 Instruction Type:Provider Instructions for Treatment How to Access Health Informa tion Online using Patient Portal and [employer] Indication:BMI 26.0-26.9,adult Start:07-Jan-2021 Instruction Type:Patient Education Patient Instructions Indication:Nonsmoker Start:11-Sep-2020 Instruction Type:Provider Instructions for Treatment How to Access Health Informa tion Online using Patient Portal and [employer] Apps Indication:Nonsmoker Start:11-Sep-2020 Instruction Type:Patient Education Patient Instructions Indication:BMI 27.0-27.9,adult Start:15-Apr-2020 Instruction Type:Provider Instructions for Treatment How to Access Health Informa tion Online using Patient Portal and [employer] Indication:BMI 27.0-27.9,adult Start:15-Apr-2020 Instruction Type:Patient Education Patient Instructions Indication:Nonsmoker Start:13-Apr-2020 Instruction Type:Provider Instructions for Treatment How to Access Health Informa tion Online using Patient Portal and [employer] Apps Indication:UTI symptoms Start:13-Apr-2020 Instruction Type:Patient Education [...] Informa tion Online using Patient Portal and [employer] Indication:Nonsmoker Start:23-Jul-2021 Instruction Type:Patient Education Patient Instructions Indication:Nonsmoker Start:23-Jul-2021 Instruction Type:Provider Instructions for Treatment Patient Instructions Indication:BMI 26.0-26.9,adult Start:26-May-2021 Instruction Type:Provider Instructions for Treatment How to Access Health Informa tion Online using Patient Portal and [employer] Indication:BMI 26.0-26.9,adult Start:26-May-2021 Instruction Type:Patient Education Patient Instructions Indication:Nonsmoker Start:10-Feb-2021 Instruction Type:Provider Instructions for Treatment How to Access Health Informa tion Online using Patient Portal and [employer] Apps Indication:Nonsmoker Start:10-Feb-2021 Instruction Type:Patient Education Patient Instructions Indication:BMI 26.0-26.9,adult Start:07-Jan-2021 Instruction Type:Provider Instructions for Treatment How to Access Health Informa tion Online using Patient Portal and [employer] Indication:BMI 26.0-26.9,adult Start:07-Jan-2021 Instruction Type:Patient Education Patient Instructions Indication:Nonsmoker Start:11-Sep-2020 Instruction Type:Provider Instructions for Treatment How to Access Health Informa tion Online using Patient Portal and [employer] Indication:Nonsmoker Start:11-Sep-2020 Instruction Type:Patient Education Patient Instructions Indication:BMI 27.0-27.9,adult Start:15-Apr-2020 Instruction Type:Provider Instructions for Treatment How to Access Health Informa tion Online using Patient Portal and [employer] Indication:BMI 27.0-27.9,adult Start:15-Apr-2020 Instruction Type:Patient Education Patient Instructions Indication:Nonsmoker Start:13-Apr-2020 Instruction Type:Provider Instructions for Treatment How to Access Health Informa tion Online using Patient Portal and [employer] Apps Indication:UTI symptoms Start:13-Apr-2020 Instruction Type:Patient Education [...] tion Online using Patient Portal and [employer] Apps Indication:Nonsmoker Start:25-Feb-2022 Instruction Type:Patient Education How to Access Health Informa tion Online using Patient Portal and [employer] Apps Indication:Nonsmoker Start:23-Jul-2021 Instruction Type:Patient Education Patient Instructions Indication:Nonsmoker Start:23-Jul-2021 Instruction Type:Provider Instructions for Treatment Patient Instructions Indication:BMI 26.0-26.9,adult Start:26-May-2021 Instruction Type:Provider Instructions for Treatment How to Access Health Informa tion Online using Patient Portal and [employer] Indication:BMI 26.0-26.9,adult Start:26-May-2021 Instruction Type:Patient Education Patient Instructions Indication:Nonsmoker Start:10-Feb-2021 Instruction Type:Provider Instructions for Treatment How to Access Health Informa tion Online using Patient Portal and [employer] Apps Indication:Nonsmoker Start:10-Feb-2021 Instruction Type:Patient Education Patient Instructions Indication:BMI 26.0-26.9,adult Start:07-Jan-2021 Instruction Type:Provider Instructions for Treatment How to Access Health Informa tion Online using Patient Portal and [employer] Indication:BMI 26.0-26.9,adult Start:07-Jan-2021 Instruction Type:Patient Education Patient Instructions Indication:Nonsmoker Start:11-Sep-2020 Instruction Type:Provider Instructions for Treatment How to Access Health Informa tion Online using Patient Portal and [employer] Apps Indication:Nonsmoker Start:11-Sep-2020 Instruction Type:Patient Education Patient Instructions Indication:BMI 27.0-27.9,adult Start:15-Apr-2020 Instruction Type:Provider Instructions for Treatment How to Access Health Informa tion Online using Patient Portal and [employer] Indication:BMI 27.0-27.9,adult Start:15-Apr-2020 Instruction Type:Patient Education Patient Instructions Indication:Nonsmoker Start:13-Apr-2020 Instruction Type:Provider Instructions for Treatment How to Access Health Informa tion Online using Patient Portal and [employer] Apps Indication:UTI symptoms Start:13-Apr-2020 Instruction Type:Patient Education [...] tion Online using Patient Portal and [employer] Apps Indication:Nonsmoker Start:25-Feb-2022 Instruction Type:Patient Education How to Access Health Informa tion Online using Patient Portal and [employer] Apps Indication:Nonsmoker Start:23-Jul-2021 Instruction Type:Patient Education Patient Instructions Indication:Nonsmoker Start:23-Jul-2021 Instruction Type:Provider Instructions for Treatment Patient Instructions Indication:BMI 26.0-26.9,adult Start:26-May-2021 Instruction Type:Provider Instructions for Treatment How to Access Health Informa tion Online using Patient Portal and [employer] Indication:BMI 26.0-26.9,adult Start:26-May-2021 Instruction Type:Patient Education Patient Instructions Indication:Nonsmoker Start:10-Feb-2021 Instruction Type:Provider Instructions for Treatment How to Access Health Informa tion Online using Patient Portal and [employer] Apps Indication:Nonsmoker Start:10-Feb-2021 Instruction Type:Patient Education Patient Instructions Indication:BMI 26.0-26.9,adult Start:07-Jan-2021 Instruction Type:Provider Instructions for Treatment How to Access Health Informa tion Online using Patient Portal and [employer] Indication:BMI 26.0-26.9,adult Start:07-Jan-2021 Instruction Type:Patient Education Patient Instructions Indication:Nonsmoker Start:11-Sep-2020 Instruction Type:Provider Instructions for Treatment How to Access Health Informa tion Online using Patient Portal and [employer] Indication:Nonsmoker Start:11-Sep-2020 Instruction Type:Patient Education Patient Instructions Indication:BMI 27.0-27.9,adult Start:15-Apr-2020 Instruction Type:Provider Instructions for Treatment How to Access Health Informa tion Online using Patient Portal and [employer] Indication:BMI 27.0-27.9,adult Start:15-Apr-2020 Instruction Type:Patient Education Patient Instructions Indication:Nonsmoker Start:13-Apr-2020 Instruction Type:Provider Instructions for Treatment How to Access Health Informa tion Online using Patient Portal and [employer] Indication:UTI symptoms Start:13-Apr-2020 Instruction Type:Patient Education [...] tion Online using Patient Portal and [employer] Apps Indication:Nonsmoker Start:25-Feb-2022 Instruction Type:Patient Education How to Access Health Informa tion Online using Patient Portal and [employer] Apps Indication:Nonsmoker Start:23-Jul-2021 Instruction Type:Patient Education Patient Instructions Indication:Nonsmoker Start:23-Jul-2021 Instruction Type:Provider Instructions for Treatment Patient Instructions Indication:BMI 26.0-26.9,adult Start:26-May-2021 Instruction Type:Provider Instructions for Treatment How to Access Health Informa tion Online using Patient Portal and [employer] Indication:BMI 26.0-26.9,adult Start:26-May-2021 Instruction Type:Patient Education Patient Instructions Indication:Nonsmoker Start:10-Feb-2021 Instruction Type:Provider Instructions for Treatment How to Access Health Informa tion Online using Patient Portal and [employer] Indication:Nonsmoker Start:10-Feb-2021 Instruction Type:Patient Education Patient Instructions Indication:BMI 26.0-26.9,adult Start:07-Jan-2021 Instruction Type:Provider Instructions for Treatment How to Access Health Informa tion Online using Patient Portal and [employer] Indication:BMI 26.0-26.9,adult Start:07-Jan-2021 Instruction Type:Patient Education Patient Instructions Indication:Nonsmoker Start:11-Sep-2020 Instruction Type:Provider Instructions for Treatment How to Access Health Informa tion Online using Patient Portal and [employer]rd [employer] Apps Indication:Nonsmoker Start:11-Sep-2020 Instruction Type:Patient Education Patient Instructions Indication:BMI 27.0-27.9,adult Start:15-Apr-2020 Instruction Type:Provider Instructions for Treatment How to Access Health Informa tion Online using Patient Portal and [employer]rd [employer] Apps Indication:BMI 27.0-27.9,adult Start:15-Apr-2020 Instruction Type:Patient Education Patient Instructions Indication:Nonsmoker Start:13-Apr-2020 Instruction Type:Provider Instructions for Treatment How to Access Health Informa tion Online using Patient Portal and [employer]rd [employer] Apps Indication:UTI symptoms Start:13-Apr-2020 Instruction Type:Patient Education [...] Informa tion Online using Patient Portal and [employer] Apps Indication:Nonsmoker Start:25-Feb-2022 Instruction Type:Patient Education How to Access Health Informa tion Online using Patient Portal and [employer]rd [employer] Apps Indication:Nonsmoker Start:23-Jul-2021 Instruction Type:Patient Education Patient Instructions Indication:Nonsmoker Start:23-Jul-2021 Instruction Type:Provider Instructions for Treatment Patient Instructions Indication:BMI 26.0-26.9,adult Start:26-May-2021 Instruction Type:Provider Instructions for Treatment How to Access Health Informa tion Online using Patient Portal and [employer]rd [employer] Apps Indication:BMI 26.0-26.9,adult Start:26-May-2021 Instruction Type:Patient Education Patient Instructions Indication:Nonsmoker Start:10-Feb-2021 Instruction Type:Provider Instructions for Treatment How to Access Health Informa tion Online using Patient Portal and [employer]rd [employer] Apps Indication:Nonsmoker Start:10-Feb-2021 Instruction Type:Patient Education Patient Instructions Indication:BMI 26.0-26.9,adult Start:07-Jan-2021 Instruction Type:Provider Instructions for Treatment How to Access Health Informa tion Online using Patient Portal and [employer]rd [employer] Apps Indication:BMI 26.0-26.9,adult Start:07-Jan-2021 Instruction Type:Patient Education Patient Instructions Indication:Nonsmoker Start:11-Sep-2020 Instruction Type:Provider Instructions for Treatment How to Access Health Informa tion Online using Patient Portal and [employer]rd [employer] Apps Indication:Nonsmoker Start:11-Sep-2020 Instruction Type:Patient Education Patient Instructions Indication:BMI 27.0-27.9,adult Start:15-Apr-2020 Instruction Type:Provider Instructions for Treatment How to Access Health Informa tion Online using Patient Portal and [employer]rd [employer] Apps Indication:BMI 27.0-27.9,adult Start:15-Apr-2020 Instruction Type:Patient Education Patient Instructions Indication:Nonsmoker Start:13-Apr-2020 Instruction Type:Provider Instructions for Treatment How to Access Health Informa tion Online using Patient Portal and [employer]rd [employer] Apps Indication:UTI symptoms Start:13-Apr-2020 Instruction Type:Patient Education [...] tion Online using Patient Portal and [employer]rd [employer] Apps Indication:Nonsmoker Start:25-Feb-2022 Instruction Type:Patient Education How to Access Health Informa tion Online using Patient Portal and [employer]rd [employer] Apps Indication:Nonsmoker Start:23-Jul-2021 Instruction Type:Patient Education Patient Instructions Indication:Nonsmoker Start:23-Jul-2021 Instruction Type:Provider Instructions for Treatment Patient Instructions Indication:BMI 26.0-26.9,adult Start:26-May-2021 Instruction Type:Provider Instructions for Treatment How to Access Health Informa tion Online using Patient Portal and [employer]rd [employer] Apps Indication:BMI 26.0-26.9,adult Start:26-May-2021 Instruction Type:Patient Education Patient Instructions Indication:Nonsmoker Start:10-Feb-2021 Instruction Type:Provider Instructions for Treatment How to Access Health Informa tion Online using Patient Portal and [employer]rd [employer] Apps Indication:Nonsmoker Start:10-Feb-2021 Instruction Type:Patient Education Patient Instructions Indication:BMI 26.0-26.9,adult Start:07-Jan-2021 Instruction Type:Provider Instructions for Treatment How to Access Health Informa tion Online using Patient Portal and [employer]rd [employer] Apps Indication:BMI 26.0-26.9,adult Start:07-Jan-2021 Instruction Type:Patient Education Patient Instructions Indication:Nonsmoker Start:11-Sep-2020 Instruction Type:Provider Instructions for Treatment How to Access Health Informa tion Online using Patient Portal and [employer]rd [employer] Apps Indication:Nonsmoker Start:11-Sep-2020 Instruction Type:Patient Education Patient Instructions Indication:BMI 27.0-27.9,adult Start:15-Apr-2020 Instruction Type:Provider Instructions for Treatment How to Access Health Informa tion Online using Patient Portal and [employer]rd [employer] Apps Indication:BMI 27.0-27.9,adult Start:15-Apr-2020 Instruction Type:Patient Education Patient Instructions Indication:Nonsmoker Start:13-Apr-2020 Instruction Type:Provider Instructions for Treatment How to Access Health Informa tion Online using Patient Portal and [employer]rd [employer] Apps Indication:UTI symptoms Start:13-Apr-2020 Instruction Type:Patient Education [...] tion Online using Patient Portal and [employer]rd [employer] Apps Indication:BMI 27.0-27.9,adult Start:15-Apr-2020 Instruction Type:Patient Education Patient Instructions Indication:Nonsmoker Start:13-Apr-2020 Instruction Type:Provider Instructions for Treatment How to Access Health Informa tion Online using Patient Portal and [employer]rd [employer] Apps Indication:UTI symptoms Start:13-Apr-2020 Instruction Type:Patient Education [...] tion Online using Patient Portal and [employer]rd [employer] Apps Indication:BMI 27.0-27.9,adult Start:15-Apr-2020 Instruction Type:Patient Education Patient Instructions Indication:Nonsmoker Start:13-Apr-2020 Instruction Type:Provider Instructions for Treatment How to Access Health Informa tion Online using Patient Portal and [employer]rd [employer] Apps Indication:UTI symptoms Start:13-Apr-2020 Instruction Type:Patient Education [...] tion Online using Patient Portal and [employer]rd [employer] Apps Indication:BMI 27.0-27.9,adult Start:15-Apr-2020 Instruction Type:Patient Education Patient Instructions Indication:Nonsmoker Start:13-Apr-2020 Instruction Type:Provider Instructions for Treatment How to Access Health Informa tion Online using Patient Portal and [employer]rd [employer] Apps Indication:UTI symptoms Start:13-Apr-2020 Instruction Type:Patient Education [...] Informa tion Online using Patient Portal and [employer] Apps Indication:UTI symptoms Start:13-Apr-2020 Instruction Type:Patient Education [...] Documents on File Type Date Recorded 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 Advance Directives and Livin g Will 11/04/2019 8:40 PM Latest Code Status on File Code Status Date Activated Date Inactivated Comments Full Code 11/04/2019 10:15 PM 11/05/2019 7:47 PM Documents on File Type Date Recorded 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 Advance Directives and Livin g Will 11/08/2019 12:00 AM Latest Code Status on File Code Status Date Activated Date Inactivated Comments Full Code 11/04/2019 10:15 PM 11/05/2019 7:47 PM Documents on File Type Date Recorded 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 Advance Directives and Livin g Will 11/08/2019 12:00 AM Documents on File Type Date Recorded 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 Advance Directives and Livin g Will 07/23/2021 8:14 AM Documents on File Type Date Recorded 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 Advance Directives and Livin g Will 07/26/2021 8:14 AM Documents on File Type Date Recorded 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 Advance Directives and Livin g [...] Zhu MD - 11/05/2019 9:58 AM EDT [facility] Medicine Inpatient Follow-up 11/05/2019 Keila Zhu MD [facility] Patient: Emelia lBum Date of : 1960 (59 y.o.) PCP: [...] 03/04/2020 8:57 AM EST OFFICE CONSULTATION NOTE [facility] [address]) [facility] [address] [facility] [id number] Physicians: Tara Diaz DO Subjective: Emelia Blum is a [...] Cardiac event monitor Minerva Hardin CNP [address] [place] [address] Specialty Diagnoses / Procedures Referred By Contac t Referred To Contact Cardiology Diagnoses Palpitations Procedures Cardiac event monitor Moy Yeboah MD [address] [place] [address] Referral ID Status Reason Start Date Expiration Date V isits Requested Visits Authorized [id number] Authorized 07/23/2021 07/23/2022 1 1 Specialty Diagnoses / Procedures Referred By Contac t Referred To Contact Radiology Diagnoses Ventricular tachycardia, non-sustained (HCC) Procedures MR Cardiac Morphology With And Without Contrast with Velocity Flow Moy Yeboah MD [address] [place] [address] Referral ID Status Reason Start Date Expiration Date V isits Requested Visits Authorized [id number] New Request 08/30/2021 08/30/2022 1 1 Specialty Diagnoses / Procedures Referred By Guilherme carlton Referred To Contact Cardiology Diagnoses Palpitations Procedures Extended Holter Monitor (3-7 days) Moy Yeboah MD [address] [place] [address] Referral ID Status Reason Start Date Expiration Date Visits Re quested Visits Authorized [id number] Closed 10/26/2021 10/26/2022 1 1 Additional Source Comments INFORMATION SOURCE (unrecogn ized section and content) DATE CREATED AUTHOR AUTHOR'S ORGANIZ ATION 10/08/2021 [facility] DATE CREATED AUTHOR AUTHOR'S ORGANIZ ATION 10/09/2021 [facility] DATE CREATED AUTHOR AUTHOR'S ORGANIZ ATION 02/15/2022 [facility] DATE CREATED AUTHOR AUTHOR'S ORGANIZ ATION 01/30/2023 [facility] DATE CREATED AUTHOR AUTHOR'S ORGANIZ ATION 02/19/2023 [facility] DATE CREATED AUTHOR AUTHOR'S ORGANIZ ATION 02/20/2023 [facility] Reason for Visit (unrecogniz ed section and content) Status Reason Specialty Diagnoses / Procedures Referre d By Contact Referred To Contact Diagnoses Hypokalemia Chest pain, unspecified type Unstable angina (HCC) Status Reason Specialty Diagnoses / Procedures Referred By Contact Referred To Contact Pending Review Cardiology Diagnoses Lightheaded Abnormal EKG Procedures Cardiac event monitor Minerva Hardin CNP [address] [place] [address] Status Reason Specialty Diagnoses / Procedures Referre d By Contact Referred To Contact Diagnoses Encounter for screening for malignant neoplasm of colon Preop testing Encounter for screening for malignant neoplasm of colon [Z12.11] Preop testing [Z01.818] Procedures TX COLONOSCOPY FLX DX W/COLLJ SPEC WHEN PFRMD TX COLONOSCOPY FLEXIBLE WITH BAND LIGATION(S) COLONOSCOPY DIAGNOSTIC [...] Reason Onset Date Comments Medication Refill 03/14/2023 Reason Onset Date Comments Medication Refill 05/23/2023 Minerva Hardin CNP - 11/05/2019 8:34 AM EDT Consult Notes (unrecognized section and content) Associated Order(s): IP CONSULT TO CARDIOLOGY General Cardiology Inpatient Consult Heart & Vascular [facility] 11/05/2019 Minerva Hardin CNP [facility] Patient: Emelia Blum Date of : [...] 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 She underwent testing in [place], [place]; that included an echo, stress test, and CT (records have been requested). It was around this time she was diagnosed with sleep apnea and placed on CPAP. Patient reports that in 2016 she weighed approximately 205 pounds and is [...] age 89 of pancreatic cancer, history of [place] in 40s Mother: age 84, heart issues [...] last summer and underwent cardiac testing and [facility] (records pending). It was at that [...] mg at 11/05/19 0919 perflutren lipid microspheres ([employer]) 0.143 mg/mL solution 0-10 mL of mixture [...] 6:39 PM EDT I personally performed a okif-ls-oalm diagnostic evaluation on this patient on the same calendar day as the [employer]'s evaluation. I agree with the care plan documented by the [employer] with the following additions/comments. Assessment/Plan: 59-year-old lady with symptom consistent with pericarditis. She had a similar episode a year ago. Her echocardiogram revealed structurally and functionally normal heart with no pleural effusion. Serial cardiac biomarkers were unremarkable. EKG showed no acute ischemic change. She also endorsed occasional palpitation. Recommendation Colchicine 0.6 mg twice daily for 14 days 30-day event monitor Pernell Mac MD, FACC Interventional Cardiology/Structural Heart Disease [facility] documented in this encounter Linda Kang RN - 11/04/2019 10:41 PM EDTMLinda Ruiz RN - 11/04/2019 7:57 PM EDTSGreer ya CNP - 11/04/2019 7:56 PM EDMagdalene Pettit - 11/04/2019 7:52 PM EDT ED Notes (unrecognized secti on and content) Report called to Betty on 4th floor Patient arrived with complaints of chest pain and tightness in back . States pain was 10/10 prior to arrival. EMS reports she received 324 mg of ASA and 2 nitro tab with relief of symptoms. [facility] ED DENIS Note: NAME: Emelia Blum 59 y.o. CSN: [id number] PCP: Tara Diaz DO History: Chief Complaint: [...] file Gets together: Not on file Attends synagogue service: Not on file Active member of [...] Procedure Abnormality Status --------- ------ CBC Auto Differential[[id number]] Final result Please view results for these tests on the individual orders. TROPONIN CBC WITH AUTO DIFFERENTIAL XR Chest 1 View Final Result Nonacute portable chest. Workstation ID: [id number] MDM: .Special isolation precautions are in place with signage outside this patient's room. This [employer] performs hand hygiene and enters the patient [...] admitted [facility] Advanced Practice Provider [facility] Emergency Department (Please note that portions [...] (unrecog nized section and content) Seen by [facility] and reviewed AVS. Verbalized understanding and denies further needs. Associated Problem(s): Unstable angina (HCC) Patient presented with sudden onset of chest discomfort (positional), palpitations, lightheadedness, diaphoresis, and hand and lip numbness. She had a similar episode last summer and underwent cardiac testing and [facility] (records pending). It was at that [...] Care Teams (unrecognized sec tion and content) Hydraulic Barker Operator Relationship Specialty Start Date End Date Tara Diaz DO [address] [facility] [address] [place] [address] PCP - General Internal Medicine 11/04/19 Hydraulic Barker Operator Relationship Specialty Start Date End Date Tara Diaz DO [address] [facility] [address] [place] [address] PCP - General Internal Medicine 11/04/19 Hydraulic Barker Operator Relationship Specialty Start Date End Date Tara Diaz DO [address] [facility] [address] [place] [address] PCP - General Internal Medicine 11/04/19 Hydraulic Barker Operator Relationship Specialty Start Date End Date Tara Diaz DO [address] [facility] [address] [place] [address] PCP - General Internal Medicine 11/04/19 Hydraulic Barker Operator Relationship Specialty Start Date End Date Tara Diaz DO [address] [facility] [address] [place] [address] PCP - General Internal Medicine 11/04/19 Hydraulic Barker Operator Relationship Specialty Start Date End Date Tara Diaz DO [address] [facility] [address] [place] [address] PCP - General Internal Medicine 11/04/19 Hydraulic Barker Operator Relationship Specialty Start Date End Date Tara Diaz DO [address] [place] [address] [address] [place] [address] PCP - General Internal Medicine 11/04/19 Hydraulic Barker Operator Relationship Specialty Start Date End Date Tara Diaz DO [address] [facility] [address] [place] [address] PCP - General Internal Medicine 11/04/19 <item> Privacy Markings (unrecogniz ed section and content) Section Author: Cindy Berman PROHIBITION ON REDISCLOSURE OF CONFIDENTIAL INFORMATION This [...] BE BASED ON THE PRIMARY CLINICAL RECORDS. [employer] provides no warranty or guarantee of the accuracy or completeness of information in this document.
== END | disposition home or self-care (01) ==
LOC: MRI 06:19
PROVIDERS: PCP Internal Medicine; Referring Provider Internal Medicine; Visit Provider Internal Medicine
DX: R94.131 Abnormal electromyogram [EMG] (principal)
CPT/HCPCS: 70551